=== PATIENT | female | born 1935 | race Caucasian/White ===

== ENCOUNTER 2017-09-01 16:34 | Inpatient (IN) | payer OTHER ==
[~2017-09-01] VITALS: Ht 157.5 cm; Wt 83.9 kg
[~2017-09-01 16:34] MED LIST: ATOR-26 PO; CETI10TA10 PO; DILT-213 PO; FURO40TA3 PO; GABA100C13 PO; GLIM4TAB2 PO; ISOS-10 PO; KETO2CRE14 TOP; LISI20TA3 PO; MAGN400T24 PO; METF1000 PO; METO-596 PO; NITR0.4S UT; OMEGCAP2 PO; OMEP20CA9 PO; ONDA4TAB7 SL; PROBCAP PO; TYLOTC500 PO
--- NOTE | 2017-09-01 17:03 | DIAGNOSTIC IMAGING REPORT ---
SINGLE VIEW CHEST CLINICAL HISTORY: Generalized weakness. FINDINGS: An AP, portable, upright chest radiograph is obtained. No prior studies are available for comparison at the time of dictation. The examination is degraded by portable technique and patient rotation. The patient is status post midline sternotomy. The heart is enlarged and there is atherosclerotic calcification of the thoracic aorta. The pulmonary vasculature is noncongested. Nonspecific interstitial thickening is likely chronic. No airspace consolidation or large pleural effusion is identified. No pneumothorax is seen. The skeletal structures are osteopenic. The bony thorax is grossly intact. IMPRESSION: Mild cardiac enlargement with no acute cardiopulmonary abnormality. Electronically signed by: Serge Adair M.D. 09/01/2017 5:02 PM Dictated Date/Time: 09/01/2017 5:01 PM
[2017-09-01] MEDS ORDERED: KETO2SHA5 TOP (18:04)
[2017-09-01] MEDS ORDERED: MAGN400T5 PO (18:06)
[2017-09-01] MEDS ORDERED: CAMPLOT10 TOP (18:06)
[2017-09-01] MEDS ORDERED: HYDR-3124 PO (18:06)
[2017-09-01 18:23] LABS: BASO % 0.2 %; BASO ABS # 0.01 K/uL (0-0.2); EOS % 1.4 %; EOS ABS # 0.07 K/uL (0-0.5); HEMATOCRIT 36.4 % (37-47); HEMOGLOBIN 12.1 g/dL (12.0-16.0); IG# 0.01 K/uL (0.00-0.02); LYMPH % 10.2 %; MEAN CORPUSCULAR HEMOGLOBIN 29.6 pg (25-34); MEAN CORPUSCULAR HGB CONC 33.2 g/dl (32-36); MEAN PLATELET VOLUME 10.7 fL (7.4-10.4); MONO % 13.3 %; MONO ABS # 0.65 K/uL (0.11-0.59); NEUT % 74.7 %; NEUT ABS # 3.64 K/uL (1.4-6.5); PLATELET COUNT 202 K/uL (130-400); RED CELL DISTRIBUTION WIDTH CV 14.3 % (11.5-14.5); RED CELL DISTRIBUTION WIDTH SD 46.7 fL (36.4-46.3); WHITE BLOOD COUNT 4.88 K/uL (4.8-10.8)
[2017-09-01 18:30] LABS: PTT PATIENT 26.6 SECONDS (21.0-31.0)
[2017-09-01 18:43] LABS: CREATININE 1.45 mg/dl (0.60-1.20); POTASSIUM 4.1 mmol/L (3.5-5.1)
[2017-09-01 18:54] LABS: TOTAL PROTEIN 6.9 gm/dl (6.4-8.2)
[2017-09-01] MEDS: HEPARIN SOD 5000 UNIT/0.5 ML CARP SQ SCH (21:00)
[2017-09-01 21:18] LABS: INFLUENZA B ANTIGEN Neg for Influ B (NEG)
[2017-09-01 21:22] VITALS: O2SAT 95; Ht 157.5 cm; Wt 83.9 kg
[2017-09-01] MEDS ORDERED: ACETAMINOPHEN 500 MG TAB PO PRN (21:30)
[2017-09-01] MEDS ORDERED: ONDANSETRON INJ 2 MG/ML 2 ML VIAL IV PRN (21:30)
[2017-09-01] MEDS ORDERED: NITROGLYCERIN 0.4 MG SL PER TAB CHARGE UT SCH (21:30)
[2017-09-01] MEDS ORDERED: hydrOXYzine HCL 25 MG TAB PO PRN (21:30)
[2017-09-01] MEDS ORDERED: IV FLUIDS COMPLETED PRN (21:45)
--- NOTE | 2017-09-01 21:58 | History and Physical ---
History & Physical Date & Time of Service: Sep 01, 2017 at 21:35 Chief Complaint: Weakness Past 3 Days,Sled out of bed this morning. Primary Care Physician: Moise Rashid M.D. History of Present Illness Source: patient, family (Son and [id number]) She is an 82-year-old female with significant past medical history of CAD type 2 diabetes chronic kidney disease adjustment disorder with depressed mood hypertension and hyperlipidemia and apparently has been complaining of weakness and tiredness since Tuesday last. She lives with her and her is having flu symptoms she does have cough and occasional sneezing but no other symptoms. For the last 2 days she has been complaining of more weakness. She usually walks around with the use of walker or a cane at times recently she can hardly do that due to weakness in the legs. This morning she tried to come out of bed and she is slated on the floor and from that point she was advised to come to the emergency room. She denies to have any flu symptoms and a cough any phlegm any chest pain shortness of breath palpitation. Does not have any abdominal pain nausea and/ or vomiting. Denies to any fever chills or riders. Does not have any problem with urine or bowel habit. In the ER she was very weak to move around and from this point she was advised for admission her labs and imaging studies were unremarkable. Past Medical/Surgical History Medical Problems: #1 CAD specified vessel #2 type 2 diabetes #3 chronic kidney disease stage III # 4 adjustment disorder with depressed mood #5 hyperlipidemia #6 hypertension #7 osteoarthritis (1) Ambulatory dysfunction (2) Knee pain (3) Knee pain (4) Sinusitis Past surgical history 1. Benign restless simulation excision #2 delivery #3 CABG 3 #4 appendectomy as a child Family History Social history she is and she lives with her She is a former smoker, smoked 1 pack per day for 20 years. No use of alcohol and no drugs She is ambivalent at home with the use of walker and a cane at times. Social History Smoking Status: Former Smoker Smokeless Tobacco Use: No Alcohol Use: none Drug Use: none Marital Status: Housing status: lives with family Occupational Status: unemployed Immunizations History of Influenza Vaccine: Yes History of Tetanus Vaccine?: Yes (2003) History of Pneumococcal: Yes (1997) History of Hepatitis B Vaccine: Unknown Other Immunizations: Varicella Zoster-05/17/2014 Allergies Coded Allergies: Aspirin (Verified Allergy, Severe, PEPTIC ULCER DISEASE WITH HEMMORAGE, 09/01/17) Codeine (Verified Allergy, Unknown, UNKNOWN, 09/01/17) Oxytetracycline (Unverified Allergy, Unknown, SEVERE SWELLING, 03/04/14) Polymyxin B (Unverified Allergy, Unknown, SEVERE SWELLING, 03/04/14) Home Medications Scheduled Atorvastatin (Lipitor), 80 MG PO DAILY Cetirizine Hcl (Zyrtec), 10 MG PO DAILY Diltiazem Hcl Coated Beads (Diltiazem Hcl Er), 120 MG PO DAILY Furosemide (Lasix), 40 MG PO DAILY Gabapentin (Neurontin), 200 MG PO BID Gabapentin (Neurontin), 400 MG PO HS Glimepiride (Glimepiride), 8 MG PO DAILY Isosorbide Mononitrate (Isosorbide Mononitrate ER), 60 MG PO DAILY Lisinopril (Prinivil), 20 MG PO DAILY Magnesium Oxide (Mag-Ox), 400 MG PO BID Metformin Hcl (Glucophage), 1,000 MG PO BID Metoprolol Tartrate (Lopressor), 100 MG PO BID Nitroglycerin (Nitrostat), 0.4 MG UT PRN [place]-3 Fatty Acids (Fish Oil), 1,000 MG PO TID Omeprazole (Prilosec), 20 MG PO BID Scheduled PRN Acetaminophen (Tylenol), 1,000 MG PO Q6 PRN for Pain or Fever Camphor & Menthol (Sarna), 1 APPLN TOP DAILY PRN for DRY SKIN Hydroxyzine Hcl (Atarax), 25 MG PO HS PRN for Itching Ketoconazole (Topical) (Nizoral), 1 APPLN TOP 2XWK PRN for UNDER BREAST Review of Systems Constitutional: + fatigue Respiratory: + cough Musculoskeletal: + muscle pain Neurologic: + weakness (Bilateral Legs) Endocrine: + fatigue Physical Exam Vital Signs Date Time Temp Pulse Resp B/P (MAP) Pulse Ox O2 Delivery O2 Flow Rate FiO2 09/01/17 20:54 74 24 139/72 95 Room Air 09/01/17 18:36 73 16 110/53 93 Room Air 09/01/17 17:59 72 09/01/17 17:46 74 24 121/58 95 Room Air 09/01/17 17:34 74 121/58 124/84 92/56 09/01/17 17:14 37.0 75 18 95/45 95 Room Air 09/01/17 17:14 96 Room Air General Appearance: no apparent distress Head: normocephalic Eyes: normal inspection ENT: normal ENT inspection Neck: supple Respiratory/Chest: chest non-tender, lungs clear Cardiovascular: regular rate, rhythm, no edema, no gallop Abdomen/GI: normal bowel sounds, non tender, soft, no organomegaly Genitourinary - Female: external genitalia normal Back: normal inspection Extremities/Musculoskelatal: normal inspection, no calf tenderness Neurologic/Psych: no motor/sensory deficits, alert, normal mood/affect Skin: normal color Lymphatic: no adenopathy Diagnostics Laboratory Results Results Past 24 Hours Test 09/01/17 17:24 09/01/17 17:28 09/01/17 18:08 09/01/17 20:15 Range/Units Bedside Glucose 151 70-90 mg/dl White Blood Count 4.88 4.8-10.8 K/uL Red Blood Count 4.09 4.2-5.4 M/uL Hemoglobin 12.1 12.0-16.0 g/dL Hematocrit 36.4 37-47 % Mean Corpuscular Volume 89.0 80-100 fL Mean Corpuscular Hemoglobin 29.6 25-34 pg Mean Corpuscular Hemoglobin Concent 33.2 32-36 g/dl Platelet Count 202 130-400 K/uL Mean Platelet Volume 10.7 7.4-10.4 fL Neutrophils (%) (Auto) 74.7 % Lymphocytes (%) (Auto) 10.2 % Monocytes (%) (Auto) 13.3 % Eosinophils (%) (Auto) 1.4 % Basophils (%) (Auto) 0.2 % Neutrophils # (Auto) 3.64 1.4-6.5 K/uL Lymphocytes # (Auto) 0.50 1.2-3.4 K/uL Monocytes # (Auto) 0.65 0.11-0.59 K/uL Eosinophils # (Auto) 0.07 0-0.5 K/uL Basophils # (Auto) 0.01 0-0.2 K/uL RDW Standard Deviation 46.7 36.4-46.3 fL RDW Coefficient of Variation 14.3 11.5-14.5 % Immature Granulocyte % (Auto) 0.2 % Immature Granulocyte # (Auto) 0.01 0.00-0.02 K/uL Prothrombin Time 10.2 9.0-12.0 SECONDS Prothromb Time International Ratio 1.0 0.9-1.1 Activated Partial Thromboplast Time 26.6 21.0-31.0 SECONDS Partial Thromboplastin Ratio 1.0 Sodium Level 139 136-145 mmol/L Potassium Level 4.1 3.5-5.1 mmol/L Chloride Level 107 98-107 mmol/L Carbon Dioxide Level 24 21-32 mmol/L Anion Gap 8.0 3-11 mmol/L Blood Urea Nitrogen 21 7-18 mg/dl Creatinine 1.45 0.60-1.20 mg/dl Est Creatinine Clear Calc Drug Dose 30.0 ml/min Estimated GFR () 38.8 Estimated GFR (Non- 33.5 BUN/Creatinine Ratio 14.6 10-20 Random Glucose 160 70-99 mg/dl Calcium Level 9.0 8.5-10.1 mg/dl Magnesium Level 1.8 1.8-2.4 mg/dl Total Bilirubin 0.6 0.2-1 mg/dl Direct Bilirubin 0.1 0-0.2 mg/dl Aspartate Amino Transf (AST/SGOT) 14 15-37 U/L Alanine Aminotransferase (ALT/SGPT) 15 12-78 U/L Alkaline Phosphatase 79 45-117 U/L Troponin I 0.019 0-0.045 ng/ml Pro-B-Type Natriuretic Peptide 2564 0-1800 pg/ml Total Protein 6.9 6.4-8.2 gm/dl Albumin 3.0 3.4-5.0 gm/dl Lipase 372 73-393 U/L Thyroid Stimulating Hormone (TSH) 1.510 0.300-4.500 uIu/ml Urine Color YELLOW Urine Appearance CLEAR CLEAR Urine pH 7.0 4.5-7.5 Urine Specific [place] 1.010 1.000-1.030 Urine Protein NEG NEG Urine Glucose (UA) NEG NEG Urine Ketones NEG NEG Urine Occult Blood NEG NEG Urine Nitrite NEG NEG Urine Bilirubin NEG NEG Urine Urobilinogen NEG NEG Urine Leukocyte Esterase NEG NEG Influenza Type A Antigen Neg for Influ A NEG Influenza Type B Antigen Neg for Influ B NEG CXR normal (Mild Cardiomegaly) EKG Abnormal-RBBB without any change compared with prior Impression Assessment and Plan AMBULATORY DYSFUNCTION Due to weakness in both legs without any other neurological symptoms Bryant out of bed this morning Has been complaining of weak legs for the last 2 days We will observation MedSurg with PT and OT evaluation and possible placement for rehab Her labs and imaging studies and EKG were unremarkable. CAD with history of CABG 3. No acute issue. We will continue current medications. CHRONIC KIDNEY DISEASE STAGE III BUN and creatinine is normal We will not make any change in her medications and/or fluid level. Type 2 diabetes We will hold metformin and check hemoglobin A1c in the morning. Put her on sliding scale insulin coverage with before meals at bedtime blood sugar checkup. Hypertension Remains stable and continue current medication. Hyperlipidemia Continue statin. GI prophylaxis With omeprazole DVT prophylaxis With heparin subcu CODE STATUS-level 3 that is resuscitation without mechanical ventilation. The beneficiary meets criteria for 2 midnight admission in the hospital. Resuscitation Status VTE Prophylaxis Will order VTE Prophylaxis: Yes
[2017-09-01] MEDS ORDERED: DEXTROSE 50% 50 ML SYR IV PRN (22:15)
[2017-09-01] MEDS ORDERED: GLUCAGON FOR INJ 1 MG VIAL SQ PRN (22:15)
[2017-09-01] MEDS ORDERED: GLUCOSE 40% GEL 15 GM TUBE PO PRN (22:15)
[2017-09-01] MEDS ORDERED: GLUCOSE 10 TABS/TUBE PO PRN (22:15)
[2017-09-01 22:26] VITALS: BP 117/69; PULSE 78; TEMP 37; O2SAT 98
--- NOTE | 2017-09-01 22:29 | EMERGENCY ROOM VISIT NOTE ---
History Report prepared by Feliz: Xavier Gonzalez Under the Supervision of: Dr. Johnathan Ruiz D.O. First contact with patient: 16:36 Chief Complaint: WEAKNESS Stated Complaint: WEAKNESS PAST 3 DAYS History of Present Illness The patient is an 82 year old female who presents to the Emergency Room via EMS with complaints of worsening generalized weakness that started 3 days ago. Per the nursing staff, the patient became nonambulatory today. She is coming from home. The patient states that he extremities "kept jumping" last night, and when she tried to get out of bed this morning, she was unable to walk because her legs were too weak. She has no pain at this point. Twitching has resolved. The patient states that she has a chronic cough and runny nose, but her cough has became productive recently. She has no noted history of COPD. The patient says that she chronically has diarrhea, and her last bowel movement was a few days ago, which is not unusual for her. She denies any chest pain, shortness of breath, abdominal pain, nausea, vomiting, pain or burning with urination, or unilateral weakness. She adds that she did fall today trying to get out of bed. Source of History: patient, nursing staff Onset: 3 days ago Position: other (global) Symptom Intensity: unable to walk Quality: other (weakness) Timing: worsening Associated Symptoms: + cough (has become productive), No chest pain, No SOB , No nausea, No vomiting, No abdominal pain, No urinary symptoms Note: Denies unilateral weakness. Review of Systems See HPI for pertinent positives & negatives. A total of 10 systems reviewed and were otherwise negative. Past Medical & Surgical Medical Problems: (1) Ambulatory dysfunction (2) Sinusitis Family History Family history omitted secondary to patient's advanced age. Social History Smoking Status: Unknown if Ever Smoked Drug Use: none Marital Status: Housing Status: lives with family Occupation Status: retired Current/Historical Medications Scheduled Atorvastatin (Lipitor), 80 MG PO DAILY Cetirizine Hcl (Zyrtec), 10 MG PO DAILY Diltiazem Hcl Coated Beads (Diltiazem Hcl Er), 120 MG PO DAILY Furosemide (Lasix), 40 MG PO DAILY Gabapentin (Neurontin), 200 MG PO BID Gabapentin (Neurontin), 400 MG PO HS Glimepiride (Glimepiride), 8 MG PO DAILY Isosorbide Mononitrate (Isosorbide Mononitrate ER), 60 MG PO DAILY Lisinopril (Prinivil), 20 MG PO DAILY Magnesium Oxide (Mag-Ox), 400 MG PO BID Metformin Hcl (Glucophage), 1,000 MG PO BID Metoprolol Tartrate (Lopressor), 100 MG PO BID Nitroglycerin (Nitrostat), 0.4 MG UT PRN [place]-3 Fatty Acids (Fish Oil), 1,000 MG PO TID Omeprazole (Prilosec), 20 MG PO BID Scheduled PRN Acetaminophen (Tylenol), 1,000 MG PO Q6 PRN for Pain or Fever Camphor & Menthol (Sarna), 1 APPLN TOP DAILY PRN for DRY SKIN Hydroxyzine Hcl (Atarax), 25 MG PO HS PRN for Itching Ketoconazole (Topical) (Nizoral), 1 APPLN TOP 2XWK PRN for UNDER BREAST Allergies Coded Allergies: Aspirin (Verified Allergy, Severe, PEPTIC ULCER DISEASE WITH HEMMORAGE, 09/01/17) Codeine (Verified Allergy, Unknown, UNKNOWN, 09/01/17) Oxytetracycline (Unverified Allergy, Unknown, SEVERE SWELLING, 03/04/14) Polymyxin B (Unverified Allergy, Unknown, SEVERE SWELLING, 03/04/14) Physical Exam Vital Signs Date Time Temp Pulse Resp B/P (MAP) Pulse Ox O2 Delivery O2 Flow Rate FiO2 09/01/17 21:22 95 Room Air 09/01/17 20:54 74 24 139/72 95 Room Air 09/01/17 18:36 73 16 110/53 93 Room Air 09/01/17 17:59 72 09/01/17 17:46 74 24 121/58 95 Room Air 09/01/17 17:34 74 121/58 124/84 92/56 09/01/17 17:14 37.0 75 18 95/45 95 Room Air 09/01/17 17:14 96 Room Air Physical Exam GENERAL: Ill-appearing, no acute distress, nontoxic EYE EXAM: normal conjunctiva. PERRL and EOM's intact. OROPHARYNX: no exudate, no erythema, lips, buccal mucosa, and tongue normal and mucous membranes are moist NECK: supple, no nuchal rigidity, no adenopathy, non-tender LUNGS: Clear to auscultation. Normal chest wall mechanics HEART: no murmurs, S1 normal and S2 normal ABDOMEN: abdomen soft, non-tender, normo-active bowel sounds, no masses, no rebound or guarding. BACK: Back is symmetrical on inspection and there is no deformity, no midline tenderness, no CVA tenderness. SKIN: no rashes and no bruising UPPER EXTREMITIES: upper extremities are grossly normal. LOWER EXTREMITIES: No pitting edema. NEURO EXAM: Normal sensorium, cranial nerves II-XII intact, normal speech, no weakness of arms, no weakness of legs. No drift. Finger to nose intact. Gross sensation intact. Medical Decision & Procedures ER Provider Diagnostic Interpretation: X-ray results as stated below per my review and the radiologist's interpretation : SINGLE VIEW CHEST CLINICAL HISTORY: Generalized weakness. FINDINGS: An AP, portable, upright chest radiograph is obtained. No prior studies are available for comparison at the time of dictation. The examination is degraded by portable technique and patient rotation. The patient is status post midline sternotomy. The heart is enlarged and there is atherosclerotic calcification of the thoracic aorta. The pulmonary vasculature is noncongested. Nonspecific interstitial thickening is likely chronic. No airspace consolidation or large pleural effusion is identified. No pneumothorax is seen. The skeletal structures are osteopenic. The bony thorax is grossly intact. IMPRESSION: Mild cardiac enlargement with no acute cardiopulmonary abnormality. Electronically signed by: Serge Adair M.D. 09/01/2017 5:02 PM Dictated Date/Time: 09/01/2017 5:01 PM Laboratory Results 09/01/17 17:28 Red Blood Count 4.09, Mean Corpuscular Volume 89.0, Mean Corpuscular Hemoglobin 29.6, Mean Corpuscular Hemoglobin Concent 33.2, Mean Platelet Volume 10.7, Neutrophils (%) (Auto) 74.7, Lymphocytes (%) (Auto) 10.2, Monocytes (%) (Auto) 13.3, Eosinophils (%) (Auto) 1.4, Basophils (%) (Auto) 0.2, Neutrophils # (Auto ) 3.64, Lymphocytes # (Auto) 0.50, Monocytes # (Auto) 0.65, Eosinophils # (Auto ) 0.07, Basophils # (Auto) 0.01 09/01/17 17:28 Test 09/01/17 17:24 09/01/17 17:28 4/5/18 18:08 09/01/17 20:15 Bedside Glucose 151 mg/dl (70-90) White Blood Count 4.88 K/uL (4.8-10.8) Red Blood Count 4.09 M/uL (4.2-5.4) Hemoglobin 12.1 g/dL (12.0-16.0) Hematocrit 36.4 % (37-47) Mean Corpuscular Volume 89.0 fL (80-100) Mean Corpuscular Hemoglobin 29.6 pg (25-34) Mean Corpuscular Hemoglobin Concent 33.2 g/dl (32-36) Platelet Count 202 K/uL (130-400) Mean Platelet Volume 10.7 fL (7.4-10.4) Neutrophils (%) (Auto) 74.7 % Lymphocytes (%) (Auto) 10.2 % Monocytes (%) (Auto) 13.3 % Eosinophils (%) (Auto) 1.4 % Basophils (%) (Auto) 0.2 % Neutrophils # (Auto) 3.64 K/uL (1.4-6.5) Lymphocytes # (Auto) 0.50 K/uL (1.2-3.4) Monocytes # (Auto) 0.65 K/uL (0.11-0.59) Eosinophils # (Auto) 0.07 K/uL (0-0.5) Basophils # (Auto) 0.01 K/uL (0-0.2) RDW Standard Deviation 46.7 fL (36.4-46.3) RDW Coefficient of Variation 14.3 % (11.5-14.5) Immature Granulocyte % (Auto) 0.2 % Immature Granulocyte # (Auto) 0.01 K/uL (0.00-0.02) Prothrombin Time 10.2 SECONDS (9.0-12.0) Prothromb Time International Ratio 1.0 (0.9-1.1) Activated Partial Thromboplast Time 26.6 SECONDS (21.0-31.0) Partial Thromboplastin Ratio 1.0 Anion Gap 8.0 mmol/L (3-11) Est Creatinine Clear Calc Drug Dose 30.0 ml/min Estimated GFR () 38.8 Estimated GFR (Non- 33.5 BUN/Creatinine Ratio 14.6 (10-20) Calcium Level 9.0 mg/dl (8.5-10.1) Magnesium Level 1.8 mg/dl (1.8-2.4) Total Bilirubin 0.6 mg/dl (0.2-1) Direct Bilirubin 0.1 mg/dl (0-0.2) Aspartate Amino Transf (AST/SGOT) 14 U/L (15-37) Alanine Aminotransferase (ALT/SGPT) 15 U/L (12-78) Alkaline Phosphatase 79 U/L (45-117) Troponin I 0.019 ng/ml (0-0.045) Pro-B-Type Natriuretic Peptide 2564 pg/ml (0-1800) Total Protein 6.9 gm/dl (6.4-8.2) Albumin 3.0 gm/dl (3.4-5.0) Lipase 372 U/L (73-393) Thyroid Stimulating Hormone (TSH) 1.510 uIu/ml (0.300-4.500) Urine Color YELLOW Urine Appearance CLEAR (CLEAR) Urine pH 7.0 (4.5-7.5) Urine Specific [place] 1.010 (1.000-1.030) Urine Protein NEG (NEG) Urine Glucose (UA) NEG (NEG) Urine Ketones NEG (NEG) Urine Occult Blood NEG (NEG) Urine Nitrite NEG (NEG) Urine Bilirubin NEG (NEG) Urine Urobilinogen NEG (NEG) Urine Leukocyte Esterase NEG (NEG) Influenza Type A Antigen Neg for Influ A (NEG) Influenza Type B Antigen Neg for Influ B (NEG) Laboratory results per my review. ECG Per My Interpretation Indication: weakness Rate (beats per minute): 73 Rhythm: sinus rhythm Findings: Q waves (Inferior), ST depression (Septal), T-wave inversion (Septal) , other (normal axis, poor baseline in lateral) Comparison ECG Date: no prior available ED Course ED COURSE: Vital signs were reviewed and showed normal vitals. The patients medical record was reviewed The above diagnostic studies were performed and reviewed. ED treatments and interventions as stated above. 1636: The patient was evaluated in room B12B. A complete history and physical examination was performed. 1922: I reevaluated and updated the patient. 2054: Upon reevaluation, the patient is resting comfortably.I discussed my findings with the patient and she understands and agrees with the treatment plan. Based on the patients age, coexisting illnesses, exam and lab findings the decision to treat as an inpatient was made. The patient remained stable while under my care. The patient will be evaluated for further management. 2057: I reviewed the patient's case with Dr. Delia Tony hides inspector. He will evaluate the patient for further management. Medical Decision Differential Diagnosis includes but is not limited to dehydration, stroke, anemia, hypoglycemia, hyponatremia, hypernatremia, urinary tract infection, pneumonia, bronchitis, sepsis, gastroenteritis, additional abdominal pathology, metabolic abnormalities and infections. Patient is an 82-year-old female that presents the ER as she is feeling weak. She was unable to get up and she fell to her knees. She did not hit her head. No loss consciousness. She has no other complaints with the exception that she has twitching in her extremities intermittently and is unable to ambulate as she is too weak. She also admits to cough. CBC along with BMP, LFTs, TSH, lipase, troponin were all negative. UA was negative. Influenza was negative. Chest x-ray was unremarkable. Attempted to have patient ambulate in the room twice with a walker but was unsuccessful. Patient lives at home with in a trailer and family does not believe that she can go home. She would need PT and OT placement. Discussed with internal medicine for observation. Medication Reconcilliation Current Medication List: was personally reviewed by me Blood Pressure Screening Patient's blood pressure: Normal blood pressure Consults Time Called: 2054 Consulting Physician: Dr. Delia Tony hides inspector Returned Call: [phone] I reviewed the patient's case with Dr. Delia Tony hides inspector. He will evaluate the patient for further management. Impression Primary Impression: Ambulatory dysfunction Scribe Attestation The scribe's documentation has been prepared under my direction and personally reviewed by me in its entirety. I confirm that the note above accurately reflects all work, treatment, procedures, and medical decision making performed by me. Departure Information Dispostion Being Evaluated By Hospitalist Moise Latham M.D. (PCP) Patient Instructions My [facility]
[2017-09-02] VITALS (8 sets, daily range): BP systolic 100–124; BP diastolic 63–74; PULSE 71–89; TEMP 36.8–36.9; O2SAT 89–98
[2017-09-02 06:47] LABS: HEMATOCRIT 36.7 % (37-47); HEMOGLOBIN 12.4 g/dL (12.0-16.0); MEAN CELL VOLUME 88.2 fL (80-100); MEAN CORPUSCULAR HEMOGLOBIN 29.8 pg (25-34); MEAN CORPUSCULAR HGB CONC 33.8 g/dl (32-36); MEAN PLATELET VOLUME 10.4 fL (7.4-10.4); PLATELET COUNT 189 K/uL (130-400); RED CELL DISTRIBUTION WIDTH CV 14.7 % (11.5-14.5); RED CELL DISTRIBUTION WIDTH SD 47.5 fL (36.4-46.3); WHITE BLOOD COUNT 4.99 K/uL (4.8-10.8)
[2017-09-02 07:21] LABS: CALCIUM 8.7 mg/dl (8.5-10.1); CREATININE 1.42 mg/dl (0.60-1.20); POTASSIUM 3.9 mmol/L (3.5-5.1)
[2017-09-02] MEDS ORDERED: ISOSORBIDE MONONITRATE 60 MG TABCR PO SCH (08:00)
[2017-09-02] MEDS ORDERED: GLIMEPIRIDE 2 MG TAB PO SCH (08:00)
[2017-09-02] MEDS ORDERED: ATORVASTATIN 40 MG TAB PO SCH (08:00)
[2017-09-02] MEDS ORDERED: FUROSEMIDE 40 MG TAB PO SCH (08:00)
[2017-09-02] MEDS ORDERED: LISINOPRIL 20 MG TAB PO SCH (08:00)
[2017-09-02] MEDS: MAGNESIUM OXIDE 400 MG TAB PO SCH ×2 (08:51→19:52)
[2017-09-02] MEDS: PANTOprazole SOD 40 MG TAB PO SCH ×2 (08:51→19:53)
[2017-09-02] MEDS: DILTIAZEM HCL 120 MG CAPCR PO SCH (08:52)
[2017-09-02] MEDS: GABAPENTIN 100 MG CAP PO SCH ×2 (08:52→14:29)
[2017-09-02] MEDS: CETIRIZINE HCL 10 MG TAB PO SCH (08:53)
[2017-09-02] MEDS: METOPROLOL TARTRATE 100 MG TAB PO SCH ×2 (08:54→19:53)
[2017-09-02] MEDS: HEPARIN SOD 5000 UNIT/0.5 ML CARP SQ SCH ×2 (09:00→20:17)
[2017-09-02] MEDS: INSULIN ASPART 100 UNITS/ML 3 ML PEN SC SCH ×4 (09:02→21:00)
[2017-09-02 09:09] LABS: HEMOGLOBIN A1C 7.4 % (4.5-5.6)
--- NOTE | 2017-09-02 09:17 | Progress Note ---
Medicine Progress Note Date & Time of Visit: Sep 02, 2017 at 09:09. Subjective seen resting in bed alert, oriented x 3 in good spirits reports progressive leg weakness x 2 weeks also has uncontrolled shaking of the lower>upper extremities denies muscle cramping no numbness, paresthesias no dizziness, dyspnea, chest pain, abdominal pain, back pain Objective Last 8 Hrs Date Time Temp Pulse Resp B/P (MAP) Pulse Ox O2 Delivery O2 Flow Rate FiO2 09/02/17 09:08 98 Nasal Cannula 2.0 09/02/17 07:41 36.8 83 18 110/72 (85) 98 Nasal Cannula 2.0 09/02/17 06:01 95 Nasal Cannula 2.0 09/02/17 06:00 89 Room Air 09/02/17 01:11 Room Air Physical Exam: General- oriented x 3, not in distress, speaks in sentences with no effort Head- atraumatic Eyes- PERRL, EOMI, anicteric ENT- oropharynx clear Neck- supple, no JVD, no adenopathy, no thyromegaly; carotids +2/2 Lungs- faint wheeze at the bases, good air entry bilaterally Heart- regular rhythm; no murmur, normal rate Abdomen- normal bowel sounds, soft, nontender, no masses or hepatosplenomegaly Extremities- no pretibial edema, no calf tenderness; peripheral pulses intact Neuro- alert, oriented x 3; PERRL, EOMI; no facial palsy; no dysarthria; motor 5 /5 bilaterally; sensation 100% no other gross focal deficits Skin- warm & dry Laboratory Results: Last 24 Hours Test 09/01/17 17:24 09/01/17 17:28 09/01/17 18:08 09/01/17 20:15 Bedside Glucose 151 mg/dl White Blood Count 4.88 K/uL Red Blood Count 4.09 M/uL Hemoglobin 12.1 g/dL Hematocrit 36.4 % Mean Corpuscular Volume 89.0 fL Mean Corpuscular Hemoglobin 29.6 pg Mean Corpuscular Hemoglobin Concent 33.2 g/dl Platelet Count 202 K/uL Mean Platelet Volume 10.7 fL Neutrophils (%) (Auto) 74.7 % Lymphocytes (%) (Auto) 10.2 % Monocytes (%) (Auto) 13.3 % Eosinophils (%) (Auto) 1.4 % Basophils (%) (Auto) 0.2 % Neutrophils # (Auto) 3.64 K/uL Lymphocytes # (Auto) 0.50 K/uL Monocytes # (Auto) 0.65 K/uL Eosinophils # (Auto) 0.07 K/uL Basophils # (Auto) 0.01 K/uL RDW Standard Deviation 46.7 fL RDW Coefficient of Variation 14.3 % Immature Granulocyte % (Auto) 0.2 % Immature Granulocyte # (Auto) 0.01 K/uL Prothrombin Time 10.2 SECONDS Prothromb Time International Ratio 1.0 Activated Partial Thromboplast Time 26.6 SECONDS Partial Thromboplastin Ratio 1.0 Sodium Level 139 mmol/L Potassium Level 4.1 mmol/L Chloride Level 107 mmol/L Carbon Dioxide Level 24 mmol/L Anion Gap 8.0 mmol/L Blood Urea Nitrogen 21 mg/dl Creatinine 1.45 mg/dl Est Creatinine Clear Calc Drug Dose 30.0 ml/min Estimated GFR () 38.8 Estimated GFR (Non- 33.5 BUN/Creatinine Ratio 14.6 Random Glucose 160 mg/dl Calcium Level 9.0 mg/dl Magnesium Level 1.8 mg/dl Total Bilirubin 0.6 mg/dl Direct Bilirubin 0.1 mg/dl Aspartate Amino Transf (AST/SGOT) 14 U/L Alanine Aminotransferase (ALT/SGPT) 15 U/L Alkaline Phosphatase 79 U/L Troponin I 0.019 ng/ml Pro-B-Type Natriuretic Peptide 2564 pg/ml Total Protein 6.9 gm/dl Albumin 3.0 gm/dl Lipase 372 U/L Thyroid Stimulating Hormone (TSH) 1.510 uIu/ml Urine Color YELLOW Urine Appearance CLEAR Urine pH 7.0 Urine Specific [place] 1.010 Urine Protein NEG Urine Glucose (UA) NEG Urine Ketones NEG Urine Occult Blood NEG Urine Nitrite NEG Urine Bilirubin NEG Urine Urobilinogen NEG Urine Leukocyte Esterase NEG Influenza Type A Antigen Neg for Influ A Influenza Type B Antigen Neg for Influ B Test 09/02/17 05:49 09/02/17 08:59 White Blood Count 4.99 K/uL Red Blood Count 4.16 M/uL Hemoglobin 12.4 g/dL Hematocrit 36.7 % Mean Corpuscular Volume 88.2 fL Mean Corpuscular Hemoglobin 29.8 pg Mean Corpuscular Hemoglobin Concent 33.8 g/dl RDW Standard Deviation 47.5 fL RDW Coefficient of Variation 14.7 % Platelet Count 189 K/uL Mean Platelet Volume 10.4 fL Sodium Level 139 mmol/L Potassium Level 3.9 mmol/L Chloride Level 107 mmol/L Carbon Dioxide Level 24 mmol/L Anion Gap 8.0 mmol/L Blood Urea Nitrogen 26 mg/dl Creatinine 1.42 mg/dl Est Creatinine Clear Calc Drug Dose 30.7 ml/min Estimated GFR () 39.8 Estimated GFR (Non- 34.3 BUN/Creatinine Ratio 18.1 Random Glucose 137 mg/dl Calcium Level 8.7 mg/dl Magnesium Level 1.8 mg/dl Total Creatine Kinase 150 U/L Bedside Glucose 186 mg/dl Assessment & Plan 82 year old female with history of CAD/CABG, DM 2, HTN, CKD 3, Depression presenting with bilateral leg weakness, shaking BILATERAL LEG WEAKNESS/SHAKING AMBULATORY DYSFUNCTION Her labs and imaging studies and EKG were unremarkable. -- from High Dose statin? CPK normal hold Atorvastatin for now -- from marginal BP? hold ISMN, Lisinopril, Lasix for today check Orthostatic Vital signs -- Restless Legs? Neuropathy? will consult Neurology -- PT/OT may need inpatient Rehab/SNF CAD with history of CABG 3. No acute issue. continue Metoprolol, Dilzem hold Lipitor, ISMN, LIsinopril ACUTE RENAL FAILURE on CHRONIC KIDNEY DISEASE STAGE III baseline crea 1.2 now 1.4 hold lasix and Lisinopril today monitor Type 2 diabetes A1c pending hold Metformin and Glimepiride with increased crea sliding scale insulin coverage with before meals at bedtime blood sugar checkup. Hypertension marginal BP hold ISMN, Lisinopril, Lasix for today check Orthostatic Vital signs Hyperlipidemia hold Statin in light of muscle weakness GI prophylaxis With omeprazole DVT prophylaxis With heparin subcu CODE STATUS-level 3 that is resuscitation without mechanical ventilation. Disposition PT/OT ordered may need rehab/SNF Current Inpatient Medications: Current Inpatient Medications Medications (Trade) Dose Ordered Sig/[place] Route Start Time Stop Time Status Last Admin Dose Admin Acetaminophen (Tylenol Tab) 650 mg Q4H PRN PO 09/01/17 21:30 10/01/17 21:29 Ondansetron HCl (Zofran Inj) 4 mg Q6H PRN IV 09/01/17 21:30 10/01/17 21:29 Heparin Sodium (Porcine) (Heparin Sq 5000 Unit/0.5ml) 5,000 unit Q12H SQ 09/01/17 21:00 10/01/17 20:59 Atorvastatin Calcium (Lipitor Tab) 80 mg DAILY PO 09/02/17 08:00 10/02/17 08:59 Cetirizine HCl (zyrTEC TAB) 10 mg DAILY PO 09/02/17 08:00 10/02/17 08:59 09/02/17 08:53 10 MG Diltiazem HCl (Cardizem Cd Cap) 120 mg DAILY PO 09/02/17 08:00 10/02/17 08:59 09/02/17 08:52 120 MG Gabapentin (Neurontin Cap) 200 mg BID@0800,1400 PO 09/02/17 08:00 10/02/17 07:59 09/02/17 08:52 200 MG Gabapentin (Neurontin Cap) 400 mg HS PO 09/02/17 21:00 10/02/17 20:59 Hydroxyzine HCl (Vistaril Tab) 25 mg HS PRN PO 09/01/17 21:30 10/01/17 21:29 Magnesium Oxide (Mag-Ox Tab) 400 mg BID PO 09/02/17 08:00 10/02/17 08:59 09/02/17 08:51 400 MG Metoprolol Tartrate (Lopressor Tab) 100 mg BID PO 09/02/17 08:00 10/02/17 08:59 09/02/17 08:54 100 MG Nitroglycerin (Nitrostat Tab) 0.4 mg PRN UT 09/01/17 21:30 10/01/17 21:29 Pantoprazole Sodium (Protonix Tab) 40 mg BID PO 09/02/17 08:00 10/02/17 08:59 09/02/17 08:51 40 MG Insulin Aspart (novoLOG ASPART) SLIDING SCALE G... ACHS SC 09/02/17 06:30 10/02/17 06:59 09/02/17 09:02 2 UNITS Miscellaneous (Iv Fluids Completed) 1 ea PRN PRN N/A 09/01/17 21:45 09/01/18 21:44 Glucose (Glucose 40% Gel) 15-30 GRAMS 15 GRAMS... UD PRN PO 09/01/17 22:15 10/01/17 22:14 Glucose (Glucose Chew Tab) 4-8 Tablets 4 Tabl... UD PRN PO 09/01/17 22:15 10/01/17 22:14 Dextrose (Dextrose 50% 50ML Syringe) 25-50ML OF 50% DW IV FOR... UD PRN IV 09/01/17 22:15 10/01/17 22:14 Glucagon (Glucagon Inj) 1 mg UD PRN SQ 09/01/17 22:15 10/01/17 22:14
[2017-09-02] MEDS ORDERED: NURSING VERBAL MED ORDER ONE (09:30)
--- NOTE | 2017-09-02 12:04 | Neurology Consultation ---
Neurology Consultation Date of Consultation: Sep 02, 2017. Attending Physician: Zachariah Montana MD Primary Care Physician: Moise Rashid M.D. Reason for Consultation: bilateral leg weakness and shaking History of Present Illness Source: patient Carolyne is an 82-year-old female PMH of CAD, DM2, CKD, adjustment disorder with depressed mood, HTN, DL. She presented with LE weakness she states started 3 days ago. Her had the flu but she was not effected. 2 days ago she had increased weakness and she had some shaking in her arms and legs. She usually walks around with the use of walker or a cane at times recently she can hardly do that due to weakness in the legs. She tried to get out of bed and she ended up on the floor after knock over her night stand. EMS was called. She states she has not been eating much but states she has been drinking green tea. She is always weak but the weakness she has had is more than what she usually deals with. She has been falling alot lately once at her granddaughters and someone was called to help her up and then again at home prior to the fall that brought her into the ED. she states she is feeling better now and was able to walk to the bathroom on her own with minimal assistance. denies CP, SOB, abdominal pain , bowel or bladder issues, N,V,D, +lower back pain. Social History Smokeless Tobacco Use: No Alcohol Use: none Drug Use: none Marital Status: Housing Status: lives with family Occupation Status: retired Allergies Coded Allergies: Aspirin (Verified Allergy, Severe, PEPTIC ULCER DISEASE WITH HEMMORAGE, 09/01/17) Codeine (Verified Allergy, Unknown, UNKNOWN, 09/01/17) Oxytetracycline (Unverified Allergy, Unknown, SEVERE SWELLING, 03/04/14) Polymyxin B (Unverified Allergy, Unknown, SEVERE SWELLING, 03/04/14) Current Inpatient Medications Current Inpatient Medications Medications (Trade) Dose Ordered Sig/[place] Route Start Time Stop Time Status Last Admin Dose Admin Acetaminophen (Tylenol Tab) 650 mg Q4H PRN PO 09/01/17 21:30 10/01/17 21:29 Ondansetron HCl (Zofran Inj) 4 mg Q6H PRN IV 09/01/17 21:30 10/01/17 21:29 Heparin Sodium (Porcine) (Heparin Sq 5000 Unit/0.5ml) 5,000 unit Q12H SQ 09/01/17 21:00 10/01/17 20:59 Atorvastatin Calcium (Lipitor Tab) 80 mg DAILY PO 09/02/17 08:00 10/02/17 08:59 Future Hold Cetirizine HCl (zyrTEC TAB) 10 mg DAILY PO 09/02/17 08:00 10/02/17 08:59 09/02/17 08:53 10 MG Diltiazem HCl (Cardizem Cd Cap) 120 mg DAILY PO 09/02/17 08:00 10/02/17 08:59 09/02/17 08:52 120 MG Gabapentin (Neurontin Cap) 200 mg BID@0800,1400 PO 09/02/17 08:00 10/02/17 07:59 09/02/17 08:52 200 MG Gabapentin (Neurontin Cap) 400 mg HS PO 09/02/17 21:00 10/02/17 20:59 Hydroxyzine HCl (Vistaril Tab) 25 mg HS PRN PO 09/01/17 21:30 10/01/17 21:29 Magnesium Oxide (Mag-Ox Tab) 400 mg BID PO 09/02/17 08:00 10/02/17 08:59 09/02/17 08:51 400 MG Metoprolol Tartrate (Lopressor Tab) 100 mg BID PO 09/02/17 08:00 10/02/17 08:59 09/02/17 08:54 100 MG Nitroglycerin (Nitrostat Tab) 0.4 mg PRN UT 09/01/17 21:30 10/01/17 21:29 Pantoprazole Sodium (Protonix Tab) 40 mg BID PO 09/02/17 08:00 10/02/17 08:59 09/02/17 08:51 40 MG Insulin Aspart (novoLOG ASPART) SLIDING SCALE G... ACHS SC 09/02/17 06:30 10/02/17 06:59 09/02/17 09:02 2 UNITS Miscellaneous (Iv Fluids Completed) 1 ea PRN PRN N/A 09/01/17 21:45 09/01/18 21:44 Glucose (Glucose 40% Gel) 15-30 GRAMS 15 GRAMS... UD PRN PO 09/01/17 22:15 10/01/17 22:14 Glucose (Glucose Chew Tab) 4-8 Tablets 4 Tabl... UD PRN PO 09/01/17 22:15 10/01/17 22:14 Dextrose (Dextrose 50% 50ML Syringe) 25-50ML OF 50% DW IV FOR... UD PRN IV 09/01/17 22:15 10/01/17 22:14 Glucagon (Glucagon Inj) 1 mg UD PRN SQ 09/01/17 22:15 10/01/17 22:14 Physical Exam Vital Signs (Past 24 Hrs): Date Time Temp Pulse Resp B/P (MAP) Pulse Ox O2 Delivery O2 Flow Rate FiO2 09/02/17 11:04 96 Room Air 09/02/17 09:30 81 111/71 (84) 85 111/66 (81) 89 100/63 (75) 09/02/17 09:08 98 Nasal Cannula 2.0 09/02/17 09:00 Room Air 09/02/17 07:41 36.8 83 18 110/72 (85) 98 Nasal Cannula 2.0 09/02/17 06:01 95 Nasal Cannula 2.0 09/02/17 06:00 89 Room Air 09/02/17 01:11 Room Air 09/01/17 22:26 37.0 78 12 117/69 (85) 98 Room Air 09/01/17 21:58 65 20 118/57 98 Room Air 09/01/17 21:22 95 Room Air 09/01/17 20:54 74 24 139/72 95 Room Air 09/01/17 18:36 73 16 110/53 93 Room Air 09/01/17 17:59 72 09/01/17 17:46 74 24 121/58 95 Room Air 09/01/17 17:34 74 121/58 124/84 92/56 09/01/17 17:14 37.0 75 18 95/45 95 Room Air 09/01/17 17:14 96 Room Air Physical Exam: Constitutional: appearance nourished, healthy and normal Ears, Nose, Mouth and Throat: mucous membranes moist, no injection and skin normal, eyes normal Cardiovascular: normal S-1 and S-2 and regular rate and rhythm Respiratory: clear to auscultation (CTA) and no rales, rhonchi or wheeze Musculoskeletal: no peripheral edema and good distal pulses Skin: no stigmata of neurocutaneous disease noted and normal and intact Eyes: extraocular muscles intact (EOMI) and pupils equal, round and reactive to light (PERRL) NEUROLOGIC EXAMINATION: Mental status: Alert and interactive Oriented to full date and location Oriented to person Speech fluent with no evidence of aphasia Cranial Nerves Normal findings for Cranial Nerves II - XII Reflexes: Deep tendon reflexes were symmetrical and graded 2/5 UE, decreased LE Plantar neutral. no clonus Sensory: vibration decreased from mid camara to toes bilaterally, GT proprioception intact bilaterally, cool touch intact Coordination: finger to nose with no bipass, minimal reaching tremor bilaterally, slight tremor with outstretched legs bilaterally Gait/Stance: Posture sitting bedside chair Motor: Negative for pronator drift of out stretched arms with eyes closed. Strength: biceps triceps hand herb grower 5/5 bilaterally, hip flex patellar flex ext plantar flex ext 5/5 bilaterally Laboratory Results Past 24 Hours: 09/02/17 05:49 09/02/17 05:49 Test 09/01/17 17:28 09/01/17 18:08 09/01/17 20:15 09/02/17 05:49 Immature Granulocyte % (Auto) 0.2 % White Blood Count 4.88 K/uL (4.8-10.8) Red Blood Count 4.09 M/uL (4.2-5.4) 4.16 M/uL (4.2-5.4) Hemoglobin 12.1 g/dL (12.0-16.0) Hematocrit 36.4 % (37-47) Mean Corpuscular Volume 89.0 fL (80-100) 88.2 fL (80-100) Mean Corpuscular Hemoglobin 29.6 pg (25-34) 29.8 pg (25-34) Mean Corpuscular Hemoglobin Concent 33.2 g/dl (32-36) 33.8 g/dl (32-36) Platelet Count 202 K/uL (130-400) Mean Platelet Volume 10.7 fL (7.4-10.4) 10.4 fL (7.4-10.4) Neutrophils (%) (Auto) 74.7 % Lymphocytes (%) (Auto) 10.2 % Monocytes (%) (Auto) 13.3 % Eosinophils (%) (Auto) 1.4 % Basophils (%) (Auto) 0.2 % Neutrophils # (Auto) 3.64 K/uL (1.4-6.5) Lymphocytes # (Auto) 0.50 K/uL (1.2-3.4) Monocytes # (Auto) 0.65 K/uL (0.11-0.59) Eosinophils # (Auto) 0.07 K/uL (0-0.5) Basophils # (Auto) 0.01 K/uL (0-0.2) Immature Granulocyte # (Auto) 0.01 K/uL (0.00-0.02) Prothrombin Time 10.2 SECONDS (9.0-12.0) Prothromb Time International Ratio 1.0 (0.9-1.1) Activated Partial Thromboplast Time 26.6 SECONDS (21.0-31.0) Partial Thromboplastin Ratio 1.0 Total Bilirubin 0.6 mg/dl (0.2-1) Direct Bilirubin 0.1 mg/dl (0-0.2) Aspartate Amino Transf (AST/SGOT) 14 U/L (15-37) Alanine Aminotransferase (ALT/SGPT) 15 U/L (12-78) Alkaline Phosphatase 79 U/L (45-117) Troponin I 0.019 ng/ml (0-0.045) Pro-B-Type Natriuretic Peptide 2564 pg/ml (0-1800) Total Protein 6.9 gm/dl (6.4-8.2) Albumin 3.0 gm/dl (3.4-5.0) Lipase 372 U/L (73-393) Thyroid Stimulating Hormone (TSH) 1.510 uIu/ml (0.300-4.500) Urine Color YELLOW Urine Appearance CLEAR (CLEAR) Urine pH 7.0 (4.5-7.5) Urine Specific [place] 1.010 (1.000-1.030) Urine Protein NEG (NEG) Urine Glucose (UA) NEG (NEG) Urine Ketones NEG (NEG) Urine Occult Blood NEG (NEG) Urine Nitrite NEG (NEG) Urine Bilirubin NEG (NEG) Urine Urobilinogen NEG (NEG) Urine Leukocyte Esterase NEG (NEG) Influenza Type A Antigen Neg for Influ A (NEG) Influenza Type B Antigen Neg for Influ B (NEG) RDW Standard Deviation 47.5 fL (36.4-46.3) RDW Coefficient of Variation 14.7 % (11.5-14.5) Anion Gap 8.0 mmol/L (3-11) Est Creatinine Clear Calc Drug Dose 30.7 ml/min Estimated GFR () 39.8 Estimated GFR (Non- 34.3 BUN/Creatinine Ratio 18.1 (10-20) Estimated Average Glucose 166 mg/dl Hemoglobin A1c 7.4 % (4.5-5.6) Calcium Level 8.7 mg/dl (8.5-10.1) Magnesium Level 1.8 mg/dl (1.8-2.4) Total Creatine Kinase 150 U/L (26-192) Test 09/02/17 08:59 Bedside Glucose 186 mg/dl (70-90) Imaging CXR- : Mild cardiac enlargement with no acute cardiopulmonary abnormality. Impression 82 year old female s/p fall and LE weakness Plan 1. it is unclear if patient started any new medications 2. poor oral intake 3. multiple falls - will need PT/OT for discharge needs 4. CT spine - or MRI spine for any structural issues- back pain 5. medication reviewed- Lipitor held but CK 150 6. fall risk 7. gabepentin dosing should be at renal dosing 200-700 every 12 hours 8. MRI c spine due to arm and leg weakness 9. x ray lumbar spine 10. CT head for any injury with multiple falls 11. will follow along I have seen and discussed above patient with Dr Daylin Butts, neurology Pt seen and examined. Pt ambulates with walker at baseline. No cranial neuropathies, or bulbar weakness noted.Some myoclonic jerks noted, mild diffuse weakness, absent LE reflexes,no pathologic weakness. distal sensory loss cw hx of diabetes and presumed neuropathy. Suspect myoclonic jerks are med related, gabapentin dose has been reduced to a lower dose more appropriate with renal function. Given arms weak as well rec mri c spine r/o compressive myelopathy,. CT head, plain films of lumbar spine. I doubt an acute peripheral process such as GBS. more likely a subacute decline related to meds, etc. Will follow with you. RENETTA Butts MD
--- NOTE | 2017-09-02 17:30 | DIAGNOSTIC IMAGING REPORT ---
CT HEAD WITHOUT CONTRAST (CT) CLINICAL HISTORY: Head pain status post trauma COMPARISON STUDY: No previous studies for comparison. TECHNIQUE: Axial CT of the brain is performed from the vertex to the skull base. IV contrast was not administered for this examination. A dose lowering technique was utilized adhering to the principles of ALARA. CT DOSE: 537.48 mGy.cm FINDINGS: No intra or extra-axial mass lesions are visualized. There is no CT evidence of acute cortical infarction. There is no evidence of midline shift. There is no acute hemorrhage. No calvarial fractures are visualized. There are patchy minimal matter hypodensities likely on a small vessel basis. There is no evidence of pathologic ventricular dilatation. There is a 3 cm hyperdense mass within the left maxillary sinus. This protrudes into the nasal cavity. There appear to be postsurgical changes involving the left ethmoid complex and nasal cavity. The medial wall the left maxillary sinus has either been surgically removed or eroded from the left maxillary sinus mass. Please correlate with history of prior surgery. IMPRESSION: 1. No evidence of acute intracranial injury 2. 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 Electronically signed by: Lam Garza M.D. 09/02/2017 5:29 PM Dictated Date/Time: 09/02/2017 5:26 PM
[2017-09-02] MEDS: GABAPENTIN 400 MG CAP PO SCH (19:52)
--- NOTE | 2017-09-02 21:31 | DIAGNOSTIC IMAGING REPORT ---
MRI CERVICAL WITHOUT CONTRAST CLINICAL HISTORY: Sudden onset of upper lower extremity weakness status post trauma. TECHNIQUE: Sagittal and axial T1, T2 and STIR images were obtained. COMPARISON STUDY: No previous studies for comparison. There are no suspicious areas of marrow replacement. No intrinsic cervical cord lesions are visualized. C2-3: There is calcification of posterior longitudinal ligament. No focal herniations are visualized. There is no spinal or foraminal stenosis. C3-4: There is no evidence of disc bulge or focal herniation. There is no spinal or foraminal stenosis. C4-5: There are no disc bulges or focal herniations. There is no spinal or foraminal stenosis. C5-6 :There is disc degeneration. There is a circumferential disc bulge. There is minimal spinal canal narrowing. There is bilateral foraminal stenosis], right greater than left. C6-7: There is a minor circumferential disc bulge. There is no significant spinal stenosis. There is mild bilateral foraminal narrowing C7-T1: There is no evidence of disc bulge or focal herniation. There is no evidence of spinal or foraminal stenosis. IMPRESSION: 1. No cord lesions identified 2. No evidence of epidural hematoma 3. Multilevel spondylitic changes. 4. Foraminal narrowing at the C5-6 and C6-7 levels. Electronically signed by: Lam Garza M.D. 09/02/2017 9:30 PM Dictated Date/Time: 09/02/2017 9:25 PM
--- NOTE | 2017-09-02 22:17 | DIAGNOSTIC IMAGING REPORT ---
LUMBAR SPINE WITH FLEXION AND EXTENSION VIEWS CLINICAL HISTORY: Lumbar spine pain COMPARISON STUDY: No previous studies for comparison. FINDINGS: The bones are osteopenic. There is a 7 mm of anterolisthesis of L4 on L5 in extension. This remains unchanged in flexion. There are no acute fractures. There is a mild thoracolumbar levoscoliosis. Advanced arthritic changes are present within the right hip. IMPRESSION: 1. No acute fractures 2. Grade 1 spondylolisthesis of L4 on L5. 2. No evidence of instability on flexion or extension Electronically signed by: Lam Garza M.D. 09/02/2017 10:15 PM Dictated Date/Time: 09/02/2017 10:14 PM
[2017-09-03 07:25] VITALS: BP 108/57; PULSE 68; TEMP 36.9; O2SAT 93
[2017-09-03] MEDS: CETIRIZINE HCL 10 MG TAB PO SCH (08:20)
[2017-09-03] MEDS: GABAPENTIN 100 MG CAP PO SCH ×2 (08:20→13:21)
[2017-09-03] MEDS: MAGNESIUM OXIDE 400 MG TAB PO SCH ×2 (08:20→20:13)
[2017-09-03] MEDS: METOPROLOL TARTRATE 100 MG TAB PO SCH ×2 (08:20→20:13)
[2017-09-03] MEDS: PANTOprazole SOD 40 MG TAB PO SCH ×2 (08:21→20:11)
[2017-09-03] MEDS: DILTIAZEM HCL 120 MG CAPCR PO SCH (08:21)
[2017-09-03] MEDS: HEPARIN SOD 5000 UNIT/0.5 ML CARP SQ SCH ×2 (08:21→20:17)
[2017-09-03] MEDS: INSULIN ASPART 100 UNITS/ML 3 ML PEN SC SCH ×4 (08:27→20:16)
--- NOTE | 2017-09-03 10:35 | PROGRESS NOTE ---
DATE: 09/03/2017 SUBJECTIVE: I am seeing Mrs. Helms in followup of what is said to be acute weakness. She is a known diabetic and presumably has diabetic neuropathy and she has walked with a walker for at least a year. She feels clinically about the same today. Some pain in her upper arms. No Lhermitte's phenomenon. No sensory symptoms. Her CT of the head is noncontributory other than showing a 3-cm hyperdense polypoid mass in the left maxillary sinus. The patient indicates to me that she is aware of that it was recommended that it be removed, but she has elected not to do so. Her plain films of the lumbar spine done because of her ongoing back pain show no acute fracture, grade 1 spondylolisthesis of L4 on L5 and no evidence of instability on flexion or extension. Her cervical MRI showed no cord lesions, no evidence of epidural hematoma, multiple spondylitic changes, and foraminal narrowing at C5-C6. Her CK, thyroid function and sed rate are normal. She has not had any dysarthria, dysphagia, or shortness of breath. PHYSICAL EXAMINATION: There is mild diffuse weakness. Some of her upper extremity weakness may be on the basis of effort. There is normal bulk and tone. Lower extremity strength seems symmetric as well. Knee and ankle jerks are absent. There is no clonus. Toes are downgoing. Vibration is present at the ankles, slightly above the ankle level to temperature. Her gait yesterday was fairly unremarkable for age. IMPRESSION: I see no significant etiology of the patient's difficulty with ambulation. I had been concerned about a cervical myelopathy while there is cervical stenosis. I do not see overt cord compression. There is no evidence clinically of a myopathic process, although the hospitalist may want to transiently hold her statin. She does not have typical symptoms of a statin myopathy and does not have any pain. CK is normal, but that may be contributing. I would also recommend, but did not order an MRI of the L-spine. Again, this would not explain all of her symptoms, but it may be good to obtain a baseline determine if there is anything significant such as a large disk or significant spinal stenosis. In that clinical setting, I would expect more back pain than we are seeing. Then finally as an outpatient, the patient may need a nerve conduction. I do not see anything suggestive of a process such as a Guillain-[place] or an acute inflammatory demyelinating polyneuropathy. I do not think the patient probably needs some inpatient rehabilitation. We spoke briefly about that. She prefers to have that close to home, which in her case is [place]. She may need then therefore to have some rehabilitation at [facility]. She should see us in followup post discharge. ANA
[2017-09-03 11:23] LABS: CALCIUM 8.2 mg/dl (8.5-10.1); CREATININE 1.5 mg/dl (0.60-1.20); POTASSIUM 3.9 mmol/L (3.5-5.1)
--- NOTE | 2017-09-03 12:53 | DIAGNOSTIC IMAGING REPORT ---
LUMBAR SPINE W/O CONTRAST CLINICAL HISTORY: 82 years-old Female presenting with back pain, leg weakness, decreased LE reflexes. TECHNIQUE: Multisequence, multiplanar MR imaging of the lumbar spine was performed without the use of intravenous contrast. IV contrast: None. COMPARISON: Plain radiographs of the lumbar spine from 09/02/2017. FINDINGS: Localizer images: Unremarkable. Normal lumbar lordosis. 3 mm of grade 1 anterolisthesis of L4 on L5. Vertebral bodies maintain otherwise normal height, alignment, and bone marrow signal intensity. Mild diffuse intervertebral disc desiccation. Additional multilevel degenerative changes further detailed below: L1-2: No significant neural foraminal or spinal canal narrowing. L2-3: Eccentric disc bulge with annular fissure effaces the right neural foramen and far lateral right neural foramen resulting in mass effect on the exiting right L2 nerve root. Disc bulge in combination with ligamentum flavum hypertrophy moderately effaces the thecal sac circumferentially and exerts mass effect on the transiting L3 nerve roots. Minimal CSF signal intensity is maintained. Mild bilateral neural foraminal narrowing. L3-4: Disc bulge with annular fissure results in abutment of the bilateral exiting L3 nerve roots. Additionally, disc bulge abuts the transiting L4 nerve roots greater on the right. Disc bulge in combination with facet arthropathy and ligamentum flavum hypertrophy results in cervical vertebral effacement of the thecal sac and near complete effacement of CSF signal intensity. This exerts mass effect on the transiting L4 nerve roots. Moderate bilateral neural foraminal narrowing. L4-5: Disc bulge, facet arthropathy, and ligamentum flavum hypertrophy result in circumferential effacement of the thecal sac that is not quite as severe as the more superior levels. The disc bulge abuts the exiting left L4 nerve root. Mild right and moderate left neural foraminal narrowing. L5-S1: Minimal disc bulge and facet arthropathy noted. No significant spinal canal narrowing. Mild bilateral neural foraminal narrowing. Spinal cord ends in good position at L1. Cauda equina crowding as mentioned above though otherwise the cauda equina is normal morphology. Paraspinal musculature within normal limits. No paraspinal muscular edema. Minimal nonspecific edema in the lumbar region. IMPRESSION: 1. Significant multilevel degenerative changes with spinal canal stenosis most severe at L2-3 and L3-4. No convincing evidence of cauda equina impingement. 2. Degenerative changes result in multifocal neural foraminal narrowing as well as mass effect on the exiting transiting nerve roots as detailed above. This is most significant at L2-3, L3-4, and L4-5. Electronically signed by: Negro Garcia M.D. 09/03/2017 12:52 PM Dictated Date/Time: 09/03/2017 12:43 PM
[2017-09-03 15:19] VITALS: BP 116/72; PULSE 77; TEMP 37; O2SAT 95
--- NOTE | 2017-09-03 17:16 | Progress Note ---
Medicine Progress Note Date & Time of Visit: Sep 03, 2017 at 17:10. Subjective Seen resting in bed side chair comfortable Family visiting In good spirits States she feels improved overall Less lower extremity weakness Ambulates to the bathroom with no dizziness, weakness Denies leg numbness or paresthesias No other symptoms Objective Last 8 Hrs Date Time Temp Pulse Resp B/P (MAP) Pulse Ox O2 Delivery O2 Flow Rate FiO2 09/03/17 15:30 Room Air 09/03/17 15:19 37.0 77 20 116/72 (87) 95 Room Air Physical Exam: General- oriented x 3, not in distress, speaks in sentences with no effort Eyes-anicteric Neck- supple, no JVD Lungs-clear breath sounds bilaterally no rales wheezes Heart- regular rhythm; no murmur, normal rate Abdomen- normal bowel sounds, soft, nontender, no other symptoms Extremities- no pretibial edema, no calf tenderness; peripheral pulses intact Neuro-no gross focal motor or sensory deficits Skin- warm & dry Laboratory Results: Last 24 Hours Test 09/02/17 22:23 09/03/17 07:12 09/03/17 07:17 09/03/17 07:33 Bedside Glucose 85 mg/dl 161 mg/dl Erythrocyte Sedimentation Rate 18 mm/hr Sodium Level 139 mmol/L Potassium Level 3.9 mmol/L Chloride Level 108 mmol/L Carbon Dioxide Level 23 mmol/L Anion Gap 8.0 mmol/L Blood Urea Nitrogen 23 mg/dl Creatinine 1.50 mg/dl Est Creatinine Clear Calc Drug Dose 29.0 ml/min Estimated GFR () 37.2 Estimated GFR (Non- 32.1 BUN/Creatinine Ratio 15.5 Random Glucose 152 mg/dl Calcium Level 8.2 mg/dl Test 09/03/17 13:01 09/03/17 16:32 Bedside Glucose 157 mg/dl 202 mg/dl Assessment & Plan 82 year old female with history of CAD/CABG, DM 2, HTN, CKD 3, Depression presenting with bilateral leg weakness, shaking BILATERAL LEG WEAKNESS/SHAKING AMBULATORY DYSFUNCTION Her labs and imaging studies and EKG were unremarkable. -- from High Dose statin? Presenting with muscle pain or cramping CPK normal hold Atorvastatin for now May need to reduce dose Muscle weakness returns, may need to change to pravastatin -- from marginal BP? Blood pressure still on the lower side hold ISMN, Lisinopril, Lasix Monitor blood pressure closely --Neuropathy? CT head unremarkable CT cervical spine no significant stenosis Lumbar spine MRI ordered pending Appreciate neurology service recommendations -- PT/OT may need inpatient Rehab/SNF CAD with history of CABG 3. No acute issue. continue Metoprolol, Dilzem hold Lipitor, ISMN, LIsinopril ACUTE RENAL FAILURE on CHRONIC KIDNEY DISEASE STAGE III baseline crea 1.2 now 1.5 hold lasix and Lisinopril today Start gentle hydration monitor Type 2 diabetes A1c pending hold Metformin and Glimepiride with increased crea sliding scale insulin coverage with before meals at bedtime blood sugar checkup. Monitor Hypertension marginal BP. hold ISMN, Lisinopril, Lasix Hyperlipidemia hold Statin in light of muscle weakness GI prophylaxis With omeprazole DVT prophylaxis With heparin subcu CODE STATUS-level 3 that is resuscitation without mechanical ventilation. Disposition PT/OT ordered may need rehab/SNF Current Inpatient Medications: Current Inpatient Medications Medications (Trade) Dose Ordered Sig/Severino Route Start Time Stop Time Status Last Admin Dose Admin Acetaminophen (Tylenol Tab) 650 mg Q4H PRN PO 09/01/17 21:30 10/01/17 21:29 Ondansetron HCl (Zofran Inj) 4 mg Q6H PRN IV 09/01/17 21:30 10/01/17 21:29 Heparin Sodium (Porcine) (Heparin Sq 5000 Unit/0.5ml) 5,000 unit Q12H SQ 09/01/17 21:00 10/01/17 20:59 Atorvastatin Calcium (Lipitor Tab) 80 mg DAILY PO 09/02/17 08:00 10/02/17 08:59 Future Hold Cetirizine HCl (zyrTEC TAB) 10 mg DAILY PO 09/02/17 08:00 10/02/17 08:59 09/03/17 08:20 10 MG Diltiazem HCl (Cardizem Cd Cap) 120 mg DAILY PO 09/02/17 08:00 10/02/17 08:59 09/03/17 08:21 120 MG Gabapentin (Neurontin Cap) 200 mg BID@0800,1400 PO 09/02/17 08:00 10/02/17 07:59 09/03/17 13:21 200 MG Gabapentin (Neurontin Cap) 400 mg HS PO 09/02/17 21:00 10/02/17 20:59 09/02/17 19:52 400 MG Hydroxyzine HCl (Vistaril Tab) 25 mg HS PRN PO 09/01/17 21:30 10/01/17 21:29 Magnesium Oxide (Mag-Ox Tab) 400 mg BID PO 09/02/17 08:00 10/02/17 08:59 09/03/17 08:20 400 MG Metoprolol Tartrate (Lopressor Tab) 100 mg BID PO 09/02/17 08:00 10/02/17 08:59 09/03/17 08:20 100 MG Nitroglycerin (Nitrostat Tab) 0.4 mg PRN UT 09/01/17 21:30 10/01/17 21:29 Pantoprazole Sodium (Protonix Tab) 40 mg BID PO 09/02/17 08:00 10/02/17 08:59 09/03/17 08:21 40 MG Insulin Aspart (novoLOG ASPART) SLIDING SCALE G... ACHS SC 09/02/17 06:30 10/02/17 06:59 09/03/17 13:22 2 UNITS Miscellaneous (Iv Fluids Completed) 1 ea PRN PRN N/A 09/01/17 21:45 09/01/18 21:44 Glucose (Glucose 40% Gel) 15-30 GRAMS 15 GRAMS... UD PRN PO 09/01/17 22:15 10/01/17 22:14 Glucose (Glucose Chew Tab) 4-8 Tablets 4 Tabl... UD PRN PO 09/01/17 22:15 10/01/17 22:14 Dextrose (Dextrose 50% 50ML Syringe) 25-50ML OF 50% DW IV FOR... UD PRN IV 09/01/17 22:15 10/01/17 22:14 Glucagon (Glucagon Inj) 1 mg UD PRN SQ 09/01/17 22:15 10/01/17 22:14
[2017-09-03] MEDS: ACETAMINOPHEN 325 MG TAB PO PRN (17:26)
[2017-09-03 17:30] VITALS: BP 149/65; PULSE 80; O2SAT 94
[2017-09-03] MEDS ORDERED: SODIUM CHLORIDE 0.9% 1000ML 1,000 ML IV SCH (17:30)
[2017-09-03] MEDS ORDERED: LEVALBUTEROL 0.63MG/3 ML NEB INH STA (17:37)
[2017-09-03] MEDS ORDERED: LEVALBUTEROL 0.63MG/3 ML NEB INH PRN (17:45)
[2017-09-03 17:53] VITALS: PULSE 73; O2SAT 97
[2017-09-03] MEDS ORDERED: FUROSEMIDE INJ 20 MG in SYRINGE 0 ML IV ONE (18:00)
--- NOTE | 2017-09-03 18:11 | DIAGNOSTIC IMAGING REPORT ---
CHEST ONE VIEW PORTABLE CLINICAL HISTORY: 82 years-old Female presenting with r/o chf exacerbation. TECHNIQUE: Portable upright AP view of the chest was obtained. COMPARISON: 09/01/2017. FINDINGS: Mediastinal surgical clips and median sternotomy wires noted. Atherosclerosis of the aortic arch. Cardiac silhouette mildly enlarged, unchanged. Bandlike opacity at the left lung base. No other focal infiltrate. No large effusion or pneumothorax. Osseous structures normal. Upper abdomen normal. IMPRESSION: 1. Mild cardiomegaly. 2. Minimal left basilar atelectasis or scarring. No convincing evidence of acute cardiopulmonary disease. Electronically signed by: Negro Garcia M.D. 09/03/2017 6:10 PM Dictated Date/Time: 09/03/2017 6:08 PM
[2017-09-03 19:44] VITALS: BP 112/71; PULSE 75; TEMP 36.9; O2SAT 91
[2017-09-03] MEDS: GABAPENTIN 400 MG CAP PO SCH (20:11)
[2017-09-03 22:47] VITALS: BP 154/65; PULSE 84; TEMP 36.5; O2SAT 91
[2017-09-04 06:13] LABS: CALCIUM 8.3 mg/dl (8.5-10.1); CREATININE 1.54 mg/dl (0.60-1.20)
[2017-09-04 07:02] VITALS: BP 154/74; PULSE 72; TEMP 37.2; O2SAT 94
[2017-09-04] MEDS: GABAPENTIN 100 MG CAP PO SCH ×2 (08:28→12:29)
[2017-09-04] MEDS: ACETAMINOPHEN 325 MG TAB PO PRN (08:28)
[2017-09-04] MEDS: CETIRIZINE HCL 10 MG TAB PO SCH (08:28)
[2017-09-04] MEDS: METOPROLOL TARTRATE 100 MG TAB PO SCH ×2 (08:29→20:35)
[2017-09-04] MEDS: HEPARIN SOD 5000 UNIT/0.5 ML CARP SQ SCH ×2 (08:29→20:39)
[2017-09-04] MEDS: MAGNESIUM OXIDE 400 MG TAB PO SCH ×2 (08:29→20:33)
[2017-09-04] MEDS: DILTIAZEM HCL 120 MG CAPCR PO SCH (08:29)
[2017-09-04] MEDS: PANTOprazole SOD 40 MG TAB PO SCH ×2 (08:29→20:34)
[2017-09-04] MEDS: INSULIN ASPART 100 UNITS/ML 3 ML PEN SC SCH ×4 (08:36→20:39)
[2017-09-04] MEDS ORDERED: FUROSEMIDE 40 MG TAB PO ONE (10:30)
--- NOTE | 2017-09-04 13:30 | PROGRESS NOTE ---
DATE: 09/04/2017 I am seeing Mrs. Helms in followup of ambulatory dysfunction. An MRI of the lumbar spine shows fairly significant spinal stenosis. No evidence of cauda conus medullaris compression. CK, sed rate, TSH were normal. Cervical spine MRI did not show any evidence of cord compression. CT of the head shows a polypoid lesion in the left maxillary sinus, which the patient indicates that she has been aware of. She has continued to improve. Myoclonic jerks are less on lower dose of gabapentin. PHYSICAL EXAMINATION: She is awake and alert. There is normal speech and language. Affect is appropriate. There is an occasional myoclonic jerk in the hands with outstretched hands. There is fairly full strength in the upper and lower. She is mildly limited proximally at the shoulder, likely related to shoulder pathology. IMPRESSION: Poly-factorial gait dysfunction. The patient likely has diabetic neuropathy. I am not suspicious of an acute inflammatory demyelinating neuropathy or an acute neuropathy. She may have been metabolically worse related to somewhat high dose of gabapentin which appeared to have been causing myoclonic jerks. She seems better in that regard. I would recommend that she see me in followup 2-3 weeks post-discharge. We will determine whether or not she needs any additional test and/or nerve conduction EMG. ANA
[2017-09-04 14:50] VITALS: BP 109/66; PULSE 65; TEMP 36.5; O2SAT 95
--- NOTE | 2017-09-04 19:01 | Progress Note ---
Medicine Progress Note Date & Time of Visit: Sep 04, 2017 at 18:58. Subjective Seen resting in bed, comfortable States she feels better today Was having bilateral forearm pain relieved by Tylenol resolved No shortness of breath chest pain Lower leg extremity weakness much improved Ambulating much better No other symptoms Objective Last 8 Hrs Date Time Temp Pulse Resp B/P (MAP) Pulse Ox O2 Delivery O2 Flow Rate FiO2 09/04/17 16:00 Room Air 09/04/17 14:50 36.5 65 20 109/66 (80) 95 Room Air Physical Exam: General- oriented x 3, not in distress, speaks in sentences with no effort Eyes-anicteric Neck-no JVD Lungs-mild rales at the bases, no wheezing, good bilateral air entry Heart- regular rhythm; no murmur, normal rate Abdomen- normal bowel sounds, soft, nontender, nondistended Extremities- no pretibial edema, no calf tenderness; peripheral pulses intact Neuro-no gross focal motor or sensory deficits Skin- warm & dry Laboratory Results: Last 24 Hours Test 09/03/17 20:15 09/04/17 05:19 09/04/17 07:56 09/04/17 11:52 Bedside Glucose 128 mg/dl 128 mg/dl 244 mg/dl Sodium Level 140 mmol/L Potassium Level 4.0 mmol/L Chloride Level 107 mmol/L Carbon Dioxide Level 26 mmol/L Anion Gap 7.0 mmol/L Blood Urea Nitrogen 28 mg/dl Creatinine 1.54 mg/dl Est Creatinine Clear Calc Drug Dose 28.3 ml/min Estimated GFR () 36.0 Estimated GFR (Non- 31.1 BUN/Creatinine Ratio 18.4 Random Glucose 149 mg/dl Calcium Level 8.3 mg/dl Test 09/04/17 16:47 Bedside Glucose 98 mg/dl Assessment & Plan 82 year old female with history of CAD/CABG, DM 2, HTN, CKD 3, Depression presenting with bilateral leg weakness, shaking BILATERAL LEG WEAKNESS/SHAKING AMBULATORY DYSFUNCTION Her labs and imaging studies and EKG were unremarkable. -- from High Dose statin? Presenting with muscle pain or cramping CPK normal hold Atorvastatin for now May need to reduce dose Muscle weakness returns, may need to change to pravastatin -- from marginal BP? Blood pressure still on the lower side hold ISMN, Lisinopril Monitor blood pressure closely --Neuropathy? CT head unremarkable CT cervical spine no significant stenosis Lumbar spine MRI moderate spinal stenosis No further neurologic intervention at this time Outpatient follow-up with neurology, possible nerve conduction testing Appreciate neurology service recommendations -- PT/OT may need inpatient Rehab/SNF Bilateral wheezing, likely fluid overload Lasix resumed, improved Monitor closely CAD with history of CABG 3. No acute issue. continue Metoprolol, Dilzem hold Lipitor, ISMN, LIsinopril ACUTE RENAL FAILURE on CHRONIC KIDNEY DISEASE STAGE III baseline crea 1.2 now 1.5 Hold lisinopril Lasix resumed due to positive congestion, monitor creatinine closely Type 2 diabetes A1c pending hold Metformin and Glimepiride with increased crea sliding scale insulin coverage with before meals at bedtime blood sugar checkup. Monitor Hypertension marginal BP. hold ISMN, Lisinopril Hyperlipidemia hold Statin in light of muscle weakness GI prophylaxis With omeprazole DVT prophylaxis With heparin subcu CODE STATUS-level 3 that is resuscitation without mechanical ventilation. Disposition PT/OT ordered may need rehab/SNF Current Inpatient Medications: Current Inpatient Medications Medications (Trade) Dose Ordered Sig/Severino Route Start Time Stop Time Status Last Admin Dose Admin Acetaminophen (Tylenol Tab) 650 mg Q4H PRN PO 09/01/17 21:30 10/01/17 21:29 09/04/17 08:28 650 MG Ondansetron HCl (Zofran Inj) 4 mg Q6H PRN IV 09/01/17 21:30 10/01/17 21:29 Heparin Sodium (Porcine) (Heparin Sq 5000 Unit/0.5ml) 5,000 unit Q12H SQ 09/01/17 21:00 10/01/17 20:59 Atorvastatin Calcium (Lipitor Tab) 80 mg DAILY PO 09/02/17 08:00 10/02/17 08:59 Future Hold Cetirizine HCl (zyrTEC TAB) 10 mg DAILY PO 09/02/17 08:00 10/02/17 08:59 09/04/17 08:28 10 MG Diltiazem HCl (Cardizem Cd Cap) 120 mg DAILY PO 09/02/17 08:00 10/02/17 08:59 09/04/17 08:29 120 MG Gabapentin (Neurontin Cap) 200 mg BID@0800,1400 PO 09/02/17 08:00 5/6/18 07:59 09/04/17 12:29 200 MG Gabapentin (Neurontin Cap) 400 mg HS PO 09/02/17 21:00 10/02/17 20:59 09/03/17 20:11 400 MG Hydroxyzine HCl (Vistaril Tab) 25 mg HS PRN PO 09/01/17 21:30 10/01/17 21:29 Magnesium Oxide (Mag-Ox Tab) 400 mg BID PO 09/02/17 08:00 10/02/17 08:59 09/04/17 08:29 400 MG Metoprolol Tartrate (Lopressor Tab) 100 mg BID PO 09/02/17 08:00 10/02/17 08:59 09/04/17 08:29 100 MG Nitroglycerin (Nitrostat Tab) 0.4 mg PRN UT 09/01/17 21:30 10/01/17 21:29 Pantoprazole Sodium (Protonix Tab) 40 mg BID PO 09/02/17 08:00 10/02/17 08:59 09/04/17 08:29 40 MG Insulin Aspart (novoLOG ASPART) SLIDING SCALE G... ACHS SC 09/02/17 06:30 10/02/17 06:59 09/04/17 17:50 2 UNITS Miscellaneous (Iv Fluids Completed) 1 ea PRN PRN N/A 09/01/17 21:45 09/01/18 21:44 Glucose (Glucose 40% Gel) 15-30 GRAMS 15 GRAMS... UD PRN PO 09/01/17 22:15 10/01/17 22:14 Glucose (Glucose Chew Tab) 4-8 Tablets 4 Tabl... UD PRN PO 09/01/17 22:15 10/01/17 22:14 Dextrose (Dextrose 50% 50ML Syringe) 25-50ML OF 50% DW IV FOR... UD PRN IV 09/01/17 22:15 10/01/17 22:14 Glucagon (Glucagon Inj) 1 mg UD PRN SQ 09/01/17 22:15 10/01/17 22:14 Levalbuterol (Xopenex 0.63 Mg/ 3 Ml Neb) 0.63 mg Q4H PRN INH 09/03/17 17:45 10/03/17 17:44 Furosemide (Lasix Tab) 40 mg QAM PO 09/05/17 08:00 10/05/17 07:59
[2017-09-04] MEDS: GABAPENTIN 400 MG CAP PO SCH (20:34)
[2017-09-04 20:44] VITALS: BP 122/80; PULSE 75
[2017-09-04 23:50] VITALS: BP 107/69; PULSE 61; TEMP 36.3; O2SAT 93
[2017-09-05] VITALS (9 sets, daily range): BP systolic 107–115; BP diastolic 69–78; PULSE 64–82; TEMP 36.7–36.9; O2SAT 92–97
[2017-09-05 06:36] LABS: CREATININE 1.44 mg/dl (0.60-1.20); POTASSIUM 4.2 mmol/L (3.5-5.1)
[2017-09-05] MEDS: CETIRIZINE HCL 10 MG TAB PO SCH (07:53)
[2017-09-05] MEDS: GABAPENTIN 100 MG CAP PO SCH ×2 (07:54→12:51)
[2017-09-05] MEDS: PANTOprazole SOD 40 MG TAB PO SCH ×2 (07:54→21:05)
[2017-09-05] MEDS: MAGNESIUM OXIDE 400 MG TAB PO SCH ×2 (07:54→21:05)
[2017-09-05] MEDS: DILTIAZEM HCL 120 MG CAPCR PO SCH (07:54)
[2017-09-05] MEDS: METOPROLOL TARTRATE 100 MG TAB PO SCH ×2 (07:54→21:05)
[2017-09-05] MEDS: HEPARIN SOD 5000 UNIT/0.5 ML CARP SQ SCH ×2 (07:54→21:16)
[2017-09-05] MEDS: FUROSEMIDE 40 MG TAB PO SCH (07:54)
[2017-09-05] MEDS: INSULIN ASPART 100 UNITS/ML 3 ML PEN SC SCH ×4 (08:42→21:16)
[2017-09-05] MEDS ORDERED: DOCUSATE SODIUM/SENNA 50/8.6MG TAB PO PRN (09:15)
--- NOTE | 2017-09-05 20:34 | Progress Note ---
Medicine Progress Note Date & Time of Visit: Sep 05, 2017 at 20:31. Subjective Seen resting in bed, comfortable, speaking on the phone family States she feels better today Ambulating with no leg weakness, dizziness Denies shortness of breath, has occasional cough with clear sputum No chest pain Denies other symptoms Hoping to go home instead of rehab Objective Last 8 Hrs Date Time Temp Pulse Resp B/P (MAP) Pulse Ox O2 Delivery O2 Flow Rate FiO2 09/05/17 16:03 97 Room Air 09/05/17 14:46 36.8 75 18 111/70 (84) 97 Room Air Physical Exam: General- oriented x 3, not in distress, speaks in sentences with no effort Eyes-anicteric Neck-no JVD Lungs-mild wheeze bilateral bases, good air entry bilaterally Heart- regular rhythm; no murmur, normal rate Abdomen- normal bowel sounds, soft, nontender, nondistended Extremities- no pretibial edema, no calf tenderness; peripheral pulses intact Neuro-no gross focal motor or sensory deficits Skin- warm & dry Laboratory Results: Last 24 Hours Test 09/05/17 05:20 09/05/17 07:48 09/05/17 11:47 09/05/17 16:58 Sodium Level 138 mmol/L Potassium Level 4.2 mmol/L Chloride Level 107 mmol/L Carbon Dioxide Level 25 mmol/L Anion Gap 6.0 mmol/L Blood Urea Nitrogen 26 mg/dl Creatinine 1.44 mg/dl Est Creatinine Clear Calc Drug Dose 30.3 ml/min Estimated GFR () 39.1 Estimated GFR (Non- 33.7 BUN/Creatinine Ratio 18.4 Random Glucose 131 mg/dl Calcium Level 8.0 mg/dl Bedside Glucose 174 mg/dl 192 mg/dl 140 mg/dl Assessment & Plan 82 year old female with history of CAD/CABG, DM 2, HTN, CKD 3, Depression presenting with bilateral leg weakness, shaking BILATERAL LEG WEAKNESS/SHAKING AMBULATORY DYSFUNCTION Her labs and imaging studies and EKG were unremarkable. -- from High Dose statin? Presenting with muscle pain or cramping CPK normal hold Atorvastatin for now May need to reduce dose If muscle weakness returns, may need to change to pravastatin -- from marginal BP? Blood pressure still on the lower side but stable hold ISMN, Lisinopril Monitor blood pressure closely --Neuropathy? CT head unremarkable CT cervical spine no significant stenosis Lumbar spine MRI moderate spinal stenosis No further neurologic intervention at this time Outpatient follow-up with neurology, possible nerve conduction testing Appreciate neurology service recommendations -- PT/OT in progress may need inpatient Rehab/SNF Bilateral wheezing, likely fluid overload Lasix resumed, improving Albuterol every 6 hours Monitor closely CAD with history of CABG 3. No acute issue. continue Metoprolol, Dilzem hold Lipitor, ISMN, LIsinopril ACUTE RENAL FAILURE on CHRONIC KIDNEY DISEASE STAGE III baseline crea 1.2 now 1.4 Hold lisinopril Lasix resumed due to pulmonary congestion, monitor creatinine closely Type 2 diabetes A1c 7.4 hold Metformin and Glimepiride with increased crea sliding scale insulin coverage with before meals at bedtime blood sugar checkup. Monitor Hypertension Blood pressure on the lower side with stable hold ISMN, Lisinopril Hyperlipidemia hold Statin in light of muscle weakness GI prophylaxis With omeprazole DVT prophylaxis With heparin subcu CODE STATUS-level 3 that is resuscitation without mechanical ventilation. Disposition PT/OT ordered may need rehab/SNF but patient prefers to return home Current Inpatient Medications: Current Inpatient Medications Medications (Trade) Dose Ordered Sig/Severino Route Start Time Stop Time Status Last Admin Dose Admin Acetaminophen (Tylenol Tab) 650 mg Q4H PRN PO 09/01/17 21:30 10/01/17 21:29 09/04/17 08:28 650 MG Ondansetron HCl (Zofran Inj) 4 mg Q6H PRN IV 09/01/17 21:30 10/01/17 21:29 Heparin Sodium (Porcine) (Heparin Sq 5000 Unit/0.5ml) 5,000 unit Q12H SQ 09/01/17 21:00 10/01/17 20:59 Atorvastatin Calcium (Lipitor Tab) 80 mg DAILY PO 09/02/17 08:00 10/02/17 08:59 Future Hold Cetirizine HCl (zyrTEC TAB) 10 mg DAILY PO 09/02/17 08:00 10/02/17 08:59 09/05/17 07:53 10 MG Diltiazem HCl (Cardizem Cd Cap) 120 mg DAILY PO 09/02/17 08:00 10/02/17 08:59 09/05/17 07:54 120 MG Gabapentin (Neurontin Cap) 200 mg BID@0800,1400 PO 09/02/17 08:00 10/02/17 07:59 09/05/17 12:51 200 MG Gabapentin (Neurontin Cap) 400 mg HS PO 09/02/17 21:00 10/02/17 20:59 09/04/17 20:34 400 MG Hydroxyzine HCl (Vistaril Tab) 25 mg HS PRN PO 09/01/17 21:30 10/01/17 21:29 Magnesium Oxide (Mag-Ox Tab) 400 mg BID PO 09/02/17 08:00 10/02/17 08:59 09/05/17 07:54 400 MG Metoprolol Tartrate (Lopressor Tab) 100 mg BID PO 09/02/17 08:00 10/02/17 08:59 09/05/17 07:54 100 MG Nitroglycerin (Nitrostat Tab) 0.4 mg PRN UT 09/01/17 21:30 10/01/17 21:29 Pantoprazole Sodium (Protonix Tab) 40 mg BID PO 09/02/17 08:00 10/02/17 08:59 09/05/17 07:54 40 MG Insulin Aspart (novoLOG ASPART) SLIDING SCALE G... ACHS SC 09/02/17 06:30 10/02/17 06:59 09/05/17 18:55 4 UNITS Miscellaneous (Iv Fluids Completed) 1 ea PRN PRN N/A 09/01/17 21:45 09/01/18 21:44 Glucose (Glucose 40% Gel) 15-30 GRAMS 15 GRAMS... UD PRN PO 09/01/17 22:15 10/01/17 22:14 Glucose (Glucose Chew Tab) 4-8 Tablets 4 Tabl... UD PRN PO 09/01/17 22:15 10/01/17 22:14 Dextrose (Dextrose 50% 50ML Syringe) 25-50ML OF 50% DW IV FOR... UD PRN IV 09/01/17 22:15 10/01/17 22:14 Glucagon (Glucagon Inj) 1 mg UD PRN SQ 09/01/17 22:15 10/01/17 22:14 Furosemide (Lasix Tab) 40 mg QAM PO 09/05/17 08:00 10/05/17 07:59 09/05/17 07:54 40 MG Senna/Docusate Sodium (Senokot S Tab) 1 tab DAILY PRN PO 09/05/17 09:15 10/05/17 09:14 Levalbuterol (Xopenex 1.25MG/ 3ML Neb) 1.25 mg Q6R INH 09/05/17 21:00 10/05/17 20:59
[2017-09-05] MEDS: LEVALBUTEROL 1.25MG/3ML NEB INH SCH (20:42)
[2017-09-05] MEDS ORDERED: LEVALBUTEROL 1.25MG/0.5ML NEB INH SCH (21:00)
[2017-09-05] MEDS: GABAPENTIN 400 MG CAP PO SCH (21:05)
[2017-09-06] MEDS: LEVALBUTEROL 1.25MG/3ML NEB INH SCH ×2 (02:05→08:22)
[2017-09-06 02:06] VITALS: PULSE 69; O2SAT 96
[2017-09-06 07:36] VITALS: BP 115/69; PULSE 78; TEMP 36.5; O2SAT 98
[2017-09-06 07:40] LABS: CALCIUM 8.3 mg/dl (8.5-10.1); CREATININE 1.64 mg/dl (0.60-1.20); POTASSIUM 4.1 mmol/L (3.5-5.1)
[2017-09-06] MEDS: PANTOprazole SOD 40 MG TAB PO SCH (07:48)
[2017-09-06] MEDS: MAGNESIUM OXIDE 400 MG TAB PO SCH (07:48)
[2017-09-06] MEDS: CETIRIZINE HCL 10 MG TAB PO SCH (07:49)
[2017-09-06] MEDS: DILTIAZEM HCL 120 MG CAPCR PO SCH (07:49)
[2017-09-06] MEDS: GABAPENTIN 100 MG CAP PO SCH ×2 (07:49→12:37)
[2017-09-06] MEDS: FUROSEMIDE 40 MG TAB PO SCH (07:49)
[2017-09-06] MEDS: HEPARIN SOD 5000 UNIT/0.5 ML CARP SQ SCH (07:50)
[2017-09-06] MEDS: METOPROLOL TARTRATE 100 MG TAB PO SCH (07:50)
[2017-09-06] MEDS: INSULIN ASPART 100 UNITS/ML 3 ML PEN SC SCH ×2 (07:54→12:39)
[2017-09-06 08:25] VITALS: PULSE 64; O2SAT 97
--- NOTE | 2017-09-06 12:19 | Progress Note ---
Medicine Progress Note Date & Time of Visit: Sep 06, 2017 at 12:12. Subjective Seen sitting up in bedside chair comfortable Did well with physical therapy ambulating the halls Denies any leg weakness or extremity weakness No dizziness, chest pain, shortness of breath Has occasional yellow sputum, no fever chills Denies other symptoms States she is ready and would like to go home today Family at the bedside, agreeable Objective Last 8 Hrs Date Time Temp Pulse Resp B/P (MAP) Pulse Ox O2 Delivery O2 Flow Rate FiO2 09/06/17 08:25 64 16 97 Room Air 09/06/17 08:00 Room Air 09/06/17 07:36 36.5 78 20 115/69 (84) 98 Room Air Physical Exam: General- oriented x 3, not in distress, speaks in sentences with no effort Eyes-anicteric Neck-no JVD Lungs-clear breath sounds bilaterally no rales or wheezes Heart- regular rhythm; no murmur, normal rate Abdomen- normal bowel sounds, soft, nontender, nondistended Extremities- no pretibial edema, no calf tenderness; peripheral pulses intact Neuro-no gross focal motor or sensory deficits Skin- warm & dry Laboratory Results: Last 24 Hours Test 09/05/17 16:58 09/05/17 20:29 09/06/17 06:14 09/06/17 07:43 Bedside Glucose 140 mg/dl 199 mg/dl 198 mg/dl Sodium Level 138 mmol/L Potassium Level 4.1 mmol/L Chloride Level 106 mmol/L Carbon Dioxide Level 25 mmol/L Anion Gap 7.0 mmol/L Blood Urea Nitrogen 27 mg/dl Creatinine 1.64 mg/dl Est Creatinine Clear Calc Drug Dose 26.6 ml/min Estimated GFR () 33.4 Estimated GFR (Non- 28.8 BUN/Creatinine Ratio 16.5 Random Glucose 177 mg/dl Calcium Level 8.3 mg/dl Test 09/06/17 11:28 Bedside Glucose 231 mg/dl Assessment & Plan 82 year old female with history of CAD/CABG, DM 2, HTN, CKD 3, Depression presenting with bilateral leg weakness, shaking BILATERAL LEG WEAKNESS/SHAKING AMBULATORY DYSFUNCTION Her labs and imaging studies and EKG were unremarkable. No focus of infection -- from marginal BP? Blood pressure still on the lower side but stable hold ISMN, Lisinopril Monitor and titrate BP meds -- from High Dose statin? Also presented with mild muscle pain/cramping CPK normal Atorvastatin held Reduce dose from 80 down to 40 mg daily Monitor If muscle weakness returns, may need to change to pravastatin --Neuropathy? CT head unremarkable CT cervical spine no significant stenosis Lumbar spine MRI moderate spinal stenosis Neurologist Dr. Raymundo has evaluated the patient No further neurologic intervention at this time Outpatient follow-up with neurology, possible nerve conduction testing if with persistence of symptoms -- PT/OT recommends home with home health services Bilateral wheezing, likely fluid overload Observed on hospital day #3 Lasix resumed and given bronchodilators Resolved Creatinine on discharge day increased to 1.6 Reduce lisinopril to 20 mg every other day Monitor CAD with history of CABG 3. No cardiac symptoms continue Metoprolol, Dilzem hold Lipitor, ISMN, LIsinopril ACUTE RENAL FAILURE on CHRONIC KIDNEY DISEASE STAGE III baseline crea 1.2 now 1.4 to 1.6 Hold lisinopril Reduce Lasix to 20 mg every other day Monitor creatinine and volume status Type 2 diabetes A1c 7.4 hold Metformin for now in light of creatinine 1.6 Continue glimepiride Monitor renal function Hypertension Blood pressure on the lower side but remains stable hold ISMN, Lisinopril Hyperlipidemia Reduce Lipitor to 40 mg p.o. daily Monitor Disposition Discharge to home with home health services Follow-up with Dr. Rashid this week No available appointment with Dr. Rashid but she will call the patient this week to work her into her schedule Current Inpatient Medications: Current Inpatient Medications Medications (Trade) Dose Ordered Sig/Severino Route Start Time Stop Time Status Last Admin Dose Admin Acetaminophen (Tylenol Tab) 650 mg Q4H PRN PO 09/01/17 21:30 10/01/17 21:29 09/04/17 08:28 650 MG Ondansetron HCl (Zofran Inj) 4 mg Q6H PRN IV 09/01/17 21:30 10/01/17 21:29 Heparin Sodium (Porcine) (Heparin Sq 5000 Unit/0.5ml) 5,000 unit Q12H SQ 09/01/17 21:00 10/01/17 20:59 09/05/17 21:16 5,000 UNIT Atorvastatin Calcium (Lipitor Tab) 80 mg DAILY PO 09/02/17 08:00 10/02/17 08:59 Future Hold Cetirizine HCl (zyrTEC TAB) 10 mg DAILY PO 09/02/17 08:00 10/02/17 08:59 09/06/17 07:49 10 MG Diltiazem HCl (Cardizem Cd Cap) 120 mg DAILY PO 09/02/17 08:00 10/02/17 08:59 09/06/17 07:49 120 MG Gabapentin (Neurontin Cap) 200 mg BID@0800,1400 PO 09/02/17 08:00 10/02/17 07:59 09/06/17 07:49 200 MG Gabapentin (Neurontin Cap) 400 mg HS PO 09/02/17 21:00 10/02/17 20:59 09/05/17 21:05 400 MG Hydroxyzine HCl (Vistaril Tab) 25 mg HS PRN PO 09/01/17 21:30 10/01/17 21:29 Magnesium Oxide (Mag-Ox Tab) 400 mg BID PO 09/02/17 08:00 10/02/17 08:59 09/06/17 07:48 400 MG Metoprolol Tartrate (Lopressor Tab) 100 mg BID PO 09/02/17 08:00 10/02/17 08:59 09/06/17 07:50 100 MG Nitroglycerin (Nitrostat Tab) 0.4 mg PRN UT 09/01/17 21:30 10/01/17 21:29 Pantoprazole Sodium (Protonix Tab) 40 mg BID PO 09/02/17 08:00 10/02/17 08:59 09/06/17 07:48 40 MG Insulin Aspart (novoLOG ASPART) SLIDING SCALE G... ACHS SC 09/02/17 06:30 10/02/17 06:59 09/06/17 07:54 7 UNITS Miscellaneous (Iv Fluids Completed) 1 ea PRN PRN N/A 09/01/17 21:45 09/01/18 21:44 Glucose (Glucose 40% Gel) 15-30 GRAMS 15 GRAMS... UD PRN PO 09/01/17 22:15 10/01/17 22:14 Glucose (Glucose Chew Tab) 4-8 Tablets 4 Tabl... UD PRN PO 09/01/17 22:15 10/01/17 22:14 Dextrose (Dextrose 50% 50ML Syringe) 25-50ML OF 50% DW IV FOR... UD PRN IV 09/01/17 22:15 10/01/17 22:14 Glucagon (Glucagon Inj) 1 mg UD PRN SQ 09/01/17 22:15 10/01/17 22:14 Furosemide (Lasix Tab) 40 mg QAM PO 09/05/17 08:00 10/05/17 07:59 09/06/17 07:49 40 MG Senna/Docusate Sodium (Senokot S Tab) 1 tab DAILY PRN PO 09/05/17 09:15 10/05/17 09:14 Levalbuterol (Xopenex 1.25MG/ 3ML Neb) 1.25 mg Q6R INH 09/05/17 21:00 10/05/17 20:59 09/06/17 08:22 1.25 MG
[2017-09-06] MEDS ORDERED: FURO-85 PO (12:24)
[2017-09-06] MEDS ORDERED: GABA100C13 PO (12:24)
[2017-09-06] MEDS ORDERED: LPT40 PO (12:24)
--- NOTE | 2017-09-06 12:29 | Discharge Instructions ---
Discharge Instructions Date of Service Sep 06, 2017. Admission Reason for Admission: Ambulatory Dysfunction Discharge Discharge Diagnosis / Problem: LEG WEAKNESS, FALL Discharge Goals Goal(s): Diagnostic testing, Therapeutic intervention Activity Recommendations Activity Limitations: as noted below (NO HEAVY EXERTION UNTIL RE-EVALUATED BY PRIMARY CARE PHYSICIAN) Lifting Limitations: until after follow-up appointment Exercise/Sports Limitations: until after follow-up appointment . Instructions / Follow-Up Instructions / Follow-Up PLEASE REVIEW YOUR NEW MEDICATION LIST AND FOLLOW INSTRUCTIONS CAREFULLY. CALL YOUR PRIMARY CARE PHYSICIAN OR RETURN TO ER IMMEDIATELY IF WITH RECURRENCE OF SYMPTOMS, INCREASING COUGH, SHORTNESS OF BREATH. ALWAYS AMBULATE CAREFULLY AND ALWAYS USE THE WALKER. ENSURE ADEQUATE DAILY FLUID INTAKE- AT LEAST 6 GLASSES OF FLUIDS/DAY. FOLLOW UP WITH DR. SHEN THIS WEEK. THE CLINIC WILL BE CALLING YOU SOON FOR THE APPOINTMENT SCHEDULE. Current Hospital Diet Patient's current hospital diet: AHA Diet (Heart Healthy), Diabetes Type 2 Diet Discharge Diet Recommended Diet: AHA Diet (Heart Healthy), Diabetes Type 2 Diet Procedures Procedures Performed: CT SCAN OF THE HEAD, MRI OF THE SPINE Pending Studies Studies pending at discharge: yes List of pending studies: REPEAT BLOOD WORK C/O DR. SHEN THIS WEEK Laboratory Results Hemoglobin A1c Test 09/02/17 05:49 Range/Units Estimated Average Glucose 166 mg/dl Hemoglobin A1c 7.4 H 4.5-5.6 % Medical Emergencies . Who to Call and When: Medical Emergencies: If at any time you feel your situation is an emergency, please call 911 immediately. . Non-Emergent Contact Non-Emergency issues call your: Primary Care Provider Call Non-Emergent contact if: you have a fever, you have any medication questions . . "Provider Documentation" section prepared by Zachariah Montana. .
[2017-09-06] MEDS ORDERED: WALKER (12:33)
--- NOTE | 2017-09-06 12:38 | Discharge Summary ---
Discharge Summary Date of Service Sep 06, 2017. Discharge Summary Admission Date: Sep 01, 2017 Discharge Date: Sep 06, 2017 Discharge Disposition: Home with services Principal Diagnosis: BILATERAL LEG WEAKNESS/SHAKING; AMBULATORY DYSFUNCTION Secondary Diagnoses/Problems: PLEASE REFER TO HOSPITAL COURSE BELOW. Procedures: CT HEAD WITHOUT CONTRAST (CT) CLINICAL HISTORY: Head pain status post trauma COMPARISON STUDY: No previous studies for comparison. TECHNIQUE: Axial CT of the brain is performed from the vertex to the skull base. IV contrast was not administered for this examination. A dose lowering technique was utilized adhering to the principles of ALARA. CT DOSE: 537.48 mGy.cm FINDINGS: No intra or extra-axial mass lesions are visualized. There is no CT evidence of acute cortical infarction. There is no evidence of midline shift. There is no acute hemorrhage. No calvarial fractures are visualized. There are patchy minimal matter hypodensities likely on a small vessel basis. There is no evidence of pathologic ventricular dilatation. There is a 3 cm hyperdense mass within the left maxillary sinus. This protrudes into the nasal cavity. There appear to be postsurgical changes involving the left ethmoid complex and nasal cavity. The medial wall the left maxillary sinus has either been surgically removed or eroded from the left maxillary sinus mass. Please correlate with history of prior surgery. IMPRESSION: 1. No evidence of acute intracranial injury 2. 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 MRI CERVICAL WITHOUT CONTRAST CLINICAL HISTORY: Sudden onset of upper lower extremity weakness status post trauma. TECHNIQUE: Sagittal and axial T1, T2 and STIR images were obtained. COMPARISON STUDY: No previous studies for comparison. There are no suspicious areas of marrow replacement. No intrinsic cervical cord lesions are visualized. C2-3: There is calcification of posterior longitudinal ligament. No focal herniations are visualized. There is no spinal or foraminal stenosis. C3-4: There is no evidence of disc bulge or focal herniation. There is no spinal or foraminal stenosis. C4-5: There are no disc bulges or focal herniations. There is no spinal or foraminal stenosis. C5-6 :There is disc degeneration. There is a circumferential disc bulge. There is minimal spinal canal narrowing. There is bilateral foraminal stenosis], right greater than left. C6-7: There is a minor circumferential disc bulge. There is no significant spinal stenosis. There is mild bilateral foraminal narrowing C7-T1: There is no evidence of disc bulge or focal herniation. There is no evidence of spinal or foraminal stenosis. IMPRESSION: 1. No cord lesions identified 2. No evidence of epidural hematoma 3. Multilevel spondylitic changes. 4. Foraminal narrowing at the C5-6 and C6-7 levels. LUMBAR SPINE W/O CONTRAST CLINICAL HISTORY: 82 years-old Female presenting with back pain, leg weakness, decreased LE reflexes. TECHNIQUE: Multisequence, multiplanar MR imaging of the lumbar spine was performed without the use of intravenous contrast. IV contrast: None. COMPARISON: Plain radiographs of the lumbar spine from 09/02/2017. FINDINGS: Localizer images: Unremarkable. Normal lumbar lordosis. 3 mm of grade 1 anterolisthesis of L4 on L5. Vertebral bodies maintain otherwise normal height, alignment, and bone marrow signal intensity. Mild diffuse intervertebral disc desiccation. Additional multilevel degenerative changes further detailed below: L1-2: No significant neural foraminal or spinal canal narrowing. L2-3: Eccentric disc bulge with annular fissure effaces the right neural foramen and far lateral right neural foramen resulting in mass effect on the exiting right L2 nerve root. Disc bulge in combination with ligamentum flavum hypertrophy moderately effaces the thecal sac circumferentially and exerts mass effect on the transiting L3 nerve roots. Minimal CSF signal intensity is maintained. Mild bilateral neural foraminal narrowing. L3-4: Disc bulge with annular fissure results in abutment of the bilateral exiting L3 nerve roots. Additionally, disc bulge abuts the transiting L4 nerve roots greater on the right. Disc bulge in combination with facet arthropathy and ligamentum flavum hypertrophy results in cervical vertebral effacement of the thecal sac and near complete effacement of CSF signal intensity. This exerts mass effect on the transiting L4 nerve roots. Moderate bilateral neural foraminal narrowing. L4-5: Disc bulge, facet arthropathy, and ligamentum flavum hypertrophy result in circumferential effacement of the thecal sac that is not quite as severe as the more superior levels. The disc bulge abuts the exiting left L4 nerve root. Mild right and moderate left neural foraminal narrowing. L5-S1: Minimal disc bulge and facet arthropathy noted. No significant spinal canal narrowing. Mild bilateral neural foraminal narrowing. Spinal cord ends in good position at L1. Cauda equina crowding as mentioned above though otherwise the cauda equina is normal morphology. Paraspinal musculature within normal limits. No paraspinal muscular edema. Minimal nonspecific edema in the lumbar region. IMPRESSION: 1. Significant multilevel degenerative changes with spinal canal stenosis most severe at L2-3 and L3-4. No convincing evidence of cauda equina impingement. 2. Degenerative changes result in multifocal neural foraminal narrowing as well as mass effect on the exiting transiting nerve roots as detailed above. This is most significant at L2-3, L3-4, and L4-5. SINGLE VIEW CHEST CLINICAL HISTORY: Generalized weakness. FINDINGS: An AP, portable, upright chest radiograph is obtained. No prior studies are available for comparison at the time of dictation. The examination is degraded by portable technique and patient rotation. The patient is status post midline sternotomy. The heart is enlarged and there is atherosclerotic calcification of the thoracic aorta. The pulmonary vasculature is noncongested. Nonspecific interstitial thickening is likely chronic. No airspace consolidation or large pleural effusion is identified. No pneumothorax is seen. The skeletal structures are osteopenic. The bony thorax is grossly intact. IMPRESSION: Mild cardiac enlargement with no acute cardiopulmonary abnormality. Consultations: NEUROLOGY DR. STEINBERG Pending Studies/Follow-Up: PLEASE REFER TO HOSPITAL COURSE BELOW. Medication Reconciliation New Medications: Furosemide (Lasix) 20 Mg Tab 20 MG PO UD for 30 Days, #30 TAB take every other day, starting on September 08, 2017 [Walker] () UD, #1 ALWAYS USE WITH AMBULATION Atorvastatin (Lipitor) 40 Mg Tab 40 MG PO DAILY for 30 Days, #30 TAB 1 Refill Changed Medications: Gabapentin (Neurontin) 100 Mg Cap 200 MG PO HS for 30 Days (Changed from: 400 MG) Continued Medications: Acetaminophen (Tylenol) 500 Mg Tab 1000 MG PO Q6 PRN for Pain or Fever, TAB Camphor & Menthol (Sarna) 1 Lot Lot 1 APPLN TOP DAILY PRN for DRY SKIN Cetirizine Hcl (Zyrtec) 10 Mg Tab 10 MG PO DAILY, TAB Diltiazem Hcl Coated Beads (Diltiazem Hcl Er) 120 Mg Cap 120 MG PO DAILY Gabapentin (Neurontin) 100 Mg Cap 200 MG PO BID, CAP Glimepiride (Glimepiride) 4 Mg Tab 8 MG PO DAILY Hydroxyzine Hcl (Atarax) 25 Mg Tab 25 MG PO HS PRN for Itching, TAB Ketoconazole (Topical) (Nizoral) 2 % Sha 1 APPLN TOP 2XWK PRN for UNDER BREAST for 30 Days, #120 ML 1 Refill Magnesium Oxide (Mag-Ox) 400 Mg Tab 400 MG PO BID, TAB Metoprolol Tartrate (Lopressor) 100 Mg Tab 100 MG PO BID, TAB Nitroglycerin (Nitrostat) 0.4 Mg Sub 0.4 MG UT PRN, BTL Maud-3 Fatty Acids (Fish Oil) 1 Cap Cap 1000 MG PO TID Omeprazole (Prilosec) 20 Mg Cap 20 MG PO BID, CAP Discontinued Medications: Atorvastatin (Lipitor) 80 Mg Tab 80 MG PO DAILY, TAB Furosemide (Lasix) 40 Mg Tab 40 MG PO DAILY, TAB Isosorbide Mononitrate (Isosorbide Mononitrate ER) 60 Mg Tabcr 60 MG PO DAILY Lisinopril (Prinivil) 20 Mg Tab 20 MG PO DAILY, TAB Metformin Hcl (Glucophage) 1,000 Mg Tab 1000 MG PO BID, TAB Admission Information HPI (per Admitting provider): She is an 82-year-old female with significant past medical history of CAD type 2 diabetes chronic kidney disease adjustment disorder with depressed mood hypertension and hyperlipidemia and apparently has been complaining of weakness and tiredness since Tuesday last. She lives with her and her is having flu symptoms she does have cough and occasional sneezing but no other symptoms. For the last 2 days she has been complaining of more weakness. She usually walks around with the use of walker or a cane at times recently she can hardly do that due to weakness in the legs. This morning she tried to come out of bed and she is slated on the floor and from that point she was advised to come to the emergency room. She denies to have any flu symptoms and a cough any phlegm any chest pain shortness of breath palpitation. Does not have any abdominal pain nausea and/ or vomiting. Denies to any fever chills or riders. Does not have any problem with urine or bowel habit. In the ER she was very weak to move around and from this point she was advised for admission her labs and imaging studies were unremarkable. Physical Exam (per Admitting): General Appearance: no apparent distress Head: normocephalic Eyes: normal inspection ENT: normal ENT inspection Neck: supple Respiratory/Chest: chest non-tender, lungs clear Cardiovascular: regular rate, rhythm, no edema, no gallop Abdomen/GI: normal bowel sounds, non tender, soft, no organomegaly Genitourinary - Female: external genitalia normal Back: normal inspection Extremities/Musculoskelatal: normal inspection, no calf tenderness Neurologic/Psych: no motor/sensory deficits, alert, normal mood/affect Skin: normal color Lymphatic: no adenopathy Hospital Course 82 year old female with history of CAD/CABG, DM 2, HTN, CKD 3, Depression presenting with bilateral leg weakness, shaking BILATERAL LEG WEAKNESS/SHAKING AMBULATORY DYSFUNCTION Her labs, imaging studies and EKG were unremarkable. -- from marginal BP? Blood pressure still on the lower side but stable hold ISMN, Lisinopril Monitor and titrate BP meds -- from High Dose statin? Also presented with mild muscle pain/cramping CPK normal Atorvastatin held Reduce dose from 80 down to 40 mg daily Monitor If muscle weakness returns, may need to change to pravastatin --Neuropathy? CT head unremarkable CT cervical spine no significant stenosis Lumbar spine MRI moderate spinal stenosis Neurologist Dr. Raymundo has evaluated the patient No further neurologic intervention at this time Outpatient follow-up with neurology, possible nerve conduction testing if with persistence of symptoms -- leg weakness resolved during hospitalization patient was ambulating again with no problems, using a walker -- PT/OT recommends home with home health services Bilateral wheezing, likely fluid overload Observed on hospital day #3 after holding lasix for 2 days Lasix resumed and given bronchodilators Resolved Creatinine on discharge day increased to 1.6 Reduce lasix for now to 20 mg every other day Monitor CAD with history of CABG 3. No cardiac symptoms continue Metoprolol, Dilzem hold Lipitor, ISMN, LIsinopril ACUTE RENAL FAILURE on CHRONIC KIDNEY DISEASE STAGE III baseline crea 1.2 noted to be 1.4 to 1.6 Hold lisinopril Reduce Lasix to 20 mg every other day Monitor creatinine and titrate lasix Type 2 diabetes A1c 7.4 hold Metformin for now in light of creatinine 1.6 Continue glimepiride repeat crea on ff up this week Hypertension Blood pressure on the lower side but remains stable hold ISMN, Lisinopril Hyperlipidemia Reduce Lipitor to 40 mg p.o. daily Monitor Disposition Discharge to home with home health services Follow-up with Dr. Rashid this week, she will kindly accommodate the patient this week Total time spent on discharge = 45 minutes This includes examination of the patient, discharge planning, medication reconciliation, and communication with other providers. Discharge Instructions Discharge Instructions Date of Service Sep 06, 2017. Admission Reason for Admission: Ambulatory Dysfunction Discharge Discharge Diagnosis / Problem: LEG WEAKNESS, FALL Discharge Goals Goal(s): Diagnostic testing, Therapeutic intervention Activity Recommendations Activity Limitations: as noted below (NO HEAVY EXERTION UNTIL RE-EVALUATED BY PRIMARY CARE PHYSICIAN) Lifting Limitations: until after follow-up appointment Exercise/Sports Limitations: until after follow-up appointment . Instructions / Follow-Up Instructions / Follow-Up PLEASE REVIEW YOUR NEW MEDICATION LIST AND FOLLOW INSTRUCTIONS CAREFULLY. CALL YOUR PRIMARY CARE PHYSICIAN OR RETURN TO ER IMMEDIATELY IF WITH RECURRENCE OF SYMPTOMS, INCREASING COUGH, SHORTNESS OF BREATH. ALWAYS AMBULATE CAREFULLY AND ALWAYS USE THE WALKER. ENSURE ADEQUATE DAILY FLUID INTAKE- AT LEAST 6 GLASSES OF FLUIDS/DAY. FOLLOW UP WITH DR. RASHID THIS WEEK. THE CLINIC WILL BE CALLING YOU SOON FOR THE APPOINTMENT SCHEDULE. Current Hospital Diet Patient's current hospital diet: AHA Diet (Heart Healthy), Diabetes Type 2 Diet Discharge Diet Recommended Diet: AHA Diet (Heart Healthy), Diabetes Type 2 Diet Procedures Procedures Performed: CT SCAN OF THE HEAD, MRI OF THE SPINE Pending Studies Studies pending at discharge: yes List of pending studies: REPEAT BLOOD WORK C/O DR. RASHID THIS WEEK Laboratory Results Hemoglobin A1c Test 09/02/17 05:49 Range/Units Estimated Average Glucose 166 mg/dl Hemoglobin A1c 7.4 H 4.5-5.6 % Medical Emergencies . Who to Call and When: Medical Emergencies: If at any time you feel your situation is an emergency, please call 911 immediately. . Non-Emergent Contact Non-Emergency issues call your: Primary Care Provider Call Non-Emergent contact if: you have a fever, you have any medication questions . . "Provider Documentation" section prepared by Zachariah Montana. .
[2017-09-06 13:05] VITALS: BP 115/69; PULSE 64; TEMP 36.5; O2SAT 97
== END 2017-09-06 13:42 | disposition home health service (06) | DRG 556 ==
LOC: EDSEX 16:34 → EDBD 16:34 → C.EDB 16:35 → C.4E 21:22 → ENRESERV 21:38 → OBSVTOIN 09-04 18:56
PROVIDERS: ADMIT Internal Medicine; ATTEND Internal Medicine
DX: R26.2 Difficulty in walking, not elsewhere classified (principal); N17.9 Acute kidney failure, unspecified; I25.10 Atherosclerotic heart disease of native coronary artery without angina pectoris; E11.22 Type 2 diabetes mellitus with diabetic chronic kidney disease; F43.20 Adjustment disorder, unspecified; N18.3 Chronic kidney disease, stage 3 (moderate); F32.9 Major depressive disorder, single episode, unspecified; F39 Unspecified mood [affective] disorder; I12.9 Hypertensive chronic kidney disease with stage 1 through stage 4 chronic kidney disease, or unspecified chronic kidney disease; E78.5 Hyperlipidemia, unspecified; Z87.891 Personal history of nicotine dependence; Z88.6 Allergy status to analgesic agent; Z88.5 Allergy status to narcotic agent; Z88.1 Allergy status to other antibiotic agents; Z95.1 Presence of aortocoronary bypass graft

== ENCOUNTER 2019-03-27 10:09 | Inpatient (IN) ==
[2019-03-27 11:58] LABS: Basophils # (auto) 0.02 K/uL (0-0.2); Basophils % (auto) 0.2 %; Eosinophils # (auto) 0.02 K/uL (0-0.5); Eosinophils % (auto) 0.2 %; Hemoglobin 12.4 g/dL (12.0-16.0); Immature Granulocytes # (auto) 0.01 K/uL (0.00-0.02); Immature Granulocytes % (auto) 0.1 %; Lymphocytes # (auto) 1.59 K/uL (1.2-3.4); Lymphocytes % (auto) 18.5 %; Mean Corpuscular Hemoglobin 30.1 pg (25-34); Mean Corpuscular Hgb Conc 33.5 g/dL (32-36); Mean Corpuscular Volume 89.8 fL (80-100); Mean Platelet Volume 10.2 fL (7.4-10.4); Monocytes # (auto) 0.94 K/uL (0.11-0.59); Monocytes % (auto) 10.9 %; Neutrophils # (auto) 6.02 K/uL (1.4-6.5); Neutrophils % (auto) 70.1 %; Platelet Count 212 K/uL (130-400); RDW Coefficient of Variation 14.7 % (11.5-14.5); RDW Standard Deviation 48.1 fL (36.4-46.3); Red Blood Count 4.12 M/uL (4.2-5.4)
[2019-03-27 12:11] LABS: INR 1.1 (0.9-1.1); Partial Thromboplastin Ratio 1.1; Partial Thromboplastin Time 28.5 Seconds (21.0-31.0); Prothrombin Time 10.9 Seconds (9.0-12.0)
[2019-03-27 12:19] LABS: Albumin Level 3.1 gm/dl (3.4-5.0); Calcium 8.8 mg/dl (8.5-10.1); Creatinine Clr Calc Pharmacy 38.7 ml/min; Est GFR (African American) 61.4; Potassium 3.5 mmol/L (3.5-5.1)
[2019-03-27 12:23] LABS: Albumin Globulin Ratio 0.8 (0.9-2); Bilirubin,Total 1.2 mg/dl (0.2-1); Globulin 3.7 gm/dl (2.5-4.0); Total Protein 6.8 gm/dl (6.4-8.2); Troponin I 0.035 ng/ml (0-0.045)
--- NOTE | 2019-03-27 13:05 | XRay Report ---
XR chest 1V portable CLINICAL HISTORY: Dyspnea COMPARISON STUDY: 09/03/2017 FINDINGS: The cardiac and mediastinal contours remain stable. There are postsurgical changes of midli ne sternotomy. There is a retrocardiac opacity consistent with a hiatal hernia. There is mild chronic interstitial thickening. There is no acute parenchymal consolidation. There are no pleural effusions .[ IMPRESSION: Stable findings. No active disease in the chest. Electronically signed by: Lam Garza M.D. 03/27/2019 1:04 PM
--- NOTE | 2019-03-27 13:06 | XRay Report ---
XR shoulder RT min 2V routine HISTORY: 84 years-old Female shoulder pain acute right-sided shoulder pain without reported trauma COMPARISON: Chest radiograph of same day and also 09/03/2017 TECHNIQUE: 3 views of the right shoulder FINDINGS: Mild glenohumeral and AC joint osteoarthritis. There is no acute fracture or dislocation or opaque fo reign body. Mild soft tissue prominence adjacent to the right shoulder. Mildly demineralized appearan ce of the bones. Prior median sternotomy. Calcified plaque of the thoracic aortic arch. IMPRESSION: No acute fracture or dislocation. The above report was generated using voice recognition software. It may contain grammatical, syntax o r spelling errors. Electronically signed by: Ricki Palacio M.D. 03/27/2019 1:05 PM
[2019-03-27] MEDS ORDERED: METOPROLOL TARTRATE 1 MG/ML VIAL IV STA (13:35)
[2019-03-27] MEDS ORDERED: ACETAMINOPHEN 500 MG TAB PO STA (14:37)
[2019-03-27 14:43] LABS: Magnesium 2.5 mg/dl (1.8-2.4); Thyroid Stimulating Hormone 2.17 uIu/ml (0.300-4.500)
[2019-03-27] MEDS ORDERED: Heparin IV Low Dose *NO* Bolus IV ONE (14:48)
[2019-03-27] MEDS ORDERED: dilTIAZem HCL 30 MG TAB PO STA (14:49)
[2019-03-27] MEDS ORDERED: ACETAMINOPHEN 500 MG TAB ONE (15:00)
[2019-03-27] MEDS ORDERED: dilTIAZem HCL 30 MG TAB PO ONE (15:00)
[2019-03-27] MEDS ORDERED: DEXTROSE 50% 50 ML SYRINGE IV PRN (15:25)
[2019-03-27] MEDS ORDERED: GLUCOSE 40% GEL 15 GM TUBE PO PRN (15:25)
[2019-03-27] MEDS ORDERED: GLUCAGON FOR INJ 1 MG VIAL SQ PRN (15:25)
[2019-03-27] MEDS ORDERED: TRAMADOL HCL 50 MG TABLET PO PRN (15:25)
[2019-03-27] MEDS ORDERED: MAGNESIUM HYDROXIDE SUSP 30 ML UDC PO PRN (15:25)
[2019-03-27] MEDS ORDERED: ACETAMINOPHEN 325 MG TAB PO PRN (15:25)
[2019-03-27] MEDS ORDERED: GLUCOSE 10 TABS/TUBE PO PRN (15:25)
[2019-03-27] MEDS ORDERED: POLYETHYLENE (MIRALAX) 17 GM PACK PO PRN (15:25)
[2019-03-27] MEDS ORDERED: ALUMINUM/MAGNESIUM SUSP 30 ML UDC PO PRN (15:25)
[2019-03-27] MEDS ORDERED: CARBOHYDRATES FOR HYPOGLYCEMIA PO PRN (15:25)
--- NOTE | 2019-03-27 15:40 | History & Physical Report ---
Date of Service March 27, 2019 Assessment & Plan (1) Atrial fibrillation with RVR: This is an 84-year-old female who has significant past medical history of CAD with history of CABG x3 in 1996, HTN, HLD, T2DM, CKD stage III, history of PUD requiring 3 unit PRBC 10 years ago who presents to [facility] ED secondary to significant right shoulder pain for 3 to 4 days along with shortness of breath x2 weeks. In ED during initial work-up she was found to be in new onset atrial fibrillation with heart rates low 100-120 H&H stable at 12.4 and 37.0, W BC 8.6, platelet 212 BUN/creatinine stable at 15 and 0.98, potassium 3.5, mag 2.5, glucose 177, TSH 2.17 admit to PCU consult Cardiology Dr. Morgan - discussed case with him continue metoprolol tartrate 100mg bid hold home diltiazem and start Dilt 30mg QID for rate control Low dose no bolus IV heparin started Chadsvasc 6/ Hasbled 2 (2) Acute pain of right shoulder: shoulder xray: IMPRESSION: No acute fracture or dislocation. consult orthopedic surgery APAP 1g x 1 now tramadol 50mg q4h prn pain ? if adhesive capsulitis ICE tid consult PT/OT (3) CAD (coronary artery disease): No current chest pain or shortness of breath Continue statin, metoprolol Not on ASA due to history of PUD (4) T2DM (type 2 diabetes mellitus): Last A1c 7.3 Lantus/NovoLog per protocol Hold metformin, glimepiride (5) HTN (hypertension): Blood pressure elevated in ED, likely pain component Treat pain She also missed her a.m. dose of metoprolol and diltiazem Continue metoprolol, change diltiazem to 30 mg every 6 hours (6) Hyperlipidemia: Continue statin (7) CKD (chronic kidney disease), stage III: Creatinine stable at 0.98 Monitor BMP (8) DVT prophylaxis: Low-dose IV heparin SCD/teds Disposition: Admit to PCU, case management consulted, PT OT consulted Follow-up: PCP Dr. Rashid upon discharge Patient was seen and examined in collaboration with Dr. Asif, please see addendum History of Present Illness Chief Complaint: Right shoulder pain x4 days; shortness of breath x2 weeks. Primary Care Provider: Moise Rashid MD This is an 84-year-old female who has significant past medical history of CAD with history of CABG x3 in 1996, HTN, HLD, T2DM, CKD stage III, history of PUD requiring 3 unit PRBC 10 years ago who presents to [facility] ED secondary to significant right shoulder pain for 3 to 4 days along with shortness of breath x2 weeks. Patient states she was lying on her right side this morning whenever she rolled over and had significant right shoulder pain. She was unable to move her right arm at all. She called her son secondary to pain and also elicited that she had been short of breath for a few days. Due to symptoms patient was brought immediately to ED by son. She complains of off-and-on shortness of breath for the past 2 weeks. Can occur at rest or with exertion, "but I do not exert myself that much." Shortness of breath can last for minutes to hours. She denies any rajiv chest pain, palpitations, hemoptysis, orthopnea, PND. She denies a prior history of A. fib or arrhythmia. She denies any recent illness, fever, chills, sweats, lightheadedness, dizziness, syncope, nausea, vomiting, abdominal pain, dysuria, increased urgency or frequency with urination, hematuria, melena, hematochezia. Son does elicit that she has had 3 or 4 falls over the past 1 to 2 months. Her last fall was approximately 1 month ago. All of them have been nontraumatic. She denies prior history of brain bleed, but does have a history of PUD 10 years ago requiring 3 units of PRBC. Denies prior history of being on oral anticoagulation. Her appetite is otherwise been stable. She denies any significant weight gain or loss or edema. Not take any of her medications this morning including her metoprolol or diltiazem. She does still live alone at home. Allergies Allergy/AdvReac Type Severity Reaction Status Date / Time aspirin Allergy Severe PEPTIC Verified 03/27/19 12:39 ULCER DISEASE WITH HEMMORAGE codeine Allergy Unknown UNKNOWN Verified 03/27/19 12:39 oxytetracycline Allergy Unknown SEVERE Unverified 03/27/19 12:39 SWELLING polymyxin B Allergy Unknown SEVERE Unverified 03/27/19 12:39 SWELLING Home Medications Home Medications Medication Instructions Recorded Confirmed Type atorvastatin 80 mg PO QAM 03/27/19 03/27/19 History cetirizine 5 mg PO QPM 03/27/19 03/27/19 History diltiazem HCl 120 mg PO QAM 03/27/19 03/27/19 History furosemide 20 mg PO QAM 03/27/19 03/27/19 History gabapentin 200 mg PO BID 03/27/19 03/27/19 History glimepiride 8 mg PO QAM 03/27/19 03/27/19 History hydroxyzine HCl 25 mg PO HS PRN 03/27/19 03/27/19 History ibuprofen 200 mg PO Q6H PRN 03/27/19 03/27/19 History magnesium oxide 400 mg PO BID 03/27/19 03/27/19 History metformin 1,000 mg PO QAM 03/27/19 03/27/19 History metoprolol tartrate 100 mg PO BID 03/27/19 03/27/19 History Past Med/Surg History Medical History CKD (chronic kidney disease), stage III History of peptic ulcer disease T2DM (type 2 diabetes mellitus) HTN (hypertension) Hyperlipidemia CKD (chronic kidney disease) CAD (coronary artery disease) History of CABG x 3 1996 Surgical History History of coronary artery bypass graft x 3 History of appendectomy History of breast biopsy History of tonsillectomy and adenoidectomy History of nasal polypectomy Family History Son Atrial fibrillation Mother Hypertension Social History Preferred Language: Maltese Communication Ability: Effective Molder Punch Required: No Beliefs That Will Affect Care: None marital status: / Current Living Situation: Alone Other Information That Helps Us Care for You: No Feels Safe at Home: Yes Safety Concerns: Feels Safe At This Time Smoking Status: Former smoker packs per day: 1 ; Years Smoked: 20 ; Do You Dip or Chew Tobacco: No ; Smoking End Date: 1995 ; Second Hand Exposure: No ; Tobacco Cessation Education Requested by Patient: No Hx Alcohol Use: No Hx Substance Use: No Review of Systems Review of Systems: All systems reviewed & are unremarkable except as noted in HPI & below Physical Exam Physical Exam: Constitutional: WD/WN, elderly, female, vitals as above, and pain secondary to right shoulder, sitting up in bed, pleasant, conversing easily Head: Normocephalic, Atraumatic Eyes: PERRL, conjunctivae normal, anicteric sclerae ENMT: external ear and nose normal, oropharynx normal Neck: trachea midline, no thyromegaly normal visual inspection Respiratory: normal respiratory effort, lungs clear to auscultation, no wheeze, rales, rhonchi. Normal insp/exp effort, no accessory muscle use Cardiovascular: Irregular rate, irregular rhythm, no murmur, trace left lower extremity edema with medial tibial scar noted from previous vein harvesting, vessels: no JVD or carotid bruit Chest: Sternal scar noted, normal inspection of chest Abdomen: normal bowel sounds, soft, nontender, no hepatosplenomegaly Musculoskeletal: no cyanosis or clubbing -unable to actively move right upper extremity secondary to severe pain. Pain to palpation along the right AC joint and shoulder. Limited passive range of motion secondary to pain with flexion and extension and abduction/abduction, no erythema or warmth, pain to palpation supra spinatus region Skin: no rashes, warm and dry normal turgor Neurologic: PERRL, EOMI, accommodation nl, no face palsy, no dysarthria CN's II-XI intact bilaterally and moves all extremities Psychiatric: A+Ox3, euthymic affect Lymphatic: no cervical or axillary lymphadenopathy : deferred Results & Data Vital Signs (Past 12 Hours) Vital Signs Temp Pulse Resp BP Pulse Ox 03/27/19 14:30 109 H 12 03/27/19 14:01 114 H 32 H 158/103 H 03/27/19 14:00 114 H 21 03/27/19 13:49 105 H 25 H 168/95 H 03/27/19 13:30 97 H 20 138/93 03/27/19 13:00 116 H 29 H 153/88 H 03/27/19 12:30 104 H 29 H 154/112 H 03/27/19 12:00 101 H 22 173/101 H 03/27/19 11:47 106 H 30 H 163/92 H 03/27/19 11:30 106 H 18 164/118 H 98 03/27/19 11:00 102 H 20 148/98 H 96 03/27/19 10:58 99 H 23 151/108 H 96 03/27/19 10:31 36.9 C 118 H 20 140/81 96 03/27/19 10:30 107 H 38 H 95 03/27/19 10:18 104 H 25 H 95 03/27/19 10:14 101 H 28 H 140/81 94 Laboratory Results Short CBC 03/27/19 03/27/19 Range/Units 11:46 11:46 WBC 8.60 (4.8-10.8) K/uL Hgb 12.4 (12.0-16.0) g/dL Hct 37.0 (37-47) % Plt Count 212 (130-400) K/uL Creatinine 0.98 (0.6-1.2) mg/dl Troponin I 0.035 (0-0.045) ng/ml BMP 03/27/19 11:46 Sodium 138 Potassium 3.5 Chloride 106 Carbon Dioxide 23 BUN 15 Creatinine 0.98 Glucose 177 H Calcium 8.8 Cardiac Enzymes 03/27/19 Range/Units 11:46 Troponin I 0.035 (0-0.045) ng/ml Liver Function 03/27/19 Range/Units 11:46 Total Bilirubin 1.2 H (0.2-1) mg/dl AST 7 L (15-37) U/L ALT 12 (12-78) U/L Alkaline Phosphatase 82 (45-117) U/L Albumin 3.1 L (3.4-5.0) gm/dl Diagnostic Findings Shoulder Xray: FINDINGS: Mild glenohumeral and AC joint osteoarthritis. There is no acute fracture or dislocation or opaque foreign body. Mild soft tissue prominence adjacent to the right shoulder. Mildly demineralized appearance of the bones. Prior median sternotomy. Calcified plaque of the thoracic aortic arch. IMPRESSION: No acute fracture or dislocation. CXR: FINDINGS: The cardiac and mediastinal contours remain stable. There are postsurgical changes of midline sternotomy. There is a retrocardiac opacity consistent with a hiatal hernia. There is mild chronic interstitial thickening. There is no acute parenchymal consolidation. There are no pleural effusions.[ IMPRESSION: Stable findings. No active disease in the chest. Medications Administered Discontinued Medications Acetaminophen (Tylenol) 1,000 mg PO NOW STA Stop: 03/27/19 14:38 Last Admin: 03/27/19 15:05 Dose: Not Given Documented by: [id number] Acetaminophen (Tylenol) Confirm Administered Dose 1,000 mg .ROUTE .STK-MED ONE Stop: 03/27/19 15:01 Last Admin: 03/27/19 15:05 Dose: 1,000 mg Documented by: [id number] Diltiazem HCl (Cardizem) 30 mg PO NOW STA Stop: 03/27/19 14:50 Last Admin: 03/27/19 15:05 Dose: Not Given Documented by: [id number] Diltiazem HCl (Cardizem) Confirm Administered Dose 30 mg PO .STK-MED ONE Stop: 03/27/19 15:01 Last Admin: 03/27/19 15:05 Dose: 30 mg Documented by: [id number] Metoprolol Tartrate (Lopressor) 2.5 mg IV NOW STA Stop: 03/27/19 13:36 Last Admin: 03/27/19 13:54 Dose: 2.5 mg Documented by: [id number] ECG Rate (beats per minute): 103 Rhythm: atrial fibrillation Findings: + RBBB, + T-wave inversion and + prolonged QT (526ms) Code Status & VTE Plan Code Status Full Code VTE Prophylaxis Plan VTE Prophylaxis will be ordered: Yes Supervising Physician Co-Signing Physician Notes I have seen and examined the patient and have discussed the case with the provider above. I agree with the assessment and plan as stated with the following exceptions. The patient is an 84 yo F with severe nontraumatic right shoulder pain found to be in new onset atrial fibrillation. She did report some increased SOB and fatigue in recent weeks. She reports sleeping on her shoulder wrong a couple of nights ago, with an increase in intensity of pain in her shoulder despite time from pain onset. She has very limited ROM and is very guarded to examine. She denies chest pain. Physical exam revealed an obese female who was mentating normally with clear lungs to auscultation. Heart exam revealed an irregular tachycardic rhythm and no evidence of murmur. No peripheral edema was seen. Skin was warm and dry and there were no focal neurologic deficits. Workup was negative for a clear cause of afib such as ETOH use, no evidence of ACS, a normal TSH and no other concerning features for heart failure or PE. Cardiology consulted and agree with heparin drip and continuing diltiazem and metoprolol. Family was at bedside and plan was discussed with them. DO Yefri
[2019-03-27] MEDS: HEPARIN SODIUM/DEXTROSE 25,000 UNITS/500 ML BAG IV SCH (16:18)
--- NOTE | 2019-03-27 16:26 | Cardiology Consultation ---
Date of Consultation March 27, 2019 Assessment & Plan (1) Atrial fibrillation with RVR: Continue prior to hospital dose of metoprolol tartrate 100 mg twice daily, first dose to be administered as soon as possible. In order to get her back on track, will start short acting diltiazem 30 mg 4 times daily, and will transition her back to her 120 mg of long-acting diltiazem as tolerated over the next 24 to 48 hours. Her [id number] score is 6 for age (2points), female, HTN, DM2, and CAD p redicting high risk of cardioembolic stroke. She does have prior history of gastrointestinal bleeding due to ulcer, but her hemoglobin is stable. We will proceed with low-dose heparin without bolus. (2) Acute pain of right shoulder: Orthopedic consultation additional imaging may be necessary, will defer to primary team. (3) CAD (coronary artery disease): She is apparently not on aspirin due to past history of GI bleeding. Continue metoprolol. Continue atorvastatin. History of Present Illness Attending Physician: Elaine Asif, History of Present Illness Carolyne Helms is an 84 year old female seen in cardiology consultation per the request of Blaine Rodriguez PA-C and Dr Asif of the [facility] for the evaluation of atrial fibrillation. The patient's most recent outpatient cardiology visit had been with Seth Jarvis PA-C on 08/22/2018. She presented to the emergency department today with 1 week of right shoulder discomfort. She is also noticed exertional shortness of breath. On presentation, she was found to be in atrial fibrillation with mildly elevated ventricular rate. EKG performed on 03/27/2019 at 10:40 AM reveals atrial fibrillation 103 bpm with right bundle branch block pattern. Inferolateral repolarization changes noted consistent with possible ischemia. Compared to the most recent prior EKG file, sinus rhythm has been replaced by atrial fibrillation. The right bundle branch block finding is chronic. During my assessment of the patient, she is feeling comfortable and she was resting. She had not received her morning doses of metoprolol tartrate 100 mg or diltiazem CD 120 mg yet today, and her home medications are in the process of being administered. Cardiology Outpatient Problem List: 1. Chronic coronary heart disease status post CABG x3 in 1996 2. 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 Hypertension 5. Hyperlipidemia 6. Type 2 diabetes mellitus 3. Allergies Allergy/AdvReac Type Severity Reaction Status Date / Time aspirin Allergy Severe PEPTIC Verified 03/27/19 12:39 ULCER DISEASE WITH HEMMORAGE codeine Allergy Unknown UNKNOWN Verified 03/27/19 12:39 oxytetracycline Allergy Unknown SEVERE Unverified 03/27/19 12:39 SWELLING polymyxin B Allergy Unknown SEVERE Unverified 03/27/19 12:39 SWELLING Home Medications Home Medications Medication Instructions Recorded Confirmed Type atorvastatin 80 mg PO QAM 03/27/19 03/27/19 History cetirizine 5 mg PO QPM 03/27/19 03/27/19 History diltiazem HCl 120 mg PO QAM 03/27/19 03/27/19 History furosemide 20 mg PO QAM 03/27/19 03/27/19 History gabapentin 200 mg PO BID 03/27/19 03/27/19 History glimepiride 8 mg PO QAM 03/27/19 03/27/19 History hydroxyzine HCl 25 mg PO HS PRN 03/27/19 03/27/19 History ibuprofen 200 mg PO Q6H PRN 03/27/19 03/27/19 History magnesium oxide 400 mg PO BID 03/27/19 03/27/19 History metformin 1,000 mg PO QAM 03/27/19 03/27/19 History metoprolol tartrate 100 mg PO BID 03/27/19 03/27/19 History Patient History Medical History CKD (chronic kidney disease), stage III History of peptic ulcer disease T2DM (type 2 diabetes mellitus) HTN (hypertension) Hyperlipidemia CKD (chronic kidney disease) CAD (coronary artery disease) History of CABG x 3 1996 Surgical History History of coronary artery bypass graft x 3 History of appendectomy History of breast biopsy History of tonsillectomy and adenoidectomy History of nasal polypectomy Family History Son Atrial fibrillation Mother Hypertension Social History Preferred Language: Korean Communication Ability: Effective Mass Spectrometry Specialist Required: No Beliefs That Will Affect Care: None marital status: / Current Living Situation: Alone Other Information That Helps Us Care for You: No Feels Safe at Home: Yes Safety Concerns: Feels Safe At This Time Smoking Status: Former smoker packs per day: 1 ; Years Smoked: 20 ; Do You Dip or Chew Tobacco: No ; Smoking End Date: 1995 ; Second Hand Exposure: No ; Tobacco Cessation Education Requested by Patient: No Hx Alcohol Use: No Hx Substance Use: No Review of Systems Review of Systems: All systems reviewed & are unremarkable except as noted in HPI & below Physical Exam Physical Exam: Temp Pulse Resp BP Pulse Ox 37 C 114 H 23 163/66 H 97 03/27/19 15:25 03/27/19 15:25 03/27/19 15:25 03/27/19 15:25 03/27/19 15:25 Constitutional: Ill in appearance, without acute distress Respiratory: normal respiratory effort, lungs clear to auscultation Cardiovascular: Rate/Rhythm: + tachycardic and + irregularly irregular Heart Sounds: no murmur and no cardiac rub Vessels: no JVD Extremities: no edema Gastrointestinal (Abdomen): normal bowel sounds, soft, nontender, no hepatosplenomegaly Neurologic: PERRL, EOMI, accommodation nl, no face palsy, no dysarthria Results & Data Vital Signs (Past 12 Hours) Vital Signs Temp Pulse Pulse Resp BP BP Pulse Ox 03/27/19 15:25 37 C 114 H 23 163/66 H 97 03/27/19 14:30 109 H 12 03/27/19 14:01 114 H 32 H 158/103 H 03/27/19 14:00 114 H 21 03/27/19 13:49 105 H 25 H 168/95 H 03/27/19 13:30 97 H 20 138/93 03/27/19 13:00 116 H 29 H 153/88 H 03/27/19 12:30 104 H 29 H 154/112 H 03/27/19 12:00 101 H 22 173/101 H 03/27/19 11:47 106 H 30 H 163/92 H 03/27/19 11:30 106 H 18 164/118 H 98 03/27/19 11:00 102 H 20 148/98 H 96 03/27/19 10:58 99 H 23 151/108 H 96 03/27/19 10:31 36.9 C 118 H 20 140/81 96 03/27/19 10:30 107 H 38 H 95 03/27/19 10:18 104 H 25 H 95 03/27/19 10:14 101 H 28 H 140/81 94 Laboratory Results Cardiac Enzymes 03/27/19 Range/Units 11:46 AST 7 L (15-37) U/L Troponin I 0.035 (0-0.045) ng/ml Coagulation 03/27/19 Range/Units 11:46 PT 10.9 (9.0-12.0) Seconds APTT 28.5 (21.0-31.0) Seconds CBC 03/27/19 Range/Units 11:46 WBC 8.60 (4.8-10.8) K/uL RBC 4.12 L (4.2-5.4) M/uL Hgb 12.4 (12.0-16.0) g/dL Hct 37.0 (37-47) % Plt Count 212 (130-400) K/uL Neut # (Auto) 6.02 (1.4-6.5) K/uL Lymph # (Auto) 1.59 (1.2-3.4) K/uL [place] # (Auto) 0.94 H (0.11-0.59) K/uL Eos # (Auto) 0.02 (0-0.5) K/uL Baso # (Auto) 0.02 (0-0.2) K/uL Comprehensive Metabolic Panel 03/27/19 Range/Units 11:46 Sodium 138 (136-145) mmol/L Potassium 3.5 (3.5-5.1) mmol/L Chloride 106 (98-107) mmol/L Carbon Dioxide 23 (21-32) mmol/L BUN 15 (7-18) mg/dl Creatinine 0.98 (0.6-1.2) mg/dl Glucose 177 H (70-99) mg/dl Calcium 8.8 (8.5-10.1) mg/dl AST 7 L (15-37) U/L ALT 12 (12-78) U/L Alkaline Phosphatase 82 (45-117) U/L Total Protein 6.8 (6.4-8.2) gm/dl Albumin 3.1 L (3.4-5.0) gm/dl Intake and Output 03/27/19 03/27/19 03/27/19 06:59 14:59 22:59 Other: Weight 68.3 kg 71.2 kg Patient Weight 03/28/19 06:59 Weight 71.2 kg
--- NOTE | 2019-03-27 17:01 | Emergency Department Note ---
Entered by Em Laguerre acting as a scribe for Johnathan Ruiz DO History of Present Illness General Chief complaint: Shortness of Breath/Dyspnea Source: patient History of Present Illness Provider complaint: right shoulder pain Onset (ago): day(s) 4 Location: upper extremity and right Radiation: non-radiation Pain Consistency: + constant Quality: + other (can not move) Associated symptoms: + denies other symptoms and + shortness of breath The patient is an 84 y/o female with a past medical history of CAD, CKD, bypass, diabetes, hypertension, and hyperlipidemia, who presents to the emergency depart ment for evaluation of shortness of breath and constant right shoulder pain that began 4 days ago. The patients family states that this morning she called them stating she could not get a full deep breath as well. The patient states that moving the right shoulder hurts and the worst pain being in the upper shoulder. She denies any other symptoms. She notes that she has had this shortness of breath intermittently before in the past. She denies any irregular heartbeat but does admit to a history of bypass. Home Medications Home Medications Medication Instructions Recorded Confirmed Type atorvastatin 80 mg PO QAM 03/27/19 03/27/19 History cetirizine 5 mg PO QPM 03/27/19 03/27/19 History diltiazem HCl 120 mg PO QAM 03/27/19 03/27/19 History furosemide 20 mg PO QAM 03/27/19 03/27/19 History gabapentin 200 mg PO BID 03/27/19 03/27/19 History glimepiride 8 mg PO QAM 03/27/19 03/27/19 History hydroxyzine HCl 25 mg PO HS PRN 03/27/19 03/27/19 History ibuprofen 200 mg PO Q6H PRN 03/27/19 03/27/19 History magnesium oxide 400 mg PO BID 03/27/19 03/27/19 History metformin 1,000 mg PO QAM 03/27/19 03/27/19 History metoprolol tartrate 100 mg PO BID 03/27/19 03/27/19 History Allergies Allergy/AdvReac Type Severity Reaction Status Date / Time aspirin Allergy Severe PEPTIC Verified 03/27/19 12:39 ULCER DISEASE WITH HEMMORAGE codeine Allergy Unknown UNKNOWN Verified 03/27/19 12:39 oxytetracycline Allergy Unknown SEVERE Unverified 03/27/19 12:39 SWELLING polymyxin B Allergy Unknown SEVERE Unverified 03/27/19 12:39 SWELLING Past Med/Surg History Medical History CKD (chronic kidney disease), stage III History of peptic ulcer disease T2DM (type 2 diabetes mellitus) HTN (hypertension) Hyperlipidemia CKD (chronic kidney disease) CAD (coronary artery disease) History of CABG x 3 1997 Surgical History History of coronary artery bypass graft x 3 History of appendectomy History of breast biopsy History of tonsillectomy and adenoidectomy History of nasal polypectomy Family History Son Atrial fibrillation Mother Hypertension Social History Preferred Language: Belarusian Communication Ability: Effective 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 and A total of 10 systems reviewed and were otherwise negative Physical Exam Vital Signs Vital Signs - 24 hr 03/27/19 10:14 03/27/19 10:18 03/27/19 10:30 Temperature Temperature Source Sepsis Recent Fever Within 48 Hours Sepsis Action Taken by Nursing Pulse Rate 101 H 104 H 107 H Pulse Rate from SpO2 Sensor 99 H 105 H 104 H Pulse Rhythm Pulse Strength Respiratory Rate 28 H 25 H 38 H Respiratory Effort / Characteristics Respiratory Depth Respiratory Pattern Blood Pressure 140/81 Blood Pressure Mean 100 Pulse Oximetry 94 95 95 Oxygen Delivery Method 03/27/19 10:31 03/27/19 10:58 03/27/19 11:00 Temperature 36.9 C Temperature Source Oral Sepsis Recent Fever Within 48 Hours No Sepsis Action Taken by Nursing No Action Required Pulse Rate 118 H 99 H 102 H Pulse Rate from SpO2 Sensor 104 H 109 H Pulse Rhythm Regular Pulse Strength Normal Respiratory Rate 20 23 20 Respiratory Effort / Characteristics Non-Labored Spontaneous Respiratory Depth Normal Respiratory Pattern Regular Blood Pressure 140/81 151/108 H 148/98 H Blood Pressure Mean 100 122 114 Pulse Oximetry 96 96 96 Oxygen Delivery Method Room Air 03/27/19 11:30 03/27/19 11:42 03/27/19 11:47 Temperature Temperature Source Sepsis Recent Fever Within 48 Hours Sepsis Action Taken by Nursing Pulse Rate 106 H 106 H Pulse Rate from SpO2 Sensor 106 H Pulse Rhythm Pulse Strength Respiratory Rate 18 30 H Respiratory Effort / Characteristics Respiratory Depth Respiratory Pattern Blood Pressure 164/118 H 163/92 H Blood Pressure Mean 133 115 Pulse Oximetry 98 Oxygen Delivery Method Room Air 03/27/19 12:00 03/27/19 12:30 03/27/19 13:00 Temperature Temperature Source Sepsis Recent Fever Within 48 Hours Sepsis Action Taken by Nursing Pulse Rate 101 H 104 H 116 H Pulse Rate from SpO2 Sensor Pulse Rhythm Pulse Strength Respiratory Rate 22 29 H 29 H Respiratory Effort / Characteristics Respiratory Depth Respiratory Pattern Blood Pressure 173/101 H 154/112 H 153/88 H Blood Pressure Mean 125 126 109 Pulse Oximetry Oxygen Delivery Method 03/27/19 13:30 03/27/19 13:49 03/27/19 14:00 Temperature Temperature Source Sepsis Recent Fever Within 48 Hours Sepsis Action Taken by Nursing Pulse Rate 97 H 105 H 114 H Pulse Rate from SpO2 Sensor Pulse Rhythm Pulse Strength Respiratory Rate 20 25 H 21 Respiratory Effort / Characteristics Respiratory Depth Respiratory Pattern Blood Pressure 138/93 168/95 H Blood Pressure Mean 108 119 Pulse Oximetry Oxygen Delivery Method 03/27/19 14:01 Temperature Temperature Source Sepsis Recent Fever Within 48 Hours Sepsis Action Taken by Nursing Pulse Rate 114 H Pulse Rate from SpO2 Sensor Pulse Rhythm Pulse Strength Respiratory Rate 32 H Respiratory Effort / Characteristics Respiratory Depth Respiratory Pattern Blood Pressure 158/103 H Blood Pressure Mean 121 Pulse Oximetry Oxygen Delivery Method GENERAL: Sitting up in bed, obese, disheveled, hard of hearing EYE EXAM: normal conjunctiva. PERRL and EOM's grossly intact. OROPHARYNX: no exudate, no erythema, lips, buccal mucosa, and tongue normal and mucous membranes are moist NECK: supple, no nuchal rigidity, no adenopathy, non-tender LUNGS: Clear to auscultation. Normal chest wall mechanics HEART: no murmurs, S1 normal and S2 normal. Irregularly regular. ABDOMEN: abdomen soft, non-tender, normo-active bowel sounds, no masses, no rebound or guarding. BACK: Back is symmetrical on inspection and there is no deformity, no midline tenderness, no CVA tenderness. SKIN: no rashes and no bruising UPPER EXTREMITIES: significant pain with ROM of right shoulder. Flexion/extension of wrist, elbow intact. Pulse 2/4 LOWER EXTREMITIES: No pitting edema. Calves re equal bilaterally NEURO EXAM: Normal sensorium, cranial nerves II-XII grossly intact, normal speech, no gross weakness of arms, no gross weakness of legs. Course ED COURSE: Vital signs were reviewed and showed hypertensive The patients medical record was reviewed The above diagnostic studies were performed and reviewed. ED treatments and interventions as stated above. 1130: The patient was evaluated in room C07. A complete history and physical examination was performed. 1320: Upon reevaluation, the patient is feeling a bit better. 1348: I spoke with Karen Tony. She will evaluate for further management. 1350: I discussed my findings with the patient and she understands and agrees with the treatment plan. Based on the patients age, coexisting illnesses, exam and lab findings the decision to treat as an inpatient was made. The patient remained stable while under my care. The patient will be evaluated for further management. Administered Medications Heparin Sodium/Dextrose (Heparin Sodium/Dextrose) 25,000 units in 500 mls @ 14 mls/hr IV .Q24H [facility]; Protocol Stop: 04/26/19 14:59 Last Admin: 03/27/19 16:18 Dose: 700 units/hr, 14 mls/hr Documented by: [id number] Cosigned by: [id number] Discontinued Medications Acetaminophen (Tylenol) 1,000 mg PO NOW STA Stop: 03/27/19 14:38 Last Admin: 03/27/19 15:05 Dose: Not Given Documented by: [id number] Acetaminophen (Tylenol) Confirm Administered Dose 1,000 mg .ROUTE .STK-MED ONE Stop: 03/27/19 15:01 Last Admin: 03/27/19 15:05 Dose: 1,000 mg Documented by: [id number] Diltiazem HCl (Cardizem) 30 mg PO NOW STA Stop: 03/27/19 14:50 Last Admin: 03/27/19 15:05 Dose: Not Given Documented by: [id number] Diltiazem HCl (Cardizem) Confirm Administered Dose 30 mg PO .STK-MED ONE Stop: 03/27/19 15:01 Last Admin: 03/27/19 15:05 Dose: 30 mg Documented by: [id number] Heparin Sodium/Dextrose () 1 ea IV ONE ONE; Protocol Stop: 03/27/19 14:49 Last Admin: 03/27/19 16:20 Dose: 1 ea Documented by: [id number] Metoprolol Tartrate (Lopressor) 2.5 mg IV NOW STA Stop: 03/27/19 13:36 Last Admin: 03/27/19 13:54 Dose: 2.5 mg Documented by: [id number] Medical Decision Making Differential Diagnosis Differential diagnosis: Etiologies such as infections, reactive airway disease, COPD, pneumonia, pleural effusion, pulmonary edema, ARDS, pneumothorax, CHF, cardiac ischemia, cardiac tamponade, dysrhythmia, anemia, pulmonary embolism, musculoskeletal, gastrointestinal process, as well as others were entertained. Medical Records Attestation: I reviewed the patient's medical records. Home Medications Current Medication List: was personally reviewed by me Laboratory Data Attestation: I reviewed the patient's lab results. Result diagrams: 03/27/19 11:46 03/27/19 11:46 Lab Results 03/27/19 03/27/19 03/27/19 Range/Units 11:46 11:46 11:46 WBC 8.60 (4.8-10.8) K/uL RBC 4.12 L (4.2-5.4) M/uL Hgb 12.4 (12.0-16.0) g/dL Hct 37.0 (37-47) % MCV 89.8 (80-100) fL MCH 30.1 (25-34) pg MCHC 33.5 (32-36) g/dL RDW Std Deviation 48.1 H (36.4-46.3) fL RDW Coeff of Fred 14.7 H (11.5-14.5) % Plt Count 212 (130-400) K/uL MPV 10.2 (7.4-10.4) fL Immature Gran % (Auto) 0.1 % Neut % (Auto) 70.1 % Lymph % (Auto) 18.5 % [place] % (Auto) 10.9 % Eos % (Auto) 0.2 % Baso % (Auto) 0.2 % Immature Gran # (Auto) 0.01 (0.00-0.02) K/uL Neut # (Auto) 6.02 (1.4-6.5) K/uL Lymph # (Auto) 1.59 (1.2-3.4) K/uL [place] # (Auto) 0.94 H (0.11-0.59) K/uL Eos # (Auto) 0.02 (0-0.5) K/uL Baso # (Auto) 0.02 (0-0.2) K/uL PT 10.9 (9.0-12.0) Seconds INR 1.1 (0.9-1.1) APTT 28.5 (21.0-31.0) Seconds PTT Ratio 1.1 Sodium 138 (136-145) mmol/L Potassium 3.5 (3.5-5.1) mmol/L Chloride 106 (98-107) mmol/L Carbon Dioxide 23 (21-32) mmol/L Anion Gap 9.0 (3-11) BUN 15 (7-18) mg/dl Creatinine 0.98 (0.6-1.2) mg/dl Est Cr Clr Drug Dosing 38.7 ml/min Est GFR ( Amer) 61.4 Est GFR (Non-Af Amer) 53.0 BUN/Creatinine Ratio 15.0 (10-20) Glucose 177 H (70-99) mg/dl Calcium 8.8 (8.5-10.1) mg/dl Magnesium (1.8-2.4) mg/dl Total Bilirubin 1.2 H (0.2-1) mg/dl AST 7 L (15-37) U/L ALT 12 (12-78) U/L Alkaline Phosphatase 82 (45-117) U/L Troponin I 0.035 (0-0.045) ng/ml Total Protein 6.8 (6.4-8.2) gm/dl Albumin 3.1 L (3.4-5.0) gm/dl Globulin 3.7 (2.5-4.0) gm/dl Albumin/Globulin Ratio 0.8 L (0.9-2) TSH (0.300-4.500) uIu/ml 03/27/19 Range/Units 11:46 WBC (4.8-10.8) K/uL RBC (4.2-5.4) M/uL Hgb (12.0-16.0) g/dL Hct (37-47) % MCV (80-100) fL MCH (25-34) pg MCHC (32-36) g/dL RDW Std Deviation (36.4-46.3) fL RDW Coeff of Fred (11.5-14.5) % Plt Count (130-400) K/uL MPV (7.4-10.4) fL Immature Gran % (Auto) % Neut % (Auto) % Lymph % (Auto) % [place] % (Auto) % Eos % (Auto) % Baso % (Auto) % Immature Gran # (Auto) (0.00-0.02) K/uL Neut # (Auto) (1.4-6.5) K/uL Lymph # (Auto) (1.2-3.4) K/uL [place] # (Auto) (0.11-0.59) K/uL Eos # (Auto) (0-0.5) K/uL Baso # (Auto) (0-0.2) K/uL PT (9.0-12.0) Seconds INR (0.9-1.1) APTT (21.0-31.0) Seconds PTT Ratio Sodium (136-145) mmol/L Potassium (3.5-5.1) mmol/L Chloride (98-107) mmol/L Carbon Dioxide (21-32) mmol/L Anion Gap (3-11) BUN (7-18) mg/dl Creatinine (0.6-1.2) mg/dl Est Cr Clr Drug Dosing ml/min Est GFR ( Amer) Est GFR (Non-Af Amer) BUN/Creatinine Ratio (10-20) Glucose (70-99) mg/dl Calcium (8.5-10.1) mg/dl Magnesium 2.5 H (1.8-2.4) mg/dl Total Bilirubin (0.2-1) mg/dl AST (15-37) U/L ALT (12-78) U/L Alkaline Phosphatase (45-117) U/L Troponin I (0-0.045) ng/ml Total Protein (6.4-8.2) gm/dl Albumin (3.4-5.0) gm/dl Globulin (2.5-4.0) gm/dl Albumin/Globulin Ratio (0.9-2) TSH 2.170 (0.300-4.500) uIu/ml Imaging Data Radiologist's Impression: Radiology results as stated below per my review and the radiologist's interpretation: XR shoulder RT min 2V routine HISTORY: 84 years-old Female shoulder pain acute right-sided shoulder pain without reported trauma COMPARISON: Chest radiograph of same day and also 09/03/2017 TECHNIQUE: 3 views of the right shoulder FINDINGS: Mild glenohumeral and AC joint osteoarthritis. There is no acute fracture or dislocation or opaque foreign body. Mild soft tissue prominence adjacent to the right shoulder. Mildly demineralized appearance of the bones. Prior median sternotomy. Calcified plaque of the thoracic aortic arch. IMPRESSION: No acute fracture or dislocation. The above report was generated using voice recognition software. It may contain grammatical, syntax or spelling errors. Electronically signed by: Ricki Palacio M.D. 03/27/2019 1:05 PM XR chest 1V portable CLINICAL HISTORY: Dyspnea COMPARISON STUDY: 09/03/2017 FINDINGS: The cardiac and mediastinal contours remain stable. There are postsurgical changes of midline sternotomy. There is a retrocardiac opacity consistent with a hiatal hernia. There is mild chronic interstitial thickening. There is no acute parenchymal consolidation. There are no pleural effusions.[ IMPRESSION: Stable findings. No active disease in the chest. Electronically signed by: Lam Garza M.D. 03/27/2019 1:04 PM Dictated: 03/27/19 1303 Transcribed: 03/27/19 1303 ECG Data Attestation: I personally reviewed and interpreted this ECG as follows: Indication: SOB/dyspnea Rate (beats per minute): 103 Rhythm: atrial fibrillation (RVR) ECG Intervals/blocks: Right Bundle branch block ECG ST segments: ST depression (Septal, anterior, lateral, high lateral) ECG Findings: Other (TWI in septal, anterior) Comparison ECG Date: from (09/01/17) Change: the following changes noted (St depression in lateral and high lateral) Blood Pressure Blood Pressure Findings: Elevated blood pressure Blood Pressure Disposition: further management by hospitalist NICO Narrative Patient is an 84-year-old female who presents the ER for shortness of breath as well as right shoulder pain. She called her family foot the nail earlier today that she was having shortness of breath and consequently called the ambulance. Right shoulder pain has been present for 3 days. Patient has a history of diabetes, hypertension, CKD, hyperlipidemia and bypass. Upon presentation she is found to be in A. fib with RVR. Heart rates in the low 120s to high teens. Labs show no significant leukocytosis or anemia. INR was unremarkable. BMP with a glucose of 140. Bilirubin normal with LFTs was negative. Troponin was detectable but not positive. TSH was unremarkable. Patient was given IV Lopressor for heart rate in the low 120s which came down. EKG did have new ST wave changes and question if this is rate related. She has no chest pain but does admit to shortness of breath. Shoulder does appear to be consistent with arthritis and possibly an early adhesive capsulitis. X-rays were unremarkable of the right shoulder. Chest x-ray shows no focal infiltrate. Patient was updated bedside. Discussed with hospitalist family was updated at bedside and admitted for further work-up. Impression & Plan Breath shortness, Atrial fibrillation with RVR, Acute pain of right shoulder Discharge Plan Visit Data *Final* Discharge Date/Time: 03/27/19 14:48 Chief Complaint: Shortness of Breath/Dyspnea ED Provider: Johnathan Ruiz Discharge Problem: Breath shortness, Atrial fibrillation with RVR, Acute pain of right shoulder Patient Disposition: Admitted As Inpatient Discharge Instructions Interventions: ED Discharge Assessment Last Done: 03/27/19 14:48 The scribe's documentation has been prepared under my direction and personally reviewed by me in its entirety. I confirm that the note above accurately reflects all work, treatment, procedures, and medical decision making performed by me.
[2019-03-27] MEDS: INSULIN ASPART 100 UNITS/ML 3 ML PEN SC SCH ×2 (17:47→20:26)
--- NOTE | 2019-03-27 18:13 | Orthopedic Consultation ---
Date of Consultation March 27, 2019 Assessment & Plan (1) Shoulder pain, acute: 84-year-old female with acute onset of atraumatic right shoulder pain, unclear etiology. Will obtain MRI at this time to evaluate for injury to the rotator cuff, infectious process. Recommend Lidoderm patch and pain control. Pending MRI results will address weightbearing status and therapy restrictions. Thank you for the consultation. History of Present Illness Reason for Consultation: Right shoulder pain Attending Physician: Elaine Asif DO History of Present Illness The patient is an 84-year-old female with complaints of 2-day history of atraumatic right shoulder pain. She reports the symptoms began suddenly in the morning of 03/25/2019. Admits to pain with activity and range of motion. Denies any fevers, chills, prior infections, history of gout. Denies trauma, denies numbness and tingling of her right lower extremity. She is right hand dominant. Allergies Allergy/AdvReac Type Severity Reaction Status Date / Time aspirin Allergy Severe PEPTIC Verified 03/27/19 12:39 ULCER DISEASE WITH HEMMORAGE codeine Allergy Unknown UNKNOWN Verified 03/27/19 12:39 oxytetracycline Allergy Unknown SEVERE Unverified 03/27/19 12:39 SWELLING polymyxin B Allergy Unknown SEVERE Unverified 03/27/19 12:39 SWELLING Home Medications Home Medications Medication Instructions Recorded Confirmed Type atorvastatin 80 mg PO QAM 03/27/19 03/27/19 History cetirizine 5 mg PO QPM 03/27/19 03/27/19 History diltiazem HCl 120 mg PO QAM 03/27/19 03/27/19 History furosemide 20 mg PO QAM 03/27/19 03/27/19 History gabapentin 200 mg PO BID 03/27/19 03/27/19 History glimepiride 8 mg PO QAM 03/27/19 03/27/19 History hydroxyzine HCl 25 mg PO HS PRN 03/27/19 03/27/19 History ibuprofen 200 mg PO Q6H PRN 03/27/19 03/27/19 History magnesium oxide 400 mg PO BID 03/27/19 03/27/19 History metformin 1,000 mg PO BID 03/27/19 03/28/19 History metoprolol tartrate 100 mg PO BID 03/27/19 03/27/19 History Patient History Medical History CKD (chronic kidney disease), stage III History of peptic ulcer disease T2DM (type 2 diabetes mellitus) HTN (hypertension) Hyperlipidemia CKD (chronic kidney disease) CAD (coronary artery disease) History of CABG x 3 1996 Surgical History History of coronary artery bypass graft x 3 History of appendectomy History of breast biopsy History of tonsillectomy and adenoidectomy History of nasal polypectomy Family History Son Atrial fibrillation Mother Hypertension Social History Preferred Language: Argentine Communication Ability: Effective 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 Beliefs That Will Affect Care: None marital status: / Current Living Situation: Alone Other Information That Helps Us Care for You: No Feels Safe at Home: Yes Safety Concerns: Feels Safe At This Time Smoking Status: Former smoker packs per day: 1 ; Years Smoked: 20 ; Do You Dip or Chew Tobacco: No ; Smoking End Date: 1995 ; Second Hand Exposure: No ; Tobacco Cessation Education Requested by Patient: No Hx Alcohol Use: No Hx Substance Use: No Review of Systems Review of Systems: All systems reviewed & are unremarkable except as noted in HPI & below Constitutional: as per Subjective / HPI Physical Exam Physical Exam: Right upper extremity is neurovascularly sensory intact, + median/ulnar/radial/AIN/PIN, limited painful range of motion secondary to pain, forward flexion 120 degrees, abduction 150 degrees, external rotation 45 degrees. No appreciable erythema or signs of infection. Moderate edema. Constitutional: WD/WN, vitals as above Results & Data Vital Signs (Past 12 Hours) Vital Signs Temp Pulse Pulse Resp BP BP Pulse Ox 03/27/19 15:25 37 C 114 H 23 163/66 H 97 03/27/19 14:30 109 H 12 03/27/19 14:01 114 H 32 H 158/103 H 03/27/19 14:00 114 H 21 03/27/19 13:49 105 H 25 H 168/95 H 03/27/19 13:30 97 H 20 138/93 03/27/19 13:00 116 H 29 H 153/88 H 03/27/19 12:30 104 H 29 H 154/112 H 03/27/19 12:00 101 H 22 173/101 H 03/27/19 11:47 106 H 30 H 163/92 H 03/27/19 11:30 106 H 18 164/118 H 98 03/27/19 11:00 102 H 20 148/98 H 96 03/27/19 10:58 99 H 23 151/108 H 96 03/27/19 10:31 36.9 C 118 H 20 140/81 96 03/27/19 10:30 107 H 38 H 95 03/27/19 10:18 104 H 25 H 95 03/27/19 10:14 101 H 28 H 140/81 94 Diagnostic Findings XR shoulder RT min 2V routine HISTORY: 84 years-old Female shoulder pain acute right-sided shoulder pain without reported trauma COMPARISON: Chest radiograph of same day and also 09/03/2017 TECHNIQUE: 3 views of the right shoulder FINDINGS: Mild glenohumeral and AC joint osteoarthritis. There is no acute fracture or dislocation or opaque foreign body. Mild soft tissue prominence adjacent to the right shoulder. Mildly demineralized appearance of the bones. Prior median sternotomy. Calcified plaque of the thoracic aortic arch. IMPRESSION: No acute fracture or dislocation.
[2019-03-27] MEDS: dilTIAZem HCL 30 MG TAB PO SCH ×2 (20:23→23:18)
[2019-03-27] MEDS: LIDOCAINE 5% 1 PATCH TD SCH (20:23)
[2019-03-27] MEDS: GABAPENTIN 100 MG CAP PO SCH (20:24)
[2019-03-27] MEDS: METOPROLOL TARTRATE 100 MG TAB PO SCH (20:24)
[2019-03-27] MEDS: CETIRIZINE HCL 10 MG TABLET PO SCH (20:25)
[2019-03-27] MEDS: INSULIN GLARGINE SOLOSTAR 100 UNITS/ML 3 ML PEN SC SCH (20:25)
[2019-03-27 22:55] LABS: Partial Thromboplastin Ratio 1.2; Partial Thromboplastin Time 32.2 Seconds (21.0-31.0)
[2019-03-27] MEDS ORDERED: HEPARIN IV BOLUS 4,000 UNITS in SYRINGE 0 ML IV ONE (23:20)
[2019-03-28 06:19] LABS: Estimated Average Glucose 192 mg/dl; Hemoglobin A1C 8.3 % (4.5-5.6)
[2019-03-28 06:58] LABS: Partial Thromboplastin Ratio 2.2
[2019-03-28 07:01] LABS: Partial Thromboplastin Time 60.3 Seconds (21.0-31.0)
[2019-03-28] MEDS: INSULIN ASPART 100 UNITS/ML 3 ML PEN SC SCH ×4 (09:39→20:30)
[2019-03-28] MEDS: INSULIN GLARGINE SOLOSTAR 100 UNITS/ML 3 ML PEN SC SCH ×2 (09:39→20:29)
[2019-03-28] MEDS: ATORVASTATIN 40 MG TAB PO SCH (09:40)
[2019-03-28] MEDS: METOPROLOL TARTRATE 100 MG TAB PO SCH ×2 (09:40→20:29)
[2019-03-28] MEDS: GABAPENTIN 100 MG CAP PO SCH ×2 (09:40→20:29)
[2019-03-28] MEDS: dilTIAZem HCL 30 MG TAB PO SCH (09:40)
--- NOTE | 2019-03-28 09:48 | Orthopedic Progress Note ---
Date of Service March 28, 2019 Assessment & Plan (1) Shoulder pain, acute: 84-year-old female with acute onset of atraumatic right shoulder pain, unclear etiology. She is scheduled for MRI later today, cont with limited bedside exercises as tolerated, ice prn, she is currently having no pain at rest. Continue lidoderm patch and pain control. Pending MRI results will address weightbearing status and therapy restrictions. Subjective right shoulder pain follow up Physical Exam Physical Exam: Vital Signs Temp Pulse Pulse Pulse Resp BP BP 03/28/19 09:02 36.5 C 82 20 138/73 03/28/19 03:30 36.4 C L 79 16 126/71 03/28/19 00:38 169/91 H 03/27/19 23:10 36.4 C L 78 16 184/97 H 03/27/19 19:31 36.8 C 77 18 153/82 H 03/27/19 15:25 37 C 114 H 23 163/66 H 03/27/19 14:30 109 H 12 03/27/19 14:01 114 H 32 H 158/103 H 03/27/19 14:00 114 H 21 03/27/19 13:49 105 H 25 H 168/95 H 03/27/19 13:30 97 H 20 138/93 03/27/19 13:00 116 H 29 H 153/88 H 03/27/19 12:30 104 H 29 H 154/112 H 03/27/19 12:00 101 H 22 173/101 H 03/27/19 11:47 106 H 30 H 163/92 H 03/27/19 11:30 106 H 18 164/118 H 03/27/19 11:00 102 H 20 148/98 H 03/27/19 10:58 99 H 23 151/108 H 03/27/19 10:31 36.9 C 118 H 20 140/81 03/27/19 10:30 107 H 38 H 03/27/19 10:18 104 H 25 H 03/27/19 10:14 101 H 28 H 140/81 Pulse Ox 03/28/19 09:02 97 03/28/19 03:30 92 03/28/19 00:38 03/27/19 23:10 97 03/27/19 19:31 96 03/27/19 15:25 97 03/27/19 14:30 03/27/19 14:01 03/27/19 14:00 03/27/19 13:49 03/27/19 13:30 03/27/19 13:00 03/27/19 12:30 03/27/19 12:00 03/27/19 11:47 03/27/19 11:30 98 03/27/19 11:00 96 03/27/19 10:58 96 03/27/19 10:31 96 03/27/19 10:30 95 03/27/19 10:18 95 03/27/19 10:14 94 Intake and Output 03/27/19 03/28/19 03/28/19 22:59 06:59 14:59 Intake Total 250 / 348 98 / 348 131.467 / 131.467 Output Total 600 / 1000 400 / 1000 Balance -350 / -652 -302 / -652 131.467 / 131.467 Intake: IV 98 / 98 131.467 / 131.467 HEPARIN SODIUM /DEXTROSE 25,000 98 / 98 131.467 / 131.467 units In 500 m l @ 800 UNITS/HR 16 mls/hr IV . Q24H [facility] Rx#: [id number] Oral 250 / 250 Output: Urine 600 / 1000 400 / 1000 Other: Weight 71.2 kg 71.2 kg Constitutional: WD/WN, vitals as above no acute distress Musculoskeletal: Shoulder: + limited ROM, + ROM with crepitation, + AC joint abnormality (tenderness), + Too's test positive, + Neer's test positive, + Hawkin's test positive and + [place]'s test positive; no deformity, no effusion, no skin erythema, no ecchymosis, no scapular winging and drop arm test negative Right upper extremity is neurovascularly sensory intact, limited painful range of motion secondary to pain, forward flexion 120 degrees, abduction 150 degrees, external rotation 45 degrees. Results & Data Vital Signs (Past 12 Hours) Vital Signs Temp Pulse Pulse Resp BP Pulse Ox 03/28/19 09:02 36.5 C 82 20 138/73 97 03/28/19 03:30 36.4 C L 79 16 126/71 92 03/28/19 00:38 169/91 H 03/27/19 23:10 36.4 C L 78 16 184/97 H 97
--- NOTE | 2019-03-28 11:34 | Hospitalist Progress Note ---
Date of Service March 28, 2019 Assessment & Plan (1) Atrial fibrillation with RVR: Presented with atrial fibrillation with rapid ventricular response. Had been experiencing dyspnea on exertion for the past 1 to 2 weeks. Atrial fibrillation apparently new onset. Cardiology consulted. Receiving metoprolol and diltiazem for rate control. REGLA(2)DS(2)-VASc score = 6 indicating high risk for cardioembolic event. Has not been anticoagulated because of history of bleeding peptic ulcer several years ago. Currently receiving IV heparin. Long-term anticoagulation per Cardiology. (2) Acute pain of right shoulder: Orthopedics consulted. 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 MRI ordered. (3) CAD (coronary artery disease): No anginal symptoms. Not receiving antiplatelet therapy because history of peptic ulcer disease. Continue metoprolol, diltiazem, statin. (4) HTN (hypertension): Continue metoprolol and diltiazem. (5) CKD (chronic kidney disease), stage III: Serum creatinine 0.98 at time of admission. Follow. (6) T2DM (type 2 diabetes mellitus): Diabetes mellitus type 2 usually controlled with metformin and glimepiride. Random blood sugar at time of admission was 177. Hemoglobin A1c 8.3. Hold oral agents during hospital stay. Insulin therapy per protocol. Fasting blood sugar today = 156. (7) History of peptic ulcer disease: History of transfusion requiring upper GI bleed several years ago secondary to peptic ulcer. Takes ibuprofen as needed, but best to avoid nonsteroidal anti-inflammatory meds. Long-term anticoagulation under consideration. Consider long-term prophylaxis with H2 samuel or PPI. (8) DVT prophylaxis: Currently receiving IV heparin. Ambulate. (9) Discharge planning issues: Anticipated discharge to home. Family Medicine follow-up with Dr. Rashid. Cardiology follow-up with Seth Jarvis PA-C. Subjective Recheck for atrial fibrillation and other problems. Patient seen in their room around 1120. Persistent right shoulder pain. MRI just completed-results pending. Remains in atrial fibrillation with improved ventricular rate. No chest pain or shortness of breath. Review of Systems: Constitutional- no fever. Cardiac- as noted above. Pulmonary- no cough or SOB. GI- no nausea, vomiting, diarrhea, melena, hematochezia. - no urinary symptoms. Otherwise, as noted above. Physical Exam Constitutional: no acute distress Respiratory: no respiratory distress Auscultation: lungs clear to auscultation bilaterally Cardiovascular: Rate/Rhythm: + irregularly irregular Heart Sounds: no gallop, no murmur and no cardiac rub Vessels: no JVD Extremities: no calf tenderness and no edema Gastrointestinal (Abdomen): normal bowel sounds, soft, nontender, no hepatosplenomegaly Skin: no rashes, warm and dry Psychiatric: Orientation: alert and oriented x 3 Results & Data Vital Signs (Past 12 Hours) Vital Signs Temp Pulse Pulse Resp BP Pulse Ox 03/28/19 09:02 36.5 C 82 20 138/73 97 03/28/19 03:30 36.4 C L 79 16 126/71 92 03/28/19 00:38 169/91 H Laboratory Results 03/27/19 11:46 03/27/19 11:46
--- NOTE | 2019-03-28 12:56 | Magnetic Resonance Report ---
MR shoulder RT wo con CLINICAL HISTORY: 84 years-old Female with Acute atraumatic pain, evaluate rotator cuff versus infect ious process. Acute right shoulder pain without reported trauma. Limited range of motion. COMPARISON: Right shoulder radiograph 03/27/2019. TECHNIQUE: Multiplanar, multi sequence MRI of the right shoulder was performed without intravenous co ntrast. FINDINGS: ROTATOR CUFF: Moderate to severe supraspinatus tendinosis. Moderate edema tracks along the myotendin ous junction and supraspinatus muscle. There is minimal low-grade partial-thickness articular-sided a nd interstitial tearing of the anterior insertional supraspinatus without high-grade partial or full- thickness tear. Low-grade partial-thickness tearing involves the posterior insertional fibers of the infraspinatus measuring up to 6 mm in AP dimension, image 7 of series 9. Moderate to severe infraspin atus tendinosis without high-grade partial or full-thickness tear. Intact teres minor. Moderate tendinosis of the subscapularis tendon with irregular high-grade partial versus full-thickne ss tearing of the mid to superior fibers. This appears acute and is difficult to quantify/measure sec ondary to moderate amount of surrounding edema. BICEPS TENDON: Long head biceps tendon is partially subluxed into the aforementioned subscapularis t ear. Severe long head biceps tendinosis with suspected intrasubstance tearing extending from the inte rtubercular portion distally. LABRUM: Multifocal labral fraying/degeneration. No acute labral tear identified. GLENOHUMERAL JOINT: There is mild to moderate glenohumeral osteoarthritis with low to intermediate g rade chondromalacia and marginal osteophytic spurring. Small glenohumeral joint effusion. No intra-ar ticular loose body. ACROMIOCLAVICULAR JOINT: Moderate AC joint osteoarthritis with capsular hypertrophy, marginal osteop hytic spurring and small joint effusion. No evidence of os acromiale. Mild to moderate subacromial/jorgensen bdeltoid bursitis. OUTLET SPACES: The suprascapular notch and quadrilateral space are without obstructing or space occu pying lesions. BONE MARROW: No focal abnormality, fracture or marrow occupying lesion. SOFT TISSUES: Mild thickening of the inferior glenohumeral ligament. There is a large amount of part ially imaged soft tissue edema which surrounds the trapezius musculature and extends along the muscul ature of the superolateral right chest wall. IMPRESSION: 1. Mild to moderate glenohumeral with moderate AC joint osteoarthritis as above. 2. Small glenohumeral joint effusion with mild to moderate subacromial/subdeltoid bursitis. 3. Acute-appearing high-grade partial versus full-thickness tearing of the mid and superior insertion al fibers of the subscapularis tendon. 4. The long head biceps tendon is partially subluxed into the subscapularis tear and demonstrates sev ere tendinosis with intrasubstance/incomplete split tear. 5. Indeterminate partially imaged considerable amount of soft tissue and intramuscular edema involves the trapezius muscle extending along the anterolateral rib cage. Correlate clinically to exclude mus cular contusion versus myositis or denervation injury. The above report was generated using voice recognition software. It may contain grammatical, syntax o r spelling errors. Dictated: 03/28/2019 11:02 AM Transcribed: 03/28/2019 11:37 AM Christina [id number] [facility]_By Electronically signed by: Ricki Palacio M.D. 03/28/2019 12:55 PM
[2019-03-28] MEDS: dilTIAZem HCL 120 MG CAPCR PO SCH (13:51)
--- NOTE | 2019-03-28 14:51 | Cardiology Progress Note ---
Date of Service March 28, 2019 Assessment & Plan (1) Atrial fibrillation with RVR: New atrial fibrillation. Continue prior to hospital dose of metoprolol tartrate 100 mg 2 times per day. Transition back to home prior to hospital dose of diltiazem 120 mg daily. Regarding stroke prophylaxis, although she does have a history of remote gastrointestinal bleeding, she has a very high risk of stroke, will therefore continue heparin. Recommend Coumadin for stroke prophylaxis. I am holding off however on starting it pending additional input from orthopedics regarding whether or not any intervention would be recommended. She is somewhat of a poor operative candidate, but perhaps there is nonoperative intervention that could be offered. (2) Acute pain of right shoulder: Significant pathology noted as outlined in MRI. (3) CAD (coronary artery disease): EKG performed this morning revealed atrial fibrillation at 93 bpm with right bundle branch block, and lateral repolarization changes consistent with ischemia. 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 Continue rate control. An echocardiogram has been completed and will be reviewed. She is not on aspirin on a chronic basis due to her past peptic ulcer with GI hemorrhage. Subjective Chief complaint: Follow-up atrial fibrillation, coronary heart disease Subjective: Patient sitting comfortably in the bedside chair. Her and daughter are accompanying her. She feels much improved compared to yesterday stating that her shoulder pain has improved significantly. Telemetry reveals ongoing atrial fibrillation, at rest, the rates are in the 80 bpm range, but with activity, she does go up to the 130 bpm range . Review of Systems Review of Systems: All systems reviewed & are unremarkable except as noted in HPI & below Physical Exam Physical Exam: Temp Pulse Resp BP Pulse Ox 36.7 C 76 20 110/44 L 93 03/28/19 11:48 03/28/19 11:48 03/28/19 11:48 03/28/19 11:48 03/28/19 11:48 Respiratory: normal respiratory effort, lungs clear to auscultation Cardiovascular: Rate/Rhythm: + irregularly irregular Heart Sounds: + murmur (1/6 systolic murmur) Vessels: no JVD Gastrointestinal (Abdomen): normal bowel sounds, soft, nontender, no hepatosplenomegaly Neurologic: PERRL, EOMI, accommodation nl, no face palsy, no dysarthria Results & Data Vital Signs (Past 12 Hours) Vital Signs Temp Pulse Pulse Pulse Resp BP Pulse Ox 03/28/19 11:48 36.7 C 76 20 110/44 L 93 03/28/19 11:40 82 03/28/19 09:02 36.5 C 82 20 138/73 97 03/28/19 03:30 36.4 C L 79 16 126/71 92 Diagnostic Findings Summary of radiology report, of MRI of right shoulder 03/28/2019: IMPRESSION: 1. Mild to moderate glenohumeral with moderate AC joint osteoarthritis as above. 2. Small glenohumeral joint effusion with mild to moderate subacromial/subdeltoid bursitis. 3. Acute-appearing high-grade partial versus full-thickness tearing of the mid and superior insertional fibers of the subscapularis tendon. 4. The long head biceps tendon is partially subluxed into the subscapularis tear and demonstrates severe tendinosis with intrasubstance/incomplete split tear. 5. Indeterminate partially imaged considerable amount of soft tissue and intramuscular edema involves the trapezius muscle extending along the anterolateral rib cage. Correlate clinically to exclude muscular contusion versus myositis or denervation injury.
[2019-03-28] MEDS: LIDOCAINE 5% 1 PATCH TD SCH (17:34)
[2019-03-28] MEDS: CETIRIZINE HCL 10 MG TABLET PO SCH (20:30)
[2019-03-28] MEDS: HEPARIN SODIUM/DEXTROSE 25,000 UNITS/500 ML BAG IV SCH (23:39)
[2019-03-28 23:54] LABS: Appearance Urine Clear (Clear); Bacteria Urine Automated Negative (Negative); Bilirubin Urine Negative (Negative); Blood Urine Negative (Negative); Cast Urine Automated 0 /lpf (0-5); Color Urine Yellow; Epithelial Cell Urine Auto 20-30 /lpf (0-5); Glucose Urine UA Negative (Negative); Ketones Urine Negative (Negative); Leukocyte Esterase Urine Trace (Negative); Nitrite Urine Negative (Negative); Protein Urine Negative (Negative); RBC Urine Automated 0-4 /hpf (0-4); Specific Gravity Urine 1.012 (1.000-1.030); Urobilinogen Urine Negative (Negative)
[2019-03-29 07:14] LABS: Partial Thromboplastin Ratio 1.6; Partial Thromboplastin Time 42.8 Seconds (21.0-31.0)
[2019-03-29] MEDS ORDERED: HEPARIN IV BOLUS 2,000 UNITS in SYRINGE 0 ML IV ONE (07:17)
[2019-03-29] MEDS: INSULIN ASPART 100 UNITS/ML 3 ML PEN SC SCH ×4 (07:45→21:28)
[2019-03-29] MEDS: INSULIN GLARGINE SOLOSTAR 100 UNITS/ML 3 ML PEN SC SCH ×2 (07:46→21:28)
[2019-03-29] MEDS: dilTIAZem HCL 120 MG CAPCR PO SCH (07:47)
[2019-03-29] MEDS: ATORVASTATIN 40 MG TAB PO SCH (07:48)
[2019-03-29] MEDS: GABAPENTIN 100 MG CAP PO SCH ×2 (07:48→21:37)
[2019-03-29] MEDS: METOPROLOL TARTRATE 100 MG TAB PO SCH ×2 (07:49→21:31)
[2019-03-29] MEDS ORDERED: methylPREDNISolone acetate 80 MG/ML VIAL IA ONE (08:14)
[2019-03-29] MEDS ORDERED: BUPIVACAINE 0.5 % 5 MG/1 ML MPF 30ML VIAL INFIL ONE (08:14)
[2019-03-29] MEDS ORDERED: ETHYL CHLORIDE AER SPR 100 ML CAN EXT ONE (08:14)
[2019-03-29] MEDS ORDERED: METOPROLOL TARTRATE 50 MG TAB PO STA (09:06)
--- NOTE | 2019-03-29 09:12 | Cardiology Progress Note ---
Date of Service March 29, 2019 Assessment & Plan (1) Atrial fibrillation with RVR: New atrial fibrillation, asymptomatic , but has not been exerting herself. V rates in the range of 80-90 bpm at rest. Increase metoprolol tartrate from 100 mg BID to 150 mg in am, 100 mg in pm. Continue [employer] diltiazem CD dose of 120 mg daily. Continue heparin for stroke prophylaxis. Her [id number] score is 6 for age (2points), female, HTN, DM2, and CAD predicting high risk of cardioembolic stroke. She does have prior history of gastrointestinal bleeding due to ulcer, but her hemoglobin is stable. Continue heparin, once determination is made regarding any invasive procedure start coumadin. (2) Acute pain of right shoulder: Significant pathology noted as outlined in MRI. Given age h/o CAD, and remote CABG would be considered high risk from cardiac st andpoint for any operative intervention. (3) CAD (coronary artery disease): EKG performed this morning revealed atrial fibrillation at 93 bpm with right bundle branch block, and lateral repolarization changes consistent with ischemia. 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 Continue rate control. An echocardiogram has been completed and will be reviewed. She is not on aspirin on a chronic basis due to her past peptic ulcer with GI hemorrhage. Subjective CC: follow up right shoulder pain, new onset atrial fibrillation Subjective: Pt feeling well. Denies SOB, palpitations, or angina. Shoulder pain improved. Review of Systems Review of Systems: All systems reviewed & are unremarkable except as noted in HPI & below Physical Exam Physical Exam: Temp Pulse Resp BP Pulse Ox 36.4 C L 82 18 151/98 H 96 03/29/19 07:10 03/29/19 07:10 03/29/19 07:10 03/29/19 07:10 03/29/19 07:10 Constitutional: WD/WN, vitals as above Respiratory: normal respiratory effort, lungs clear to auscultation Cardiovascular: Rate/Rhythm: + irregularly irregular Heart Sounds: + murmur (1/6 Sm) Vessels: no JVD Extremities: no edema Gastrointestinal (Abdomen): normal bowel sounds, soft, nontender, no hepatosplenomegaly Neurologic: PERRL, EOMI, accommodation nl, no face palsy, no dysarthria Results & Data Vital Signs (Past 12 Hours) Vital Signs Temp Pulse Resp BP Pulse Ox 03/29/19 07:10 36.4 C L 82 18 151/98 H 96 03/29/19 03:11 36.4 C L 90 18 137/71 95 03/28/19 23:37 36.4 C L 90 18 157/79 H 93 Laboratory Results Coagulation 03/29/19 Range/Units 06:43 APTT 42.8 H (21.0-31.0) Seconds Intake and Output 03/28/19 03/29/19 03/29/19 22:59 06:59 14:59 Intake Total 350 / 1314.600 239.733 / 1314.600 122.133 / 122.133 Output Total 200 / 1100 500 / 1100 Balance 150 / 214.600 -260.267 / 214.600 122.133 / 122.133 Intake: IV 139.733 / 389.600 122.133 / 122.133 HEPARIN SODIUM/DEXTROSE 25,000 139.733 / 389.600 122.133 / 122.133 units In 500 ml @ 800 UNITS/HR 16 mls/hr IV .Q24H [facility] Rx#: [id number] Oral 350 / 925 100 / 925 Output: Urine 200 / 1100 500 / 1100 Other: Weight 73.1 kg Diagnostic Findings EKG this am reveals rate controlled AF, RBBB, inferolateral repolarization changes.
[2019-03-29] MEDS ORDERED: WARFARIN SOD 5 MG TAB PO ONE (16:41)
--- NOTE | 2019-03-29 17:06 | Orthopedic Progress Note ---
Date of Service March 29, 2019 Assessment & Plan (1) Shoulder pain, acute: MRI demonstrates a small partial-thickness rotator cuff tear. This can be treated nonoperatively. I gave her a cortisone injection to the shoulder. She may use the arm as tolerated. No restrictions to the right shoulder. May resume anticoagulation at any time. Results & Data Vital Signs (Past 12 Hours) Vital Signs Temp Pulse Pulse Resp BP Pulse Ox 03/29/19 15:52 88 03/29/19 15:21 36.3 C L 102 H 20 126/80 95 03/29/19 11:14 36.4 C L 79 17 111/67 96 03/29/19 07:10 36.4 C L 82 18 151/98 H 96
--- NOTE | 2019-03-29 17:07 | Procedure Note ---
Procedure Note Date of Service March 29, 2019 Preprocedure diagnosis: Small partial-thickness rotator cuff tear Postprocedure diagnosis: Same Procedure: Subacromial cortisone injection right shoulder Indications the patient is a 84-year-old female developed atraumatic right shoulder pain. MRI is obtained. Demonstrates some mild signal change in the upper border the subscapularis as well as some minor change in to the supraspinatus consistent with tendinosis and a small partial-thickness tear. We discussed first treatment measures and she wishes to proceed with an injection. Procedure: Risks, benefits, alternatives to procedure were discussed that she was to proceed. Under sterile conditions I injected the subacromial space with 80 cc of Kenalog. She tolerated the procedure well. She may use the arm as tolerated. Coding
[2019-03-29] MEDS: LIDOCAINE 5% 1 PATCH TD SCH (17:21)
[2019-03-29 18:15] LABS: Partial Thromboplastin Time 27.4 Seconds (21.0-31.0)
--- NOTE | 2019-03-29 19:14 | Hospitalist Progress Note ---
Date of Service March 29, 2019 Assessment & Plan (1) Atrial fibrillation with RVR: Presented with atrial fibrillation with rapid ventricular response. Had been experiencing dyspnea on exertion for the past 1 to 2 weeks. Atrial fibrillation apparently new onset. Cardiology consulted. Receiving metoprolol and diltiazem for rate control. REGLA(2)DS(2)-VASc score = 6 indicating high risk for cardioembolic event. Has not been anticoagulated because of history of bleeding peptic ulcer several years ago. Currently receiving IV heparin (held this morning for possible shoulder injection by Ortho). Long-term anticoagulation per Cardiology- warfarin felt to be best option. Will start PPI for PUD prophylaxis. (2) CAD (coronary artery disease): No anginal symptoms. Not receiving antiplatelet therapy because history of peptic ulcer disease. Continue metoprolol, diltiazem, statin. (3) HTN (hypertension): Continue metoprolol and diltiazem. (4) CKD (chronic kidney disease), stage III: Serum creatinine 0.98 at time of admission. Follow. (5) T2DM (type 2 diabetes mellitus): Diabetes mellitus type 2 usually controlled with metformin and glimepiride. Random blood sugar at time of admission was 177. Hemoglobin A1c 8.3. Hold oral agents during hospital stay. Insulin therapy per protocol. Fasting blood sugar today = 148. (6) History of peptic ulcer disease: History of transfusion requiring upper GI bleed several years ago secondary to peptic ulcer. Takes ibuprofen as needed, but best to avoid nonsteroidal anti-inflammatory meds. Long-term anticoagulation under consideration. Start long-term prophylaxis with PPI. (7) Acute pain of right shoulder: Orthopedics consulted. 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 MRI demonstrated: 1. Mild to moderate glenohumeral with moderate AC joint osteoarthritis as above. 2. Small glenohumeral joint effusion with mild to moderate subacromial/subdeltoid bursitis. 3. Acute-appearing high-grade partial versus full-thickness tearing of the mid and superior insertional fibers of the subscapularis tendon. 4. The long head biceps tendon is partially subluxed into the subscapularis tear and demonstrates severe tendinosis with intrasubstance/incomplete split tear. 5. Indeterminate partially imaged considerable amount of soft tissue and intramuscular edema involves the trapezius muscle extending along the an terolateral rib cage. Correlate clinically to exclude muscular contusion versus myositis or denervation injury. Electronically signed by: Ricki Palacio M.D. Further management per Ortho. (8) DVT prophylaxis: Currently receiving IV heparin. Ambulate. (9) Discharge planning issues: Anticipated discharge to home. Family Medicine follow-up with Dr. Rashid. Cardiology follow-up with Seth Jarvis PA-C. Subjective Recheck for atrial fibrillation and other problems. Patient seen in their room around 1630. Right shoulder pain improved. Remains in atrial fibrillation with improved ventricular rate, now generally in the 80's. No chest pain or shortness of breath. Review of Systems: Constitutional- no fever. Cardiac- as noted above. Pulmonary- no cough or SOB. GI- no nausea, vomiting, diarrhea, melena, hematochezia. - no urinary symptoms. Otherwise, as noted above. Physical Exam Constitutional: no acute distress Respiratory: no respiratory distress Auscultation: lungs clear to auscultation bilaterally Cardiovascular: Rate/Rhythm: + irregularly irregular Heart Sounds: no gallop, no murmur and no cardiac rub Vessels: no JVD Extremities: no calf tenderness and no edema Gastrointestinal (Abdomen): normal bowel sounds, soft, nontender, no hepatosplenomegaly Skin: no rashes, warm and dry Psychiatric: Orientation: alert and oriented x 3 Results & Data Vital Signs (Past 12 Hours) Vital Signs Temp Pulse Pulse Resp BP Pulse Ox 03/29/19 15:52 88 03/29/19 15:21 36.3 C L 102 H 20 126/80 95 03/29/19 11:14 36.4 C L 79 17 111/67 96 03/29/19 07:10 36.4 C L 82 18 151/98 H 96 Laboratory Results 03/27/19 11:46 03/27/19 11:46
[2019-03-29] MEDS ORDERED: HEPARIN IV BOLUS 4,000 UNITS in SYRINGE 0 ML IV ONE (19:30)
[2019-03-29] MEDS ORDERED: Nursing to Pharmacy Communication ONE (19:31)
[2019-03-29] MEDS: CETIRIZINE HCL 10 MG TABLET PO SCH (21:31)
[2019-03-30 02:02] LABS: Hematocrit (blood only) 34.6 % (37-47); Hemoglobin 11.7 g/dL (12.0-16.0); Mean Corpuscular Hemoglobin 30.2 pg (25-34); Mean Corpuscular Hgb Conc 33.8 g/dL (32-36); Mean Corpuscular Volume 89.2 fL (80-100); Mean Platelet Volume 9.9 fL (7.4-10.4); Platelet Count 253 K/uL (130-400); RDW Coefficient of Variation 14.6 % (11.5-14.5); Red Blood Count 3.88 M/uL (4.2-5.4); White Blood Count 7.35 K/uL (4.8-10.8)
[2019-03-30 02:16] LABS: Prothrombin Time 10.2 Seconds (9.0-12.0)
[2019-03-30 02:27] LABS: Partial Thromboplastin Ratio 2.6
[2019-03-30 02:32] LABS: Partial Thromboplastin Time 71.3 Seconds (21.0-31.0)
[2019-03-30] MEDS: INSULIN GLARGINE SOLOSTAR 100 UNITS/ML 3 ML PEN SC SCH ×2 (07:36→20:32)
[2019-03-30] MEDS: INSULIN ASPART 100 UNITS/ML 3 ML PEN SC SCH ×4 (07:36→20:33)
[2019-03-30] MEDS: METOPROLOL TARTRATE 50 MG TAB PO SCH (07:46)
[2019-03-30] MEDS: dilTIAZem HCL 120 MG CAPCR PO SCH (07:46)
[2019-03-30] MEDS: GABAPENTIN 100 MG CAP PO SCH ×2 (07:46→20:34)
[2019-03-30] MEDS: PANTOprazole 40 MG TAB PO SCH (07:46)
[2019-03-30] MEDS: ATORVASTATIN 40 MG TAB PO SCH (07:46)
[2019-03-30 09:30] LABS: Partial Thromboplastin Ratio 2.9
[2019-03-30 09:32] LABS: Partial Thromboplastin Time 78.2 Seconds (21.0-31.0)
--- NOTE | 2019-03-30 12:37 | Cardiology Progress Note ---
Date of Service March 30, 2019 Assessment & Plan (1) Atrial fibrillation with RVR: (2) Right bundle branch block: Atrial fibrillation, newly diagnosed this admission. Proceed with rate control: Prior to hospital dose of metoprolol tartrate 100 mg twice daily has been increased to 150 mg every morning, 100 mg every afternoon. Stroke prophylaxis: I called her outpatient pharmacy, [facility], in [place], her [id number] cost for a 30-day supply of Eliquis would be $47. I therefore believe that Coumadin would be a better long-term medication for her given her age, frailty, bleeding risk, and cost. Continue heparin infusion while hospitalized, but since she presented to the [facility] in atrial fibrillation, I think she can be discharged with Coumadin initiation to be completed as an outpatient with anticoagulation clinic follow- up in [place] without bridge therapy. The right bundle branch block is a chronic finding. No significant bradycardia noted on serial telemetry monitoring this hospital stay. 5 mg of Coumadin ordered for today, check INR tomorrow if still hospitalized. (3) CAD (coronary artery disease): Chronic coronary disease, remote CABG, greater than 20 years ago. She does have a history of chronic stable exertional angina, no angina noted this hospital stay. Not on aspirin on a chronic basis due to past significant duodenal ulcer related GI bleeding. Continue Coumadin initiation without aspirin. Avoid nonsteroidal anti-inflammatory use. (4) T2DM (type 2 diabetes mellitus): Significant hyperglycemia noted post intra-articular Kenalog injection 03/29/[address] Loera plans to readdress glucose treatment. This may require for her to stay in the hospital again tonight. Disposition: Patient typically follows with Mr Jarvis of our practice, recommend outpt cardio follow up in 2-4 weeks. Subjective Chief complaint: Follow-up right shoulder pain, atrial fibrillation Subjective: Patient feels very well today. She denies subjective chest pain or palpitations. She notes significant improvement in her right shoulder discomfort status post intra-articular injection therapy performed yesterday. Telemetry reveals ongoing atrial fibrillation, at rest after her morning medications, the ventricular rate is in the range of 70 to 80 bpm, ventricular rate up to 100 bpm noted when she was washing up this morning. Review of Systems Review of Systems: All systems reviewed & are unremarkable except as noted in HPI & below Physical Exam Physical Exam: Temp Pulse Resp BP Pulse Ox 36.5 C 86 20 131/35 L 95 03/30/19 12:02 03/30/19 12:02 03/30/19 12:02 03/30/19 12:02 03/30/19 12:02 Constitutional: WD/WN, vitals as above Respiratory: normal respiratory effort, lungs clear to auscultation Cardiovascular: Rate/Rhythm: + irregularly irregular Heart Sounds: + murmur (1/6 systolic murmur.) Vessels: no JVD Extremities: no edema Gastrointestinal (Abdomen): normal bowel sounds, soft, nontender, no hepatosplenomegaly Neurologic: PERRL, EOMI, accommodation nl, no face palsy, no dysarthria Results & Data Vital Signs (Past 12 Hours) Vital Signs Temp Pulse Resp BP Pulse Ox 03/30/19 12:02 36.5 C 86 20 131/35 L 95 03/30/19 07:43 36.5 C 106 H 18 100/65 94 03/30/19 03:11 36.7 C 96 H 18 117/73 92 Laboratory Results INR today 03/30/2019 was 1.0, most recent PTT 78 seconds, 8:51 AM
[2019-03-30] MEDS: HEPARIN SODIUM/DEXTROSE 25,000 UNITS/500 ML BAG IV SCH ×2 (13:35→13:41)
[2019-03-30 16:08] LABS: Partial Thromboplastin Time 53.8 Seconds (21.0-31.0)
[2019-03-30] MEDS: WARFARIN SOD 5 MG TAB PO SCH (16:13)
[2019-03-30] MEDS: METFORMIN HCL 500 MG TAB PO SCH (16:13)
[2019-03-30] MEDS: LIDOCAINE 5% 1 PATCH TD SCH (17:20)
[2019-03-30] MEDS: CETIRIZINE HCL 10 MG TABLET PO SCH (20:35)
[2019-03-30] MEDS: METOPROLOL TARTRATE 100 MG TAB PO SCH (20:35)
--- NOTE | 2019-03-30 21:44 | Hospitalist Progress Note ---
Date of Service March 30, 2019 Assessment & Plan (1) Atrial fibrillation with RVR: Presented with atrial fibrillation with rapid ventricular response. Had been experiencing dyspnea on exertion for the past 1 to 2 weeks. Atrial fibrillation apparently new onset. Cardiology consulted. Receiving metoprolol and diltiazem for rate control. REGLA(2)DS(2)-VASc score = 6 indicating high risk for cardioembolic event. Has not been anticoagulated because of history of bleeding peptic ulcer several years ago. Currently receiving IV heparin (held this morning for possible shoulder injection by Ortho). Long-term anticoagulation per Cardiology- warfarin felt to be best option. Will start PPI for PUD prophylaxis. (2) CAD (coronary artery disease): No anginal symptoms. Not receiving antiplatelet therapy because history of peptic ulcer disease. Continue metoprolol, diltiazem, statin. (3) HTN (hypertension): Continue metoprolol and diltiazem. (4) CKD (chronic kidney disease), stage III: Serum creatinine 0.98 at time of admission. Follow. (5) T2DM (type 2 diabetes mellitus): Diabetes mellitus type 2 usually controlled with metformin and glimepiride. Random blood sugar at time of admission was 177. Hemoglobin A1c 8.3. Hold oral agents during hospital stay. Insulin therapy per protocol. Fasting blood sugar today = 230; blood sugar at 1110 was 309. Elevated blood sugar probably secondary to steroid injection. Adjust insulin coverage. Resume metformin at reduced dose of 500 twice daily. (6) History of peptic ulcer disease: History of transfusion requiring upper GI bleed several years ago secondary to peptic ulcer. Takes ibuprofen as needed, but best to avoid nonsteroidal anti-inflammatory meds. Long-term anticoagulation under consideration. Start long-term prophylaxis with PPI. (7) Acute pain of right shoulder: Orthopedics consulted. 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 MRI demonstrated: 1. Mild to moderate glenohumeral with moderate AC joint osteoarthritis as above. 2. Small glenohumeral joint effusion with mild to moderate subacromial/subdeltoid bursitis. 3. Acute-appearing high-grade partial versus full-thickness tearing of the mid and superior insertional fibers of the subscapularis tendon. 4. The long head biceps tendon is partially subluxed into the subscapularis tear and demonstrates severe tendinosis with intrasubstance/incomplete split tear. 5. Indeterminate partially imaged considerable amount of soft tissue and intramuscular edema involves the trapezius muscle extending along the anterolateral rib cage. Correlate clinically to exclude muscular contusion versus myositis or denervation injury. Electronically signed by: Ricki Palacio M.D. Steroid injection right shoulder performed by Orthopedics on 03/29 with good results. Further management per Ortho. (8) DVT prophylaxis: Currently receiving IV heparin. Ambulate. (9) Discharge planning issues: Anticipated discharge to home. Family Medicine follow-up with Dr. Rashid. Cardiology follow-up with Seth Jarvis PA-C. Subjective Recheck for atrial fibrillation and other problems. Patient seen in their room around 1300. Remains in atrial fibrillation with controlled rate. No chest pain or shortness of breath. Right shoulder pain improved after steroid injection yesterday by Orthopedics. Review of Systems: Constitutional- no fever. Cardiac- as noted above. Pulmonary- no cough or SOB. GI- no nausea, vomiting, diarrhea, melena, hematochezia. - no urinary symptoms. Otherwise, as noted above. Physical Exam Constitutional: no acute distress Respiratory: no respiratory distress Auscultation: lungs clear to auscultation bilaterally Cardiovascular: Rate/Rhythm: + irregularly irregular Heart Sounds: no gallop, no murmur and no cardiac rub Vessels: no JVD Extremities: no calf tenderness and no edema Gastrointestinal (Abdomen): normal bowel sounds, soft, nontender, no hepatosplenomegaly Skin: no rashes, warm and dry Psychiatric: Orientation: alert and oriented x 3 Results & Data Vital Signs (Past 12 Hours) Vital Signs Temp Pulse Pulse Resp BP Pulse Ox 03/30/19 20:00 37.4 C 95 H 19 176/84 H 97 03/30/19 18:00 104 H 03/30/19 15:55 36.6 C 93 H 18 141/93 H 96 03/30/19 12:02 36.5 C 86 20 131/35 L 95 Laboratory Results Hemoglobin 11.7, white count 7350, platelet count 253,000. INR 1.0. PTT 78.2. Fasting blood sugar 230.
[2019-03-31 07:44] LABS: BUN Creatinine Ratio 18.9 (10-20); Calcium 9.1 mg/dl (8.5-10.1); Creatinine Clr Calc Pharmacy 32.4 ml/min; Est GFR (African American) 47.6; Est GFR (Non-African American) 41.1
[2019-03-31 08:03] LABS: INR 1.2 (0.9-1.1); Partial Thromboplastin Ratio 2.3; Prothrombin Time 11.9 Seconds (9.0-12.0)
[2019-03-31 08:05] LABS: Partial Thromboplastin Time 63.4 Seconds (21.0-31.0)
[2019-03-31] MEDS: GABAPENTIN 100 MG CAP PO SCH (08:19)
[2019-03-31] MEDS: METOPROLOL TARTRATE 50 MG TAB PO SCH (08:20)
[2019-03-31] MEDS: dilTIAZem HCL 120 MG CAPCR PO SCH (08:20)
[2019-03-31] MEDS: METFORMIN HCL 500 MG TAB PO SCH (08:21)
[2019-03-31] MEDS: PANTOprazole 40 MG TAB PO SCH (08:21)
[2019-03-31] MEDS: ATORVASTATIN 40 MG TAB PO SCH (08:21)
[2019-03-31] MEDS: INSULIN ASPART 100 UNITS/ML 3 ML PEN SC SCH ×2 (08:24→12:51)
[2019-03-31] MEDS: INSULIN GLARGINE SOLOSTAR 100 UNITS/ML 3 ML PEN SC SCH (08:25)
[2019-03-31] MEDS ORDERED: GLIMEPIRIDE 2 MG TAB PO SCH (09:00)
--- NOTE | 2019-03-31 14:35 | Hospitalist Progress Note ---
Date of Service March 31, 2019 Assessment & Plan (1) Atrial fibrillation with RVR: Presented with atrial fibrillation with rapid ventricular response. Had been experiencing dyspnea on exertion for the past 1 to 2 weeks. Atrial fibrillation apparently new onset. Cardiology consulted. Receiving metoprolol and diltiazem for rate control. REGLA(2)DS(2)-VASc score = 6 indicating high risk for cardioembolic event. Has not been anticoagulated because of history of bleeding peptic ulcer several years ago. Currently receiving IV heparin (held this morning for possible shoulder injection by Ortho). Long-term anticoagulation per Cardiology- warfarin felt to be best option. INR 1.2 day of discharge. Discharge on warfarin 4 mg daily. Further management per [facility]. Will start PPI for PUD prophylaxis. (2) CAD (coronary artery disease): No anginal symptoms. Not receiving antiplatelet therapy because history of peptic ulcer disease. Continue metoprolol, diltiazem, statin. (3) HTN (hypertension): Continue metoprolol and diltiazem. (4) CKD (chronic kidney disease), stage III: Serum creatinine 0.98 at time of admission. Creatinine day of discharge was 1.21. Follow. (5) T2DM (type 2 diabetes mellitus): Diabetes mellitus type 2 usually controlled with metformin and glimepiride. Random blood sugar at time of admission was 177. Hemoglobin A1c 8.3. Hold oral agents during hospital stay. Received insulin therapy per protocol. Blood sugars elevated after steroid injection right shoulder. Oral agents were resumed at reduced dose. Fasting blood sugar day of discharge still elevated to 74, but patient very insistent on going home today. Blood sugars should improve as steroid injection wears off. Discharge on usual dosing of metformin and glimepiride. (6) History of peptic ulcer disease: History of transfusion requiring upper GI bleed several years ago secondary to peptic ulcer. Takes ibuprofen as needed, but best to avoid nonsteroidal anti-inflammatory meds. Long-term anticoagulation recommended because of high risk for cardioembolism. Start long-term prophylaxis with PPI. (7) Acute pain of right shoulder: Orthopedics consulted. 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 MRI demonstrated: 1. Mild to moderate glenohumeral with moderate AC joint osteoarthritis as above. 2. Small glenohumeral joint effusion with mild to moderate subacromial/subdeltoid bursitis. 3. Acute-appearing high-grade partial versus full-thickness tearing of the mid and superior insertional fibers of the subscapularis tendon. 4. The long head biceps tendon is partially subluxed into the subscapularis tear and demonstrates severe tendinosis with intrasubstance/incomplete split tear. 5. Indeterminate partially imaged considerable amount of soft tissue and intramuscular edema involves the trapezius muscle extending along the anterolateral rib cage. Correlate clinically to exclude muscular contusion versus myositis or denervation injury. Electronically signed by: Ricki Palacio M.D. Steroid injection right shoulder performed by Orthopedics on 03/29 with good results. Further management per Ortho. Patient seems to be doing well, but consider outpatient physical therapy to maintain range of motion. (8) DVT prophylaxis: Received IV heparin. Ambulating. (9) Discharge planning issues: Discharge to home. Family Medicine follow-up with Dr. Rashid. Cardiology follow-up with Seth Jarvis PA-C. Subjective Doing well. Anxious to go home. No chest pain or SOB. Right shoulder pain much better. Physical Exam Constitutional: no acute distress Respiratory: no respiratory distress Auscultation: lungs clear to auscultation bilaterally Cardiovascular: Rate/Rhythm: + irregularly irregular Heart Sounds: no gallop, no murmur and no cardiac rub Vessels: no JVD Extremities: no calf tenderness and no edema Gastrointestinal (Abdomen): normal bowel sounds, soft, nontender, no hepatosplenomegaly Skin: no rashes, warm and dry Psychiatric: Orientation: alert and oriented x 3 Results & Data Vital Signs (Past 12 Hours) Vital Signs Temp Pulse Resp BP Pulse Ox 03/31/19 07:36 36.7 C 87 16 104/68 94 03/31/19 03:00 36.4 C L 92 H 20 136/82 96 Laboratory Results Fasting blood sugar 274. Potassium 3.9. Creatinine 1.21. INR 1.2.
[2019-03-31] MEDS: HEPARIN SODIUM/DEXTROSE 25,000 UNITS/500 ML BAG IV SCH (14:57)
[2019-03-31] MEDS: WARFARIN SOD 5 MG TAB PO SCH (15:48)
--- NOTE | 2019-04-01 20:09 | Discharge Summary ---
Date of Service Date of Admission: 03/27/19 Date of Discharge: 03/31/19 Admission HPI Per Admitting Provider This is an 84-year-old female who has significant past medical history of CAD with history of CABG x3 in 1996, HTN, HLD, T2DM, CKD stage III, history of PUD requiring 3 unit PRBC 10 years ago who presents to [facility] ED secondary to significant right shoulder pain for 3 to 4 days along with shortness of breath x2 weeks. Patient states she was lying on her right side this morning whenever she rolled over and had significant right shoulder pain. She was unable to move her right arm at all. She called her son secondary to pain and also elicited that she had been short of breath for a few days. Due to symptoms patient was brought immediately to ED by son. She complains of off-and-on shortness of breath for the past 2 weeks. Can occur at rest or with exertion, "but I do not exert myself that much." Shortness of breath can last for minutes to hours. She denies any rajiv chest pain, palpitations, hemoptysis, orthopnea, PND. She denies a prior history of A. fib or arrhythmia. She denies any recent illness, fever, chills, sweats, lightheadedness, dizziness, syncope, nausea, vomiting, abdominal pain, dysuria, increased urgency or frequency with urination, hematuria, melena, hematochezia. Son does elicit that she has had 3 or 4 falls over the past 1 to 2 months. Her last fall was approximately 1 month ago. All of them have been nontraumatic. She denies prior history of brain bleed, but does have a history of PUD 10 years ago requiring 3 units of PRBC. Denies prior history of being on oral anticoagulation. Her appetite is otherwise been stable. She denies any significant weight gain or loss or edema. Not take any of her medications this morning including her metoprolol or diltiazem. She does still live alone at home. Principal Diagnosis atrial fibrillation with rapid ventricular response OTHER ACUTE / NEW DIAGNOSES: right shoulder pain due to partial thickness rotator cuff tear Discharge Data Allergies Allergy/AdvReac Type Severity Reaction Status Date / Time aspirin Allergy Severe PEPTIC Verified 03/27/19 12:39 ULCER DISEASE WITH HEMMORAGE codeine Allergy Unknown UNKNOWN Verified 03/27/19 12:39 oxytetracycline Allergy Unknown SEVERE Unverified 03/27/19 12:39 SWELLING polymyxin B Allergy Unknown SEVERE Unverified 03/27/19 12:39 SWELLING Consultations 03/27/19 13:37 ED Decision to Admit Stat 03/27/19 14:48 Consult Cardiology Routine Consult Orthopedic Surgery Routine 03/27/19 15:25 Consult Case Management - Discharge Planning Routine Ordered Studies 03/28/19 06:15 MR shoulder RT wo con Routine Hospital Course (1) Atrial fibrillation with RVR: Presented with atrial fibrillation with rapid ventricular response. Had been experiencing dyspnea on exertion for the past 1 to 2 weeks. Atrial fibrillation apparently new onset. Cardiology consulted. Receiving metoprolol and diltiazem for rate control. REGLA(2)DS(2)-VASc score = 6 indicating high risk for cardioembolic event. Has not been anticoagulated because of history of bleeding peptic ulcer several years ago. Currently receiving IV heparin (held this morning for possible shoulder injection by Ortho). Long-term anticoagulation per Cardiology- warfarin felt to be best option. INR 1.2 day of discharge. Discharge on warfarin 4 mg daily. Further management per [facility]. Will start PPI for PUD prophylaxis. (2) CAD (coronary artery disease): No anginal symptoms. Not receiving antiplatelet therapy because history of peptic ulcer disease. Continue metoprolol, diltiazem, statin. (3) HTN (hypertension): Continue metoprolol and diltiazem. (4) CKD (chronic kidney disease), stage III: Serum creatinine 0.98 at time of admission. Creatinine day of discharge was 1.21. Follow. (5) T2DM (type 2 diabetes mellitus): Diabetes mellitus type 2 usually controlled with metformin and glimepiride. Random blood sugar at time of admission was 177. Hemoglobin A1c 8.3. Hold oral agents during hospital stay. Received insulin therapy per protocol. Blood sugars elevated after steroid injection right shoulder. Oral agents were resumed at reduced dose. Fasting blood sugar day of discharge still elevated to 74, but patient very insistent on going home today. Blood sugars should improve as steroid injection wears off. Discharge on usual dosing of metformin and glimepiride. (6) History of peptic ulcer disease: History of transfusion requiring upper GI bleed several years ago secondary to peptic ulcer. Takes ibuprofen as needed, but best to avoid nonsteroidal anti-inflammatory meds. Long-term anticoagulation recommended because of high risk for cardioembolism. Start long-term prophylaxis with PPI. (7) Acute pain of right shoulder: Orthopedics consulted. 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 MRI demonstrated: 1. Mild to moderate glenohumeral with moderate AC joint osteoarthritis as above. 2. Small glenohumeral joint effusion with mild to moderate subacromial/subdeltoid bursitis. 3. Acute-appearing high-grade partial versus full-thickness tearing of the mid and superior insertional fibers of the subscapularis tendon. 4. The long head biceps tendon is partially subluxed into the subscapularis tear and demonstrates severe tendinosis with intrasubstance/incomplete split tear. 5. Indeterminate partially imaged considerable amount of soft tissue and intramuscular edema involves the trapezius muscle extending along the anterolateral rib cage. Correlate clinically to exclude muscular contusion v ersus myositis or denervation injury. Electronically signed by: Ricki Palacio M.D. Steroid injection right shoulder performed by Orthopedics on 03/29 with good results. Further management per Ortho. Patient seems to be doing well, but consider outpatient physical therapy to maintain range of motion. (8) DVT prophylaxis: Received IV heparin. Ambulating. (9) Discharge planning issues: Discharge to home. Family Medicine follow-up with Dr. Rashid. Cardiology follow-up with Seth Jarvis PA-C. Total Time Total Time Spent Total Time Spent (In Minutes): 45 Discharge Plan Discharge Items Patient Disposition: Home - Home Health Services Reason For Visit: atrial fibrillation Discharge Diagnosis: atrial fibrillation (irregular heart rhythm) right shoulder pain Condition on Discharge: Good Activity: Resume your previous activity Lifting: No more than 5 pounds Non-emergency contact: Primary Care Provider and Basketball Player Call non-emergency contact if: you have any medication questions, your symptoms worsen and your temperature is above 101 Follow-up/Referrals: Moise Rashid MD [Primary Care Provider] - (04/05/2019 1:00 PM Moise Rashid MD ) Seth Jarvis [Physician [employer]] - (Office will contact you with appointment.) Mj Esquivel DO [Physician] - (Please call office for appointment if you continue to have shoulder pain.) Diet: Carb Consistent or DM2 and Heart Healthy Addtl Attending Provider Instructions: MEDICATION CHANGES: New dose for metoprolol tartrate (Lopressor): 150 mg in the morning (take a 50 mg pill with a 100 mg pill) 100 mg at bedtime Blood thinner to help prevent strokes: warfarin (Coumadin) 2 mg pills initial dose 4 mg daily (2 pills) Blood test will be monitored by [facility]. They will contact you with further instructions. Extra Strength Tylenol 2 pills every 8 hours as needed for pain. Do not take pain / arthritis medicines like ibuprofen (Advil or Motrin), naproxen (Aleve) or other similar medications. Take omeprazole (Prilosec) 20 mg daily to help prevent ulcers. If shoulder pain gets worse, you can get lidocaine patches from your pharmacy without a prescription. Use as directed. SUMMARY OF TEST RESULTS: Electrocardiogram showed atrial fibrillation (irregular heart rhythm). MRI of should showed arthritis and tendon tear. PENDING TEST RESULTS: none OTHER INSTRUCTIONS: You want to avoid stiffness of your right shoulder. Do gentle stretching exercises by moving it in different directions. Do the exercises twice a day. Seek medical attention if you have: * temperature above 101 * chest pain or trouble breathing * abdominal pain, nausea, vomiting * diarrhea, dark stools or bloody stools * any unanswered questions or concerns Call 911 if symptoms are severe. Please take good care of yourself. Call if you have any questions or problems. You can reach a [facility] hospitalist on duty at [facility] 24 hours a day by calling [phone]. My cell # is [phone]. Pending Studies at Discharge: No Stand-Alone Forms: My [facility], Smoking Cessation Medications and DC Order Prescriptions: New metoprolol tartrate 50 mg tablet 50 mg PO DAILY Qty: 30 RF: 5 omeprazole 20 mg capsule,delayed release(DR/EC) 20 mg PO DAILY Qty: 30 RF: 5 warfarin 2 mg tablet 4 mg PO DAILY Qty: 60 RF: 0 acetaminophen 500 mg tablet 1,000 mg PO Q8H PRN (Reason: fever or pain) Qty: 60 RF: 0 Continued atorvastatin 80 mg Tablet 80 mg PO QAM RF: 0 cetirizine 10 mg Tablet 5 mg PO QPM RF: 0 metoprolol tartrate 100 mg Tablet 100 mg PO BID RF: 0 metformin 1,000 mg Tablet 1,000 mg PO BID RF: 0 glimepiride 4 mg Tablet 8 mg PO QAM RF: 0 furosemide 20 mg Tablet 20 mg PO QAM RF: 0 gabapentin 100 mg Capsule 200 mg PO BID RF: 0 magnesium oxide 400 mg magnesium Tablet 400 mg PO BID RF: 0 diltiazem HCl 120 mg Tablet Extended Release 24 Hr 120 mg PO QAM RF: 0 hydroxyzine HCl 25 mg Tablet 25 mg PO HS PRN (Reason: Itching) RF: 0 Discharge Orders: Discharge Order (Routine); Ordered 03/31/19 Ordered By: Ming Eaton/Other Patient Handouts: Coumadin, AFL/Afib, Hyperglycemia, Hypoglycemia, Diabetes Type 2 Coping Admission Data Admit Date/Time: 03/27/19 14:27 Attending Provider: Ming Loera Admit Provider: Elaine Asif Primary Care Provider: Moise Rashid Other Providers: Elaine Asif ; Victor M Morgan ; Mj Esquivel Other Interventions: Discharge Summary Assessment (RN) Last Done: 03/31/19 15:29 DC Date/Time DO NOT enter until pt leaves facility: 03/31/19 16:06
== END 2019-03-31 16:06 | disposition home health service (06) | DRG 310 ==
LOC: ED 10:09 → 2E 14:27 → SUATTDRO 14:27 → 2E 14:48 → 2N 03-30 13:10

== ENCOUNTER 2019-08-11 09:54 | Inpatient (IN) ==
[2019-08-11] MEDS ORDERED: SODIUM CHLORIDE 0.9% 500 ML IV SCH (10:45)
--- NOTE | 2019-08-11 10:45 | Emergency Department Note ---
History of Present Illness General Chief Complaint: Confusion Stated Complaint: ams Time Seen by Provider: 08/11/19 10:17 Source: patient, RN notes reviewed and old records reviewed Mode of arrival: EMS Limitations: altered mental status History of Present Illness Provider complaint: altered mental status The patient presents via EMS. No family present with the patient. The patient was found to be altered mental status this morning by family and brought in here for further evaluation. She lives with her . The patient opens her eyes to stimulus and answers minimal questions with yes or no but otherwise does not answer questions or carry on conversation. She is a difficult historian because of this. She does not always answer questions at all. She does grimace to pain. She localizes pain. The patient otherwise has a limited HPI based on her alteration of mental status. Home Medications Home Medications Medication Instructions Recorded Confirmed Type atorvastatin 80 mg PO QAM 03/27/19 08/11/19 History cetirizine 10 mg PO QPM 03/27/19 08/11/19 History diltiazem HCl 120 mg PO QAM 03/27/19 08/11/19 History furosemide 20 mg PO BID 03/27/19 08/11/19 History gabapentin 200 mg PO BID 03/27/19 08/11/19 History glimepiride 8 mg PO QAM 03/27/19 08/11/19 History hydroxyzine HCl 25 mg PO HS PRN 03/27/19 08/11/19 History magnesium oxide 400 mg PO BID 03/27/19 08/11/19 History metformin 1,000 mg PO DAILY 03/27/19 08/11/19 History metoprolol tartrate 100 mg PO BID 03/27/19 08/11/19 History acetaminophen 1,000 mg PO Q8H PRN #60 tab 03/31/19 08/11/19 Rx baclofen 10 mg PO BID 08/11/19 08/11/19 History metoprolol tartrate 50 mg PO QPM 08/11/19 08/11/19 History prednisone 20 mg PO BID 08/11/19 08/11/19 History warfarin [Jantoven] 2 mg PO UD 08/11/19 08/11/19 History Allergies Allergy/AdvReac Type Severity Reaction Status Date / Time aspirin Allergy Severe PEPTIC Verified 03/27/19 12:39 ULCER DISEASE WITH HEMMORAGE codeine Allergy Unknown UNKNOWN Verified 03/27/19 12:39 oxytetracycline Allergy Unknown SEVERE Unverified 03/27/19 12:39 SWELLING polymyxin B Allergy Unknown SEVERE Unverified 03/27/19 12:39 SWELLING Past Med/Surg History Medical History CAD (coronary artery disease) (Chronic) History of CABG x 3 1996 CKD (chronic kidney disease) (Chronic) CKD (chronic kidney disease), stage III (Chronic) History of peptic ulcer disease (Chronic) HTN (hypertension) (Chronic) Hyperlipidemia (Chronic) T2DM (type 2 diabetes mellitus) (Chronic) Surgical History History of appendectomy (Chronic) History of breast biopsy (Chronic) History of coronary artery bypass graft x 3 (Chronic) History of nasal polypectomy (Chronic) History of tonsillectomy and adenoidectomy (Chronic) Family History Son Atrial fibrillation Mother Hypertension Social History Preferred Language: Portuguese Communication Ability: Effective Latin Professor Required: No Beliefs That Will Affect Care: None marital status: / Current Living Situation: Alone Feels Safe at Home: Yes Smoking Status: Unknown if ever smoked Hx Alcohol Use: No Hx Substance Use: No Review of Systems Unobtainable due to reduced consciousness Physical Exam Vital Signs Vital Signs - 24 hr 08/11/19 09:58 08/11/19 10:06 08/11/19 10:40 Temperature 36.8 C Temperature Source Oral Pulse Rate 88 95 H Pulse Rate from SpO2 Sensor 95 H Pulse Rhythm Regular Pulse Strength Normal Respiratory Rate 16 Respiratory Effort / Characteristics Non-Labored Spontaneous Respiratory Depth Normal Blood Pressure 183/126 H 183/126 H Blood Pressure Mean 149 145 Blood Pressure Position Lying Pulse Oximetry 93 97 Oxygen Delivery Method Room Air Room Air Oxygen Flow Rate 97 Sepsis Recent Fever Within 48 Hours No Sepsis Action Taken by Nursing No Action Required 08/11/19 11:08 Temperature Temperature Source Pulse Rate 98 H Pulse Rate from SpO2 Sensor 88 Pulse Rhythm Pulse Strength Respiratory Rate 36 H Respiratory Effort / Characteristics Respiratory Depth Blood Pressure 185/112 H Blood Pressure Mean 136 Blood Pressure Position Pulse Oximetry 97 Oxygen Delivery Method Oxygen Flow Rate Sepsis Recent Fever Within 48 Hours Sepsis Action Taken by Nursing CONSTITUTIONAL/VITAL SIGNS: Reviewed / noted above. GENERAL: Non-toxic in appearance. INTEGUMENTARY: Warm, dry, and [place]. HEAD: Normocephalic. EYES: without scleral icterus or trauma. ENT/OROPHARYNX: clear and moist. LYMPHADENOPATHY/NECK: Is supple without lymphadenopathy or meningismus. RESPIRATORY: Lungs clear and equal. CARDIOVASCULAR: Regular rate and rhythm. GI/ABDOMEN: Soft and nontender. No organomegaly or pulsatile mass. No rebound or guarding. Normal bowel sounds. EXTREMITIES: Warm and well perfused. BACK: No CVA tenderness. NEUROLOGICAL: The patient does respond to painful stimulus. She responds slightly to verbal stimulus with a yes and no occasionally but is unable to provide much information. She does move all 4 extremities. Negative Babinski. PSYCHIATRIC: Unable to test. MUSCULOSKELETAL: Normally developed with average to poor muscle tone. TRIAGE NURSING DOCUMENTATION REVIEWED. Course Administered Medications Discontinued Medications Sodium Chloride (Nss) 500 mls @ 999 mls/hr IV .Q31M LORRAINE Stop: 08/11/19 11:15 Last Admin: 08/11/19 11:29 Dose: 999 mls/hr Documented by: [id number] Medical Decision Making Differential Diagnosis Differential includes acute coronary syndrome, myocardial infarction, CVA, TIA, anemia, infection, pneumonia, UTI, pyelonephritis, poor nutrition, dehydration, electrolyte disturbance,hypoglycemia. Medical Records Attestation: I reviewed the patient's medical records. Home Medications Current Medication List: was personally reviewed by me Laboratory Data Attestation: I reviewed the patient's lab results. : 08/11/19 10:05 08/11/19 10:05 Lab Results 08/11/19 08/11/19 08/11/19 Range/Units 10:05 10:05 10:15 WBC 8.75 (4.8-10.8) K/uL RBC 4.87 (4.2-5.4) M/uL Hgb 14.1 (12.0-16.0) g/dL Hct 42.1 (37-47) % MCV 86.4 (80-100) fL MCH 29.0 (25-34) pg MCHC 33.5 (32-36) g/dL RDW Std Deviation 47.1 H (36.4-46.3) fL RDW Coeff of Fred 14.8 H (11.5-14.5) % Plt Count 241 (130-400) K/uL MPV 10.4 (7.4-10.4) fL Immature Gran % (Auto) 0.2 % Neut % (Auto) 69.8 % Lymph % (Auto) 19.1 % [place] % (Auto) 9.8 % Eos % (Auto) 1.1 % Baso % (Auto) 0.0 % Immature Gran # (Auto) 0.02 (0.00-0.02) K/uL Neut # (Auto) 6.10 (1.4-6.5) K/uL Lymph # (Auto) 1.67 (1.2-3.4) K/uL [place] # (Auto) 0.86 H (0.11-0.59) K/uL Eos # (Auto) 0.10 (0-0.5) K/uL Baso # (Auto) 0.00 (0-0.2) K/uL Sodium 141 (136-145) mmol/L Potassium 3.6 (3.5-5.1) mmol/L Chloride 108 H (98-107) mmol/L Carbon Dioxide 28 (21-32) mmol/L Anion Gap 5.0 (3-11) BUN 21 H (7-18) mg/dl Creatinine 1.19 (0.6-1.2) mg/dl Est Cr Clr Drug Dosing 34.2 ml/min Est GFR ( Amer) 48.5 Est GFR (Non-Af Amer) 41.9 BUN/Creatinine Ratio 17.6 (10-20) Glucose 249 H (70-99) mg/dl Calcium 9.0 (8.5-10.1) mg/dl Magnesium 1.8 (1.8-2.4) mg/dl Total Bilirubin 1.0 (0.2-1) mg/dl AST 11 L (15-37) U/L ALT 28 (12-78) U/L Alkaline Phosphatase 98 (45-117) U/L Total Creatine Kinase 42 (26-192) U/L Troponin I < 0.015 (0-0.045) ng/ml Total Protein 7.1 (6.4-8.2) gm/dl Albumin 3.3 L (3.4-5.0) gm/dl Globulin 3.8 (2.5-4.0) gm/dl Albumin/Globulin Ratio 0.9 (0.9-2) TSH 3.000 (0.300-4.500) uIu/ml Urine Color Yellow Urine Appearance Clear (Clear) Urine pH 8.0 H (4.5-7.5) Ur Specific [place] 1.018 (1.000-1.030) Urine Protein Negative (Negative) Urine Glucose (UA) 3+ H (Negative) Urine Ketones Negative (Negative) Urine Blood Negative (Negative) Urine Nitrite Negative (Negative) Urine Bilirubin Negative (Negative) Urine Urobilinogen Negative (Negative) Ur Leukocyte Esterase Negative (Negative) Urine WBC (Auto) 1-5 (0-5) /hpf Urine RBC (Auto) 0-4 (0-4) /hpf U Hyaline Cast (Auto) 0 (0-5) /lpf U Epithel Cells (Auto) 5-10 H (0-5) /lpf Urine Bacteria (Auto) Negative (Negative) Imaging Data Radiologist's Impression: XR chest 1V portable CLINICAL HISTORY: weakness dyspnea COMPARISON STUDY: 03/27/2019 FINDINGS: Mild cardiomegaly. Prior median sternotomy. Lungs are clear. IMPRESSION: Mild cardiomegaly. Otherwise negative study. CT head/brain wo con CT DOSE: 537.48 mGy.cm HISTORY: Mental status change ams TECHNIQUE: Multiaxial CT images of the head were performed without the use of intravenous contrast. A dose lowering technique was utilized adhering to the principles of ALARA. Comparison: 09/02/2017 Findings: Moderate increase in size of a left maxillary polypoid nodule. This has been previously described. Mid is increased from 3 to 4 cm maximum dimension. Findings of age-related chronic small vessel change and atrophy. This is unaltered from the prior exam. The calvarium and skull base are intact. The ventricles and sulci are within normal limits. There is no mass, hematoma, midline shift, or acute infarct. Impression: 1. No acute intracranial abnormality. 2. Chronic and age-related change. 3. Mild increase in size of a polypoid nodule left maxillary sinus. ENT e valuation is suggested if this has not already been performed. ECG Data Attestation: I personally reviewed and interpreted this ECG as follows: Indication: altered mental status Rate (beats per minute): 103 Rhythm: atrial fibrillation Findings: + RBBB; no ST elevation and no prolonged QT Change: no significant change (March 29, 2019) Blood Pressure Blood Pressure Findings: Elevated blood pressure MDM Narrative The patient is 84 years old and presents with an alteration of mental status. She lives with her . She does not answer questions for the most part. She answered a couple of questions with yes or no but otherwise did not hold a conversation and did not answer most of my questions. She appears to be neurologically intact with regards to her extremities. She has some generalized weakness but no focal deficits. Her blood pressure is elevated. It is unclear if she took her medication this morning. She does take blood pressure me dication and also takes warfarin. The patient exam was relatively unremarkable with exception of the alteration in mental status. She does follow some basic commands. She was able to stick out her tongue for me. Twelve-lead EKG, per my interpretation reveals A. fib with a rate of 101. No similar change from previous. Chest x-ray was negative for acute disease. CT scan of the brain reveals no acute process. There was noted to be a left maxillary polypoid nodule. CBC and complete metabolic panel were unremarkable. Glucose is 249. TSH was normal and a troponin was negative. The patient and family were told the results of the test. The patient's family states that the patient has some chronic back pain and has some leg pain issues as well. She was recently prescribed prednisone and baclofen. The family is concerned that the medication might be causing her stuporous and drowsy state. The patient's family is also concerned that the patient is becoming too much for her to handle at home and feel that long-term placement might be beneficial specifically at [facility]. I spoke with Dr. Loera about the patient. He will see the patient for further inpatient evaluation and care. Impression & Plan AMS (altered mental status) Discharge Plan Visit Data Chief Complaint: Confusion Stated Complaint: ams ED Provider: Ernie Short Discharge Problem: AMS (altered mental status) Patient Disposition: Being Evaluated by Hospitalist Condition: Fair Forms Stand Alone Forms: My [facility], Important Visit Information Prescriptions Prescriptions: No Action atorvastatin 80 mg Tablet 80 mg PO QAM RF: 0 cetirizine 10 mg Tablet 10 mg PO QPM RF: 0 metoprolol tartrate 100 mg Tablet 100 mg PO BID RF: 0 metformin 1,000 mg Tablet 1,000 mg PO DAILY RF: 0 glimepiride 4 mg Tablet 8 mg PO QAM RF: 0 furosemide 20 mg Tablet 20 mg PO BID RF: 0 gabapentin 100 mg Capsule 200 mg PO BID RF: 0 magnesium oxide 400 mg magnesium Tablet 400 mg PO BID RF: 0 diltiazem HCl 120 mg Tablet Extended Release 24 Hr 120 mg PO QAM RF: 0 hydroxyzine HCl 25 mg Tablet 25 mg PO HS PRN (Reason: Unknown) RF: 0 acetaminophen 500 mg tablet 1,000 mg PO Q8H PRN (Reason: fever or pain) Qty: 60 RF: 0 prednisone 20 mg tablet 20 mg PO BID RF: 0 baclofen 10 mg tablet 10 mg PO BID RF: 0 warfarin [Jantoven] 2 mg tablet 2 mg PO UD RF: 0 metoprolol tartrate 50 mg tablet 50 mg PO QPM RF: 0 Referrals Referrals: Moise Rashid MD [Primary Care Provider] -
[2019-08-11 10:49] LABS: Eosinophils % (auto) 1.1 %; Hematocrit (blood only) 42.1 % (37-47); Hemoglobin 14.1 g/dL (12.0-16.0); Immature Granulocytes # (auto) 0.02 K/uL (0.00-0.02); Immature Granulocytes % (auto) 0.2 %; Lymphocytes # (auto) 1.67 K/uL (1.2-3.4); Lymphocytes % (auto) 19.1 %; Mean Corpuscular Hgb Conc 33.5 g/dL (32-36); Mean Corpuscular Volume 86.4 fL (80-100); Mean Platelet Volume 10.4 fL (7.4-10.4); Monocytes # (auto) 0.86 K/uL (0.11-0.59); Monocytes % (auto) 9.8 %; Neutrophils % (auto) 69.8 %; Platelet Count 241 K/uL (130-400); RDW Coefficient of Variation 14.8 % (11.5-14.5); RDW Standard Deviation 47.1 fL (36.4-46.3); Red Blood Count 4.87 M/uL (4.2-5.4); White Blood Count 8.75 K/uL (4.8-10.8)
[2019-08-11 10:56] LABS: Alanine Aminotransferase 28 U/L (12-78); Albumin Level 3.3 gm/dl (3.4-5.0); Aspartate Aminotransferase 11 U/L (15-37); BUN Creatinine Ratio 17.6 (10-20); Blood Urea Nitrogen 21 mg/dl (7-18); Carbon Dioxide 28 mmol/L (21-32); Chloride 108 mmol/L (98-107); Creatinine Clr Calc Pharmacy 34.2 ml/min; Est GFR (African American) 48.5; Est GFR (Non-African American) 41.9; Glucose 249 mg/dl (70-99); Magnesium 1.8 mg/dl (1.8-2.4); Potassium 3.6 mmol/L (3.5-5.1); Sodium 141 mmol/L (136-145)
--- NOTE | 2019-08-11 10:58 | CT Scan Report ---
CT head/brain wo con CT DOSE: 537.48 mGy.cm HISTORY: Mental status change ams TECHNIQUE: Multiaxial CT images of the head were performed without the use of intravenous contrast. A dose lowering technique was utilized adhering to the principles of ALARA. Comparison: 09/02/2017 Findings: Moderate increase in size of a left maxillary polypoid nodule. This has been previously whitney cribed. Mid is increased from 3 to 4 cm maximum dimension. Findings of age-related chronic small vess el change and atrophy. This is unaltered from the prior exam. The calvarium and skull base are intact . The ventricles and sulci are within normal limits. There is no mass, hematoma, midline shift, or ac lisette infarct. Impression: 1. No acute intracranial abnormality. 2. Chronic and age-related change. 3. Mild increase in size of a polypoid nodule left maxillary sinus. ENT evaluation is suggested if th is has not already been performed. ACT 112: Negative or not required by law. The above report was generated using voice recognition software. It may contain grammatical, syntax or spelling errors. Electronically signed by: Seth Esqueda M.D. 08/11/2019 10:57 AM
[2019-08-11 11:00] LABS: Appearance Urine Clear (Clear); Bacteria Urine Automated Negative (Negative); Bilirubin Urine Negative (Negative); Blood Urine Negative (Negative); Cast Urine Automated 0 /lpf (0-5); Color Urine Yellow; Glucose Urine UA 3+ (Negative); Ketones Urine Negative (Negative); Leukocyte Esterase Urine Negative (Negative); Nitrite Urine Negative (Negative); RBC Urine Automated 0-4 /hpf (0-4); Specific Gravity Urine 1.018 (1.000-1.030); Urobilinogen Urine Negative (Negative)
--- NOTE | 2019-08-11 11:06 | XRay Report ---
XR chest 1V portable CLINICAL HISTORY: weakness dyspnea COMPARISON STUDY: 03/27/2019 FINDINGS: Mild cardiomegaly. Prior median sternotomy. Lungs are clear. IMPRESSION: Mild cardiomegaly. Otherwise negative study. ACT 112: Negative or not required by law. The above report was generated using voice recognition software. It may contain grammatical, syntax or spelling errors. Electronically signed by: Seth Esqueda M.D. 08/11/2019 11:04 AM
[2019-08-11 11:07] LABS: Albumin Globulin Ratio 0.9 (0.9-2); Alkaline Phosphatase 98 U/L (45-117); Creatine Kinase 42 U/L (26-192); Globulin 3.8 gm/dl (2.5-4.0); Total Protein 7.1 gm/dl (6.4-8.2); Troponin I < 0.015 ng/ml (0-0.045)
[2019-08-11 11:14] LABS: Protein Urine Negative (Negative); Sulfosalicylic Acid Urine Negative (Negative)
--- NOTE | 2019-08-11 13:10 | History & Physical Report ---
Date of Service August 11, 2019 Assessment & Plan (1) AMS (altered mental status): Brought to ED because of confusion. Head CT negative. No apparent infection (no fever, no leukocytosis, chest x-ray did not show any infiltrates, and UA appears benign). Probable metabolic encephalopathy / delirium secondary to medications. Recently started on baclofen which will be discontinued. Takes hydroxyzine which will be held. Prescribed gabapentin for neuropathy; it is not a new medication and dosage has not recently been changed, so it will be continued with caution. Monitor cognitive status with CAM q shift. (2) CAD (coronary artery disease): History of coronary artery disease, status post CABG. Denies chest pain. No acute EKG changes. Troponin normal. Not on antiplatelet medications because of history of peptic ulcer disease. Continue metoprolol, diltiazem, statin. (3) Atrial fibrillation: History of chronic atrial fibrillation, rate controlled. Continue metoprolol, diltiazem, and warfarin. (4) HTN (hypertension): BPs elevated in ED. Uncertain whether or not patient took morning medications. Continue metoprolol and diltiazem. Follow and titrate therapy. (5) CKD (chronic kidney disease), stage III: CKD III with a baseline creatinine of 1.1 in April 2019. Creatinine today = 1.19. Avoid nonsteroidal anti-inflammatory drugs. Follow. (6) Diabetes mellitus type 2 with complications: Diabetes mellitus type 2, fairly well-controlled, managed with metformin and glimepiride, complicated by coronary artery disease, CKD, and neuropathy. Hemoglobin A1c in clinic on 05/21/2019 was 7.7. Random blood sugar today 249. Hold oral agents during hospital stay. Monitor blood sugars before meals and at bedtime. Basal/bolus insulin therapy per protocol with insulin glargine and insulin aspartate. Recheck hemoglobin A1c. (7) Hyperlipidemia: Takes atorvastatin 80 mg daily. Atorvastatin could possibly be contributing to ambulatory dysfunction. Check lipid profile and reduce dose if possible. (8) Back pain: Recently experiencing low back pain. Prescribed baclofen and prednisone a few days prior to admission, but now with confusion and elevated blood sugars. Plain films of LS spine were performed in clinic on 01/10/2019 and revealed osteophyte formation at multiple levels with preserved disc spaces as well as facet arthropathy in the lower lumbar spine. Stop baclofen because of confusion. Stop prednisone because of hyperglycemia. Continue acetaminophen as needed. Continue gabapentin with caution. Consider further imaging if ongoing concerns. (9) Ambulatory dysfunction: Difficulty ambulating due to back pain and perhaps other contributing factors. PT/OT evaluations. Fall precautions. (10) Nasal polyp: Left maxillary polypoid nodule incidentally noted on CT of head, measuring 4 cm in greatest diameter, size increased compared to 2018. ENT evaluation recommended if not previously done. (11) DVT prophylaxis: Continue warfarin. Add subcutaneous heparin if INR subtherapeutic. Ambulate as able. (12) Discharge planning issues: Discharge disposition to be determined. Anticipated need for skilled care or inpatient rehab. Consult Case Management. Family Medicine follow-up with Dr. Rashid. History of Present Illness Chief Complaint: confusion Primary Care Provider: Moise Rashid MD 84-year-old female followed by Dr. Rashid. History of chronic atrial fibrillation, hypertension, diabetes mellitus type 2, and other problems noted below. Seen in clinic on August 05 with severe back pain. She was prescribed baclofen and prednisone. Brought to ED today because family concerned about increasing confusion. Upon arrival, patient was barely responsive. By the time of my assessment around 1220 she was more awake, but still quite confused and unable to provider any history. Family members not available in ED at time of my assessment to provide any additional information. They had expressed to the ED provider that family was having trouble caring for her at home and they feel that she may need skilled care or rehab services. Tried to call son by phone using the available phone numbers for additional history and discussion-no response. Allergies Allergy/AdvReac Type Severity Reaction Status Date / Time aspirin Allergy Severe PEPTIC Verified 03/27/19 12:39 ULCER DISEASE WITH HEMMORAGE codeine Allergy Unknown UNKNOWN Verified 03/27/19 12:39 oxytetracycline Allergy Unknown SEVERE Unverified 03/27/19 12:39 SWELLING polymyxin B Allergy Unknown SEVERE Unverified 03/27/19 12:39 SWELLING Home Medications Home Medications Medication Instructions Recorded Confirmed Type atorvastatin 80 mg PO QAM 03/27/19 08/11/19 History cetirizine 10 mg PO QPM 03/27/19 08/11/19 History diltiazem HCl 120 mg PO QAM 03/27/19 08/11/19 History furosemide 20 mg PO BID 03/27/19 08/11/19 History gabapentin 200 mg PO BID 03/27/19 08/11/19 History glimepiride 8 mg PO QAM 03/27/19 08/11/19 History hydroxyzine HCl 25 mg PO HS PRN 03/27/19 08/11/19 History magnesium oxide 400 mg PO BID 03/27/19 08/11/19 History metformin 1,000 mg PO DAILY 03/27/19 08/11/19 History metoprolol tartrate 100 mg PO BID 03/27/19 08/11/19 History acetaminophen 1,000 mg PO Q8H PRN #60 tab 03/31/19 08/11/19 Rx baclofen 10 mg PO BID 08/11/19 08/11/19 History prednisone 20 mg PO BID 08/11/19 08/11/19 History warfarin [Jantoven] 2 mg PO UD 08/11/19 08/11/19 History Past Med/Surg History Medical History (Updated 08/11/19 @ 13:38 by Ming Loera MD) Atrial fibrillation CAD (coronary artery disease) (Chronic) History of CABG x 3 1996 CKD (chronic kidney disease) (Chronic) CKD (chronic kidney disease), stage III (Chronic) Diabetes mellitus type 2 with complications History of peptic ulcer disease (Chronic) HTN (hypertension) (Chronic) Hyperlipidemia (Chronic) Nasal polyp Left maxillary polyp noted on CT's 09/02/17 and 08/10/19. ENT eval recommended. 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 Beliefs That Will Affect Care: None marital status: / Current Living Situation: Alone Other Information That Helps Us Care for You: No Feels Safe at Home: Yes Smoking Status: Unknown if ever smoked Hx Alcohol Use: No Hx Substance Use: No Review of Systems Review of Systems: limited / unreliable due to confusion Constitutional: no fever and no weight loss Eyes: no diplopia and no worsening vision Ear, Nose, Mouth, Throat: no nasal congestion, no sinus pain/pressure and no sore throat Respiratory: no cough and no dyspnea Cardiovascular: no chest pain, no palpitations and no edema Gastrointestinal: no nausea, no vomiting, no constipation, no diarrhea/loose stools, no blood in stools and no melena Genitourinary: no dysuria and no hematuria Musculoskeletal: + joint pain (back pain) Neurologic: no headache(s) Endocrine: blood sugars running high Hematologic / Lymphatic: + easy bruising Physical Exam Constitutional: WD/WN, vitals as above no acute distress Eyes: PERRL, conjunctivae normal, anicteric sclerae ENMT: Ears: no external ear abnormality Nose: no external nose abnormality Mouth: + oropharynx abnormality (dry oral mucosa) Neck: trachea midline, no thyromegaly Respiratory: normal respiratory effort, lungs clear to auscultation Cardiovascular: Rate/Rhythm: + irregularly irregular Heart Sounds: no gallop, no murmur and no cardiac rub Vessels: no JVD Extremities: normal capillary refill; no calf tenderness and no edema Gastrointestinal (Abdomen): normal bowel sounds, soft, nontender, no hepatosplenomegaly Musculoskeletal: Head/Neck/Chest: neck supple Extremities: no cyanosis and no clubbing Skin: no rashes, warm and dry Neurologic: awake, confused PERRL, EOMI no facial palsy no dysarthria or aphasia patellar DTR's 1/2 bilat motor strength extremities 4/5 bilat plantar reflexes downgoing bilat Psychiatric: Orientation: alert; + not oriented x 3 (oriented only to person) Affect: euthymic affect Lymphatic: no cervical lymphadenopathy Results & Data Vital Signs (Past 12 Hours) Vital Signs Temp Pulse Resp BP Pulse Ox 08/11/19 12:31 102 H 35 H 158/114 H 98 08/11/19 12:00 104 H 24 177/109 H 08/11/19 11:30 86 30 H 197/102 H 97 08/11/19 11:08 98 H 36 H 185/112 H 97 08/11/19 10:06 36.8 C 95 H 16 183/126 H 97 08/11/19 09:58 88 183/126 H 93 Laboratory Results Laboratory Results - last 24 hr 08/11/19 08/11/19 08/11/19 10:05 10:05 10:15 WBC 8.75 RBC 4.87 Hgb 14.1 Hct 42.1 MCV 86.4 MCH 29.0 MCHC 33.5 RDW Std Deviation 47.1 H RDW Coeff of Fred 14.8 H Plt Count 241 MPV 10.4 Immature Gran % (Auto) 0.2 Neut % (Auto) 69.8 Lymph % (Auto) 19.1 [place] % (Auto) 9.8 Eos % (Auto) 1.1 Baso % (Auto) 0.0 Immature Gran # (Auto) 0.02 Neut # (Auto) 6.10 Lymph # (Auto) 1.67 [place] # (Auto) 0.86 H Eos # (Auto) 0.10 Baso # (Auto) 0.00 Sodium 141 Potassium 3.6 Chloride 108 H Carbon Dioxide 28 Anion Gap 5.0 BUN 21 H Creatinine 1.19 Est Cr Clr Drug Dosing 34.2 Est GFR ( Amer) 48.5 Est GFR (Non-Af Amer) 41.9 BUN/Creatinine Ratio 17.6 Glucose 249 H Calcium 9.0 Magnesium 1.8 Total Bilirubin 1.0 AST 11 L ALT 28 Alkaline Phosphatase 98 Total Creatine Kinase 42 Troponin I < 0.015 Total Protein 7.1 Albumin 3.3 L Globulin 3.8 Albumin/Globulin Ratio 0.9 TSH 3.000 Urine Color Yellow Urine Appearance Clear Urine pH 8.0 H Ur Specific Orr 1.018 Urine Protein Negative Urine Glucose (UA) 3+ H Urine Ketones Negative Urine Blood Negative Urine Nitrite Negative Urine Bilirubin Negative Urine Urobilinogen Negative Ur Leukocyte Esterase Negative Urine WBC (Auto) 1-5 Urine RBC (Auto) 0-4 U Hyaline Cast (Auto) 0 U Epithel Cells (Auto) 5-10 H Urine Bacteria (Auto) Negative Diagnostic Findings PORTABLE CHEST X-RAY FINDINGS: Mild cardiomegaly. Prior median sternotomy. Lungs are clear. IMPRESSION: Mild cardiomegaly. Otherwise negative study. ACT 112: Negative or not required by law. The above report was generated using voice recognition software. It may contain grammatical, syntax or spelling errors. Electronically signed by: Seth Esqueda M.D. 08/11/2019 11:[address] HEAD Findings: Moderate increase in size of a left maxillary polypoid nodule. This has been previously described. Mid is increased from 3 to 4 cm maximum dimension. Findings of age-related chronic small vessel change and atrophy. This is unaltered from the prior exam. The calvarium and skull base are intact. The ventricles and sulci are within normal limits. There is no mass, hematoma, midline shift, or acute infarct. Impression: 1. No acute intracranial abnormality. 2. Chronic and age-related change. 3. Mild increase in size of a polypoid nodule left maxillary sinus. ENT evaluation is suggested if this has not already been performed. ACT 112: Negative or not required by law. The above report was generated using voice recognition software. It may contain grammatical, syntax or spelling errors. Electronically signed by: Seth Esqueda M.D. 08/11/2019 10:57 AM ECG Additional Comments: EKG performed at 1004 reviewed and demonstrated baseline artifact, probable atrial fibrillation, right bundle branch block with associated repolarization abnormalities. Code Status & VTE Plan Code Status Patient is confused and unable to discuss advanced directives. No family members available in ED to discuss. Tried to call primary contact without success. Clinic records reviewed. No advanced directives on file. Last admission reviewed. Resuscitation status was full code at that time. Therefore, resuscitation will remain full code unless otherwise directed. VTE Prophylaxis Plan VTE Prophylaxis will be ordered: Yes (1) AMS (altered mental status) Altered mental status type: somnolence Qualified Code(s): R40.0 - Somnolence
[2019-08-11] MEDS ORDERED: GLUCAGON FOR INJ 1 MG VIAL IM PRN (13:30)
[2019-08-11] MEDS ORDERED: GLUCOSE 10 TABS/TUBE PO PRN (13:30)
[2019-08-11] MEDS ORDERED: DEXTROSE 50% 50 ML SYRINGE IV PRN (13:30)
[2019-08-11] MEDS ORDERED: CARBOHYDRATES FOR HYPOGLYCEMIA PO PRN (13:30)
[2019-08-11] MEDS ORDERED: GLUCOSE 40% GEL 15 GM TUBE PO PRN (13:30)
[2019-08-11 13:35] LABS: INR 3.4 (0.9-1.1)
[2019-08-11] MEDS ORDERED: cloNIDine HCL 0.1 MG TAB PO PRN (13:53)
[2019-08-11] MEDS ORDERED: LACTATED RINGER'S 1,000 ML IV SCH (14:00)
[2019-08-11] MEDS ORDERED: METOPROLOL TARTRATE 50 MG TAB PO ONE (14:00)
[2019-08-11] MEDS: INSULIN ASPART 100 UNITS/ML 3 ML PEN SC SCH ×2 (16:12→21:13)
[2019-08-11] MEDS ORDERED: dilTIAZem HCl 60 MG TAB PO ONE (16:26)
[2019-08-11] MEDS: WARFARIN SOD 2 MG TAB PO SCH (16:56)
--- NOTE | 2019-08-11 17:52 | Electrocardiogram Report ---
Test Reason : Blood Pressure : / mmHG Vent. Rate : 103 BPM Atrial Rate : 108 BPM P-R Int : 000 ms QRS Dur : 142 ms QT Int : 406 ms P-R-T Axes : 000 111 -21 degrees QTc Int : 531 ms Poor data quality, interpretation may be adversely affected Atrial fibrillation Right bundle branch block Left posterior fascicular block T wave abnormality, consider inferior ischemia Abnormal ECG When compared with ECG of 29-MAR-2019 06:28, Probably No significant change Confirmed by Marty Figueroa ([id number]) on 08/11/2019 5:52:15 PM Referred By: REFERRED SELF Confirmed By:Marty Figueroa
[2019-08-11] MEDS: MAGNESIUM OXIDE 400 MG TAB PO SCH (21:11)
[2019-08-11] MEDS: METOPROLOL TARTRATE 100 MG TAB PO SCH (21:11)
[2019-08-11] MEDS: GABAPENTIN 100 MG CAP PO SCH (21:11)
[2019-08-11] MEDS: INSULIN GLARGINE SOLOSTAR 100 UNITS/ML 3 ML PEN SC SCH (21:12)
[2019-08-12 07:02] LABS: Hematocrit (blood only) 39.8 % (37-47); Hemoglobin 13.3 g/dL (12.0-16.0); Mean Corpuscular Hemoglobin 29.3 pg (25-34); Mean Corpuscular Hgb Conc 33.4 g/dL (32-36); Mean Corpuscular Volume 87.7 fL (80-100); Platelet Count 214 K/uL (130-400); RDW Coefficient of Variation 15.1 % (11.5-14.5); RDW Standard Deviation 48.5 fL (36.4-46.3); Red Blood Count 4.54 M/uL (4.2-5.4); White Blood Count 6.82 K/uL (4.8-10.8)
[2019-08-12 07:39] LABS: BUN Creatinine Ratio 16.6 (10-20); Calcium 8.5 mg/dl (8.5-10.1); Creatinine Clr Calc Pharmacy 40.2 ml/min; Est GFR (African American) 64.6; Est GFR (Non-African American) 55.7; Potassium 3.8 mmol/L (3.5-5.1)
[2019-08-12] MEDS: ACETAMINOPHEN 500 MG TAB PO PRN (07:57)
[2019-08-12] MEDS: INSULIN ASPART 100 UNITS/ML 3 ML PEN SC SCH ×4 (08:19→20:44)
[2019-08-12] MEDS: INSULIN GLARGINE SOLOSTAR 100 UNITS/ML 3 ML PEN SC SCH ×2 (08:21→20:42)
[2019-08-12] MEDS: METOPROLOL TARTRATE 100 MG TAB PO SCH ×2 (08:22→20:45)
[2019-08-12] MEDS: MAGNESIUM OXIDE 400 MG TAB PO SCH ×2 (08:22→20:45)
[2019-08-12] MEDS: GABAPENTIN 100 MG CAP PO SCH ×2 (08:22→20:46)
[2019-08-12] MEDS ORDERED: TRAMADOL HCL 50 MG TABLET PO PRN (09:08)
--- NOTE | 2019-08-12 09:25 | Hospitalist Progress Note ---
Date of Service August 12, 2019 Assessment & Plan (1) AMS (altered mental status): Brought to ED because of confusion. Head CT negative. No apparent infection (no fever, no leukocytosis, chest x-ray did not show any infiltrates, and UA appears benign). Probable metabolic encephalopathy / delirium secondary to medications. Recently started on baclofen- discontinued. Takes hydroxyzine- discontinued. Prescribed gabapentin for neuropathy; it is not a new medication and dosage has not recently been changed- continue with caution. Cognitive status improved. Continue to monitor cognitive status with CAM q shift. (2) Back pain: Recently experiencing low back pain. Prescribed baclofen and prednisone a few days prior to admission, but now with confusion and elevated blood sugars. Plain films of LS spine were performed in clinic on 01/10/2019 and revealed osteophyte formation at multiple levels with preserved disc spaces as well as facet arthropathy in the lower lumbar spine. Stopped baclofen because of confusion. Stopped prednisone because of hyperglycemia. Titrate analgesics. No NSAID's because (1) history of PUD and (2) warfarin therapy. Continue gabapentin with caution. Check CT LS spine. (3) Ambulatory dysfunction: Difficulty ambulating due to back pain and perhaps other contributing factors. PT/OT evaluations. Fall precautions. (4) CAD (coronary artery disease): History of coronary artery disease, status post CABG. Denies chest pain. No acute EKG changes. Troponin normal. Not on antiplatelet medications because of history of peptic ulcer disease. Continue metoprolol, diltiazem, statin. (5) Atrial fibrillation: History of chronic atrial fibrillation, rate controlled. Continue metoprolol, diltiazem, and warfarin. (6) HTN (hypertension): BPs elevated in ED. Blood pressures improved. Continue metoprolol and diltiazem. Follow and titrate therapy. (7) CKD (chronic kidney disease), stage III: CKD III with a baseline creatinine of 1.1 in April 2019. Creatinine 1.19 at time of admission. Creatinine today = 0.94. Avoid nonsteroidal anti-inflammatory drugs. Follow. (8) Diabetes mellitus type 2 with complications: Diabetes mellitus type 2, fairly well-controlled, managed with metformin and glimepiride, complicated by coronary artery disease, CKD, and neuropathy. Hemoglobin A1c in clinic on 05/21/2019 was 7.7. Random blood sugar in ED 249. Hold oral agents during hospital stay. Monitor blood sugars AC & HS. FBS today = 158. Continue basal/bolus insulin therapy per protocol with insulin glargine and insulin aspartate. Rechecking hemoglobin A1c- pending. (9) Hyperlipidemia: Takes atorvastatin 80 mg daily. Atorvastatin could possibly be contributing to ambulatory dysfunction. LDL-c = 68. Reduce atorvastatin dose to 40 mg daily. (10) Nasal polyp: Left maxillary polypoid nodule incidentally noted on CT of head, measuring 4 cm in greatest diameter, size increased compared to 2018. ENT evaluation recommended if not previously done. (11) Urinary catheter in place: Campos cath placed in ED. No indication for urinary cath at this time. Remove. (12) DVT prophylaxis: Continue warfarin. Ambulate as able. (13) Discharge planning issues: Discharge disposition to be determined. Anticipated need for skilled care or inpatient rehab. Consult Case Management. Family Medicine follow-up with Dr. Rashid. Admission and Anticipated Discharge Date Admission Date: August 11, 2019 Subjective Recheck for confusion, back pain, and other problems. Patient seen in their room around 0900. Confusion improved. Still having severe low back pain radiating to LLE. Difficulty ambulating due to back pain. Review of Systems: Constitutional- no fever. Cardiac- no chest pain. Pulmonary- no cough or SOB. GI- no nausea, vomiting, diarrhea, melena, hematochezia. - Campos cath Otherwise, as noted above. Physical Exam Constitutional: no acute distress Respiratory: no respiratory distress Auscultation: lungs clear to auscultation bilaterally Cardiovascular: Rate/Rhythm: + irregularly irregular Heart Sounds: no gallop and no cardiac rub Vessels: no JVD Extremities: no calf tenderness and no edema Gastrointestinal (Abdomen): normal bowel sounds, soft, nontender, no hepatosplenomegaly Musculoskeletal: Spine: + lumbar spine abnormal to inspection (no spinal or paraspinal tenderness; low back pain with L SLR @ 45 degrees) Skin: no rashes, warm and dry Neurologic: patellar DTR's 1/2 bilat lower extremity strength 5/5 proximally & distally, bilat Psychiatric: Orientation: alert; + not oriented x 3 (oriented to person, place, year, president; missed day of week by 2 days) Results & Data ([facility]) Vital Signs (Past 12 Hours) Vital Signs Temp Pulse Pulse Resp BP BP Pulse Ox 08/12/19 07:48 67 08/12/19 07:16 36.8 C 66 18 144/71 H 91 08/12/19 04:13 36.6 C 78 19 121/77 95 08/12/19 02:00 70 08/11/19 23:31 36.8 C 61 20 113/51 L 97 Laboratory Results 08/12/19 06:52 08/12/19 06:52 (1) AMS (altered mental status) Altered mental status type: somnolence Qualified Code(s): R40.0 - Somnolence
[2019-08-12] MEDS: ATORVASTATIN 40 MG TAB PO SCH (09:40)
--- NOTE | 2019-08-12 10:03 | CT Scan Report ---
CT lumbar spine wo con CT DOSE: 642.01 mGy.cm CLINICAL HISTORY: low back pain with left sciatica TECHNIQUE: Helical images were acquired in transverse plane. Reformatted sagittal and coronal images were reviewed. A dose lowering technique was utilized adhering to the principles of ALARA. CONTRAST: No contrast was administered COMPARISON STUDY: MRI lumbar spine performed August 2017 FINDINGS: L1-2 level: There is no evidence of significant disc bulge or focal herniation. There is no evidence of spinal or foraminal stenosis. L2-3 level: There is a circumferential disc bulge with moderate spinal stenosis. There is mild forami nal narrowing. L3-4 level: There is a circumferential disc bulge with moderate spinal stenosis. There is mild forami nal narrowing L4-5 level: There is a grade 1 spondylolisthesis of L4 on L5. There is a circumferential disc bulge. There is facet joint arthropathy. There is mild to moderate spinal stenosis. There is no significant foraminal narrowing L5-S1 level: There is no evidence of significant disc bulge or focal herniation. There is no evidence of spinal or foraminal stenosis. No acute fractures are visualized. No destructive lesions are evident. Atheromatous changes are present within the abdominal aorta. There is mild aortic ectasia which measu res 23 mm in maximal diameter. IMPRESSION: 1. No acute fractures or traumatic subluxations 2. Persistent moderate multilevel spondylytic changes with multilevel spinal stenosis, most pronounce d the L2-3 and L3-4 levels. ACT 112: Negative or not required by law. Electronically signed by: Lam Garza M.D. 08/12/2019 10:02 AM
[2019-08-12] MEDS: OXYCODONE HCL IR 5 MG TAB (IMMEDIATE RELEASE) PO PRN (11:11)
[2019-08-12] MEDS: WARFARIN SOD 2 MG TAB PO SCH (16:50)
[2019-08-13] MEDS: OXYCODONE HCL IR 5 MG TAB (IMMEDIATE RELEASE) PO PRN (02:14)
[2019-08-13 06:17] LABS: Estimated Average Glucose 192 mg/dl; Hemoglobin A1C 8.3 % (4.5-5.6)
[2019-08-13 07:28] LABS: INR 3.4 (0.9-1.1); Prothrombin Time 33.6 Seconds (9.0-12.0)
[2019-08-13] MEDS: GABAPENTIN 100 MG CAP PO SCH ×2 (08:03→20:42)
[2019-08-13] MEDS: MAGNESIUM OXIDE 400 MG TAB PO SCH ×2 (08:03→20:42)
[2019-08-13] MEDS: ATORVASTATIN 40 MG TAB PO SCH (08:03)
[2019-08-13] MEDS: METOPROLOL TARTRATE 100 MG TAB PO SCH ×2 (08:03→20:41)
[2019-08-13] MEDS: INSULIN ASPART 100 UNITS/ML 3 ML PEN SC SCH ×4 (08:33→20:40)
[2019-08-13] MEDS: INSULIN GLARGINE SOLOSTAR 100 UNITS/ML 3 ML PEN SC SCH ×2 (08:33→20:41)
[2019-08-13] MEDS ORDERED: TRAMADOL HCL 50 MG TABLET PO PRN (11:09)
[2019-08-13] MEDS ORDERED: OXYCODONE HCL IR 5 MG TAB (IMMEDIATE RELEASE) PO PRN (11:09)
[2019-08-13] MEDS: LIDOCAINE 5% 1 PATCH TD SCH (12:08)
[2019-08-13] MEDS: WARFARIN SOD 2 MG TAB PO SCH (17:21)
--- NOTE | 2019-08-13 19:44 | Hospitalist Progress Note ---
Date of Service August 13, 2019 Assessment & Plan (1) AMS (altered mental status): Brought to ED because of confusion. Head CT negative. No apparent infection (no fever, no leukocytosis, chest x-ray did not show any infiltrates, and UA appears benign). Probable metabolic encephalopathy / delirium secondary to medications. Recently started on baclofen- discontinued. Takes hydroxyzine- discontinued. Prescribed gabapentin for neuropathy; it is not a new medication and dosage has not recently been changed- continue with caution. Cognitive status improved. Continue to monitor cognitive status with CAM q shift. (2) Back pain: Recently experiencing low back pain. Prescribed baclofen and prednisone a few days prior to admission, but now with confusion and elevated blood sugars. Plain films of LS spine were performed in clinic on 01/10/2019 and revealed osteophyte formation at multiple levels with preserved disc spaces as well as facet arthropathy in the lower lumbar spine. Stopped baclofen because of confusion. Stopped prednisone because of hyperglycemia. CT LS spine showed multilevel degenerative changes with mild-moderate spinal stenosis. Titrate analgesics- try lidocaine patch; increase tramadol to 50 mg PRN; increase oxycodone to 5 mg PRN. Continue gabapentin with caution. No NSAID's because (1) history of PUD and (2) warfarin therapy. Consider Pain Management consult if pain control inadequate (warfarin would have to be held for epidural). (3) Ambulatory dysfunction: Difficulty ambulating due to back pain and perhaps other contributing factors. PT/OT. Fall precautions. (4) CAD (coronary artery disease): History of coronary artery disease, status post CABG. Denies chest pain. No acute EKG changes. Troponin normal. Not on antiplatelet medications because of history of peptic ulcer disease. Continue metoprolol, diltiazem, statin. (5) Atrial fibrillation: History of chronic atrial fibrillation, rate controlled. Continue metoprolol, diltiazem, and warfarin. (6) HTN (hypertension): BPs elevated in ED. Blood pressures improved. Continue metoprolol and diltiazem. Follow and titrate therapy. (7) CKD (chronic kidney disease), stage III: CKD III with a baseline creatinine of 1.1 in April 2019. Creatinine 1.19 at time of admission. Creatinine yesterday = 0.94. Avoid nonsteroidal anti-inflammatory drugs. Follow. (8) Diabetes mellitus type 2 with complications: Diabetes mellitus type 2, fairly well-controlled, managed with metformin and glimepiride, complicated by coronary artery disease, CKD, and neuropathy. Hemoglobin A1c in clinic on 05/21/2019 was 7.7. Hgb A1c now 8.3. Random blood sugar in ED 249. Hold oral agents during hospital stay. Monitor blood sugars AC & HS. FBS today = 93. Continue basal/bolus insulin therapy per protocol with insulin glargine and insulin aspartate. (9) Hyperlipidemia: Takes atorvastatin 80 mg daily. Atorvastatin could possibly be contributing to ambulatory dysfunction. LDL-c = 68. Reduce atorvastatin dose to 40 mg daily. (10) Nasal polyp: Left maxillary polypoid nodule incidentally noted on CT of head, measuring 4 cm in greatest diameter, size increased compared to 2018. ENT evaluation recommended if not previously done. (11) DVT prophylaxis: Continue warfarin. Ambulate as able. (12) Discharge planning issues: Discharge disposition to be determined. Anticipated need for skilled care or inpatient rehab. Consult Case Management. Family Medicine follow-up with Dr. Rashid. Admission and Anticipated Discharge Date Admission Date: August 13, 2019 Subjective Recheck for confusion, back pain, and other problems. Patient seen in their room around 1450. Still having severe low back pain radiating to LLE. Difficulty ambulating due to back pain. Seen by PT. Confusion esolved. Review of Systems: Constitutional- no fever. Cardiac- no chest pain. Pulmonary- no cough or SOB. GI- no nausea, vomiting, diarrhea, melena, hematochezia. - Campos cath removed Otherwise, as noted above. Physical Exam Constitutional: WD/WN, vitals as above no acute distress Eyes: PERRL, conjunctivae normal, anicteric sclerae Respiratory: Auscultation: lungs clear to auscultation bilaterally Cardiovascular: Rate/Rhythm: + irregularly irregular Heart Sounds: no gallop and no cardiac rub Vessels: no JVD Extremities: no calf tenderness and no edema Gastrointestinal (Abdomen): normal bowel sounds, soft, nontender, no hepatosplenomegaly Musculoskeletal: Head/Neck/Chest: neck supple Extremities: no cyanosis and no clubbing Skin: no rashes, warm and dry Psychiatric: Orientation: alert and oriented x 3 (oriented to person, place, year, missed exact date by a few days) Affect: euthymic affect Results & Data ([facility]) Vital Signs (Past 12 Hours) Vital Signs Temp Pulse Pulse Resp BP Pulse Ox 08/13/19 16:00 62 08/13/19 15:59 36.9 C 72 18 124/69 93 08/13/19 11:20 36.6 C 73 16 99/65 L 95 (1) AMS (altered mental status) Altered mental status type: somnolence Qualified Code(s): R40.0 - Somnolence
[2019-08-14 08:04] LABS: INR 2.9 (0.9-1.1)
[2019-08-14] MEDS: MAGNESIUM OXIDE 400 MG TAB PO SCH ×2 (08:11→20:59)
[2019-08-14] MEDS: LIDOCAINE 5% 1 PATCH TD SCH (08:11)
[2019-08-14] MEDS: ATORVASTATIN 40 MG TAB PO SCH (08:11)
[2019-08-14] MEDS: GABAPENTIN 100 MG CAP PO SCH ×2 (08:11→20:59)
[2019-08-14] MEDS: INSULIN ASPART 100 UNITS/ML 3 ML PEN SC SCH ×4 (08:12→20:56)
[2019-08-14] MEDS: INSULIN GLARGINE SOLOSTAR 100 UNITS/ML 3 ML PEN SC SCH ×2 (08:12→20:57)
[2019-08-14] MEDS: METOPROLOL TARTRATE 100 MG TAB PO SCH ×2 (08:12→20:59)
[2019-08-14] MEDS: WARFARIN SOD 2 MG TAB PO SCH (15:29)
--- NOTE | 2019-08-14 16:47 | Hospitalist Progress Note ---
Date of Service August 14, 2019 Assessment & Plan (1) AMS (altered mental status): Possible metabolic encephalopathy-due to medications induced, hydroxyzine, baclofen discontinued Patient brought to ED because of confusion. Head CT negative. No apparent infection (no fever, no leukocytosis, chest x-ray did not show any infiltrates, and UA appears benign). This morning patient was alert awake oriented x3, normal coordination, able to discussed in depth regarding discharge planning, plan of care Evening, hospital-acquired delirium, sundowning noted, Indication list reviewed: Patient has not ordered any anxiolytics, baclofen/hydroxyzine: Home medication has been kept on hold since admission Patient was ordered pain medication, which she has not received any dose, narcotic pain meds discontinued Nursing to provide frequent reassurance, Fall precaution, ordered for low bed, bed alarm Family members updated over the phone (2) Back pain: Symptoms of back pain has improved, Patient noted to ambulate in hallway using walker independently CT LS spine showed multilevel degenerative changes with mild-moderate spinal stenosis. Continue lidocaine patch; Kerlix pain medication discontinued: Patient has not required any dose since admission Home medication gabapentin continued (3) Ambulatory dysfunction: Symptom has improved PT OT evaluation requested, appreciate input Patient lives in a mobile home, uses walker and cane to ambulate Wants to return back to mobile home with home health home PT (4) CAD (coronary artery disease): History of coronary artery disease, status post CABG. Denies chest pain. No acute EKG changes. Troponin normal. Not on antiplatelet medications because of history of peptic ulcer disease. Continue metoprolol, diltiazem, statin. (5) Atrial fibrillation: History of chronic atrial fibrillation, rate controlled. Continue metoprolol, diltiazem, and warfarin. (6) HTN (hypertension): Continue metoprolol and diltiazem. (7) CKD (chronic kidney disease), stage III: Acute on chronic kidney disease CKD III Creatinine was mildly elevated 1.19 at time of admission. Improved creatinine 0.94 (8) Diabetes mellitus type 2 with complications: Diabetes mellitus type 2, fairly well-controlled, managed with metformin and glimepiride, complicated by coronary artery disease, CKD, and neuropathy. Hemoglobin A1c in clinic on 05/21/2019 was 7.7. Hgb A1c now 8.3. . Hold oral agents during hospital stay. Monitor blood sugars AC & HS.3. Continue basal/bolus insulin therapy per protocol with insulin glargine and i nsulin aspartate. (9) Hyperlipidemia: Takes atorvastatin 80 mg daily. Atorvastatin could possibly be contributing to ambulatory dysfunction. LDL-c = 68. Reduced atorvastatin dose to 40 mg daily. (10) Nasal polyp: Left maxillary polypoid nodule incidentally noted on CT of head, measuring 4 cm in greatest diameter, size increased compared to 2018. Outpatient ENT evaluation (11) DVT prophylaxis: Continue warfarin. INR therapeutic (12) Discharge planning issues: Plan to discharge home with home health home PT tomorrow Consult Case Management. Family Medicine follow-up with Dr. Rashid. Admission and Anticipated Discharge Date Admission Date: August 13, 2019 Subjective Patient was seen at around 3 PM today Found to be awake and alert, oriented to time place and person States her back pain is getting better, cannot wait to return back to her own place and mobile at home, She usually spends her time sitting on the recliner, which helps significantly for her low back pain Not have any fever or chills, no confusion noted Willing for home health home PT Repeat visit in around 4:30 PM Nursing reports patient was getting confused, Thinking that she is at home Patient evaluated at bedside, awake and alert, Very upset, that her mobile home is changed to a hospital, there are computers in the office set up here with lots of ill people Patient will not pay any attention is myself and the nursing tried to convince her that this is actually a hospital , she should be able to return back to her home tomorrow Patient wanted to walk the hallway with rolling walker, No gait disturbance or loss of balance noted Complaint of low back pain Remains confused about being at home , but everything looks different Patient called multiple times family members complaining After some time, patient got tired, return back to her bed, Reassurance provided, her mobile home is remains exactly the same way given how well she is able to walk , she will be discharged home tomorrow pt calmed down family members updated regarding transient confusion /possible sun downing effect cont to observe fall precaution , bed alarm ordered , low boy bed Review of Systems Respiratory: no cough, no dyspnea on exertion and no wheezing Cardiovascular: no chest pain, no dyspnea, no orthopnea, no palpitations, no syncope and no edema Musculoskeletal: + back pain (Improved, able to walk independently with walker: Patient's baseline) Psychiatric: + anxiety and + confusion Physical Exam Constitutional: WD/WN, vitals as above Very anxious Eyes: PERRL, conjunctivae normal, anicteric sclerae ENMT: external ear and nose normal, oropharynx normal Neck: trachea midline, no thyromegaly Respiratory: normal respiratory effort, lungs clear to auscultation Cardiovascular: RRR, no murmur, no edema Gastrointestinal (Abdomen): normal bowel sounds, soft, nontender, no hepatosplenomegaly Musculoskeletal: no cyanosis or clubbing, extremities motor strength 5/5 Skin: no rashes, warm and dry Neurologic: PERRL, EOMI, accommodation nl, no face palsy, no dysarthria Psychiatric: Orientation: alert Affect: + anxious affect Insight: + limited insight (Confused regarding time place and person/possible secondary to sundowning effect) Results & Data ([facility]) Vital Signs (Past 12 Hours) Vital Signs Temp Pulse Pulse Resp BP Pulse Ox 08/14/19 16:09 36.8 C 92 H 18 145/77 H 92 08/14/19 16:04 70 08/14/19 11:24 36.9 C 64 16 109/70 93 08/14/19 07:13 75 08/14/19 07:04 36.9 C 84 20 130/76 95 (1) AMS (altered mental status) Altered mental status type: somnolence Qualified Code(s): R40.0 - Somnolence
[2019-08-14] MEDS ORDERED: FUROSEMIDE 20 MG TAB PO SCH (17:00)
[2019-08-14 20:53] LABS: Basophils # (auto) 0.01 K/uL (0-0.2); Basophils % (auto) 0.1 %; Eosinophils # (auto) 0.29 K/uL (0-0.5); Eosinophils % (auto) 3.3 %; Hematocrit (blood only) 38.6 % (37-47); Hemoglobin 12.8 g/dL (12.0-16.0); Immature Granulocytes # (auto) 0.03 K/uL (0.00-0.02); Immature Granulocytes % (auto) 0.3 %; Lymphocytes # (auto) 2.23 K/uL (1.2-3.4); Lymphocytes % (auto) 25.6 %; Mean Corpuscular Hemoglobin 29.4 pg (25-34); Mean Corpuscular Hgb Conc 33.2 g/dL (32-36); Mean Corpuscular Volume 88.7 fL (80-100); Mean Platelet Volume 10.1 fL (7.4-10.4); Monocytes # (auto) 1.01 K/uL (0.11-0.59); Monocytes % (auto) 11.6 %; Neutrophils # (auto) 5.14 K/uL (1.4-6.5); Neutrophils % (auto) 59.1 %; Platelet Count 221 K/uL (130-400); RDW Standard Deviation 48.8 fL (36.4-46.3); Red Blood Count 4.35 M/uL (4.2-5.4); White Blood Count 8.71 K/uL (4.8-10.8)
[2019-08-14 21:13] LABS: Albumin Level 2.9 gm/dl (3.4-5.0); BUN Creatinine Ratio 13.6 (10-20); Calcium 8.7 mg/dl (8.5-10.1); Creatinine Clr Calc Pharmacy 26.8 ml/min; Est GFR (African American) 39.5; Est GFR (Non-African American) 34.1
[2019-08-14 21:16] LABS: Albumin Globulin Ratio 0.8 (0.9-2); Bilirubin,Total 0.6 mg/dl (0.2-1); Globulin 3.8 gm/dl (2.5-4.0); Total Protein 6.7 gm/dl (6.4-8.2)
--- NOTE | 2019-08-14 22:59 | Communication Note ---
Date of Service: August 14, 2019 Patient noted to be more confused tonight as per RN. Patient family upset about plans for discharge in a.m. given patient mentation as per RN. Patient actually refusing SNF/rehab recommendations as per case management note from 08/12. serum crea 1.41 from 0.94 (08/11) AP Delirium ARF Home medications contributory Rule out UTI Baseline UA, monitor creatinine response to IVF Hold Lasix, gabapentin for now Will relay to AM provider.
[2019-08-14] MEDS ORDERED: SODIUM CHLORIDE 0.9% 1000ML 1,000 ML IV ONE (23:00)
[2019-08-14 23:13] LABS: Magnesium 2.1 mg/dl (1.8-2.4)
[2019-08-15 01:18] LABS: Appearance Urine Clear (Clear); Bacteria Urine Automated Negative (Negative); Bilirubin Urine Negative (Negative); Blood Urine Negative (Negative); Cast Urine Automated 0 /lpf (0-5); Color Urine Yellow; Glucose Urine UA Negative (Negative); Ketones Urine Negative (Negative); Leukocyte Esterase Urine Trace (Negative); Nitrite Urine Negative (Negative); Protein Urine Negative (Negative); RBC Urine Automated 0-4 /hpf (0-4); Specific Gravity Urine 1.008 (1.000-1.030); Urobilinogen Urine Negative (Negative)
[2019-08-15] MEDS: cefTRIAXone SODIUM 1,000 MG in DEXTROSE 5% 50 ML IV SCH (04:49)
[2019-08-15 05:48] LABS: Basophils # (auto) 0.01 K/uL (0-0.2); Basophils % (auto) 0.2 %; Eosinophils # (auto) 0.29 K/uL (0-0.5); Eosinophils % (auto) 4.4 %; Hemoglobin 12.2 g/dL (12.0-16.0); Immature Granulocytes # (auto) 0.02 K/uL (0.00-0.02); Immature Granulocytes % (auto) 0.3 %; Lymphocytes # (auto) 2.23 K/uL (1.2-3.4); Lymphocytes % (auto) 33.8 %; Mean Corpuscular Hemoglobin 28.7 pg (25-34); Mean Corpuscular Volume 87.1 fL (80-100); Mean Platelet Volume 10.6 fL (7.4-10.4); Monocytes % (auto) 13.7 %; Neutrophils # (auto) 3.14 K/uL (1.4-6.5); Neutrophils % (auto) 47.6 %; Platelet Count 199 K/uL (130-400); RDW Coefficient of Variation 15.2 % (11.5-14.5); RDW Standard Deviation 48.3 fL (36.4-46.3); Red Blood Count 4.25 M/uL (4.2-5.4); White Blood Count 6.59 K/uL (4.8-10.8)
[2019-08-15 06:08] LABS: INR 1.9 (0.9-1.1)
[2019-08-15 06:18] LABS: BUN Creatinine Ratio 13.3 (10-20); Calcium 8.4 mg/dl (8.5-10.1); Creatinine Clr Calc Pharmacy 33.8 ml/min; Est GFR (African American) 52.2; Est GFR (Non-African American) 45.1; Potassium 3.5 mmol/L (3.5-5.1)
[2019-08-15] MEDS: LIDOCAINE 5% 1 PATCH TD SCH (08:41)
[2019-08-15] MEDS: ATORVASTATIN 40 MG TAB PO SCH (08:41)
[2019-08-15] MEDS: METOPROLOL TARTRATE 100 MG TAB PO SCH ×2 (08:41→21:12)
[2019-08-15] MEDS: MAGNESIUM OXIDE 400 MG TAB PO SCH ×2 (08:42→21:12)
[2019-08-15] MEDS: GABAPENTIN 100 MG CAP PO SCH ×2 (08:42→21:12)
[2019-08-15] MEDS: INSULIN GLARGINE SOLOSTAR 100 UNITS/ML 3 ML PEN SC SCH ×2 (08:45→21:16)
[2019-08-15] MEDS: INSULIN ASPART 100 UNITS/ML 3 ML PEN SC SCH ×4 (08:45→21:17)
[2019-08-15] MEDS ORDERED: NO NARCOTICS OR SEDATIVES SCH (12:30)
--- NOTE | 2019-08-15 12:35 | Hospitalist Progress Note ---
Date of Service August 15, 2019 Assessment & Plan (1) AMS (altered mental status): Possible metabolic encephalopathy-due to medications induced, hydroxyzine, baclofen discontinued possible underlying dementia ? spoke with family members -son they noticed pt been increasing forgetful in last few months, would get very upset if corrected lives with her in a mobile home her children noticed evidence of self neglect and being withdrawn Patient was brought to ED because of confusion has chronic low back pain Head CT negative. No apparent infection (no fever, no leukocytosis, chest x-ray did not show any infiltrates, and UA appears benign). symptom improved on 2nd day of hospitalization was awake and alert , refused skilled rehab , wanted to return home with home health later in the Evening, pt became delirious , became combative , this morning , pt remains confused , upset that her family members will not take her home thinks the nursing and her family is working together to keep her here counselling provided , (2) Back pain: no complain of back pain noted to be able to walk with walker CT LS spine showed multilevel degenerative changes with mild-moderate spinal stenosis. Continue lidocaine patch; (3) Ambulatory dysfunction: Symptom has improved PT OT evaluation requested, appreciate input recommends skill rehab (4) CAD (coronary artery disease): History of coronary artery disease, status post CABG. Denies chest pain. No acute EKG changes. Troponin normal. Not on antiplatelet medications because of history of peptic ulcer disease. Continue metoprolol, diltiazem, statin. (5) Atrial fibrillation: History of chronic atrial fibrillation, rate controlled. Continue metoprolol, diltiazem, and warfarin. (6) HTN (hypertension): Continue metoprolol and diltiazem. (7) CKD (chronic kidney disease), stage III: Acute on chronic kidney disease CKD III Creatinine was mildly elevated 1.19 at time of admission. Improved creatinine 0.94 (8) Diabetes mellitus type 2 with complications: Diabetes mellitus type 2, fairly well-controlled, managed with metformin and glimepiride, complicated by coronary artery disease, CKD, and neuropathy. Hemoglobin A1c in clinic on 05/21/2019 was 7.7. Hgb A1c now 8.3. . Hold oral agents during hospital stay. Monitor blood sugars AC & HS.3. Continue basal/bolus insulin therapy per protocol with insulin glargine and insulin aspartate. (9) Hyperlipidemia: Takes atorvastatin 80 mg daily. Atorvastatin could possibly be contributing to ambulatory dysfunction. LDL-c = 68. Reduced atorvastatin dose to 40 mg daily. (10) Nasal polyp: Left maxillary polypoid nodule incidentally noted on CT of head, measuring 4 cm in greatest diameter, size increased compared to 2018. Outpatient ENT evaluation (11) DVT prophylaxis: Continue warfarin. INR therapeutic (12) Discharge planning issues: pt remains confused -possible underlying dementia with worsening of symptom due to hospital stay /delirium family voiced concern regarding return to home with home health wants pt to go to SNF /[facility]ers [facility] updated Admission and Anticipated Discharge Date Admission Date: August 13, 2019 Subjective Patient seen in room 302 Still very forgetful, confused, very tearful, complaining that she has been forced to stay in hospital, Her son came yesterday, refused to take her home-very upset thinks her family abandoned her She feels fine, cannot understand why she still needs to stay in the hospital States her back pain is completely gone, she can sit up and walk with a walker Vitals stable patient been afebrile, no cough no shortness of breath Counseling provided, she still needs to stay in hospital to correct her dehydration and treatment for possible urine tract infection Review of Systems Review of Systems: All systems reviewed & are unremarkable except as noted in HPI & below Psychiatric: + anxiety, + confusion and + problem reported delirium Physical Exam Constitutional: WD/WN, vitals as above no acute distress anxious , tearful Eyes: PERRL, conjunctivae normal, anicteric sclerae ENMT: external ear and nose normal, oropharynx normal Neck: trachea midline, no thyromegaly Respiratory: normal respiratory effort, lungs clear to auscultation Cardiovascular: RRR, no murmur, no edema Gastrointestinal (Abdomen): normal bowel sounds, soft, nontender, no hepatosplenomegaly Musculoskeletal: Gait: normal gait No complaint of back pain Skin: no rashes, warm and dry Neurologic: PERRL, EOMI, accommodation nl, no face palsy, no dysarthria Psychiatric: Orientation: alert Mood: + anxious mood Oriented to person only confused about place and time Results & Data ([facility]) Vital Signs (Past 12 Hours) Vital Signs Temp Pulse Resp BP BP Pulse Ox 08/15/19 08:00 36.6 C 73 16 138/85 96 08/15/19 00:52 36.4 C L 79 18 150/80 H 98 (1) AMS (altered mental status) Altered mental status type: somnolence Qualified Code(s): R40.0 - Somnolence
[2019-08-15] MEDS: WARFARIN SOD 2 MG TAB PO SCH (15:48)
[2019-08-16] MEDS: cefTRIAXone SODIUM 1,000 MG in DEXTROSE 5% 50 ML IV SCH (04:42)
[2019-08-16] MEDS: LIDOCAINE 5% 1 PATCH TD SCH (08:46)
[2019-08-16] MEDS: GABAPENTIN 100 MG CAP PO SCH ×2 (08:47→20:53)
[2019-08-16] MEDS: INSULIN ASPART 100 UNITS/ML 3 ML PEN SC SCH ×4 (08:47→21:02)
[2019-08-16] MEDS: ATORVASTATIN 40 MG TAB PO SCH (08:47)
[2019-08-16] MEDS: METOPROLOL TARTRATE 100 MG TAB PO SCH ×2 (08:47→20:53)
[2019-08-16] MEDS: MAGNESIUM OXIDE 400 MG TAB PO SCH ×2 (08:47→20:53)
[2019-08-16] MEDS: INSULIN GLARGINE SOLOSTAR 100 UNITS/ML 3 ML PEN SC SCH ×2 (08:49→21:02)
--- NOTE | 2019-08-16 15:10 | Hospitalist Progress Note ---
Date of Service August 16, 2019 Assessment & Plan (1) AMS (altered mental status): Patient improved markedly Awake and alert, oriented to time and place, No confusion or delirium noted Mental status appears to be approximate baseline After discussing regarding her need for physical therapy for ongoing left hip, back pain patient is interested to go to SNF at [facility], Presented with confusion lethargy possible metabolic encephalopathy-due to medications induced, hydroxyzine, baclofen discontinued Became delirious, was combative Family members did notice signs of of early dementia, patient's been very forgetful last few months/ would get very upset if corrected lives with her in a mobile home her children noticed evidence of self neglect and being withdrawn Status gradually improved, Normal thought process, no delusion or hallucination No apparent infection (no fever, no leukocytosis, chest x-ray did not show any infiltrates, and UA appears benign). Urine culture negative, IV Rocephin discontinued (2) Back pain: Chronic low back pain, worsening pain on this admission CT LS spine showed multilevel degenerative changes with mild-moderate spinal stenosis. Patient reports of her left hip pain is limiting her activity Physical therapy note today 08/16/2019: Patient ambulated 60 feet with rolling walker with supervision Slow, antalgic gait Patient leaning forward on forearms on walker, and reports being unable to stand erect due to left hip and left knee pain Patient will benefit with skilled rehab less than 3 hours a day physical therapy to improve gait and endurance Abnormal UA: UA showed trace leukocyte Estrace positive Started on IV Rocephin Urine culture no growth, patient does not show any evidence of infection normal white count no fever, delirium resolved Antibiotic discontinued (3) Ambulatory dysfunction: Symptom has improved PT OT evaluation requested, appreciate input recommends skill rehab (4) CAD (coronary artery disease): History of coronary artery disease, status post CABG. Denies chest pain. No acute EKG changes. Troponin normal. Not on antiplatelet medications because of history of peptic ulcer disease. Continue metoprolol, diltiazem, statin. (5) Atrial fibrillation: History of chronic atrial fibrillation, rate controlled. Continue metoprolol, diltiazem, and warfarin. Goal INR 23 (6) HTN (hypertension): Continue metoprolol and diltiazem. (7) CKD (chronic kidney disease), stage III: Acute on chronic kidney disease CKD III Creatinine was mildly elevated 1.19 at time of admission. Renal function improved to baseline creatinine 0.94 (8) Diabetes mellitus type 2 with complications: Diabetes mellitus type 2, fairly well-controlled, managed with metformin and glimepiride, complicated by coronary artery disease, CKD, and neuropathy. Hemoglobin A1c in clinic on 05/21/2019 was 7.7. Hgb A1c now 8.3. . Oral diabetic meds kept on hold during hospital stay Monitor blood sugars AC & HS. basal/bolus insulin therapy per protocol with insulin glargine and insulin aspartate. (9) Hyperlipidemia: Takes atorvastatin 80 mg daily. Atorvastatin could possibly be contributing to ambulatory dysfunction. LDL-c = 68. Reduced atorvastatin dose to 40 mg daily. (10) Nasal polyp: Left maxillary polypoid nodule incidentally noted on CT of head, measuring 4 cm in greatest diameter, size increased compared to 2018. Outpatient ENT evaluation (11) DVT prophylaxis: Continue warfarin. Dose adjusted due to subtherapeutic INR (12) Discharge planning issues: Patient will benefit with skilled rehab, referral made to [facility] Admission and Anticipated Discharge Date Admission Date: August 13, 2019 Subjective more awake and alert today, Very pleasant, conversing appropriately, knows that she is in the hospital, receiving treatment for her back pain Willing to go to skilled rehab if needed as she continued to experience back pain and left hip pain while trying to walk with her walker No fever or chills Cough Review of Systems Review of Systems: All systems reviewed & are unremarkable except as noted in HPI & below Constitutional: no fever Respiratory: no cough, no dyspnea and no wheezing Musculoskeletal: + back pain, + joint pain (Left hip pain) and + problem reported Generalized weakness Psychiatric: no behavioral changes and no confusion Physical Exam Constitutional: WD/WN, vitals as above no acute distress Eyes: PERRL, conjunctivae normal, anicteric sclerae ENMT: external ear and nose normal, oropharynx normal Neck: trachea midline, no thyromegaly Respiratory: normal respiratory effort, lungs clear to auscultation Cardiovascular: RRR, no murmur, no edema Gastrointestinal (Abdomen): normal bowel sounds, soft, nontender, no hepatosplenomegaly Musculoskeletal: Hip: + limited ROM of hip (Left hip pain, worse with movement change of position, improves with rest/lying flat) Skin: no rashes, warm and dry Neurologic: PERRL, EOMI, accommodation nl, no face palsy, no dysarthria Psychiatric: A+Ox3, euthymic affect Results & Data ([facility]) Vital Signs (Past 12 Hours) Vital Signs Temp Pulse Resp BP Pulse Ox 08/16/19 07:14 36.5 C 71 16 123/68 98 08/16/19 07:01 36.4 C L 80 18 126/81 96 (1) AMS (altered mental status) Altered mental status type: somnolence Qualified Code(s): R40.0 - Somnolence
[2019-08-16 15:51] LABS: INR 1.3 (0.9-1.1); Prothrombin Time 13.6 Seconds (9.0-12.0)
[2019-08-16] MEDS ORDERED: WARFARIN SOD 4 MG TAB PO SCH (16:15)
[2019-08-16] MEDS: WARFARIN SOD 2 MG TAB PO SCH (17:00)
[2019-08-17 05:21] LABS: INR 1.2 (0.9-1.1); Prothrombin Time 12.6 Seconds (9.0-12.0)
[2019-08-17] MEDS: LIDOCAINE 5% 1 PATCH TD SCH (08:12)
[2019-08-17] MEDS: ATORVASTATIN 40 MG TAB PO SCH (08:12)
[2019-08-17] MEDS: ACETAMINOPHEN 500 MG TAB PO PRN (08:13)
[2019-08-17] MEDS: METOPROLOL TARTRATE 100 MG TAB PO SCH (08:13)
[2019-08-17] MEDS: MAGNESIUM OXIDE 400 MG TAB PO SCH (08:13)
[2019-08-17] MEDS: GABAPENTIN 100 MG CAP PO SCH (08:13)
[2019-08-17] MEDS: INSULIN ASPART 100 UNITS/ML 3 ML PEN SC SCH ×2 (08:51→12:36)
[2019-08-17] MEDS: INSULIN GLARGINE SOLOSTAR 100 UNITS/ML 3 ML PEN SC SCH (08:51)
--- NOTE | 2019-08-17 10:49 | Hospitalist Progress Note ---
Date of Service August 17, 2019 Assessment & Plan Admission and Anticipated Discharge Date Admission Date: August 13, 2019 Subjective Attending note: [id number] Discussed with Dr. Delgado with patient's updated physical therapy note on 08/16/2019, Patient only managed to walk 60 feet with 1 person assist with walker, Significant gait disturbance noted-[facility] was not aware ofthe updated PT note, which will be faxed today Patient is approved for skilled rehab Can be discharged to skilled rehab at [facility] if bed is available Case management updated Roxie Mejias MD Results & Data ([facility]) Vital Signs (Past 12 Hours) Vital Signs Temp Pulse Pulse Resp BP Pulse Ox 08/17/19 08:42 36.3 C L 83 16 112/70 98 08/17/19 07:13 36.5 C 72 16 135/80 96 08/16/19 23:10 36.7 C 88 16 155/83 H 94
--- NOTE | 2019-08-17 14:24 | Discharge Summary ---
Date of Service August 17, 2019 Admission HPI Per Admitting Provider 84-year-old female followed by Dr. Rashid. History of chronic atrial fibrillation, hypertension, diabetes mellitus type 2, and other problems noted below. Seen in clinic on August 05 with severe back pain. She was prescribed baclofen and prednisone. Brought to ED today because family concerned about increasing confusion. Upon arrival, patient was barely responsive. By the time of my assessment around 1220 she was more awake, but still quite confused and unable to provider any history. Family members not available in ED at time of my assessment to provide any additional information. They had expressed to the ED provider that family was having trouble caring for her at home and they feel that she may need skilled care or rehab services. Tried to call son by phone using the available phone numbers for additional history and discussion-no response. Principal Diagnosis Confusion/encephalopathy possible secondary to medication induced-resolved Chronic low back pain Discharge Exam Constitutional WD/WN, vitals as above no acute distress Eyes PERRL, conjunctivae normal, anicteric sclerae ENMT external ear and nose normal, oropharynx normal Neck trachea midline, no thyromegaly Respiratory normal respiratory effort, lungs clear to auscultation Cardiovascular RRR, no murmur, no edema Gastrointestinal (Abdomen) normal bowel sounds, soft, nontender, no hepatosplenomegaly Musculoskeletal no cyanosis or clubbing, extremities motor strength 5/5 Gait: normal gait Hip: + limited ROM of hip (Left hip pain, worse with movement change of position, improves with rest/lying flat) Skin no rashes, warm and dry Neurologic PERRL, EOMI, accommodation nl, no face palsy, no dysarthria Psychiatric A+Ox3, euthymic affect Orientation: alert Affect: + anxious affect Mood: + anxious mood Insight: + limited insight (Confused regarding time place and person/possible secondary to sundowning effect) Discharge Data Allergies Allergy/AdvReac Type Severity Reaction Status Date / Time aspirin Allergy Severe PEPTIC Verified 03/27/19 12:39 ULCER DISEASE WITH HEMMORAGE codeine Allergy Unknown UNKNOWN Verified 03/27/19 12:39 oxytetracycline Allergy Unknown SEVERE Unverified 03/27/19 12:39 SWELLING polymyxin B Allergy Unknown SEVERE Unverified 03/27/19 12:39 SWELLING Ordered Studies 08/11/19 10:37 CT head/brain wo con Stat 08/12/19 09:08 CT lumbar spine wo con Routine Hospital Course (1) AMS (altered mental status): symptom has resolved Awake and alert, oriented to time and place, No confusion or delirium noted mental status improved to baseline stable to be transferred to [facility] for rehab todat Presented with confusion lethargy possible metabolic encephalopathy-due to medications induced, hydroxyzine, baclofen discontinued Became delirious, was combative Family members did notice signs of of early dementia, patient's been very forgetful last few months/ would get very upset if corrected lives with her in a mobile home her children noticed evidence of self neglect and being withdrawn Status gradually improved, Normal thought process, no delusion or hallucination No apparent infection (no fever, no leukocytosis, chest x-ray did not show any infiltrates, and UA appears benign). Urine culture negative, IV Rocephin discontinued (2) Back pain: Chronic low back pain, worsening pain on this admission CT LS spine showed multilevel degenerative changes with mild-moderate spinal stenosis. Patient reports of her left hip pain is limiting her activity Physical therapy note today 08/16/2019: Patient ambulated 60 feet with rolling walker with supervision Slow, antalgic gait Patient leaning forward on forearms on walker, and reports being unable to stand erect due to left hip and left knee pain Patient will benefit with skilled rehab less than 3 hours a day physical therapy to improve gait and endurance insurance Auth approved for SNF pt is discharged to [facility] today Abnormal UA: UA showed trace leukocyte Estrace positive Started on IV Rocephin Urine culture no growth, patient does not show any evidence of infection normal white count no fever, delirium resolved Antibiotic discontinued (3) Ambulatory dysfunction: Symptom has improved PT OT evaluation requested, appreciate input recommends skill rehab will be transferred to [facility] today (4) CAD (coronary artery disease): History of coronary artery disease, status post CABG. Denies chest pain. No acute EKG changes. Troponin normal. Not on antiplatelet medications because of history of peptic ulcer disease. Continue metoprolol, diltiazem, statin. (5) Atrial fibrillation: History of chronic atrial fibrillation, rate controlled. Continue metoprolol, diltiazem, and warfarin. INR subtheraputic 1.3 today increase dose of Coumadin 5 mg daily repeat INR on tuesday08/20/19 Goal INR 2-3 once INR theraputic Coumadin can be resumed with prior dose : 2 mg tab on Tuesday /4 mg tab on all other days of the week (6) HTN (hypertension): Continue metoprolol and diltiazem. (7) CKD (chronic kidney disease), stage III: Acute on chronic kidney disease CKD III Creatinine was mildly elevated 1.19 at time of admission. Renal function improved to baseline creatinine 0.94 (8) Diabetes mellitus type 2 with complications: Diabetes mellitus type 2, fairly well-controlled, managed with metformin and glimepiride, complicated by coronary artery disease, CKD, and neuropathy. Hemoglobin A1c in clinic on 05/21/2019 was 7.7. Hgb A1c 8.3. . pt antidiabetic meds resumed on discharge needs follow up with family physician for Diabetic management (9) Hyperlipidemia: Takes atorvastatin 80 mg daily. Atorvastatin could possibly be contributing to ambulatory dysfunction. LDL-c = 68. Reduced atorvastatin dose to 40 mg daily. (10) Nasal polyp: Left maxillary polypoid nodule incidentally noted on CT of head, measuring 4 cm in greatest diameter, size increased compared to 2018. Outpatient ENT evaluation (11) DVT prophylaxis: Continue warfarin. Dose adjusted due to subtherapeutic INR (12) Discharge planning issues: pt is discharged to [facility] for rehab today Total Time Total Time Spent Total Time Spent (In Minutes): 35 min Total Time Includes: Examination of the Patient, Discharge Planning and Medication Reconciliation Discharge Plan Discharge Items Patient Disposition: Home - Home Health Services Reason For Visit: ALTERED MENTAL STATUS Discharge Diagnosis: Confusion/encephalopathy possible secondary to medication induced-resolved Chronic low back pain Condition on Discharge: Fair Activity: As commented below Activity Comment: As tolerated/continue physical therapy /Occupational therapy at rehab Non-emergency contact: Primary Care Provider Call non-emergency contact if: you have any medication questions Follow-up/Referrals: Moise Rashid MD [Primary Care Provider] - Diet: Carb Consistent or DM2 and Heart Healthy Addtl Attending Provider Instructions: Follow-up with ENT/ear nose and throat doctor for nasal polyp noted on CT head CHANGE OF MEDICATIONS : Do not take baclofen, hydroxyzine, avoid Benadryl, narcotic pain medications, sedatives-increased chance of confusion, loss of balance and fall Do not take prednisone INR subtherapeutic 1.3 today Coumadin dose increased to 5 mg daily Repeat PT/INR on 08/20/2019 Dose of Coumadin can be resumed to prior 2 mg on Tuesdays/4 mg on all other days of the week once INR is therapeutic Pending Studies at Discharge: Yes Studies:: Lab work: PT/INR on 08/20/2019 Stand-Alone Forms: My [facility], Smoking Cessation Medications and DC Order Prescriptions: New warfarin [Coumadin] 5 mg tablet 5 mg PO DAILY Qty: 7 RF: 0 Continued cetirizine 10 mg Tablet 10 mg PO QPM RF: 0 metoprolol tartrate 100 mg Tablet 100 mg PO BID RF: 0 metformin 1,000 mg Tablet 1,000 mg PO DAILY RF: 0 glimepiride 4 mg Tablet 8 mg PO QAM RF: 0 furosemide 20 mg Tablet 20 mg PO BID RF: 0 gabapentin 100 mg Capsule 200 mg PO BID RF: 0 magnesium oxide 400 mg magnesium Tablet 400 mg PO BID RF: 0 diltiazem HCl 120 mg Tablet Extended Release 24 Hr 120 mg PO QAM RF: 0 acetaminophen 500 mg tablet 1,000 mg PO Q8H PRN (Reason: fever or pain) Qty: 60 RF: 0 warfarin [Jantoven] 2 mg tablet 2 mg PO UD RF: 0 Changed atorvastatin 80 mg Tablet 40 mg PO QAM Qty: 0 RF: 0 Discontinued hydroxyzine HCl 25 mg Tablet 25 mg PO HS PRN (Reason: Unknown) RF: 0 prednisone 20 mg tablet 20 mg PO BID RF: 0 baclofen 10 mg tablet 10 mg PO BID RF: 0 Discharge Orders: Discharge Order (Routine); Ordered 08/17/19 Ordered By: Roxie Eaton/Other Patient Handouts: Low Back Pain Self Care, Diabetes Manage A1C Test, Fitness Walking, Nasal Polyposis Admission Data Admit Date/Time: 08/13/19 11:10 Attending Provider: Roxie Mejias Admit Provider: Ming Loera Primary Care Provider: Moise Rashid Other Providers: Dinah Grant Other Interventions: Discharge Summary Assessment (RN) Last Done: 08/17/19 12:08 DC Date/Time DO NOT enter until pt leaves facility: 08/17/19 13:02
== END 2019-08-17 13:02 | disposition home health service (06) | DRG 92 ==
LOC: 1E 09:54 → ED 09:54 → 1E 12:54 → 2W 18:26 → SUATTDRO 08-13 11:10 → 3E 08-14 18:31

== ENCOUNTER 2021-07-13 11:43 | Inpatient (IN) ==
[2021-07-13 12:43] LABS: Basophils # (auto) 0.03 K/uL (0-0.2); Basophils % (auto) 0.4 %; Eosinophils # (auto) 0.01 K/uL (0-0.5); Eosinophils % (auto) 0.1 %; Hematocrit (blood only) 30.6 % (37-47); Hemoglobin 9.3 g/dL (12.0-16.0); Immature Granulocytes # (auto) 0.01 K/uL (0.00-0.02); Immature Granulocytes % (auto) 0.1 %; Lymphocytes # (auto) 1.42 K/uL (1.2-3.4); Lymphocytes % (auto) 19.7 %; Mean Corpuscular Hemoglobin 26.6 pg (25-34); Mean Corpuscular Hgb Conc 30.4 g/dL (32-36); Mean Corpuscular Volume 87.7 fL (80-100); Mean Platelet Volume 10.1 fL (7.4-10.4); Monocytes % (auto) 9.7 %; Neutrophils # (auto) 5.02 K/uL (1.4-6.5); Platelet Count 287 K/uL (130-400); RDW Coefficient of Variation 17.7 % (11.5-14.5); RDW Standard Deviation 57.1 fL (36.4-46.3); Red Blood Count 3.49 M/uL (4.2-5.4); White Blood Count 7.19 K/uL (4.8-10.8)
[2021-07-13 12:55] LABS: Alanine Aminotransferase 10 U/L (7-52); Albumin Globulin Ratio 1.1 (0.9-2); Albumin Level 3.5 gm/dl (3.4-5.0); Alkaline Phosphatase 82 U/L (34-104); Anion Gap 10 (3-11); Aspartate Aminotransferase 15 U/L (13-39); BUN Creatinine Ratio 14.6 (10-20); Bilirubin,Total 0.8 mg/dl (0.2-1.0); Blood Urea Nitrogen 31 mg/dl (6-23); Calcium 8.9 mg/dl (8.5-10.1); Carbon Dioxide 19 mmol/L (21-32); Chloride 109 mmol/L (98-107); Est GFR (African American) 23.7 ml/min; Est GFR (Non-African American) 20.4 ml/min; Globulin 3.3 gm/dl (2.5-4.0); Glucose 155 mg/dl (70-99(Fasting)); Potassium 4.7 mmol/L (3.5-5.1); Sodium 138 mmol/L (136-145); Total Protein 6.8 gm/dl (6.0-8.3)
[2021-07-13 13:28] LABS: INR 3.8 (0.9-1.1); Partial Thromboplastin Ratio 2.1; Prothrombin Time 34.5 Seconds (9.0-12.0)
[2021-07-13 13:33] LABS: Partial Thromboplastin Time 54.8 Seconds (21.0-31.0)
--- NOTE | 2021-07-13 14:08 | Emergency Department Note ---
Impression & Plan Fall, Altered mental status, Pneumonia, Traumatic cephalohematoma ED Provider Note CHIEF COMPLAINT: Fall HISTORY OF PRESENT ILLNESS: Carolyne Helms is an 86 year old female with history of A-fib and CAD s/p CABG x 3 on Warfarin and Plavix, HTN, DLD, CKDIII, DM2, Parkinson's among others listed below who presents to the Emergency Department for evaluation after suffering a fall just prior to arrival. Per nursing staff at [facility], the patient had been having increased altered mental status over the past few days as she was more confused and no longer oriented to place and time as she had previously been. Yesterday, she was then noted to have spiked a fever of 102.5F. She was tested for COVID-19 which was negative and also had a urinalysis that was not concerning for acute infection. She did also have a chest x-ray which was concerning for the start of pneumonia. Today, the patient suffered an unwitnessed fall - staff believes that she fell from a standing position and hit her head on the floor. They do not believe that she had lost consciousness and she was helped up afterward. The patient did develop a large bruise to her left forehead and was brought to the ED via EMS f or further evaluation. Currently, the patient is very sleepy - she does open eyes briefly and follows commands but otherwise is only able to tell me her name. She is not oriented to place or time and she does not voice any other complaints. She does not appear to have any other outward signs of trauma other than the bruising to her left forehead. Additional history limited secondary to altered mental status. REVIEW OF SYSTEMS: Unable to obtain full ROS secondary to the patient's altered mental status PHYSICAL EXAM: VITALS: Vitals are noted on the nurse's note and reviewed by myself. Hypert ensive, additional vital signs otherwise stable. General: Resting in bed, opens eyes to command but falls back asleep shortly after Head: Large hematoma to the left forehead with overlying superficial abrasion ENT: Pupils 2 mm and reactive to light with EOMI bilaterally, TMs clear without hemotympanum, mucous membranes dry, oropharynx clear Neck: Does not indicate tenderness to palpation of the midline c-spine, no obvious step-offs or deformities Resp: Audible inspiratory wheeze, rhonchi throughout all lung carvajal, R>L CV: Irregularly irregular rate and rhythm, peripheral pulses palpated Back/Integ: No indications of tenderness to palpation of the midline thoracic or lumbar spine, no obvious step-offs or deformities, sacral edema and erythema, no open sounds Abd: Soft, does not indicate tenderness to palpation Integumentary/MSK: Chronic wounds/necrotic appearing tissue to several toes on bilateral feet. No surrounding erythema or abnormal discharge. Does not indicate tenderness to palpation of the arms or legs, able to wiggle fingers and toes on command Neuro: Opens eyes to command, able to state name but otherwise not oriented to time or place, GCS 6/4/3 (13) Differential diagnosis includes Sepsis, UTI, pneumonia, metabolic, electrolyte abnormalities, cardiac sources, intracerebral event, toxicologic, neurologic, fracture, dislocation, contusion, intra-abdominal, pneumothorax, intrathoracic, intracranial, as well as other pathologies were considered EMERGENCY DEPARTMENT COURSE: Physical exam and history were performed. Nursing triage notes, EMR, and medication list were personally reviewed. Patient is an 86 year old female with history of A-fib and CAD s/p CABG x 3 on Warfarin and Plavix, HTN, DLD, CKDIII, DM2, Parkinson's among others listed below who presents to the Emergency Department for evaluation after suffering a fall just prior to arrival. Per nursing staff at [facility], she has been having increased altered mental status over the past few days as she was more confused and no longer oriented to place and time as she had previously been. Yesterday she was also noted to have spiked a fever of 102.5 F and was noted to be developing a pneumonia on a chest x-ray. Today, she sustained an unwitnessed fall from stand and struck her head. No reported loss of consciousness. Additional history as described above. On exam, the patient was resting in bed, she opened her eyes to command but fell back asleep shortly after. She was able to state her name but was otherwise not oriented to time or place, GCS 6/4/3 (13). She was noted to have a large hematoma to left forehead with overlying superficial abrasion. Her pupils were 2 mm and reactive to light with EOMI bilaterally. She did not indicate tenderness to palpation anywhere about her b jackeline and there are no other outward signs of trauma. She was noted to have chronic wound/necrotic appearing tissue to several toes on the bilateral feet without surrounding erythema or abnormal discharge. No other appreciable wounds. No other significant findings on exam as above. IV access was established and labs were obtained, reviewed by myself as below. Of note, no significant leukocytosis with a WBC of 7.19. Mild anemia with hemoglobin 9.3 but appears to be at baseline. Coagulation studies elevated consistent with use of warfarin and Plavix, INR 3.8. Electrolytes relatively WNL though chloride slightly elevated at 109. Carbon dioxide low at 19. Creatinine elevated at 2.13 and BUN at 31 which is elevated from previous of 1.78 and 22 respectively. Urinalysis was obtained and not concerning for acute infection. A bio fire panel was obtained and did detect Human Metapneumovir PCR. CT head, C-spine, chest, abdomen and pelvis without contrast (given CKD) were obtained and reviewed by radiologist and myself as below. CAT scans did show a large frontal scalp hematoma, however no calvarial fracture or acute intracranial hemorrhage, mass-effect or acute territorial ischemia identified. Cervical spine showed degenerative changes, no evidence for acute traumatic injuries. Imaging of the chest, abdomen and pelvis did show scattered multilobar bilateral tree-in-bud and nodular consolidative opacities suggestive of infectious or inflammatory bronchiolitis/pneumonitis, 2.2 cm left breast mass, cardiomegaly without pulmonary edema, moderate size hiatal hernia with mid to distal esophageal wall thickening, mild nonspecific presacral/perirectal edema, cholelithiasis. No acute posttraumatic intrathoracic, intra-abdominal or intrapelvic abnormality identified. I discussed the results of the above findings with my attending, Dr. Paredes, who was involved throughout the patient's course of care as well as the nursing staff from [facility]. Given the above findings, she will benefit from continued care in the hospital for IV antibiotics given the new finding of pneumonia and altered mental status. She was started on Zosyn. I did discuss the patient's case with Karen Capone PA-C of the [facility] hospitalist group. She agreed to evaluate the patient with her attending, Dr. Cortes for further management. Shortly after the patient was admitted to the hospital, while she was still in the emergency department, her oxygen saturations had decreased to the 50s on 2L oxygen via NC. She was quickly repositioned and suctioned which did help to increase her oxygen saturation levels. Her son, who was now at bedside, confirmed her to be a DNR/DNI but agreed to place her on BiPAP. [facility] CRITICAL CARE I have personally spent greater than 30 minutes of critical care time in the direct management of this patient. This includes bedside care, interpretation of diagnostic studies, and testing, discussion with consultants, patient, and family members, and other required patient management activities. This 30 minutes is in excess of all separately billable procedures. The chart was completed utilizing [employer] Speech Voice Recognition Software. Grammatical errors, random word insertions, pronoun errors, and incomplete sentences are an occasional consequence of this system due to software limitations, ambient noise, and hardware issues. Any formal questions or concerns about the content, text, or information contained within the body of this dictation should be directly addressed to the provider for clarification. Past Med/Surg History Medical History Ambulatory dysfunction cane prn AMS (altered mental status) gets confused per pt's son Atrial fibrillation dx over a year ago > follows with Dr. Jarvis > no pacer CAD (coronary artery disease) History of CABG x 3 > 1996 CKD (chronic kidney disease), stage III follows with [facility] Dr. Gordillo Diabetes mellitus type 2 with complications History of peptic ulcer disease HTN (hypertension) Hyperlipidemia Nasal polyp Left maxillary polyp noted on CT's 09/02/17 and 08/10/19. ENT eval recommended. 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 Jarvis T2DM (type 2 diabetes mellitus) Wound, open, toe Surgical History Amputation toe partial amp of L 03/02/21 History of appendectomy History of breast biopsy benign History of coronary artery bypass graft x 3 1996 History of nasal polypectomy History of tonsillectomy and adenoidectomy Family History Son Atrial fibrillation Mother Hypertension Social History Smoking Status: Never smoker packs per day: 1; Years Smoked: 20; Second Hand Exposure: No; Hx Alcohol Use: No Hx Substance Use: No Preferred Language: Syrian Communication Ability: Effective Visual Impairment: Limited Hearing Ability: Hard of Hearing Wire Stitcher Required: No Beliefs That Will Affect Care: None marital status: Current Living Situation: Spouse current occupational status: retired How many Children do You have: 2 Feels Safe at Home: Yes Assistive Devices: Denture - Upper, Denture - Lower and Wheelchair Allergies Allergies Allergy/AdvReac Type Severity Reaction Status Date / Time aspirin Allergy Severe PEPTIC Verified 07/13/21 15:16 ULCER DISEASE WITH HEMMORAGE codeine Allergy Unknown ON WINDY Verified 07/13/21 15:16 HILL MED LIST oxytetracycline Allergy Unknown SEVERE Verified 07/13/21 15:16 SWELLING polymyxin B Allergy Unknown SEVERE Verified 07/13/21 15:16 SWELLING Home Meds Home Medications Medication Instructions Recorded Confirmed cetirizine 10 mg tablet 10 mg PO QAM 03/27/19 07/13/21 furosemide 20 mg tablet 20 mg PO Q OTHER DAY 03/27/19 07/13/21 gabapentin 100 mg capsule 200 mg PO BID 03/27/19 07/13/21 magnesium oxide 400 mg PO BID 03/27/19 07/13/21 metoprolol tartrate 100 mg tablet 100 mg PO BID 03/27/19 07/13/21 warfarin 2 mg tablet (Jantoven) 6 mg PO MOFR 01/08/21 07/13/21 isosorbide dinitrate 30 mg tablet 30 mg PO QAM tab 01/27/21 07/13/21 acetaminophen 325 mg tablet 650 mg PO Q4H PRN MDD 3 GRAMS/07/13/21 07/13/21 (Tylenol) HOURS atorvastatin 80 mg tablet 40 mg PO HS 07/13/21 07/13/21 cephalexin 500 mg capsule 500 mg PO TID 07/13/21 07/13/21 cholecalciferol (vitamin D3) 50 50 mcg PO QAM 07/13/21 07/13/21 mcg (2,000 unit) capsule (Vitamin D3) glipizide 5 mg tablet, extended 5 mg PO QAM 07/13/21 07/13/21 release 24 hr nitroglycerin 0.4 mg sublingual 0.4 mg SUBLINGUAL DIRECTED PRN 07/13/21 07/13/21 tablet (Nitrostat) povidone-iodine 10 % topical swab 1 applic TOPICAL BID 07/13/21 07/13/21 (Betadine Swabsticks) warfarin 2 mg tablet 4 mg PO SUTUWETHSA 07/13/21 07/13/21 Results & Data (ED) Vital Signs Vital Signs - 24 hr 07/13/21 11:59 07/13/21 12:00 07/13/21 12:06 Temperature 36.8 C Temperature Source Oral Pulse Rate 90 79 84 Pulse Rate [Right Finger] Pulse Rate from SpO2 Sensor 89 84 Pulse Rhythm Regular Pulse Strength Normal Respiratory Rate 23 24 20 Respiratory Effort / Characteristics Non-Labored Spontaneous Respiratory Depth Normal Respiratory Pattern Regular Blood Pressure 165/85 H Blood Pressure [Left Arm] Blood Pressure Mean 111 Blood Pressure Mean [Left Arm] Blood Pressure Position Sitting Pulse Oximetry 100 100 90 Oxygen Delivery Method Room Air Oxygen Flow Rate Sepsis Recent Fever Within 48 Hours No Sepsis New/Unexplained Change in Mental Status N/A Sepsis Action Taken by Nursing No Action Required 07/13/21 12:30 07/13/21 13:00 07/13/21 13:30 Temperature Temperature Source Pulse Rate 85 73 84 Pulse Rate [Right Finger] Pulse Rate from SpO2 Sensor 83 76 82 Pulse Rhythm Pulse Strength Respiratory Rate 24 20 18 Respiratory Effort / Characteristics Respiratory Depth Respiratory Pattern Blood Pressure Blood Pressure [Left Arm] Blood Pressure Mean Blood Pressure Mean [Left Arm] Blood Pressure Position Pulse Oximetry 100 100 99 Oxygen Delivery Method Oxygen Flow Rate Sepsis Recent Fever Within 48 Hours Sepsis New/Unexplained Change in Mental Status Sepsis Action Taken by Nursing 07/13/21 14:20 07/13/21 14:30 07/13/21 15:00 Temperature Temperature Source Pulse Rate 79 Pulse Rate [Right Finger] Pulse Rate from SpO2 Sensor 88 79 80 Pulse Rhythm Pulse Strength Respiratory Rate 20 Respiratory Effort / Characteristics Respiratory Depth Respiratory Pattern Blood Pressure Blood Pressure [Left Arm] Blood Pressure Mean Blood Pressure Mean [Left Arm] Blood Pressure Position Pulse Oximetry 97 98 99 Oxygen Delivery Method Oxygen Flow Rate Sepsis Recent Fever Within 48 Hours Sepsis New/Unexplained Change in Mental Status Sepsis Action Taken by Nursing 07/13/21 15:30 07/13/21 15:32 Temperature Temperature Source Pulse Rate 82 Pulse Rate [Right Finger] 81 Pulse Rate from SpO2 Sensor 76 Pulse Rhythm Pulse Strength Respiratory Rate 19 22 Respiratory Effort / Characteristics Spontaneous Respiratory Depth Respiratory Pattern Blood Pressure Blood Pressure [Left Arm] 153/69 H Blood Pressure Mean Blood Pressure Mean [Left Arm] 97 Blood Pressure Position Pulse Oximetry 99 100 Oxygen Delivery Method Nasal Cannula Nasal Cannula Oxygen Flow Rate 2 2 Sepsis Recent Fever Within 48 Hours Sepsis New/Unexplained Change in Mental Status Sepsis Action Taken by Nursing Laboratory Data Result diagrams: 07/13/21 12:10 07/13/21 12:10 Lab Results 07/13/21 07/13/21 07/13/21 Range/Units 12:10 12:10 12:10 WBC 7.19 (4.8-10.8) K/uL RBC 3.49 L (4.2-5.4) M/uL Hgb 9.3 L (12.0-16.0) g/dL Hct 30.6 L (37-47) % MCV 87.7 (80-100) fL MCH 26.6 (25-34) pg MCHC 30.4 L (32-36) g/dL RDW Std Deviation 57.1 H (36.4-46.3) fL RDW Coeff of Fred 17.7 H (11.5-14.5) % Plt Count 287 (130-400) K/uL MPV 10.1 (7.4-10.4) fL Immature Gran % (Auto) 0.1 % Neut % (Auto) 70.0 % Lymph % (Auto) 19.7 % [place] % (Auto) 9.7 % Eos % (Auto) 0.1 % Baso % (Auto) 0.4 % Neut # (Auto) 5.02 (1.4-6.5) K/uL Lymph # (Auto) 1.42 (1.2-3.4) K/uL [place] # (Auto) 0.70 H (0.11-0.59) K/uL Eos # (Auto) 0.01 (0-0.5) K/uL Baso # (Auto) 0.03 (0-0.2) K/uL Immature Gran # (Auto) 0.01 (0.00-0.02) K/uL ESR 58 H (0-30) mm/hr PT (9.0-12.0) Seconds INR (0.9-1.1) APTT (21.0-31.0) Seconds PTT Ratio Sodium 138 (136-145) mmol/L Potassium 4.7 (3.5-5.1) mmol/L Chloride 109 H (98-107) mmol/L Carbon Dioxide 19 L (21-32) mmol/L Anion Gap 10 (3-11) BUN 31 H (6-23) mg/dl Creatinine 2.13 H (0.6-1.2) mg/dl Est Cr Clr Drug Dosing Not Reportable Est GFR ( Amer) 23.7 ml/min Est GFR (Non-Af Amer) 20.4 ml/min BUN/Creatinine Ratio 14.6 (10-20) Glucose 155 H (70-99(Fasting)) mg/dl Calcium 8.9 (8.5-10.1) mg/dl Total Bilirubin 0.8 (0.2-1.0) mg/dl AST 15 (13-39) U/L ALT 10 (7-52) U/L Alkaline Phosphatase 82 (34-104) U/L C-Reactive Protein (0-0.5) mg/dl Total Protein 6.8 (6.0-8.3) gm/dl Albumin 3.5 (3.4-5.0) gm/dl Globulin 3.3 (2.5-4.0) gm/dl Albumin/Globulin Ratio 1.1 (0.9-2) Procalcitonin (0-0.5) ng/ml Adenovirus (PCR) (NotDetected) B. pertussis DNA (PCR) (NotDetected) B.parapertussis DNA PCR (NotDetected) C. pneumoniae DNA (PCR) (NotDetected) Coronavirus OC43 (PCR) (NotDetected) Coronavirus HKU1 (PCR) (NotDetected) Coronavirus 229E (PCR) (NotDetected) SARS-CoV-2 (PCR) (NotDetected) Coronavirus NL63 (PCR) (NotDetected) Human Metapneumovir PCR (NotDetected) Influenza Type A (PCR) (NotDetected) Influenza Type B (PCR) (NotDetected) M. pneumoniae (PCR) (NotDetected) Parainfluenza 1 (PCR) (NotDetected) Parainfluenza 2 (PCR) (NotDetected) Parainfluenza 3 (PCR) (NotDetected) Parainfluenza 4 (PCR) (NotDetected) RSV (PCR) (NotDetected) Entero/Rhino (PCR) (NotDetected) 07/13/21 07/13/21 07/13/21 Range/Units 12:10 12:41 12:47 WBC (4.8-10.8) K/uL RBC (4.2-5.4) M/uL Hgb (12.0-16.0) g/dL Hct (37-47) % MCV (80-100) fL MCH (25-34) pg MCHC (32-36) g/dL RDW Std Deviation (36.4-46.3) fL RDW Coeff of Fred (11.5-14.5) % Plt Count (130-400) K/uL MPV (7.4-10.4) fL Immature Gran % (Auto) % Neut % (Auto) % Lymph % (Auto) % [place] % (Auto) % Eos % (Auto) % Baso % (Auto) % Neut # (Auto) (1.4-6.5) K/uL Lymph # (Auto) (1.2-3.4) K/uL [place] # (Auto) (0.11-0.59) K/uL Eos # (Auto) (0-0.5) K/uL Baso # (Auto) (0-0.2) K/uL Immature Gran # (Auto) (0.00-0.02) K/uL ESR (0-30) mm/hr PT 34.5 H (9.0-12.0) Seconds INR 3.8 H (0.9-1.1) APTT 54.8 H* (21.0-31.0) Seconds PTT Ratio 2.1 Sodium (136-145) mmol/L Potassium (3.5-5.1) mmol/L Chloride (98-107) mmol/L Carbon Dioxide (21-32) mmol/L Anion Gap (3-11) BUN (6-23) mg/dl Creatinine (0.6-1.2) mg/dl Est Cr Clr Drug Dosing Est GFR ( Amer) ml/min Est GFR (Non-Af Amer) ml/min BUN/Creatinine Ratio (10-20) Glucose (70-99(Fasting)) mg/dl Calcium (8.5-10.1) mg/dl Total Bilirubin (0.2-1.0) mg/dl AST (13-39) U/L ALT (7-52) U/L Alkaline Phosphatase (34-104) U/L C-Reactive Protein 7.00 H (0-0.5) mg/dl Total Protein (6.0-8.3) gm/dl Albumin (3.4-5.0) gm/dl Globulin (2.5-4.0) gm/dl Albumin/Globulin Ratio (0.9-2) Procalcitonin 0.33 (0-0.5) ng/ml Adenovirus (PCR) (NotDetected) B. pertussis DNA (PCR) (NotDetected) B.parapertussis DNA PCR (NotDetected) C. pneumoniae DNA (PCR) (NotDetected) Coronavirus OC43 (PCR) (NotDetected) Coronavirus HKU1 (PCR) (NotDetected) Coronavirus 229E (PCR) (NotDetected) SARS-CoV-2 (PCR) (NotDetected) Coronavirus NL63 (PCR) (NotDetected) Human Metapneumovir PCR (NotDetected) Influenza Type A (PCR) (NotDetected) Influenza Type B (PCR) (NotDetected) M. pneumoniae (PCR) (NotDetected) Parainfluenza 1 (PCR) (NotDetected) Parainfluenza 2 (PCR) (NotDetected) Parainfluenza 3 (PCR) (NotDetected) Parainfluenza 4 (PCR) (NotDetected) RSV (PCR) (NotDetected) Entero/Rhino (PCR) (NotDetected) 07/13/21 Range/Units 15:18 WBC (4.8-10.8) K/uL RBC (4.2-5.4) M/uL Hgb (12.0-16.0) g/dL Hct (37-47) % MCV (80-100) fL MCH (25-34) pg MCHC (32-36) g/dL RDW Std Deviation (36.4-46.3) fL RDW Coeff of Fred (11.5-14.5) % Plt Count (130-400) K/uL MPV (7.4-10.4) fL Immature Gran % (Auto) % Neut % (Auto) % Lymph % (Auto) % [place] % (Auto) % Eos % (Auto) % Baso % (Auto) % Neut # (Auto) (1.4-6.5) K/uL Lymph # (Auto) (1.2-3.4) K/uL [place] # (Auto) (0.11-0.59) K/uL Eos # (Auto) (0-0.5) K/uL Baso # (Auto) (0-0.2) K/uL Immature Gran # (Auto) (0.00-0.02) K/uL ESR (0-30) mm/hr PT (9.0-12.0) Seconds INR (0.9-1.1) APTT (21.0-31.0) Seconds PTT Ratio Sodium (136-145) mmol/L Potassium (3.5-5.1) mmol/L Chloride (98-107) mmol/L Carbon Dioxide (21-32) mmol/L Anion Gap (3-11) BUN (6-23) mg/dl Creatinine (0.6-1.2) mg/dl Est Cr Clr Drug Dosing Est GFR ( Amer) ml/min Est GFR (Non-Af Amer) ml/min BUN/Creatinine Ratio (10-20) Glucose (70-99(Fasting)) mg/dl Calcium (8.5-10.1) mg/dl Total Bilirubin (0.2-1.0) mg/dl AST (13-39) U/L ALT (7-52) U/L Alkaline Phosphatase (34-104) U/L C-Reactive Protein (0-0.5) mg/dl Total Protein (6.0-8.3) gm/dl Albumin (3.4-5.0) gm/dl Globulin (2.5-4.0) gm/dl Albumin/Globulin Ratio (0.9-2) Procalcitonin (0-0.5) ng/ml Adenovirus (PCR) Not Detected (NotDetected) B. pertussis DNA (PCR) Not Detected (NotDetected) B.parapertussis DNA PCR Not Detected (NotDetected) C. pneumoniae DNA (PCR) Not Detected (NotDetected) Coronavirus OC43 (PCR) Not Detected (NotDetected) Coronavirus HKU1 (PCR) Not Detected (NotDetected) Coronavirus 229E (PCR) Not Detected (NotDetected) SARS-CoV-2 (PCR) Not Detected (NotDetected) Coronavirus NL63 (PCR) Not Detected (NotDetected) Human Metapneumovir PCR DETECTED A* (NotDetected) Influenza Type A (PCR) Not Detected (NotDetected) Influenza Type B (PCR) Not Detected (NotDetected) M. pneumoniae (PCR) Not Detected (NotDetected) Parainfluenza 1 (PCR) Not Detected (NotDetected) Parainfluenza 2 (PCR) Not Detected (NotDetected) Parainfluenza 3 (PCR) Not Detected (NotDetected) Parainfluenza 4 (PCR) Not Detected (NotDetected) RSV (PCR) Not Detected (NotDetected) Entero/Rhino (PCR) Not Detected (NotDetected) Administered Medications Sodium Chloride (Nss 1000ml) 1,000 mls @ 75 mls/hr IV .[id number] LORRAINE Stop: 07/14/21 21:31 Last Admin: 07/13/21 19:00 Dose: 75 mls/hr Documented by: [id number] Discontinued Medications Piperacillin Sod/Tazobactam Sod (Zosyn) 4.5 gm in 120 mls @ 240 mls/hr IV NOW ONE Stop: 07/13/21 16:00 Last Infusion: 07/13/21 16:53 Dose: 0 mls/hr Documented by: [id number] Admin: 07/13/21 16:19 Dose: 240 mls/hr Documented by: [id number] Phytonadione 2.5 mg/ Dextrose 50.25 mls @ 100.5 mls/hr IV ONE ONE Stop: 07/13/21 17:19 Last Infusion: 07/13/21 18:06 Dose: 0 mls/hr Documented by: [id number] Admin: 07/13/21 17:32 Dose: 100.5 mls/hr Documented by: [id number] Imaging Data Radiologist's Impression: Cervical Spine CT 07/13/21 12:18 CT cervical spine wo con CLINICAL HISTORY: fall from bed, head injury TECHNIQUE: Multidetector row helical CT of the cervical spine was performed without administration of intravenous contrast. Coronal and sagittal reformat ions were obtained. Automated dose lowering techniques and/or adjustment according to patient size were utilized for this exam. Comparison: None available at the time of this dictation. FINDINGS: Exam is limited by patient motion. No acute fractures or subluxations are identified. Degenerative changes are seen in the visualized spine. The alignment is normal. Soft tissues are unremarkable. IMPRESSION: Degenerative changes without evidence of acute bony injury. ACT 112: Negative or not required by law. Electronically signed by: Rangel Ramirez M.D. 07/13/2021 2:[address] 07/13/21 12:18 CT SCAN OF THE BRAIN WITHOUT IV CONTRAST CLINICAL HISTORY: Fall. Head injury. COMPARISON STUDY: CT of the brain dated 08/11/2019 TECHNIQUE: Unenhanced axial CT scan of the brain is performed from the vertex to the skull base. A dose lowering technique was utilized adhering to the principles of ALARA. The Examination is degraded by motion artifact. The patient was scanned twice in an effort to improve image quality. CT DOSE: 1915.68 mGycm FINDINGS: Brain parenchyma: There are age-related involutional changes noting mild subcortical and periventricular microangiopathic change. There is no hemorrhage, mass effect, or evidence of acute territorial ischemia by CT criteria. Lu- white matter differentiation is preserved. No extra-axial fluid collection is seen. Ventricles, sulci, cisterns: Prominent secondary to involutional change. Intracranial vasculature: There is atherosclerotic calcification of the cavernous carotid and vertebral arteries. Calvarium: The skeletal structures are osteopenic. Soft tissues: There is a large frontal scalp hematoma. Sinuses and mastoids: There is evidence of previous paranasal sinus surgery. The proximal 3 cm focus of polypoid material is seen within the left maxillary antrum/nasopharynx. The remaining visualized paranasal sinuses are clear. The mastoid air cells are well pneumatized. Cerumen is noted in the right external auditory canal. Orbits: The bony orbits are grossly intact. There are bilateral ocular lens implants. IMPRESSION: 1. There is no hemorrhage, mass effect, or evidence of acute territorial ischemia by CT criteria noting a motion degraded examination. 2. Large frontal scalp hematoma. 3. No depressed calvarial fracture is identified. 4. Left maxillary sinus/nasopharyngeal disease as above. ACT 112: Negative or not required by law. Electronically signed by: Serge Adair M.D. 07/13/2021 2:31 PM Abdomen/Pelvis CT 07/13/21 13:44 CT chest diagnostic wo con, CT abd pelvis wo con CT DOSE: 1384.93 mGycm CLINICAL HISTORY: 86 years-old Female with fall out of bed, dementia. Acute ch est and abdominal trauma status post fall TECHNIQUE: Multiaxial CT images of the chest, abdomen and pelvis were performed without contrast. A dose lowering technique was utilized adhering to the principles of ALARA. COMPARISON: CT lumbar spine 08/12/2019 FINDINGS: CT CHEST: Moderate to marked cardiomegaly. Prior median sternotomy and CABG with extensive [place] coronary artery calcifications. No pericardial effusion. Calcifications of the thoracic aorta without aneurysm. Dilated main pulmonary artery suggestive of pulmonary artery hypertension. 1.1 cm right-sided thyroid nodule. There are no pathologically enlarged lymph nodes of the chest identified. There are a few scattered nonspecific prominently subcentimeter mediastinal lymph nodes measuring up to 8 mm. No pneumothorax, pleural effusion or overt pulmonary edema. There are patchy multilobar tree-in-bud and nodular consolidative opacities. The study is limited secondary to respiratory motion artifact. Bronchial wall thickening with bibasilar mucous plugging. Scattered bilateral breast calcifications. 2.2 x 1.5 x 1.7 cm mass is noted within the right paramedian chest wall on image 102 series 4, possibly a breast mass of the superior medial quadrant. No paravertebral edema. Degenerative changes of the spine and shoulders. No acute fracture identified. No suspicious bone lesions. CT ABDOMEN/PELVIS: Nonspecific wall thickening of the mid to distal esophagus with moderate sized hiatal hernia. Limited evaluation of the solid abdominal organs without the use of IV contrast. The study is also limited secondary to upper extremity positioning and respiratory motion artifact. The unenhanced spleen, pancreas and liver appear unremarkable. Gallstones are noted within the bladder neck. No CT evidence of acute cholecystitis. There is no biliary ductal dilation. Indeterminate 1.8 x 1.3 cm ovoid soft tissue nodule within the upper abdomen on image 65 series 7, possibly lymph node or splenule. Thickening of the adrenal glands suggestive of hyperplasia, left greater than right. There is mild cortical thinning of the kidneys. There is a cluster of punctate calcifications noted within the right kidney on image 120 series 7 which are i ndeterminate. Nonobstructing renal calculi or hydronephrosis. 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 Unremarkable urinary bladder. Atrophic uterus. No adnexal mass lesions. Atherosclerosis of the abdominal aorta with infrarenal ectasia measuring up to 2.5 x 2.4 cm. No adenopathy. Nonspecific soft tissue prominence is noted within the distribution of the right common femoral vein which may be postoperative with a 1.9 cm adjacent area suggestive of scarring versus seroma within the subcutaneous right inguinal distribution. No bowel obstruction or bowel wall thickening. Colonic diverticulosis. The appendix is not diagnostically visualized. There is minimal presacral/perirectal edema. Scattered small and large bowel air-fluid levels are likely physiologic. No retroperitoneal hematoma. Degenerative changes of the spine, pelvis and hips. Severe disc space narrowing at L2-L3. Severe osteoarthritis of the right hip. IMPRESSION: 1. No acute posttraumatic intrathoracic, intra-abdominal or intrapelvic abnormality identified. 2. No acute solid organ injury or acute fracture. 3. Scattered multilobar bilateral tree-in-bud and nodular consolidative opacities are suggestive of an infectious or inflammatory bronchiolitis/pneumonitis. 4. 2.2 cm left breast mass. Mammographic workup is needed. 5. Cardiomegaly without pulmonary edema. 6. Moderate sized hiatal hernia with mid to distal esophageal wall thickening. 7. Mild nonspecific presacral/perirectal edema of unknown etiology. 8. Cholelithiasis. 9. Additional findings as above. ACT 112: Positive. There are findings on this exam that require communication between the performing entity and the patient following Patient Test Result Information Act ([place] Act 112) guidelines. Electronically signed by: Alen Palacio M.D. 07/13/2021 2:[address] 07/13/21 13:44 CT chest diagnostic wo con, CT abd pelvis wo con CT DOSE: 1384.93 mGycm CLINICAL HISTORY: 86 years-old Female with fall out of bed, dementia. Acute chest and abdominal trauma status post fall TECHNIQUE: Multiaxial CT images of the chest, abdomen and pelvis were performed without contrast. A dose lowering technique was utilized adhering to the principles of ALARA. COMPARISON: CT lumbar spine 08/12/2019 FINDINGS: CT CHEST: Moderate to marked cardiomegaly. Prior median sternotomy and CABG with extensive [place] coronary artery calcifications. No pericardial effusion. Calcifications of the thoracic aorta without aneurysm. Dilated main pulmonary artery suggestive of pulmonary artery hypertension. 1.1 cm right-sided thyroid nodule. There are no pathologically enlarged lymph nodes of the chest identified. There are a few scattered nonspecific prominently subcentimeter mediastinal lymph nodes measuring up to 8 mm. No pneumothorax, pleural effusion or overt pulmonary edema. There are patchy multilobar tree-in-bud and nodular consolidative opacities. The study is limited secondary to respiratory motion artifact. Bronchial wall thickening with bibasilar mucous plugging. Scattered bilateral breast calcifications. 2.2 x 1.5 x 1.7 cm mass is noted within the right paramedian chest wall on image 102 series 4, possibly a breast mass of the superior medial quadrant. No paravertebral edema. Degenerative changes of the spine and shoulders. No acute fracture identified. No suspicious bone lesions. CT ABDOMEN/PELVIS: Nonspecific wall thickening of the mid to distal esophagus with moderate sized hiatal hernia. Limited evaluation of the solid abdominal organs without the use of IV contrast. The study is also limited secondary to upper extremity positioning and respiratory motion artifact. The unenhanced spleen, pancreas and liver appear unremarkable. Gallstones are noted within the bladder neck. No CT evidence of acute cholecystitis. There is no biliary ductal dilation. Indet erminate 1.8 x 1.3 cm ovoid soft tissue nodule within the upper abdomen on image 65 series 7, possibly lymph node or splenule. Thickening of the adrenal glands suggestive of hyperplasia, left greater than right. There is mild cortical thinning of the kidneys. There is a cluster of punctate calcifications noted within the right kidney on image 120 series 7 which are indeterminate. Nonobstructing renal calculi or hydronephrosis. 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 Unremarkable urinary bladder. Atrophic uterus. No adnexal mass lesions. Atherosclerosis of the abdominal aorta with infrarenal ectasia measuring up to 2.5 x 2.4 cm. No ad enopathy. Nonspecific soft tissue prominence is noted within the distribution of the right common femoral vein which may be postoperative with a 1.9 cm adjacent area suggestive of scarring versus seroma within the subcutaneous right inguinal distribution. No bowel obstruction or bowel wall thickening. Colonic diverticulosis. The appendix is not diagnostically visualized. There is minimal presacral/perirectal edema. Scattered small and large bowel air-fluid levels are likely physiologic. No retroperitoneal hematoma. Degenerative changes of the spine, pelvis and hips. Severe disc space narrowing at L2-L3. Severe osteoarthritis of the right hip. IMPRESSION: 1. No acute posttraumatic intrathoracic, intra-abdominal or intrapelvic abnormality identified. 2. No acute solid organ injury or acute fracture. 3. Scattered multilobar bilateral tree-in-bud and nodular consolidative op acities are suggestive of an infectious or inflammatory bronchiolitis/pneumonitis. 4. 2.2 cm left breast mass. Mammographic workup is needed. 5. Cardiomegaly without pulmonary edema. 6. Moderate sized hiatal hernia with mid to distal esophageal wall thickening. 7. Mild nonspecific presacral/perirectal edema of unknown etiology. 8. Cholelithiasis. 9. Additional findings as above. ACT 112: Positive. There are findings on this exam that require communication between the performing entity and the patient following Patient Test Result Information Act ([place] Act 112) guidelines. Electronically signed by: Alen Palacio M.D. 07/13/2021 2:52 PM Discharge Plan Visit Data Chief Complaint: Fall ED Provider: Tom Paredes ED Midlevel Provider: Geni Corbin Discharge Problem: Fall, Altered mental status, Pneumonia, Traumatic cephalohematoma Patient Disposition: Admitted As Inpatient Discharge Instructions Interventions: ED Discharge Assessment Last Done: 07/13/21 18:51
--- NOTE | 2021-07-13 14:32 | CT Scan Report ---
CT SCAN OF THE BRAIN WITHOUT IV CONTRAST CLINICAL HISTORY: Fall. Head injury. COMPARISON STUDY: CT of the brain dated 08/11/2019 TECHNIQUE: Unenhanced axial CT scan of the brain is performed from the vertex to the skull base. A do se lowering technique was utilized adhering to the principles of ALARA. The Examination is degraded b y motion artifact. The patient was scanned twice in an effort to improve image quality. CT DOSE: 1915.68 mGycm FINDINGS: Brain parenchyma: There are age-related involutional changes noting mild subcortical and periventric ular microangiopathic change. There is no hemorrhage, mass effect, or evidence of acute territorial i schemia by CT criteria. Lu-white matter differentiation is preserved. No extra-axial fluid collecti on is seen. Ventricles, sulci, cisterns: Prominent secondary to involutional change. Intracranial vasculature: There is atherosclerotic calcification of the cavernous carotid and vertebr al arteries. Calvarium: The skeletal structures are osteopenic. Soft tissues: There is a large frontal scalp hematoma. Sinuses and mastoids: There is evidence of previous paranasal sinus surgery. The proximal 3 cm focus of polypoid material is seen within the left maxillary antrum/nasopharynx. The remaining visualized p aranasal sinuses are clear. The mastoid air cells are well pneumatized. Cerumen is noted in the right external auditory canal. Orbits: The bony orbits are grossly intact. There are bilateral ocular lens implants. IMPRESSION: 1. There is no hemorrhage, mass effect, or evidence of acute territorial ischemia by CT criteria noti ng a motion degraded examination. 2. Large frontal scalp hematoma. 3. No depressed calvarial fracture is identified. 4. Left maxillary sinus/nasopharyngeal disease as above. ACT 112: Negative or not required by law. Electronically signed by: Serge Adair M.D. 07/13/2021 2:31 PM
--- NOTE | 2021-07-13 14:35 | CT Scan Report ---
CT cervical spine wo con CLINICAL HISTORY: fall from bed, head injury TECHNIQUE: Multidetector row helical CT of the cervical spine was performed without administration of intravenous contrast. Coronal and sagittal reformations were obtained. Automated dose lowering techn iques and/or adjustment according to patient size were utilized for this exam. Comparison: None available at the time of this dictation. FINDINGS: Exam is limited by patient motion. No acute fractures or subluxations are identified. Degenerative ch anges are seen in the visualized spine. The alignment is normal. Soft tissues are unremarkable. IMPRESSION: Degenerative changes without evidence of acute bony injury. ACT 112: Negative or not required by law. Electronically signed by: Rangel Ramirez M.D. 07/13/2021 2:34 PM
--- NOTE | 2021-07-13 14:53 | CT Scan Report ---
CT chest diagnostic wo con, CT abd pelvis wo con CT DOSE: 1384.93 mGycm CLINICAL HISTORY: 86 years-old Female with fall out of bed, dementia. Acute chest and abdominal trau ma status post fall TECHNIQUE: Multiaxial CT images of the chest, abdomen and pelvis were performed without contrast. A dose lowering technique was utilized adhering to the principles of ALARA. COMPARISON: CT lumbar spine 08/12/2019 FINDINGS: CT CHEST: Moderate to marked cardiomegaly. Prior median sternotomy and CABG with extensive [place] coronary mae ry calcifications. No pericardial effusion. Calcifications of the thoracic aorta without aneurysm. Di lated main pulmonary artery suggestive of pulmonary artery hypertension. 1.1 cm right-sided thyroid n odule. There are no pathologically enlarged lymph nodes of the chest identified. There are a few scat tered nonspecific prominently subcentimeter mediastinal lymph nodes measuring up to 8 mm. No pneumothorax, pleural effusion or overt pulmonary edema. There are patchy multilobar tree-in-bud a nd nodular consolidative opacities. The study is limited secondary to respiratory motion artifact. Br onchial wall thickening with bibasilar mucous plugging. Scattered bilateral breast calcifications. 2. 2 x 1.5 x 1.7 cm mass is noted within the right paramedian chest wall on image 102 series 4, possibly a breast mass of the superior medial quadrant. No paravertebral edema. Degenerative changes of the s [place] and shoulders. No acute fracture identified. No suspicious bone lesions. CT ABDOMEN/PELVIS: Nonspecific wall thickening of the mid to distal esophagus with moderate sized hiatal hernia. Limited evaluation of the solid abdominal organs without the use of IV contrast. The study is also limited s econdary to upper extremity positioning and respiratory motion artifact. The unenhanced spleen, pancr eas and liver appear unremarkable. Gallstones are noted within the bladder neck. No CT evidence of ac [place] cholecystitis. There is no biliary ductal dilation. Indeterminate 1.8 x 1.3 cm ovoid soft tissue nodule within the upper abdomen on image 65 series 7, possibly lymph node or splenule. Thickening of the adrenal glands suggestive of hyperplasia, left greater than right. There is mild cortical thinning of the kidneys. There is a cluster of punctate calcifications noted w ithin the right kidney on image 120 series 7 which are indeterminate. Nonobstructing renal calculi or hydronephrosis. 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 Unremarkabl e urinary bladder. Atrophic uterus. No adnexal mass lesions. Atherosclerosis of the abdominal aorta w ith infrarenal ectasia measuring up to 2.5 x 2.4 cm. No adenopathy. Nonspecific soft tissue prominenc e is noted within the distribution of the right common femoral vein which may be postoperative with a 1.9 cm adjacent area suggestive of scarring versus seroma within the subcutaneous right inguinal dis tribution. No bowel obstruction or bowel wall thickening. Colonic diverticulosis. The appendix is not diagnostic ally visualized. There is minimal presacral/perirectal edema. Scattered small and large bowel air-flu id levels are likely physiologic. No retroperitoneal hematoma. Degenerative changes of the spine, pel vis and hips. Severe disc space narrowing at L2-L3. Severe osteoarthritis of the right hip. IMPRESSION: 1. No acute posttraumatic intrathoracic, intra-abdominal or intrapelvic abnormality identified. 2. No acute solid organ injury or acute fracture. 3. Scattered multilobar bilateral tree-in-bud and nodular consolidative opacities are suggestive of a n infectious or inflammatory bronchiolitis/pneumonitis. 4. 2.2 cm left breast mass. Mammographic workup is needed. 5. Cardiomegaly without pulmonary edema. 6. Moderate sized hiatal hernia with mid to distal esophageal wall thickening. 7. Mild nonspecific presacral/perirectal edema of unknown etiology. 8. Cholelithiasis. 9. Additional findings as above. ACT 112: Positive. There are findings on this exam that require communication between the performing entity and the patient following Patient Test Result Information Act ([place] Act 112) guidelines. Electronically signed by: Alen Palacio M.D. 07/13/2021 2:52 PM
[2021-07-13] MEDS ORDERED: PIPERACILLIN/TAZOBACTAM 4.5 GM/120 ML BAG IV ONE (15:31)
[2021-07-13] MEDS ORDERED: PIPERACILL/TAZOBAC CONSULT ACTIVE PRN ×2 (15:31→18:52)
--- NOTE | 2021-07-13 16:06 | History & Physical Report ---
Date of Service July 13, 2021 Assessment & Plan (1) Acute metabolic encephalopathy: (2) Hypoxia: (3) Pneumonia: (4) Fall: (5) Supratherapeutic INR: (6) Diabetes mellitus type 2 with complications: (7) Atrial fibrillation: (8) CAD (coronary artery disease): (9) CKD (chronic kidney disease) stage 4, GFR 15-29 ml/min: Plan: This is an 86-year-old female who has significant past medical history of CAD status post CABG x3, chronic atrial fibrillation on warfarin, CKD stage IV, HTN, HLD, T2DM, PAD/PVD who resides at [facility] and presents to ED secondary to altered mental status x2 days and fall from standing position that was unwitnessed. Altered mental status -likely in setting of infectious state as well as mild TBI secondary to fall and hitting head Hypoxia Bilateral pneumonitis Admit to telemetry Neurochecks every 2 hours Continue O2 supplementation IV Zosyn, MRSA screen N.p.o. given mental status Gentle IV fluid Blood and urine cultures pending, procalcitonin pending, respiratory panel pending Pulmonary toilet with nebs, spirometry and flutter valve when able Fall Large left frontal scalp hematoma Likely mild TBI Repeat CT in a.m. in setting of supratherapeutic INR Supportive care Ice 3 times daily to hematoma Neurochecks every 2 SupraTherapeutic INR Give vitamin K 2.5 IV x1 now in setting of large scalp hematoma Hold warfarin INR in a.m. T2DM Last A1c 7.4 on 07/01/2021 Hold glipizide lantus/novolog per protocol Chronic Afib hold warfarin continue metoprolol RVR 2/2 to underlying infection CAD with history of CABG x3 On statin, Imdur, metoprolol as outpatient On hold in setting of n.p.o. status due to mental status CKD stage 4 baseline cr 1.8-2.0 bun/cr 31 and 2.13 PVD/PAD has ischemic ulcers to r toe 2/ consult wound care was on oral keflex as outpt to complete on 07/16, will in setting of IV Zosyn These are chronic, tx with betadine as outpt, consider further w/u if sx do not improve despite above tx esr/crp ordered Dvt ppx: none in setting of elevated INR, ischemic wounds to R toes Dispo: Tele, pt to be NPO for now until mental status improves, PT/OT consulted but likely unable to obtain formal consults until more back to baseline Conditional code: Spoke with son who is agreeable for CPR and initial measure, the patient has expressed wishes that she would not want to be on a ventilator, feeding tube. Antibiotics and current above treatment is okay. PCP: Gay Patient was seen and examined in collaboration with Dr. Cortes, please see addendum The chart was completed utilizing [employer] Speech voice recognition software. Grammatical errors, random word insertions, pronoun errors, and incomplete sentences are an occasional consequence of this system due to software limitations, ambient noise, and hardware issues. Any formal questions or concerns about the content, text, or information contained within the body of this dictation should be directly addressed to the provider for clarification. History of Present Illness Chief Complaint: Altered mental status x 2 days. Primary Care Provider: [facility] This is an 86-year-old female who has significant past medical history of CAD status post CABG x3, chronic afibrillation on warfarin, CKD stage IV, HTN, HLD, T2DM, PAD/PVD who resides at [facility] and presents to ED secondary to altered mental status x2 days and fall from standing position that was unwitnessed. Of significance patient does have ischemic ulcers of right second and third toe. She status post balloon angioplasty of right lower extremity for PVD. She has been receiving treatment with Keflex 500 mg 3 times daily for infected toes which per PCP report has been improving. Staff had noticed over the past 2 days patient become more altered and at baseline she is usually alert and oriented x3. Today she developed fever of 102.5 and tachycardia with heart rate in the 150s. She also had an unwitnessed fall and was found on floor by bed by staff. She was noted to have swelling and contusion to her left forehead. Given worsening status and altered mental status she was sent to ED for further evaluation. In ED patient was hypoxic requiring O2 via nasal cannula. She was alert and would arouse to name, but not oriented. She had significant left forehead contusion. Initial head CT was negative for hemorrhage but did reveal a large frontal scalp hematoma. CT chest also revealed scattered multilobular bilateral tree-in-bud and nodular consolidative opacities which was suggestive of infectious or inflammatory bronchiolitis or pneumonitis. She was started empirically on IV Zosyn. Blood culture obtained. ROS was unobtainable from patient secondary to cognitive status. Allergies Allergy/AdvReac Type Severity Reaction Status Date / Time aspirin Allergy Severe PEPTIC Verified 07/13/21 15:16 ULCER DISEASE WITH HEMMORAGE codeine Allergy Unknown ON WINDY Verified 07/13/21 15:16 HILL MED LIST oxytetracycline Allergy Unknown SEVERE Verified 07/13/21 15:16 SWELLING polymyxin B Allergy Unknown SEVERE Verified 07/13/21 15:16 SWELLING Home Medications Medication Instructions Recorded Confirmed Type cetirizine 10 mg tablet 10 mg PO QAM 03/27/19 07/13/21 History furosemide 20 mg tablet 20 mg PO Q OTHER DAY 03/27/19 07/13/21 History gabapentin 100 mg capsule 200 mg PO BID 03/27/19 07/13/21 History magnesium oxide 400 mg PO BID 03/27/19 07/13/21 History metoprolol tartrate 100 mg tablet 100 mg PO BID 03/27/19 07/13/21 History warfarin 2 mg tablet (Jantoven) 6 mg PO MOFR 01/08/21 07/13/21 History isosorbide dinitrate 30 mg tablet 30 mg PO QAM tab 01/27/21 07/13/21 History acetaminophen 325 mg tablet 650 mg PO Q4H PRN MDD 3 /07/13/21 07/13/21 History (Tylenol) HOURS atorvastatin 80 mg tablet 40 mg PO HS 07/13/21 07/13/21 History cephalexin 500 mg capsule 500 mg PO TID 07/13/21 07/13/21 History cholecalciferol (vitamin D3) 50 50 mcg PO QAM 07/13/21 07/13/21 History mcg (2,000 unit) capsule (Vitamin D3) glipizide 5 mg tablet, extended 5 mg PO QAM 07/13/21 07/13/21 History release 24 hr nitroglycerin 0.4 mg sublingual 0.4 mg SUBLINGUAL DIRECTED PRN 07/13/21 07/13/21 History tablet (Nitrostat) povidone-iodine 10 % topical swab 1 applic TOPICAL BID 07/13/21 07/13/21 History (Betadine Swabsticks) warfarin 2 mg tablet 4 mg PO SUTUWETHSA 07/13/21 07/13/21 History Past Med/Surg History Medical History Ambulatory dysfunction cane prn AMS (altered mental status) gets confused per pt's son Atrial fibrillation dx over a year ago > follows with Dr. Jarvis > no pacer CAD (coronary artery disease) History of CABG x 3 > 1996 CKD (chronic kidney disease), stage III follows with Cecily Gordillo Diabetes mellitus type 2 with complications History of peptic ulcer disease HTN (hypertension) Hyperlipidemia Nasal polyp Left maxillary polyp noted on CT's 09/02/17 and 08/10/19. ENT eval recommended. 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 Jarvis T2DM (type 2 diabetes mellitus) Wound, open, toe Surgical History Amputation toe partial amp of L 03/02/21 History of appendectomy History of breast biopsy benign History of coronary artery bypass graft x 3 1996 History of nasal polypectomy History of tonsillectomy and adenoidectomy Family History Son Atrial fibrillation Mother Hypertension Social History Smoking Status: Never smoker packs per day: 1; Years Smoked: 20; Second Hand Exposure: No; Hx Alcohol Use: No Hx Substance Use: No Preferred Language: Mohawk Communication Ability: Effective Visual Impairment: Limited Hearing Ability: Hard of Hearing Railroad Dispatcher Required: No Beliefs That Will Affect Care: None marital status: Current Living Situation: Spouse current occupational status: retired How many Children do You have: 2 Feels Safe at Home: Yes Assistive Devices: Denture - Upper, Denture - Lower and Wheelchair Review of Systems Review of Systems: Unobtainable due to cognitive status Physical Exam Physical Exam: Constitutional: Elderly, female, critically ill,WD/WN, vitals as above, NAD, sitting up in bed, pleasant, conversing easily Head: Normocephalic, large left frontal scalp hematoma noted, ecchymosis Eyes: PERRL, conjunctivae normal, anicteric sclerae ENMT: external ear and nose normal, oropharynx dry mucous membranes Neck: trachea midline, no thyromegaly normal visual inspection Respiratory: normal respiratory effort, on 2 L of O2 via NC lungs clear to auscultation, scattered bilateral crackles left greater than right. Normal insp/exp effort, no accessory muscle use Cardiovascular: Irregular rate, irregular rhythm, no murmur, right lower extremity edema, right lower extremity ischemic vascular ulcers noted on toes 2 and 3, vessels: no JVD or carotid bruit Chest: normal inspection of chest Abdomen: normal bowel sounds, soft, nontender, no hepatosplenomegaly Musculoskeletal: no cyanosis or clubbing, unable to assess musculoskeletal in setting of AMS Skin: no rashes, warm and dry normal turgor Neurologic: PERRL, EOMI, accommodation nl, no face palsy, no dysarthria CN's II-XI intact bilaterally and moves all extremities Psychiatric: Arousable to name, but does not answer questions, euthymic affect Lymphatic: no cervical or axillary lymphadenopathy : deferred Results & Data Results & Data ([facility]) Vital Signs (Past 12 Hours) Vital Signs Temp Pulse Pulse Resp BP BP Pulse Ox 07/13/21 15:32 81 22 153/69 H 100 07/13/21 15:00 79 20 99 07/13/21 14:30 98 07/13/21 14:20 97 07/13/21 13:30 84 18 99 07/13/21 13:00 73 20 100 07/13/21 12:30 85 24 100 07/13/21 12:06 36.8 C 84 20 165/85 H 90 07/13/21 12:00 79 24 100 07/13/21 11:59 90 23 100 Diagnostic Findings Cervical Spine CT 07/13/21 12:18 CT cervical spine wo con CLINICAL HISTORY: fall from bed, head injury TECHNIQUE: Multidetector row helical CT of the cervical spine was performed without administration of intravenous contrast. Coronal and sagittal reformations were obtained. Automated dose lowering techniques and/or adjustment according to patient size were utilized for this exam. Comparison: None available at the time of this dictation. FINDINGS: Exam is limited by patient motion. No acute fractures or subluxations are identified. Degenerative changes are seen in the visualized spine. The alignment is normal. Soft tissues are unremarkable. IMPRESSION: Degenerative changes without evidence of acute bony injury. ACT 112: Negative or not required by law. Electronically signed by: Rangel Ramirez M.D. 07/13/2021 2:[address] 07/13/21 12:18 CT SCAN OF THE BRAIN WITHOUT IV CONTRAST CLINICAL HISTORY: Fall. Head injury. COMPARISON STUDY: CT of the brain dated 08/11/2019 TECHNIQUE: Unenhanced axial CT scan of the brain is performed from the vertex to the skull base. A dose lowering technique was utilized adhering to the principles of ALARA. The Examination is degraded by motion artifact. The patient was scanned twice in an effort to improve image quality. CT DOSE: 1915.68 mGycm FINDINGS: Brain parenchyma: There are age-related involutional changes noting mild subcortical and periventricular microangiopathic change. There is no hemorrhage, mass effect, or evidence of acute territorial ischemia by CT criteria. Lu- white matter differentiation is preserved. No extra-axial fluid collection is seen. Ventricles, sulci, cisterns: Prominent secondary to involutional change. Intracranial vasculature: There is atherosclerotic calcification of the cavernous carotid and vertebral arteries. Calvarium: The skeletal structures are osteopenic. Soft tissues: There is a large frontal scalp hematoma. Sinuses and mastoids: There is evidence of previous paranasal sinus surgery. The proximal 3 cm focus of polypoid material is seen within the left maxillary antrum/nasopharynx. The remaining visualized paranasal sinuses are clear. The mastoid air cells are well pneumatized. Cerumen is noted in the right external auditory canal. Orbits: The bony orbits are grossly intact. There are bilateral ocular lens implants. IMPRESSION: 1. There is no hemorrhage, mass effect, or evidence of acute territorial ischemia by CT criteria noting a motion degraded examination. 2. Large frontal scalp hematoma. 3. No depressed calvarial fracture is identified. 4. Left maxillary sinus/nasopharyngeal disease as above. ACT 112: Negative or not required by law. Electronically signed by: Serge Adair M.D. 07/13/2021 2:31 PM Abdomen/Pelvis CT 07/13/21 13:44 CT chest diagnostic wo con, CT abd pelvis wo con CT DOSE: 1384.93 mGycm CLINICAL HISTORY: 86 years-old Female with fall out of bed, dementia. Acute chest and abdominal trauma status post fall TECHNIQUE: Multiaxial CT images of the chest, abdomen and pelvis were performed without contrast. A dose lowering technique was utilized adhering to the principles of ALARA. COMPARISON: CT lumbar spine 08/12/2019 FINDINGS: CT CHEST: Moderate to marked cardiomegaly. Prior median sternotomy and CABG with extensive [place] coronary artery calcifications. No pericardial effusion. Calcifications of the thoracic aorta without aneurysm. Dilated main pulmonary artery suggestive of pulmonary artery hypertension. 1.1 cm right-sided thyroid nodule. There are no pathologically enlarged lymph nodes of the chest identified. There are a few scattered nonspecific prominently subcentimeter mediastinal lymph nodes measuring up to 8 mm. No pneumothorax, pleural effusion or overt pulmonary edema. There are patchy multilobar tree-in-bud and nodular consolidative opacities. The study is limited secondary to respiratory motion artifact. Bronchial wall thickening with bibasilar mucous plugging. Scattered bilateral breast calcifications. 2.2 x 1.5 x 1.7 cm mass is noted within the right paramedian chest wall on image 102 series 4, possibly a breast mass of the superior medial quadrant. No paravertebral edema. Degenerative changes of the spine and shoulders. No acute fracture identified. No suspicious bone lesions. CT ABDOMEN/PELVIS: Nonspecific wall thickening of the mid to distal esophagus with moderate sized hiatal hernia. Limited evaluation of the solid abdominal organs without the use of IV contrast. The study is also limited secondary to upper extremity positioning and respiratory motion artifact. The unenhanced spleen, pancreas and liver appear unremarkable. Gallstones are noted within the bladder neck. No CT evidence of acute cholecystitis. There is no biliary ductal dilation. Indeterminate 1.8 x 1.3 cm ovoid soft tissue nodule within the upper abdomen on image 65 series 7, possibly lymph node or splenule. Thickening of the adrenal glands suggestive of hyperplasia, left greater than right. There is mild cortical thinning of the kidneys. There is a cluster of punctate calcifications noted within the right kidney on image 120 series 7 which are indeterminate. Nonobstructing renal calculi or hydronephrosis. 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 Unremarkable urinary bladder. Atrophic uterus. No adnexal mass lesions. Atherosclerosis of the abdominal aorta with infrarenal ectasia measuring up to 2.5 x 2.4 cm. No adenopathy. Nonspecific soft tissue prominence is noted within the distribution of the right common femoral vein which may be postoperative with a 1.9 cm adjacent area suggestive of scarring versus seroma within the subcutaneous right inguinal distribution. No bowel obstruction or bowel wall thickening. Colonic diverticulosis. The appendix is not diagnostically visualized. There is minimal presacral/perirectal edema. Scattered small and large bowel air-fluid levels are likely physiologic. No retroperitoneal hematoma. Degenerative changes of the spine, pelvis and hips. Severe disc space narrowing at L2-L3. Severe osteoarthritis of the right hip. IMPRESSION: 1. No acute posttraumatic intrathoracic, intra-abdominal or intrapelvic abnormality identified. 2. No acute solid organ injury or acute fracture. 3. Scattered multilobar bilateral tree-in-bud and nodular consolidative opacities are suggestive of an infectious or inflammatory bronchiolitis/pneumonitis. 4. 2.2 cm left breast mass. Mammographic workup is needed. 5. Cardiomegaly without pulmonary edema. 6. Moderate sized hiatal hernia with mid to distal esophageal wall thickening. 7. Mild nonspecific presacral/perirectal edema of unknown etiology. 8. Cholelithiasis. 9. Additional findings as above. ACT 112: Positive. There are findings on this exam that require communication between the performing entity and the patient following Patient Test Result Information Act ([place] Act 112) guidelines. Electronically signed by: Alen Palacio M.D. 07/13/2021 2:[address] 07/13/21 13:44 CT chest diagnostic wo con, CT abd pelvis wo con CT DOSE: 1384.93 mGycm CLINICAL HISTORY: 86 years-old Female with fall out of bed, dementia. Acute chest and abdominal trauma status post fall TECHNIQUE: Multiaxial CT images of the chest, abdomen and pelvis were performed without contrast. A dose lowering technique was utilized adhering to the principles of ALARA. COMPARISON: CT lumbar spine 08/12/2019 FINDINGS: CT CHEST: Moderate to marked cardiomegaly. Prior median sternotomy and CABG with extensive [place] coronary artery calcifications. No pericardial effusion. Calcifications of the thoracic aorta without aneurysm. Dilated main pulmonary artery suggestive of pulmonary artery hypertension. 1.1 cm right-sided thyroid nodule. There are no pathologically enlarged lymph nodes of the chest identified. There are a few scattered nonspecific prominently subcentimeter mediastinal lymph nodes measuring up to 8 mm. No pneumothorax, pleural effusion or overt pulmonary edema. There are patchy multilobar tree-in-bud and nodular consolidative opacities. The study is limited secondary to respiratory motion artifact. Bronchial wall thickening with bibasilar mucous plugging. Scattered bilateral breast calcifications. 2.2 x 1.5 x 1.7 cm mass is noted within the right paramedian chest wall on image 102 series 4, possibly a breast mass of the superior medial quadrant. No paravertebral edema. Degenerative changes of the spine and shoulders. No acute fracture identified. No suspicious bone lesions. CT ABDOMEN/PELVIS: Nonspecific wall thickening of the mid to distal esophagus with moderate sized hiatal hernia. Limited evaluation of the solid abdominal organs without the use of IV contrast. The study is also limited secondary to upper extremity positioning and respiratory motion artifact. The unenhanced spleen, pancreas and liver appear unremarkable. Gallstones are noted within the bladder neck. No CT evidence of acute cholecystitis. There is no biliary ductal dilation. Indet erminate 1.8 x 1.3 cm ovoid soft tissue nodule within the upper abdomen on image 65 series 7, possibly lymph node or splenule. Thickening of the adrenal glands suggestive of hyperplasia, left greater than right. There is mild cortical thinning of the kidneys. There is a cluster of punctate calcifications noted within the right kidney on image 120 series 7 which are indeterminate. Nonobstructing renal calculi or hydronephrosis. 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 Unremarkable urinary bladder. Atrophic uterus. No adnexal mass lesions. Atherosclerosis of the abdominal aorta with infrarenal ectasia measuring up to 2.5 x 2.4 cm. No adenopathy. Nonspecific soft tissue prominence is noted within the distribution of the right common femoral vein which may be postoperative with a 1.9 cm adjacent area suggestive of scarring versus seroma within the subcutaneous right inguinal distribution. No bowel obstruction or bowel wall thickening. Colonic diverticulosis. The appendix is not diagnostically visualized. There is minimal presacral/perirectal edema. Scattered small and large bowel air-fluid levels are likely physiologic. No retroperitoneal hematoma. Degenerative changes of the spine, pelvis and hips. Severe disc space narrowing at L2-L3. Severe osteoarthritis of the right hip. IMPRESSION: 1. No acute posttraumatic intrathoracic, intra-abdominal or intrapelvic abnormality identified. 2. No acute solid organ injury or acute fracture. 3. Scattered multilobar bilateral tree-in-bud and nodular consolidative opacities are suggestive of an infectious or inflammatory bronchiolitis/pneumonitis. 4. 2.2 cm left breast mass. Mammographic workup is needed. 5. Cardiomegaly without pulmonary edema. 6. Moderate sized hiatal hernia with mid to distal esophageal wall thickening. 7. Mild nonspecific presacral/perirectal edema of unknown etiology. 8. Cholelithiasis. 9. Additional findings as above. ACT 112: Positive. There are findings on this exam that require communication between the performing entity and the patient following Patient Test Result Information Act ([place] Act 112) guidelines. Electronically signed by: Alen Palacio M.D. 07/13/2021 2:52 PM COVID-19 Results Results COVID-19 Adm Lab Results: RBC 3.49 M/uL (4.2-5.4) L 07/13/21 WBC 7.19 K/uL (4.8-10.8) 07/13/21 Hgb 9.3 g/dL (12.0-16.0) L 07/13/21 Hct 30.6 % (37-47) L 07/13/21 Plt Count 287 K/uL (130-400) 07/13/21 Neutrophils (%) (Auto) 70.0 % 07/13/21 Lymphocytes (%) (Auto) 19.7 % 07/13/21 Monocytes # (Auto) 0.70 K/uL (0.11-0.59) H 07/13/21 Eosinophils # (Auto) 0.01 K/uL (0-0.5) 07/13/21 Immature Granulocyte % (Auto) 0.1 % 07/13/21 Neutrophils # (Auto) 5.02 K/uL (1.4-6.5) 07/13/21 Lymphocytes # (Auto) 1.42 K/uL (1.2-3.4) 07/13/21 Monocytes # (Auto) 0.70 K/uL (0.11-0.59) H 07/13/21 Eosinophils # (Auto) 0.01 K/uL (0-0.5) 07/13/21 Basophils # (Auto) 0.03 K/uL (0-0.2) 07/13/21 Immature Granulocyte # (Auto) 0.01 K/uL (0.00-0.02) 07/13/21 Na 138 mmol/L (136-145) 07/13/21 K 4.7 mmol/L (3.5-5.1) 07/13/21 Cl 109 mmol/L (98-107) H 07/13/21 CO2 19 mmol/L (21-32) L 07/13/21 Anion Gap 10 (3-11) 07/13/21 BUN 31 mg/dl (6-23) H 07/13/21 Creatinine 2.13 mg/dl (0.6-1.2) H 07/13/21 BUN/Creatinine Ratio 14.6 (10-20) 07/13/21 Glucose Level 155 mg/dl (70-99(Fasting)) H 07/13/21 Ca 8.9 mg/dl (8.5-10.1) 07/13/21 Total Bilirubin 0.8 mg/dl (0.2-1.0) 07/13/21 AST/SGOT 15 U/L (13-39) 07/13/21 ALT/SGPT 10 U/L (7-52) 07/13/21 Alkaline Phosphatase 82 U/L (34-104) 07/13/21 Total Protein 6.8 gm/dl (6.0-8.3) 07/13/21 Albumin 3.5 gm/dl (3.4-5.0) 07/13/21 Globulin 3.3 gm/dl (2.5-4.0) 07/13/21 Albumin/Globulin Ratio 1.1 (0.9-2) 07/13/21 CRP 7.00 mg/dl (0-0.5) H 07/13/21 Procalcitonin 0.33 ng/ml (0-0.5) 07/13/21 PTT 54.8 Seconds (21.0-31.0) H* 07/13/21 INR 3.8 (0.9-1.1) H 07/13/21 Adenovirus (PCR) Not Detected (NotDetected) 07/13/21 B. parapertussis DNA (PCR) Not Detected (NotDetected) 07/13/21 B. pertussis DNA (PCR) Not Detected (NotDetected) 07/13/21 C. pneumoniae DNA (PCR) Not Detected (NotDetected) 07/13/21 Coronavirus Type OC43 (PCR) Not Detected (NotDetected) 07/13/21 Coronavirus Type HKU1 (PCR) Not Detected (NotDetected) 07/13/21 Coronavirus Type 229E (PCR) Not Detected (NotDetected) 07/13/21 COVID-19 PCR Not Detected (NotDetected) 07/13/21 Coronavirus Type NL63 (PCR) Not Detected (NotDetected) 07/13/21 Human Metapneumovirus (PCR) DETECTED (NotDetected) A* 07/13/21 Influenza Virus Type A (PCR) Not Detected (NotDetected) 07/13/21 Influenza Virus Type B (PCR) Not Detected (NotDetected) 07/13/21 M. pneumoniae (PCR) Not Detected (NotDetected) 07/13/21 Parainfluenza Type 1 (PCR) Not Detected (NotDetected) 07/13/21 Parainfluenza Type 2 (PCR) Not Detected (NotDetected) 07/13/21 Parainfluenza Type 3 (PCR) Not Detected (NotDetected) 07/13/21 Parainfluenza Type 4 (PCR) Not Detected (NotDetected) 07/13/21 RSV (PCR) Not Detected (NotDetected) 07/13/21 Enterovirus/Rhinovirus (PCR) Not Detected (NotDetected) 07/13/[address] 07/13/21 Code Status & VTE Plan VTE Prophylaxis Plan VTE Prophylaxis will be ordered: No Supervising Physician Co-Signing Physician Notes Patient is an 86-year-old female with history of coronary artery disease, chronic atrial fibrillation with anticoagulation with Coumadin, CKD stage IV and other medical problems presents with history of altered mental status since 2 days duration. Patient sustained an unwitnessed fall resulting in head trauma today. Currently she has altered mental status and unable to provide any history. She awakes on calling her name but otherwise nonverbal. Most of the history is obtained from ER physician and staff. Patient developed fever, tachycardia at nursing facility and so was sent to ED for further evaluation. Please review HPI for complete details of presentation. Patient was noted to be hypoxic while in ED and was placed on 2 L supplemental oxygen. Blood work suggestive of supratherapeutic INR 3.8, creatinine 2.13, anemia 9.3, normal lactate, procalcitonin, ammonia levels. CRP elevated at 7.0. Covid screen is negative. Respiratory panel showed human [place] pneumo virus. CT chest suggestive of scattered multifocal bilateral tree-in-bud and nodular consolidative opacities suggestive of pneumonitis, bronchitis. Also incidentally noted 2.2 cm left breast mass. CT head showed no acute intracranial abnormality but suggestive of large frontal scalp hematoma. Exam patient is elderly, ill-appearing, no apparent distress, normocephalic,+ frontal hematoma, EOMI, normal breath sounds, scattered crackles predominantly at bases, no accessory muscle use, irregularly irregular rhythm, no murmur, right lower extremity edema present, multiple toes gangrenous-chronic as per records. Patient is admitted for management of acute metabolic encephalopathy, multifocal pneumonia, hypoxia, unwitnessed fall resulting in frontal scalp hematoma. Agree with starting on broad-spectrum antibiotics. Gentle IV fluids, blood cultures obtained. Fall precautions, PT OT requested. Consider pulmonary evaluation if respiratory failure occurs. Will give vitamin K given possibility of worsening scalp hematoma and change in mental status while on Coumadin, supratherapeutic INR. Will repeat CT head tomorrow and consider neurology evaluation if needed. I personally reviewed the record. Patient is interviewed and examined at bedside. Patient's care is coordinated with Karen Capone PA-C. Please refer to the documentation above for details of patient's presentation and for discussion of other issues.
[2021-07-13 16:27] LABS: Adenovirus PCR Not Detected (NotDetected); Bordetella parapertussis PCR Not Detected (NotDetected); Bordetella pertussis PCR Not Detected (NotDetected); Chlamydia pneumoniae PCR Not Detected (NotDetected); Coronavirus 229E PCR Not Detected (NotDetected); Coronavirus CoV-2 (COVID19)PCR Not Detected (NotDetected); Coronavirus HKU1 PCR Not Detected (NotDetected); Coronavirus NL63 PCR Not Detected (NotDetected); Coronavirus OC43PCR Not Detected (NotDetected); Influenza A PCR Not Detected (NotDetected); Influenza B PCR Not Detected (NotDetected); Mycoplasma pneumoniae PCR Not Detected (NotDetected); Parainfluenza Virus 1 PCR Not Detected (NotDetected); Parainfluenza Virus 2 PCR Not Detected (NotDetected); Parainfluenza Virus 3 PCR Not Detected (NotDetected); Parainfluenza Virus 4 PCR Not Detected (NotDetected); Respiratory Syncytial VirusPCR Not Detected (NotDetected); Rhinovirus/Enterovirus PCR Not Detected (NotDetected)
[2021-07-13] MEDS ORDERED: PHYTONADIONE 2.5 MG in DEXTROSE 5% 50 ML IV ONE (16:50)
[2021-07-13 16:53] LABS: Human Metapneumovirus PCR DETECTED (NotDetected)
[2021-07-13 16:55] LABS: Appearance Urine Clear (Clear); Bacteria Urine Automated Negative (Negative); Bilirubin Urine Negative (Negative); Blood Urine Negative (Negative); Color Urine Yellow; Epithelial Cell Urine Auto 20-30 /lpf (0-5); Glucose Urine UA Negative (Negative); Ketones Urine Negative (Negative); Leukocyte Esterase Urine Negative (Negative); Nitrite Urine Negative (Negative); Protein Urine 1+ (Negative); RBC Urine Automated 0-4 /hpf (0-4); Specific Gravity Urine 1.017 (1.000-1.030); Urobilinogen Urine Negative (Negative); pH Urine 6.5 (4.5-7.5)
[2021-07-13 18:02] LABS: Base Excess VBG -5.3 mEq/L; Oxygen Saturation VBG 83.7 %; pH VBG 7.32 (7.36-7.41)
[2021-07-13] MEDS ORDERED: GLUCOSE 40% GEL 15 GM TUBE PO PRN (18:52)
[2021-07-13] MEDS ORDERED: ALBUTEROL 0.083% NEBU SOLN 3 ML VIAL NEB PRN (18:52)
[2021-07-13] MEDS ORDERED: ACETAMINOPHEN 325 MG TAB PO PRN (18:52)
[2021-07-13] MEDS ORDERED: GLUCOSE 10 TABS/TUBE PO PRN (18:52)
[2021-07-13] MEDS ORDERED: ONDANSETRON INJ 2 MG/ML 2 ML VIAL IV PRN (18:52)
[2021-07-13] MEDS ORDERED: POLYETHYLENE (MIRALAX) 17 GM PACK PO PRN (18:52)
[2021-07-13] MEDS ORDERED: MAGNESIUM HYDROXIDE SUSP 30 ML UDC PO PRN (18:52)
[2021-07-13] MEDS ORDERED: CARBOHYDRATES FOR HYPOGLYCEMIA PO PRN (18:52)
[2021-07-13] MEDS ORDERED: GLUCAGON FOR INJ 1 MG VIAL SQ PRN (18:52)
[2021-07-13] MEDS ORDERED: DEXTROSE 50% 50 ML SYRINGE IV PRN (18:52)
[2021-07-13] MEDS ORDERED: ALUMINUM/MAGNESIUM SUSP 30 ML UDC PO PRN (18:52)
[2021-07-13] MEDS: SODIUM CHLORIDE 0.9% 1000ML 1,000 ML IV SCH (19:00)
--- NOTE | 2021-07-13 20:46 | Emergency Department Note ---
ED Visit Note Physician Evaluation Note: I have personally evaluated and examined this patient. I agree with assessment and plan of Geni Corbin PA-C. 86 yr old female with likely aspiration event along with significant head injury without ICH. She is confused, moderately obtunded and in respiratory distress. Discussion with son at bedside and she is DNR though he is comfortable with trialing BiPAP while awaiting rest of family to arrival. Tom Paredes MD
[2021-07-13] MEDS: INSULIN ASPART PER UNIT SC SCH (21:49)
[2021-07-13] MEDS: INSULIN GLARGINE SOLOSTAR 100 UNITS/ML 3 ML PEN SC SCH (21:51)
[2021-07-14] MEDS: PIPERACILLIN/TAZOBACTAM 3.375 GM in DEXTROSE 5% 100 ML IV SCH ×2 (01:33→13:25)
[2021-07-14 07:23] LABS: Basophils # (auto) 0.01 K/uL (0-0.2); Basophils % (auto) 0.2 %; Eosinophils # (auto) 0.02 K/uL (0-0.5); Eosinophils % (auto) 0.4 %; Hematocrit (blood only) 26.1 % (37-47); Hemoglobin 7.9 g/dL (12.0-16.0); Immature Granulocytes # (auto) 0.01 K/uL (0.00-0.02); Immature Granulocytes % (auto) 0.2 %; Lymphocytes # (auto) 0.86 K/uL (1.2-3.4); Lymphocytes % (auto) 16.6 %; Mean Corpuscular Hemoglobin 26.4 pg (25-34); Mean Corpuscular Hgb Conc 30.3 g/dL (32-36); Mean Corpuscular Volume 87.3 fL (80-100); Mean Platelet Volume 9.8 fL (7.4-10.4); Monocytes # (auto) 0.47 K/uL (0.11-0.59); Monocytes % (auto) 9.1 %; Neutrophils # (auto) 3.82 K/uL (1.4-6.5); Neutrophils % (auto) 73.5 %; Platelet Count 214 K/uL (130-400); RDW Coefficient of Variation 17.6 % (11.5-14.5); RDW Standard Deviation 56.7 fL (36.4-46.3); Red Blood Count 2.99 M/uL (4.2-5.4); White Blood Count 5.19 K/uL (4.8-10.8)
[2021-07-14 07:24] LABS: Allen Test Pos (Pos); Base Excess ABG -2.8 mEq/L (-9-1.8); HCO3 ABG 21 mmol/L (19-24); PCO2 ABG 33 mmHg (35-46); PO2 ABG 195 mmHg (80-95); pH ABG 7.43 (7.35-7.45)
[2021-07-14 07:31] LABS: INR 1.6 (0.9-1.1); Prothrombin Time 15.6 Seconds (9.0-12.0)
[2021-07-14 07:45] LABS: Albumin Globulin Ratio 1.2 (0.9-2); BUN Creatinine Ratio 15.7 (10-20); Bilirubin,Total 0.7 mg/dl (0.2-1.0); Creatinine Clr Calc Pharmacy 18.5 ml/min; Est GFR (Non-African American) 22.5 ml/min; Globulin 2.6 gm/dl (2.5-4.0); Potassium 3.8 mmol/L (3.5-5.1); Total Protein 5.6 gm/dl (6.0-8.3)
--- NOTE | 2021-07-14 08:33 | CT Scan Report ---
CT head/brain wo con CLINICAL HISTORY: 86 years-old Female with repeat, fall, on warfarin. Acute head injury status post fall TECHNIQUE: Multiple axial CT images of the head were obtained without contrast. A dose lowering tech nique was utilized adhering to the principles of ALARA. CT DOSE: 1257.71 mGy.cm COMPARISON: 07/13/2021 FINDINGS: No acute intracranial hemorrhage, midline shift, intracranial mass, hydrocephalus, territorial ischem ia or abnormal extra-axial collection. Age-related involutional changes. White matter hypodensities s uggestive of chronic microvascular ischemic disease. The study is mildly motion degraded. Calcificati ons of the falx cerebri. Large left frontal scalp hematoma redemonstrated. No acute calvarial fracture. Prior bilateral lens r epair. Mastoid air cells are clear. Polypoid mucosal thickening measuring approximately 3 cm is rede monstrated within the maxillary sinus. IMPRESSION: 1. Mildly motion degraded exam without acute intracranial abnormality identified. 2. Large left frontal scalp hematoma redemonstrated. ACT 112: Negative or not required by law. The above report was generated using voice recognition software. It may contain grammatical, syntax o r spelling errors. Electronically signed by: Alen Palacio M.D. 07/14/2021 8:32 AM
[2021-07-14] MEDS: INSULIN ASPART PER UNIT SC SCH ×4 (08:59→20:08)
[2021-07-14] MEDS: INSULIN GLARGINE SOLOSTAR 100 UNITS/ML 3 ML PEN SC SCH ×2 (09:00→21:03)
[2021-07-14] MEDS: SODIUM CHLORIDE 0.9% 1000ML 1,000 ML IV SCH (09:12)
[2021-07-14] MEDS: METOPROLOL TARTRATE 100 MG TAB PO SCH ×2 (09:15→20:12)
[2021-07-14] MEDS: ISOSORBIDE DINITRATE 10 MG TAB PO SCH (09:15)
[2021-07-14 09:20] LABS: Echinocytes 1+; Hypochromasia Present; Polychromasia 1+
--- NOTE | 2021-07-14 11:42 | Electrocardiogram Report ---
Test Reason : Blood Pressure : / mmHG Vent. Rate : 095 BPM Atrial Rate : 277 BPM P-R Int : 000 ms QRS Dur : 140 ms QT Int : 392 ms P-R-T Axes : 000 162 001 degrees QTc Int : 492 ms Atrial fibrillation with premature ventricular or aberrantly conducted complexes Indeterminate axis Right bundle branch block Abnormal ECG When compared with ECG of 13-JUL-2021 11:50, No significant change Confirmed by Marty Figueroa ([id number]) on 07/14/2021 11:42:20 AM Referred By: Dinah Leon Confirmed By:Marty Figueroa
--- NOTE | 2021-07-14 13:53 | Electrocardiogram Report ---
Test Reason : Blood Pressure : / mmHG Vent. Rate : 087 BPM Atrial Rate : 073 BPM P-R Int : 000 ms QRS Dur : 140 ms QT Int : 418 ms P-R-T Axes : 000 107 -41 degrees QTc Int : 502 ms Atrial fibrillation Right bundle branch block Nonspecific ST and T wave abnormality Inferolateral leads Abnormal ECG When compared with ECG of 26-DEC-2020 18:46, No significant change was found Confirmed by Marty Figueroa ([id number]) on 07/14/2021 1:53:14 PM Referred By: Dinah Leon Confirmed By:Marty Figueroa
[2021-07-14 16:10] LABS: Hematocrit (blood only) 24.9 % (37-47); Hemoglobin 7.6 g/dL (12.0-16.0)
--- NOTE | 2021-07-14 19:46 | Hospitalist Progress Note ---
Date of Service July 14, 2021 Assessment & Plan (1) Acute metabolic encephalopathy: (2) Hypoxia: (3) Pneumonia: (4) Fall: (5) Supratherapeutic INR: (6) Diabetes mellitus type 2 with complications: (7) Atrial fibrillation: (8) CAD (coronary artery disease): (9) CKD (chronic kidney disease) stage 4, GFR 15-29 ml/min: Plan: This is an 86-year-old female who has significant past medical history of CAD status post CABG x3, chronic atrial fibrillation on warfarin, CKD stage IV, HTN, HLD, T2DM, PAD/PVD who resides at [facility] and presents to ED secondary to altered mental status x2 days and fall from standing position that was unwitnessed. Altered mental status -likely in setting of infectious state as well as mild TBI secondary to fall and hitting head Hypoxia Bilateral pneumonitis Neurochecks every [address] head redemonstration of large scalp hematoma. Continue O2 supplementation, wean down as tolerated. Continue with IV Zosyn, MRSA screen negative. Patient AO x2, passed swallow screen, clear liquid diet, advance as tolerated. Gentle IV fluid, DC IV fluids once eating better. Blood and urine cultures pending Pulmonary toilet with nebs, spirometry and flutter valve when able Fall Large left frontal scalp hematoma Likely mild TBI Repeat CT in a.m. large scalp hematoma redemonstrated. Supportive care Ice 3 times daily to hematoma Neurochecks every 2 hrs SupraTherapeutic INR Received vitamin K in the ED, INR coming down Discussed with patient's son Artem over the phone regarding the risks and benefits of continuing warfarin given recurrent multiple falls in the preceding months and advanced dementia. The decision was made to not continue Coumadin going forward. Patient's son made aware that not being on Coumadin might predispose her to ischemic events like a stroke and peripheral vascular ischemia. Patient does have ischemic toe. T2DM Last A1c 7.4 on 07/01/2021 Hold glipizide lantus/novolog per protocol Chronic Afib hold warfarin continue metoprolol RVR 07/01 to underlying infection DC Coumadin upon discharge. See above. CAD with history of CABG x3 On statin, Imdur, metoprolol as outpatient Gradually resume home meds as appropriate and when able. CKD stage 4 baseline cr 1.8-2.0 At baseline. PVD/PAD has ischemic ulcers to r toe 2/3 consult wound care was on oral keflex as outpt to complete on 07/16, will dc in setting of IV Zosyn These are chronic, tx with betadine as outpt, consider further w/u if sx do not improve despite above tx Dvt ppx: none in setting of elevated INR, ischemic wounds to R toes Conditional code: Patient's son to bring a copy of living will to the hospital. PCP: Gay 07/14: Patient son given a phone call and updated about the current status of the patient. Discussed about bringing copy of living will to the hospital. Discussed about benefit and risks of warfarin and agreed to stop warfarin going forward. Given multiple falls in the preceding months and worsening dementia. Answered all his questions. He was understanding and was agreeable to the plan of care. Admission and Anticipated Discharge Date Admission Date: July 13, 2021 Subjective Patient lying in bed, on 3 L nasal cannula oxygen, NAD, &ount2, was able to tellshe came to the hospital because she rolled out of bed and fell. Patient denies any acute events overnight, per RN no acute events overnight. Patient was n.p.o. in the morning, communicated with RN for bedside swallow screen, patient passes swallow screen, clear liquid diet and advance as tolerated. Patient denies any discomfort or pain or headache or chest pain or palpitation or other review of symptoms. Patient was not able to carry out complex or meaningful conversation. Physical Exam Physical Exam: GENERAL: Alert and oriented x2. NAD, on 3 L O2. HEENT: No pallor, no icterus. Pupils equal, round and reactive to light. Oral mucosa moist. Large left frontal scalp hematoma noted, ecchymosis. NECK: No JVD, no neck masses. HEART: S1 and S2 heard. irregular rate and rhythm. No murmur, no gallop. RESPIRATORY SYSTEM: Normal AP diameter. No accessory muscle use. No wheezing, b/l crackles. ABDOMEN: Soft, bowel sounds present, nontender, no distention. CENTRAL NERVOUS SYSTEM: No facial droop. Speech is clear but few words. Obeys simple commands. Moves extremities. EXTREMITIES: No edema, no erythema seen. Results & Data Results & Data ([facility]) Vital Signs (Past 12 Hours) Vital Signs Temp Pulse Pulse Resp BP Pulse Ox Pulse Ox 07/14/21 19:00 95 07/14/21 12:00 98 H 22 136/73 97 07/14/21 08:00 36.6 C 89 22 172/75 H 100 07/14/21 07:35 87 25 H 99
[2021-07-14] MEDS ORDERED: XOPENEX/ATROVENT 1.25mg/0.5MG NEB COMBO NEB STA (20:20)
[2021-07-14] MEDS ORDERED: methylPREDNISolone 40 MG in SYRINGE 0 ML IV STA (20:22)
[2021-07-14] MEDS ORDERED: LEVALBUTEROL HCL 1.25 MG/3 ML NEB ONE (20:30)
[2021-07-14] MEDS ORDERED: IPRATROPIUM BROMIDE NEB SOLN 0.02% 2.5 ML VIAL ONE (20:32)
[2021-07-14] MEDS ORDERED: IPRATROPIUM BROMIDE NEB SOLN 0.02% 2.5 ML VIAL INH STA (20:39)
[2021-07-14] MEDS ORDERED: LEVALBUTEROL 1.25MG/0.5ML NEB INH STA (20:40)
--- NOTE | 2021-07-14 21:02 | XRay Report ---
XR chest 1V portable CLINICAL HISTORY: low o2. COMPARISON STUDY: 02/25/2021 TECHNIQUE: 1 view of the chest FINDINGS: Single frontal view of the chest demonstrates the heart to again be enlarged status post previous car diothoracic surgery. There has been interval development of mild central vascular congestion. Finding s are suspicious for early cardiac decompensation . There is no evidence for pleural effusion. There are no alveolar opacities. There is no acute osseous pathology. IMPRESSION: 1. Cardiomegaly with mild central vascular congestion suggesting early cardiac decompensation. ACT 112: Negative or not required by law. Electronically signed by: Jimmy Wilkinson M.D. 07/14/2021 9:01 PM
[2021-07-14] MEDS ORDERED: FUROSEMIDE 40 MG/4 ML VIAL IV STA (21:24)
[2021-07-14 21:33] LABS: Base Excess ABG -2.8 mEq/L (-9-1.8); HCO3 ABG 21 mmol/L (19-24); Oxygen Saturation ABG 98.5 % (90-95); PCO2 ABG 32 mmHg (35-46); PO2 ABG 116 mmHg (80-95); pH ABG 7.44 (7.35-7.45)
[2021-07-14 21:35] LABS: Allen Test Pos (Pos)
[2021-07-14] MEDS ORDERED: PHYTONADIONE 2.5 MG in DEXTROSE 5% 50 ML IV ONE (22:15)
[2021-07-14 23:25] LABS: Hematocrit (blood only) 27.5 % (37-47); Hemoglobin 8.4 g/dL (12.0-16.0)
[2021-07-15] MEDS: PIPERACILLIN/TAZOBACTAM 3.375 GM in DEXTROSE 5% 100 ML IV SCH (00:24)
[2021-07-15 06:15] LABS: Hemoglobin 8.6 g/dL (12.0-16.0); Mean Corpuscular Hemoglobin 26.8 pg (25-34); Mean Corpuscular Hgb Conc 30.7 g/dL (32-36); Mean Corpuscular Volume 87.2 fL (80-100); Platelet Count 200 K/uL (130-400); RDW Coefficient of Variation 17.4 % (11.5-14.5); RDW Standard Deviation 56.1 fL (36.4-46.3); Red Blood Count 3.21 M/uL (4.2-5.4); White Blood Count 4.39 K/uL (4.8-10.8)
[2021-07-15 06:24] LABS: INR 1.4 (0.9-1.1); Prothrombin Time 14.1 Seconds (9.0-12.0)
[2021-07-15 06:27] LABS: BUN Creatinine Ratio 15.3 (10-20); Calcium 8.2 mg/dl (8.5-10.1); Creatinine Clr Calc Pharmacy 17.4 ml/min; Est GFR (African American) 25.2 ml/min; Est GFR (Non-African American) 21.8 ml/min; Magnesium 1.8 mg/dl (1.7-2.4); Phosphorus 4.4 mg/dl (2.5-4.9); Potassium 3.8 mmol/L (3.5-5.1)
[2021-07-15] MEDS: METOPROLOL TARTRATE 100 MG TAB PO SCH ×2 (10:27→20:36)
[2021-07-15] MEDS: ISOSORBIDE DINITRATE 10 MG TAB PO SCH (10:28)
[2021-07-15] MEDS: INSULIN GLARGINE SOLOSTAR 100 UNITS/ML 3 ML PEN SC SCH ×2 (10:28→20:37)
[2021-07-15] MEDS: INSULIN ASPART PER UNIT SC SCH ×4 (10:30→20:37)
[2021-07-15] MEDS: cefTRIAXone SODIUM 2,000 MG in DEXTROSE 5% 50 ML IV SCH (14:03)
[2021-07-15] MEDS: AZITHROMYCIN 500 MG in DEXTROSE 5% 250 ML IV SCH (14:03)
--- NOTE | 2021-07-15 16:25 | Hospitalist Progress Note ---
Date of Service July 15, 2021 Assessment & Plan (1) Acute metabolic encephalopathy: (2) Hypoxia: (3) Pneumonia: (4) Fall: (5) Supratherapeutic INR: (6) Diabetes mellitus type 2 with complications: (7) Atrial fibrillation: (8) CAD (coronary artery disease): (9) CKD (chronic kidney disease) stage 4, GFR 15-29 ml/min: Plan: This is an 86-year-old female who has significant past medical history of CAD status post CABG x3, chronic atrial fibrillation on warfarin, CKD stage IV, HTN, HLD, T2DM, PAD/PVD who resides at [facility] and presents to ED secondary to altered mental status x2 days and fall from standing position that was unwitnessed. Altered mental status -likely in setting of infectious state as well as mild TBI secondary to fall and hitting head Hypoxia Bilateral pneumonitis Neurochecks every [address] head redemonstration of large scalp hematoma without any intracranial events Continue O2 supplementation, wean down as tolerated. Continue with IV Zosyn, MRSA screen negative. Patient AO x2, passed swallow screen, clear liquid diet, advance as tolerated. Gentle IV fluid, DC IV fluids once eating better. Blood and urine cultures pending Pulmonary toilet with nebs, spirometry and flutter valve when able Clinically much better today we will continue current management Fall Large left frontal scalp hematoma Likely mild TBI Repeat CT in a.m. large scalp hematoma redemonstrated. Supportive care Ice 3 times daily to hematoma Neurochecks every 2 hrs-no neuro deficit on examination SupraTherapeutic INR Received vitamin K in the ED, INR coming down Discussed with patient's son Artem over the phone regarding the risks and benefits of continuing warfarin given recurrent multiple falls in the preceding months and advanced dementia. The decision was made to not continue Coumadin going forward. Patient's son made aware that not being on Coumadin might predispose her to ischemic events like a stroke and peripheral vascular ischemia. Patient does have ischemic toe. INR remains normal T2DM Last A1c 7.4 on 07/01/2021 Hold glipizide lantus/novolog per protocol Blood sugar remains unremarkable Chronic Afib hold warfarin continue metoprolol RVR 07/01 to underlying infection DC Coumadin upon discharge. See above. Heart rate remains stable CAD with history of CABG x3 On statin, Imdur, metoprolol as outpatient Gradually resume home meds as appropriate and when able. No acute cardiac symptoms CKD stage 4 baseline cr 1.8-2.0 At baseline. PVD/PAD has ischemic ulcers to r toe 2/3 consult wound care was on oral keflex as outpt to complete on 07/16, will dc in setting of IV Zosyn These are chronic, tx with betadine as outpt, consider further w/u if sx do not improve despite above tx Dvt ppx: none in setting of elevated INR, ischemic wounds to R toes Conditional code: Patient's son to bring a copy of living will to the hospital. PCP: Gay As per prior hospitalist; 07/14: Patient son given a phone call and updated about the current status of the patient. Discussed about bringing copy of living will to the hospital. Discussed about benefit and risks of warfarin and agreed to stop warfarin going forward. Given multiple falls in the preceding months and worsening dementia. Answered all his questions. He was understanding and was agreeable to the plan of care. Admission and Anticipated Discharge Date Admission Date: July 13, 2021 Subjective 07/15/2021 The patient was seen and examined in emergency [facility] in [facility] She was admitted with status post fall from the bed with left forehead injury No intracranial events She has been feeling much better and denies any significant symptoms Review of Systems Review of Systems: All systems reviewed and are unremarkable except as noted below Physical Exam Physical Exam: Lying in bed comfortably Constitutional: well developed, well nourished and average body habitus; not ill appearing Eyes: PERRL, conjunctivae normal, anicteric sclerae Has left frontal hematoma and bruising ENMT: external ear and nose normal, oropharynx normal Respiratory: no respiratory distress Auscultation: lungs clear to auscultation bilaterally and + diminished lung sounds Cardiovascular: Rate/Rhythm: regular rate and regular rhythm; not tachycardic Heart Sounds: normal S1 and normal S2; no murmur Extremities: no edema Gastrointestinal (Abdomen): Inspection/Auscultation: normal bowel sounds; abdomen not distended Percussion/Palpation: abdomen soft; abdomen nontender Musculoskeletal: No acute arthritis in any joint Neurologic: Alert, awake and oriented x3. Generally weak Results & Data Results & Data ([facility]) Vital Signs (Past 12 Hours) Vital Signs Temp Pulse Resp BP Pulse Ox 07/15/21 12:00 36.8 C 81 18 101/62 97 07/15/21 08:00 36.9 C 68 18 123/64 96 07/15/21 04:29 37.0 C 96 H 20 131/86 98 Laboratory Results Short CBC 07/14/21 07/15/21 Range/Units 23:03 06:03 WBC 4.39 L (4.8-10.8) K/uL Hgb 8.4 L 8.6 L (12.0-16.0) g/dL Hct 27.5 L 28.0 L (37-47) % Plt Count 200 (130-400) K/uL BMP 07/15/21 06:03 Sodium 136 Potassium 3.8 Chloride 106 Carbon Dioxide 19 L BUN 31 H Creatinine 2.02 H Glucose 250 H Calcium 8.2 L Medications Administered Current Inpatient Medications Acetaminophen (Acetaminophen 325 Mg Tab) 650 mg PO Q4H PRN PRN Reason: Pain or Fever Stop: 08/12/21 18:51 Al Hydrox/Mg Hydrox/Simethicone (Aluminum/Magnesium Susp 30 Ml Udc) 15 ml PO Q4H PRN PRN Reason: Dyspepsia Stop: 08/12/21 18:51 Albuterol (Albuterol 0.083% Nebu Soln 3 Ml Vial) 2.5 mg NEB Q6R PRN; Protocol PRN Reason: Shortness Of Breath Or Wheezing Stop: 08/12/21 18:51 Dextrose (Dextrose 50% 50 Ml Syringe) 25 - 50 ml IV UD PRN; Protocol PRN Reason: Hypoglycemia Protocol Stop: 08/12/21 18:51 Glucagon (Glucagon For Inj 1 Mg Vial) 1 mg SQ UD PRN; Protocol PRN Reason: Hypoglycemia Protocol Stop: 08/12/21 18:51 Glucose (Glucose 10 Tabs/Tube) 4 - 8 tabs PO UD PRN; Protocol PRN Reason: Hypoglycemia Protocol Stop: 08/12/21 18:51 Glucose (Glucose 40% Gel 15 Gm Tube) 15 - 30 gm PO UD PRN; Protocol PRN Reason: Hypoglycemia Protocol Stop: 08/12/21 18:51 Sodium Chloride (Nss 1000ml) 1,000 mls @ 75 mls/hr IV .[id number] LORRAINE Last Infusion: 07/14/21 19:55 Dose: 0 mls/hr Documented by: Ceftriaxone Sodium 2,000 mg/ (Dextrose) 50 mls @ 100 mls/hr IV Q24H [facility] Stop: 07/22/21 12:29 Last Infusion: 07/15/21 15:28 Dose: Infused Documented by: Azithromycin 500 mg/ Dextrose 255 mls @ 127.5 mls/hr IV Q24H [facility] Stop: 07/22/21 12:29 Last Admin: 07/15/21 14:03 Dose: 127.5 mls/hr Documented by: Insulin Aspart (Insulin Aspart Per Unit) 0 units SC ACHS [facility] Stop: 08/12/21 20:59 Last Admin: 07/15/21 14:02 Dose: 2 units Documented by: Insulin Glargine (Insulin Glargine Solostar 100 Units/Ml 3 Ml Pen) 0 - 8 units SC BID [facility] Stop: 08/12/21 20:59 Last Admin: 07/15/21 10:28 Dose: 8 units Documented by: Isosorbide Dinitrate (Isosorbide Dinitrate 10 Mg Tab) 30 mg PO QAM [facility] Stop: 08/13/21 08:59 Last Admin: 07/15/21 10:28 Dose: 30 mg Documented by: Magnesium Hydroxide (Magnesium Hydroxide Susp 30 Ml Udc) 30 ml PO Q12H PRN PRN Reason: Constipation Stop: 08/12/21 18:51 Metoprolol Tartrate (Metoprolol Tartrate 100 Mg Tab) 100 mg PO BID [facility] Stop: 08/13/21 08:59 Last Admin: 07/15/21 10:27 Dose: 100 mg Documented by: Miscellaneous (Carbohydrates For Hypoglycemia ) 15 - 30 gm PO UD PRN PRN Reason: Hypoglycemia Protocol Stop: 08/12/21 18:51 Ondansetron HCl (Ondansetron Inj 2 Mg/Ml 2 Ml Vial) 4 mg IV Q6H PRN PRN Reason: Nausea Stop: 08/12/21 18:51 Polyethylene Glycol (Polyethylene (Miralax) 17 Gm Pack) 17 gm PO DAILY PRN PRN Reason: Constipation Stop: 08/12/21 18:51
[2021-07-16 06:27] LABS: Basophils # (auto) 0.01 K/uL (0-0.2); Basophils % (auto) 0.1 %; Eosinophils # (auto) 0.06 K/uL (0-0.5); Eosinophils % (auto) 0.8 %; Hematocrit (blood only) 27.3 % (37-47); Hemoglobin 8.4 g/dL (12.0-16.0); Immature Granulocytes # (auto) 0.02 K/uL (0.00-0.02); Immature Granulocytes % (auto) 0.3 %; Lymphocytes % (auto) 16.9 %; Mean Corpuscular Hemoglobin 26.6 pg (25-34); Mean Corpuscular Hgb Conc 30.8 g/dL (32-36); Mean Corpuscular Volume 86.4 fL (80-100); Mean Platelet Volume 10.1 fL (7.4-10.4); Monocytes # (auto) 0.55 K/uL (0.11-0.59); Monocytes % (auto) 7.8 %; Neutrophils # (auto) 5.24 K/uL (1.4-6.5); Neutrophils % (auto) 74.1 %; Platelet Count 239 K/uL (130-400); RDW Coefficient of Variation 17.2 % (11.5-14.5); RDW Standard Deviation 54.8 fL (36.4-46.3); Red Blood Count 3.16 M/uL (4.2-5.4); White Blood Count 7.08 K/uL (4.8-10.8)
[2021-07-16 06:34] LABS: INR 1.9 (0.9-1.1); Prothrombin Time 18.1 Seconds (9.0-12.0)
[2021-07-16 06:43] LABS: BUN Creatinine Ratio 17.5 (10-20); Calcium 8.4 mg/dl (8.5-10.1); Creatinine Clr Calc Pharmacy 19.8 ml/min; Est GFR (African American) 29.6 ml/min; Est GFR (Non-African American) 25.6 ml/min; Magnesium 1.7 mg/dl (1.7-2.4); Potassium 3.1 mmol/L (3.5-5.1)
[2021-07-16] MEDS: ISOSORBIDE DINITRATE 10 MG TAB PO SCH (08:48)
[2021-07-16] MEDS: INSULIN ASPART PER UNIT SC SCH ×4 (08:54→21:00)
[2021-07-16] MEDS: INSULIN GLARGINE SOLOSTAR 100 UNITS/ML 3 ML PEN SC SCH ×2 (08:54→20:54)
[2021-07-16] MEDS ORDERED: POTASSIUM CHLORIDE CRTAB 20 MEQ TABCR PO STA (09:06)
[2021-07-16] MEDS: METOPROLOL TARTRATE 100 MG TAB PO SCH ×2 (09:19→21:01)
[2021-07-16 12:01] LABS: Basophils # (auto) 0.03 K/uL (0-0.2); Basophils % (auto) 0.4 %; Eosinophils # (auto) 0.08 K/uL (0-0.5); Hematocrit (blood only) 26.8 % (37-47); Hemoglobin 8.2 g/dL (12.0-16.0); Immature Granulocytes # (auto) 0.01 K/uL (0.00-0.02); Immature Granulocytes % (auto) 0.1 %; Lymphocytes # (auto) 1.15 K/uL (1.2-3.4); Mean Corpuscular Hemoglobin 26.5 pg (25-34); Mean Corpuscular Hgb Conc 30.6 g/dL (32-36); Mean Corpuscular Volume 86.5 fL (80-100); Mean Platelet Volume 9.9 fL (7.4-10.4); Monocytes # (auto) 0.54 K/uL (0.11-0.59); Neutrophils # (auto) 5.88 K/uL (1.4-6.5); Neutrophils % (auto) 76.5 %; Platelet Count 255 K/uL (130-400); RDW Coefficient of Variation 17.4 % (11.5-14.5); RDW Standard Deviation 54.8 fL (36.4-46.3); White Blood Count 7.69 K/uL (4.8-10.8)
[2021-07-16] MEDS: cefTRIAXone SODIUM 2,000 MG in DEXTROSE 5% 50 ML IV SCH (12:42)
[2021-07-16] MEDS: AZITHROMYCIN 500 MG in DEXTROSE 5% 250 ML IV SCH (14:47)
[2021-07-16] MEDS ORDERED: SODIUM CHLORIDE 0.9% 250 ML IV PRN (15:28)
--- NOTE | 2021-07-16 15:42 | Hospitalist Progress Note ---
Date of Service July 16, 2021 Assessment & Plan (1) Acute metabolic encephalopathy: (2) Hypoxia: (3) Pneumonia: (4) Fall: (5) Supratherapeutic INR: (6) Diabetes mellitus type 2 with complications: (7) Atrial fibrillation: (8) CAD (coronary artery disease): (9) CKD (chronic kidney disease) stage 4, GFR 15-29 ml/min: Plan: This is an 86-year-old female who has significant past medical history of CAD status post CABG x3, chronic atrial fibrillation on warfarin, CKD stage IV, HTN, HLD, T2DM, PAD/PVD who resides at [facility] and presents to ED secondary to altered mental status x2 days and fall from standing position that was unwitnessed. Altered mental status -likely in setting of infectious state as well as mild TBI secondary to fall and hitting head Hypoxia Bilateral pneumonitis Neurochecks every [address] head redemonstration of large scalp hematoma without any intracranial events Continue O2 supplementation, wean down as tolerated. Continue with IV Zosyn, MRSA screen negative. Patient AO x2, passed swallow screen, clear liquid diet, advance as tolerated. Gentle IV fluid, DC IV fluids once eating better. Blood and urine cultures pending Pulmonary toilet with nebs, spirometry and flutter valve when able Clinically much better today we will continue current management Remains pleasantly confused without any more shortness of breath Fall Large left frontal scalp hematoma Likely mild TBI Repeat CT in a.m. large scalp hematoma redemonstrated. Supportive care Ice 3 times daily to hematoma Neurochecks every 2 hrs-no neuro deficit on examination No increase in the left frontal scalp hematoma Bright red rectal bleed 2 episodes since admission Last episode with some dizziness Hemoglobin checked following first episode of bright red rectal blood did not show any change Will keep her n.p.o., reverse INR. H&H every 6 hourly, type and hold and GI consultation SupraTherapeutic INR Received vitamin K in the ED, INR coming down Discussed with patient's son Artem over the phone regarding the risks and benefits of continuing warfarin given recurrent multiple falls in the preceding months and advanced dementia. The decision was made to not continue Coumadin going forward. Patient's son made aware that not being on Coumadin might predispose her to ischemic events like a stroke and peripheral vascular ischemia. Patient does have ischemic toe. INR was 1.4 as of yesterday but 1.9 today We will give another dose of intravenous vitamin K T2DM Last A1c 7.4 on 07/01/2021 Hold glipizide lantus/novolog per protocol Blood sugar remains unremarkable Chronic Afib hold warfarin continue metoprolol RVR 07/01 to underlying infection DC Coumadin upon discharge. See above. Heart rate remains stable CAD with history of CABG x3 On statin, Imdur, metoprolol as outpatient Gradually resume home meds as appropriate and when able. No acute cardiac symptoms CKD stage 4 baseline cr 1.8-2.0 At baseline. PVD/PAD has ischemic ulcers to r toe 07/02 consult wound care was on oral keflex as outpt to complete on 07/16, will dc in setting of IV Zosyn These are chronic, tx with betadine as outpt, consider further w/u if sx do not improve despite above tx Dvt ppx: none in setting of elevated INR, ischemic wounds to R toes Conditional code: Patient's son to bring a copy of living will to the hospital. PCP: Gay As per prior hospitalist; 07/14: Patient son given a phone call and updated about the current status of the patient. Discussed about bringing copy of living will to the hospital. Discussed about benefit and risks of warfarin and agreed to stop warfarin going forward. Given multiple falls in the preceding months and worsening dementia. Answered all his questions. He was understanding and was agreeable to the plan of care. Admission and Anticipated Discharge Date Admission Date: July 13, 2021 Subjective 07/15/2021 The patient was seen and examined in emergency room in the holding area She was admitted with status post fall from the bed with left forehead injury No intracranial events She has been feeling much better and denies any significant symptoms 07/16/2021 The patient was seen and examined in emergency room holding area She has had one episode of bright left rectal blood early this morning Did not have any complaints during my examination She has had another episode of bright red blood per rectum this afternoon with some dizziness Review of Systems Review of Systems: All systems reviewed and are unremarkable except as noted below Gastrointestinal: Denies any abdominal pain and/or distention Physical Exam Physical Exam: Lying in bed comfortably Constitutional: well developed, well nourished and average body habitus; not ill appearing Eyes: PERRL, conjunctivae normal, anicteric sclerae ENMT: external ear and nose normal, oropharynx normal Respiratory: no respiratory distress Auscultation: lungs clear to auscultation bilaterally and + diminished lung sounds Cardiovascular: Rate/Rhythm: regular rate and regular rhythm; not tachycardic Heart Sounds: normal S1 and normal S2; no murmur Extremities: no edema Gastrointestinal (Abdomen): Inspection/Auscultation: normal bowel sounds; abdomen not distended Percussion/Palpation: abdomen soft; abdomen nontender Musculoskeletal: No acute arthritis in any joint Neurologic: Alert and awake. Pleasantly confused and generally weak Results & Data Results & Data ([facility]) Vital Signs (Past 12 Hours) Vital Signs Temp Pulse Pulse Resp BP BP Pulse Ox 07/16/21 15:36 36.9 C 07/16/21 11:25 36.7 C 07/16/21 11:02 36.7 C 81 23 127/65 98 07/16/21 10:00 88 22 97 07/16/21 09:53 97 H 24 120/65 97 07/16/21 08:00 88 07/16/21 07:54 98 H 25 H 07/16/21 07:00 87 15 96 07/16/21 05:58 36.4 C L 80 20 171/94 H 95 Laboratory Results Short CBC 07/16/21 07/16/21 Range/Units 06:08 11:52 WBC 7.08 7.69 (4.8-10.8) K/uL Hgb 8.4 L 8.2 L (12.0-16.0) g/dL Hct 27.3 L 26.8 L (37-47) % Plt Count 239 255 (130-400) K/uL BMP 07/16/21 06:08 Sodium 140 Potassium 3.1 L Chloride 108 H Carbon Dioxide 24 BUN 31 H Creatinine 1.77 H Glucose 62 L Calcium 8.4 L Medications Administered Current Inpatient Medications Acetaminophen (Acetaminophen 325 Mg Tab) 650 mg PO Q4H PRN PRN Reason: Pain or Fever Stop: 08/12/21 18:51 Al Hydrox/Mg Hydrox/Simethicone (Aluminum/Magnesium Susp 30 Ml Udc) 15 ml PO Q4H PRN PRN Reason: Dyspepsia Stop: 08/12/21 18:51 Albuterol (Albuterol 0.083% Nebu Soln 3 Ml Vial) 2.5 mg NEB Q6R PRN; Protocol PRN Reason: Shortness Of Breath Or Wheezing Stop: 08/12/21 18:51 Dextrose (Dextrose 50% 50 Ml Syringe) 25 - 50 ml IV UD PRN; Protocol PRN Reason: Hypoglycemia Protocol Stop: 08/12/21 18:51 Glucagon (Glucagon For Inj 1 Mg Vial) 1 mg SQ UD PRN; Protocol PRN Reason: Hypoglycemia Protocol Stop: 08/12/21 18:51 Glucose (Glucose 10 Tabs/Tube) 4 - 8 tabs PO UD PRN; Protocol PRN Reason: Hypoglycemia Protocol Stop: 08/12/21 18:51 Glucose (Glucose 40% Gel 15 Gm Tube) 15 - 30 gm PO UD PRN; Protocol PRN Reason: Hypoglycemia Protocol Stop: 08/12/21 18:51 Sodium Chloride (Nss 1000ml) 1,000 mls @ 75 mls/hr IV .[id number] [facility] Last Infusion: 07/16/21 07:24 Dose: Infused Documented by: Ceftriaxone Sodium 2,000 mg/ (Dextrose) 50 mls @ 100 mls/hr IV Q24H [facility] Stop: 07/22/21 12:29 Last Infusion: 07/16/21 13:38 Dose: Infused Documented by: Azithromycin 500 mg/ Dextrose 255 mls @ 127.5 mls/hr IV Q24H [facility] Stop: 07/22/21 12:29 Last Admin: 07/16/21 14:47 Dose: 127.5 mls/hr Documented by: Dextrose/Sodium Chloride (D5w And Nss) 1,000 mls @ 80 mls/hr IV .[id number] [facility] Stop: 08/15/21 15:29 Sodium Chloride (Nss) 250 mls @ 15 mls/hr IV .[id number] PRN PRN Reason: For Transfusion Stop: 07/17/21 01:28 Insulin Aspart (Insulin Aspart Per Unit) 0 units SC ACHS [facility] Stop: 08/12/21 20:59 Last Admin: 07/16/21 12:22 Dose: 1 units Documented by: Insulin Glargine (Insulin Glargine Solostar 100 Units/Ml 3 Ml Pen) 0 - 8 units SC BID [facility] Stop: 08/12/21 20:59 Last Admin: 07/16/21 08:54 Dose: Not Given Documented by: Isosorbide Dinitrate (Isosorbide Dinitrate 10 Mg Tab) 30 mg PO QAM [facility] Stop: 08/13/21 08:59 Last Admin: 07/16/21 08:48 Dose: 30 mg Documented by: Magnesium Hydroxide (Magnesium Hydroxide Susp 30 Ml Udc) 30 ml PO Q12H PRN PRN Reason: Constipation Stop: 08/12/21 18:51 Metoprolol Tartrate (Metoprolol Tartrate 100 Mg Tab) 100 mg PO BID [facility] Stop: 08/13/21 08:59 Last Admin: 07/16/21 09:19 Dose: 100 mg Documented by: Miscellaneous (Carbohydrates For Hypoglycemia ) 15 - 30 gm PO UD PRN PRN Reason: Hypoglycemia Protocol Stop: 08/12/21 18:51 Last Admin: 07/16/21 08:20 Dose: 15 gm Documented by: Ondansetron HCl (Ondansetron Inj 2 Mg/Ml 2 Ml Vial) 4 mg IV Q6H PRN PRN Reason: Nausea Stop: 08/12/21 18:51 Polyethylene Glycol (Polyethylene (Miralax) 17 Gm Pack) 17 gm PO DAILY PRN PRN Reason: Constipation Stop: 08/12/21 18:51
--- NOTE | 2021-07-16 16:02 | Communication Note ---
Date of Service: July 16, 2021 GI was consulted for rectal bleeding, dizziness. Chart reviewed. Case discussed with attending and hospitalist. 86 year old female admitted through the ED three days ago from [facility] with altered mental status, fall and human metapneumovirus pneumonitis. She has a history of CAD status post CABG x3, atrial fibrillation on warfarin, CKD-IV, HTN, dyslipidemia and T2DM. Today she moved her bowels and it was noted to be bloody. No black stools reported. She has remained hemodynamically stable, BP 127/65, pulse 81. HGB on Admission of 9 which appears to be at her baseline, HGB today 8.5. BUN chronically elevated at 30. CTAP reviewed: No acute posttraumatic intrathoracic, intra- abdominal or intrapelvic abnormality identified, no acute solid organ injury or acute fracture, infectious/inflammatory bronchiolitis/pneumonitis, 2.2 cm left breast mass, moderate sized hiatal hernia with mid to distal esophageal wall thickening, diverticulosis. No EGD/Colonoscopy reports in [facility] or [facility] EHR. 86 year old female with numerous medical comorbidities admitted w/ encephalopathy, fall and human metapneumovirus pneumonitis GI asked to evaluate for hematochezia x 2 onset today. She is presently hemodynamically stable, with stable HGB and BUN. Continue to hold coumadin IV PPI BID Trend HGB Monitor output Transfuse PRN Can continue clear liquids today NPO after midnight Suspect outlet bleeding hemorrhoidal vs diverticular but will re-evaluate in the AM to address if endoscopic intervention is warranted given mention of moderate HH and esophageal thickening. Thank you for allowing us to participate in the care of this patient. Please call with any acute changes, questions or concerns. Please see addendum below with additional recommendation from my supervising physician.
[2021-07-16 16:04] LABS: Hematocrit (blood only) 27.8 % (37-47); Hemoglobin 8.5 g/dL (12.0-16.0)
[2021-07-16] MEDS: D5W AND NSS 1,000 ML IV SCH (16:13)
[2021-07-16] MEDS: PANTOprazole 40 MG in DEXTROSE 5% 100 ML IV SCH ×2 (16:14→21:07)
[2021-07-16] MEDS ORDERED: PHYTONADIONE 5 MG in DEXTROSE 5% 50 ML IV ONE (16:45)
[2021-07-16 21:15] LABS: Hematocrit (blood only) 26.8 % (37-47); Hemoglobin 8.4 g/dL (12.0-16.0)
[2021-07-17] MEDS: PANTOprazole 40 MG in DEXTROSE 5% 100 ML IV SCH ×5 (02:11→22:17)
[2021-07-17] MEDS: D5W AND NSS 1,000 ML IV SCH (03:52)
[2021-07-17 04:54] LABS: Hematocrit (blood only) 29.5 % (37-47)
[2021-07-17 09:25] LABS: Hematocrit (blood only) 28.4 % (37-47); Hemoglobin 8.7 g/dL (12.0-16.0)
--- NOTE | 2021-07-17 09:49 | Gastrointestinal Consultation ---
Date of Consultation July 17, 2021 Assessment & Plan (1) Supratherapeutic INR: 86 year old female with numerous medical comorbidities admitted w/ encephalopathy, fall and human metapneumovirus pneumonitis GI asked to evaluate for hematochezia x 2 onset today. She is presently hemodynamically stable, with stable HGB and BUN. No further episodes of bleeding overnight, HGB has remained stable w.o need for transfusion Continue to hold coumadin IV PPI BID x 48 hours then PO PPI once daily given mention of moderate HH and esophageal thickening Trend HGB Monitor output Transfuse PRN Can resume diet as tolerated Goals of care discussion with family, please contact GI if patient decides to undergo EGD testing once she has recovered from a pulmonary standpoint Will sign off. Recall as needed. Thank you for allowing us to participate in the care of this patient. Please call with any acute changes, questions or concerns. Please see addendum below with additional recommendation from my supervising physician. Supervising Physician Co-Signing Physician Notes I saw and evaluated the patient this morning. The patient is unable to give any historical information given her current medical status. We were consulted with regard to a question of hematochezia which has subsequently resolved in the setting of anticoagulation. The patient also has esophageal wall thickening and evidence of a hiatal hernia. Furthermore the patient appears to have evidence of a 2 cm mass in the breast which is apparently not being worked up due to her comorbidities. Physical examination frail appearing female No scleral icterus No abdominal tenderness Impression: Patient with a history of scant hematochezia likely anorectal in etiology. Given the patient's other comorbid conditions I am not certain that upper endoscopy nor colonoscopy would be of benefit to the patient at the present time. Should the patient and her family wish to have aggressive evaluations we could certainly revisit this at a future date and time. I would recommend that the family have a discussion with the internal medicine service about the goals of care. For the present time we would not plan on any endoscopic evaluations, should they be desired by the medicine service and family we could certainly reevaluate this once the patient's pulmonary status and other medical issues have been improved. Please call with any questions or concerns GI to sign off History of Present Illness Reason for Consultation: rectal bleeding Requesting Physician: Delia Attending Physician: Sofia Lin MD History of Present Illness 86 year old female with history of CAD status post CABG x3, atrial fibrillation on warfarin, CKD-IV, HTN, dyslipidemia and T2DM consulted for rectal bleeding. This AM she has had worsening respiratory symptoms and pulmonary physical examination. From GI standpoint is feeling well. No abd pain. No nausea, vomiting. She had hematochezia x 2 yesterday but not further episodes overnight or this AM HGB stable Allergies Allergy/AdvReac Type Severity Reaction Status Date / Time aspirin Allergy Severe PEPTIC Verified 07/13/21 15:16 ULCER DISEASE WITH HEMMORAGE codeine Allergy Unknown ON WINDY Verified 07/13/21 15:16 [facility] MED LIST oxytetracycline Allergy Unknown SEVERE Verified 07/13/21 15:16 SWELLING polymyxin B Allergy Unknown SEVERE Verified 07/13/21 15:16 SWELLING Home Medications Medication Instructions Recorded Confirmed Type cetirizine 10 mg tablet 10 mg PO QAM 03/27/19 07/13/21 History furosemide 20 mg tablet 20 mg PO Q OTHER DAY 03/27/19 07/13/21 History gabapentin 100 mg capsule 200 mg PO BID 03/27/19 07/13/21 History magnesium oxide 400 mg PO BID 03/27/19 07/13/21 History metoprolol tartrate 100 mg tablet 100 mg PO BID 03/27/19 07/13/21 History warfarin 2 mg tablet (Jantoven) 6 mg PO MOFR 01/08/21 07/13/21 History isosorbide dinitrate 30 mg tablet 30 mg PO QAM tab 01/27/21 07/13/21 History acetaminophen 325 mg tablet 650 mg PO Q4H PRN MDD 3 /07/13/21 07/13/21 History (Tylenol) HOURS atorvastatin 80 mg tablet 40 mg PO HS 07/13/21 07/13/21 History cephalexin 500 mg capsule 500 mg PO TID 07/13/21 07/13/21 History cholecalciferol (vitamin D3) 50 50 mcg PO QAM 07/13/21 07/13/21 History mcg (2,000 unit) capsule (Vitamin D3) glipizide 5 mg tablet, extended 5 mg PO QAM 07/13/21 07/13/21 History release 24 hr nitroglycerin 0.4 mg sublingual 0.4 mg SUBLINGUAL DIRECTED PRN 07/13/21 07/13/21 History tablet (Nitrostat) povidone-iodine 10 % topical swab 1 applic TOPICAL BID 07/13/21 07/13/21 History (Betadine Swabsticks) warfarin 2 mg tablet 4 mg PO SUTUWETHSA 07/13/21 07/13/21 History Patient History Medical History Ambulatory dysfunction cane prn AMS (altered mental status) gets confused per pt's son Atrial fibrillation dx over a year ago > follows with Dr. Jarvis > no pacer CAD (coronary artery disease) History of CABG x 3 > 1996 CKD (chronic kidney disease), stage III follows with Cecily Gordillo Diabetes mellitus type 2 with complications History of peptic ulcer disease HTN (hypertension) Hyperlipidemia Nasal polyp Left maxillary polyp noted on CT's 09/02/17 and 08/10/19. ENT eval recommended. 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 Jarvis T2DM (type 2 diabetes mellitus) Wound, open, toe Surgical History Amputation toe partial amp of L 03/02/21 History of appendectomy History of breast biopsy benign History of coronary artery bypass graft x 3 1996 History of nasal polypectomy History of tonsillectomy and adenoidectomy Family History Son Atrial fibrillation Mother Hypertension Social History Smoking Status: Unknown if ever smoked packs per day: 1; Years Smoked: 20; Second Hand Exposure: No; Hx Alcohol Use: No Hx Substance Use: No Preferred Language: Nepalese Communication Ability: Effective Visual Impairment: Limited Hearing Ability: Hard of Hearing Assembly Riveter Required: No Beliefs That Will Affect Care: None marital status: Current Living Situation: Alone current occupational status: retired How many Children do You have: 2 Feels Safe at Home: Yes Assistive Devices: Oxygen - Continuous Review of Systems Review of Systems: All systems reviewed & are unremarkable except as noted in HPI & below Physical Exam Constitutional: + acute distress and + ill appearing Neck: trachea midline, no thyromegaly Respiratory: Auscultation: + diminished lung sounds Cardiovascular: Rate/Rhythm: regular rate and regular rhythm Gastrointestinal (Abdomen): normal bowel sounds, soft, nontender, no hepatosplenomegaly Results & Data ([facility]) Vital Signs (Past 12 Hours) Vital Signs Temp Pulse Resp BP Pulse Ox 07/17/21 08:30 85 20 94 07/17/21 00:00 36.7 C 82 16 162/81 H 95 Laboratory Results 07/17/21 07/17/21 07/17/21 Range/Units 09:03 08:16 04:16 WBC (4.8-10.8) K/uL RBC (4.2-5.4) M/uL Hgb 8.7 L 9.0 L (12.0-16.0) g/dL Hct 28.4 L 29.5 L (37-47) % MCV (80-100) fL MCH (25-34) pg MCHC (32-36) g/dL RDW Std Deviation (36.4-46.3) fL RDW Coeff of Fred (11.5-14.5) % Plt Count (130-400) K/uL MPV (7.4-10.4) fL Immature Gran % (Auto) % Neut % (Auto) % Lymph % (Auto) % [place] % (Auto) % Eos % (Auto) % Baso % (Auto) % Neut # (Auto) (1.4-6.5) K/uL Lymph # (Auto) (1.2-3.4) K/uL [place] # (Auto) (0.11-0.59) K/uL Eos # (Auto) (0-0.5) K/uL Baso # (Auto) (0-0.2) K/uL Immature Gran # (Auto) (0.00-0.02) K/uL POC Glucose 176 H (70-99) mg/dl Blood Type Blood Type Recheck Antibody Screen Crossmatch 07/17/21 07/16/21 07/16/21 Range/Units 03:46 21:07 19:27 WBC (4.8-10.8) K/uL RBC (4.2-5.4) M/uL Hgb 8.4 L (12.0-16.0) g/dL Hct 26.8 L (37-47) % MCV (80-100) fL MCH (25-34) pg MCHC (32-36) g/dL RDW Std Deviation (36.4-46.3) fL RDW Coeff of Fred (11.5-14.5) % Plt Count (130-400) K/uL MPV (7.4-10.4) fL Immature Gran % (Auto) % Neut % (Auto) % Lymph % (Auto) % [place] % (Auto) % Eos % (Auto) % Baso % (Auto) % Neut # (Auto) (1.4-6.5) K/uL Lymph # (Auto) (1.2-3.4) K/uL [place] # (Auto) (0.11-0.59) K/uL Eos # (Auto) (0-0.5) K/uL Baso # (Auto) (0-0.2) K/uL Immature Gran # (Auto) (0.00-0.02) K/uL POC Glucose 124 H 196 H (70-99) mg/dl Blood Type Blood Type Recheck Antibody Screen Crossmatch 07/16/21 07/16/21 07/16/21 Range/Units 17:14 17:13 17:05 WBC (4.8-10.8) K/uL RBC (4.2-5.4) M/uL Hgb (12.0-16.0) g/dL Hct (37-47) % MCV (80-100) fL MCH (25-34) pg MCHC (32-36) g/dL RDW Std Deviation (36.4-46.3) fL RDW Coeff of Fred (11.5-14.5) % Plt Count (130-400) K/uL MPV (7.4-10.4) fL Immature Gran % (Auto) % Neut % (Auto) % Lymph % (Auto) % [place] % (Auto) % Eos % (Auto) % Baso % (Auto) % Neut # (Auto) (1.4-6.5) K/uL Lymph # (Auto) (1.2-3.4) K/uL [place] # (Auto) (0.11-0.59) K/uL Eos # (Auto) (0-0.5) K/uL Baso # (Auto) (0-0.2) K/uL Immature Gran # (Auto) (0.00-0.02) K/uL POC Glucose 313 H* 315 H* (70-99) mg/dl Blood Type O Positive Blood Type Recheck Antibody Screen NEGATIVE Crossmatch See Detail 07/16/21 07/16/21 07/16/21 Range/Units 16:24 15:50 15:50 WBC (4.8-10.8) K/uL RBC (4.2-5.4) M/uL Hgb (12.0-16.0) g/dL Hct (37-47) % MCV (80-100) fL MCH (25-34) pg MCHC (32-36) g/dL RDW Std Deviation (36.4-46.3) fL RDW Coeff of Fred (11.5-14.5) % Plt Count (130-400) K/uL MPV (7.4-10.4) fL Immature Gran % (Auto) % Neut % (Auto) % Lymph % (Auto) % [place] % (Auto) % Eos % (Auto) % Baso % (Auto) % Neut # (Auto) (1.4-6.5) K/uL Lymph # (Auto) (1.2-3.4) K/uL [place] # (Auto) (0.11-0.59) K/uL Eos # (Auto) (0-0.5) K/uL Baso # (Auto) (0-0.2) K/uL Immature Gran # (Auto) (0.00-0.02) K/uL POC Glucose (70-99) mg/dl Blood Type Cancelled Cancelled Blood Type Recheck O Positive Antibody Screen Cancelled Cancelled Crossmatch See Detail See Detail 07/16/21 07/16/21 07/16/21 Range/Units 15:50 11:54 11:52 WBC 7.69 (4.8-10.8) K/uL RBC 3.10 L (4.2-5.4) M/uL Hgb 8.5 L 8.2 L (12.0-16.0) g/dL Hct 27.8 L 26.8 L (37-47) % MCV 86.5 (80-100) fL MCH 26.5 (25-34) pg MCHC 30.6 L (32-36) g/dL RDW Std Deviation 54.8 H (36.4-46.3) fL RDW Coeff of Fred 17.4 H (11.5-14.5) % Plt Count 255 (130-400) K/uL MPV 9.9 (7.4-10.4) fL Immature Gran % (Auto) 0.1 % Neut % (Auto) 76.5 % Lymph % (Auto) 15.0 % [place] % (Auto) 7.0 % Eos % (Auto) 1.0 % Baso % (Auto) 0.4 % Neut # (Auto) 5.88 (1.4-6.5) K/uL Lymph # (Auto) 1.15 L (1.2-3.4) K/uL [place] # (Auto) 0.54 (0.11-0.59) K/uL Eos # (Auto) 0.08 (0-0.5) K/uL Baso # (Auto) 0.03 (0-0.2) K/uL Immature Gran # (Auto) 0.01 (0.00-0.02) K/uL POC Glucose 189 H (70-99) mg/dl Blood Type Blood Type Recheck Antibody Screen Crossmatch
[2021-07-17] MEDS: INSULIN ASPART PER UNIT SC SCH ×4 (10:09→21:17)
[2021-07-17] MEDS: ISOSORBIDE DINITRATE 10 MG TAB PO SCH (10:42)
[2021-07-17] MEDS: METOPROLOL TARTRATE 100 MG TAB PO SCH ×2 (10:43→21:34)
[2021-07-17] MEDS: INSULIN GLARGINE SOLOSTAR 100 UNITS/ML 3 ML PEN SC SCH ×2 (10:48→21:43)
[2021-07-17] MEDS: AZITHROMYCIN 500 MG in DEXTROSE 5% 250 ML IV SCH (13:31)
[2021-07-17] MEDS: cefTRIAXone SODIUM 2,000 MG in DEXTROSE 5% 50 ML IV SCH (13:31)
--- NOTE | 2021-07-17 15:54 | Hospitalist Progress Note ---
Date of Service July 17, 2021 Assessment & Plan (1) Acute metabolic encephalopathy: (2) Hypoxia: (3) Pneumonia: (4) Fall: (5) Supratherapeutic INR: (6) Diabetes mellitus type 2 with complications: (7) Atrial fibrillation: (8) CAD (coronary artery disease): (9) CKD (chronic kidney disease) stage 4, GFR 15-29 ml/min: Plan: This is an 86-year-old female who has significant past medical history of CAD status post CABG x3, chronic atrial fibrillation on warfarin, CKD stage IV, HTN, HLD, T2DM, PAD/PVD who resides at [facility] and presents to ED secondary to altered mental status x2 days and fall from standing position that was unwitnessed. Altered mental status -likely in setting of infectious state as well as mild TBI secondary to fall and hitting head Hypoxia Bilateral pneumonitis Neurochecks every [address] head redemonstration of large scalp hematoma without any intracranial events Continue O2 supplementation, wean down as tolerated. Continue with IV Zosyn, MRSA screen negative. Patient AO x2, passed swallow screen, clear liquid diet, advance as tolerated. Gentle IV fluid, DC IV fluids once eating better. Blood and urine cultures pending Pulmonary toilet with nebs, spirometry and flutter valve when able Clinically much better today we will continue current management Remains pleasantly confused without any more shortness of breath Remains stable without any fever and chills Fall Large left frontal scalp hematoma Likely mild TBI Repeat CT in a.m. large scalp hematoma redemonstrated. Supportive care Ice 3 times daily to hematoma Neurochecks every 2 hrs-no neuro deficit on examination No increase in the left frontal scalp hematoma Bright red rectal bleed 2 episodes since admission Last episode with some dizziness Hemoglobin checked following first episode of bright red rectal blood did not show any change Will keep her n.p.o., reverse INR. H&H every 6 hourly, type and hold and GI consultation Appreciate GI input and recommendation Hemoglobin did not drop and did not have any more rectal bleed-will not go for colonoscopy SupraTherapeutic INR Received vitamin K in the ED, INR coming down Discussed with patient's son Artem over the phone regarding the risks and benefits of continuing warfarin given recurrent multiple falls in the preceding months and advanced dementia. The decision was made to not continue Coumadin going forward. Patient's son made aware that not being on Coumadin might predispose her to ischemic events like a stroke and peripheral vascular ischemia. Patient does have ischemic toe. INR was 1.4 as of yesterday but 1.9 today We will give another dose of intravenous vitamin K We will check INR tomorrow T2DM Last A1c 7.4 on 07/01/2021 Hold glipizide lantus/novolog per protocol Blood sugar remains unremarkable Chronic Afib hold warfarin continue metoprolol RVR 07/01 to underlying infection DC Coumadin upon discharge. See above. Heart rate remains stable CAD with history of CABG x3 On statin, Imdur, metoprolol as outpatient Gradually resume home meds as appropriate and when able. No acute cardiac symptoms CKD stage 4 baseline cr 1.8-2.0 At baseline. PVD/PAD has ischemic ulcers to r toe 2 consult wound care was on oral keflex as outpt to complete on 07/16, will dc in setting of IV Zosyn These are chronic, tx with betadine as outpt, consider further w/u if sx do not improve despite above tx Dvt ppx: none in setting of elevated INR, ischemic wounds to R toes Conditional code: Patient's son to bring a copy of living will to the hospital. PCP: Gay As per prior hospitalist; 07/14: Patient son given a phone call and updated about the current status of the patient. Discussed about bringing copy of living will to the hospital. Discussed about benefit and risks of warfarin and agreed to stop warfarin going forward. Given multiple falls in the preceding months and worsening dementia. Answered all his questions. He was understanding and was agreeable to the plan of care. Discussed with the son Admission and Anticipated Discharge Date Admission Date: July 13, 2021 Subjective 07/15/2021 The patient was seen and examined in emergency room in the holding area She was admitted with status post fall from the bed with left forehead injury No intracranial events She has been feeling much better and denies any significant symptoms 07/16/2021 The patient was seen and examined in emergency room holding area She has had one episode of bright left rectal blood early this morning Did not have any complaints during my examination She has had another episode of bright red blood per rectum this afternoon with some dizziness 07/17/2021 The patient was seen and examined in emergency room holding area She did not have any more rectal bleed and her hemoglobin remained stable She has been having some shortness of breath and remains pleasantly confused Review of Systems Review of Systems: All systems reviewed and are unremarkable except as noted below Physical Exam Physical Exam: Lying in bed comfortably with minimal shortness of breath at rest Constitutional: well developed, well nourished, + ill appearing and average body habitus Eyes: PERRL, conjunctivae normal, anicteric sclerae ENMT: external ear and nose normal, oropharynx normal Respiratory: no respiratory distress Auscultation: + diminished lung sounds and + crackles (Bibasilar crackles more on the right side) Cardiovascular: Rate/Rhythm: regular rate and regular rhythm; not tachycardic Heart Sounds: normal S1 and normal S2; no murmur Extremities: no edema Gastrointestinal (Abdomen): Inspection/Auscultation: normal bowel sounds; abdomen not distended Percussion/Palpation: abdomen soft; abdomen nontender Musculoskeletal: No acute arthritis in any joint Neurologic: Alert and awake. Pleasantly confused. Generally weak Results & Data Results & Data ([facility]) Vital Signs (Past 12 Hours) Vital Signs Temp Pulse Resp BP BP Pulse Ox 07/17/21 12:14 37.1 C 83 22 126/66 100 07/17/21 09:00 74 16 175/89 H 99 07/17/21 08:30 85 20 94 Laboratory Results Short CBC 07/16/21 07/16/21 07/17/21 Range/Units 15:50 21:07 04:16 Hgb 8.5 L 8.4 L 9.0 L (12.0-16.0) g/dL Hct 27.8 L 26.8 L 29.5 L (37-47) % 07/17/21 Range/Units 09:03 Hgb 8.7 L (12.0-16.0) g/dL Hct 28.4 L (37-47) % Medications Administered Current Inpatient Medications Acetaminophen (Acetaminophen 325 Mg Tab) 650 mg PO Q4H PRN PRN Reason: Pain or Fever Stop: 08/12/21 18:51 Al Hydrox/Mg Hydrox/Simethicone (Aluminum/Magnesium Susp 30 Ml Udc) 15 ml PO Q4H PRN PRN Reason: Dyspepsia Stop: 08/12/21 18:51 Albuterol (Albuterol 0.083% Nebu Soln 3 Ml Vial) 2.5 mg NEB Q6R PRN; Protocol PRN Reason: Shortness Of Breath Or Wheezing Stop: 08/12/21 18:51 Last Admin: 07/17/21 08:28 Dose: 2.5 mg Documented by: Dextrose (Dextrose 50% 50 Ml Syringe) 25 - 50 ml IV UD PRN; Protocol PRN Reason: Hypoglycemia Protocol Stop: 08/12/21 18:51 Glucagon (Glucagon For Inj 1 Mg Vial) 1 mg SQ UD PRN; Protocol PRN Reason: Hypoglycemia Protocol Stop: 08/12/21 18:51 Glucose (Glucose 10 Tabs/Tube) 4 - 8 tabs PO UD PRN; Protocol PRN Reason: Hypoglycemia Protocol Stop: 08/12/21 18:51 Glucose (Glucose 40% Gel 15 Gm Tube) 15 - 30 gm PO UD PRN; Protocol PRN Reason: Hypoglycemia Protocol Stop: 08/12/21 18:51 Sodium Chloride (Nss 1000ml) 1,000 mls @ 75 mls/hr IV .[id number] [facility] Last Infusion: 07/16/21 07:24 Dose: Infused Documented by: Azithromycin 500 mg/ Dextrose 255 mls @ 127.5 mls/hr IV Q24H [facility] Stop: 07/22/21 12:29 Last Admin: 07/17/21 13:31 Dose: 127.5 mls/hr Documented by: Dextrose/Sodium Chloride (D5w And Nss) 1,000 mls @ 80 mls/hr IV .[id number] [facility] Stop: 08/15/21 15:29 Last Admin: 07/17/21 03:52 Dose: 80 mls/hr Documented by: Pantoprazole Sodium 40 mg/ (Dextrose) 100 mls @ 20 mls/hr IV Q5H [facility] Stop: 08/15/21 15:59 Last Admin: 07/17/21 14:00 Dose: 8 mg/hr, 20 mls/hr Documented by: Ceftriaxone Sodium 2,000 mg/ (Dextrose) 70 mls @ 100 mls/hr IV Q24H [facility] Stop: 07/22/21 12:29 Last Infusion: 07/17/21 14:18 Dose: Infused Documented by: Insulin Aspart (Insulin Aspart Per Unit) 0 units SC ACHS [facility] Stop: 08/12/21 20:59 Last Admin: 07/17/21 13:13 Dose: Not Given Documented by: Insulin Glargine (Insulin Glargine Solostar 100 Units/Ml 3 Ml Pen) 0 - 8 units SC BID [facility] Stop: 08/12/21 20:59 Last Admin: 07/17/21 10:48 Dose: 4 units Documented by: Isosorbide Dinitrate (Isosorbide Dinitrate 10 Mg Tab) 30 mg PO QAM [facility] Stop: 08/13/21 08:59 Last Admin: 07/17/21 10:42 Dose: 30 mg Documented by: Magnesium Hydroxide (Magnesium Hydroxide Susp 30 Ml Udc) 30 ml PO Q12H PRN PRN Reason: Constipation Stop: 08/12/21 18:51 Metoprolol Tartrate (Metoprolol Tartrate 100 Mg Tab) 100 mg PO BID [facility] Stop: 08/13/21 08:59 Last Admin: 07/17/21 10:43 Dose: 100 mg Documented by: Miscellaneous (Carbohydrates For Hypoglycemia ) 15 - 30 gm PO UD PRN PRN Reason: Hypoglycemia Protocol Stop: 08/12/21 18:51 Last Admin: 07/16/21 08:20 Dose: 15 gm Documented by: Ondansetron HCl (Ondansetron Inj 2 Mg/Ml 2 Ml Vial) 4 mg IV Q6H PRN PRN Reason: Nausea Stop: 08/12/21 18:51 Polyethylene Glycol (Polyethylene (Miralax) 17 Gm Pack) 17 gm PO DAILY PRN PRN Reason: Constipation Stop: 08/12/21 18:51
[2021-07-17 20:10] LABS: Hematocrit (blood only) 25.4 % (37-47); Hemoglobin 7.8 g/dL (12.0-16.0)
[2021-07-18] MEDS: D5W AND NSS 1,000 ML IV SCH (02:28)
[2021-07-18] MEDS: PANTOprazole 40 MG in DEXTROSE 5% 100 ML IV SCH ×5 (03:02→22:45)
[2021-07-18 06:10] LABS: Basophils # (auto) 0.02 K/uL (0-0.2); Basophils % (auto) 0.3 %; Eosinophils # (auto) 0.16 K/uL (0-0.5); Eosinophils % (auto) 2.7 %; Hematocrit (blood only) 26.9 % (37-47); Hemoglobin 8.3 g/dL (12.0-16.0); Immature Granulocytes # (auto) 0.01 K/uL (0.00-0.02); Immature Granulocytes % (auto) 0.2 %; Lymphocytes # (auto) 1.28 K/uL (1.2-3.4); Lymphocytes % (auto) 21.7 %; Mean Corpuscular Hemoglobin 26.9 pg (25-34); Mean Corpuscular Hgb Conc 30.9 g/dL (32-36); Mean Corpuscular Volume 87.1 fL (80-100); Mean Platelet Volume 10.2 fL (7.4-10.4); Monocytes # (auto) 0.41 K/uL (0.11-0.59); Monocytes % (auto) 6.9 %; Neutrophils # (auto) 4.03 K/uL (1.4-6.5); Neutrophils % (auto) 68.2 %; Platelet Count 216 K/uL (130-400); RDW Coefficient of Variation 17.2 % (11.5-14.5); RDW Standard Deviation 54.7 fL (36.4-46.3); Red Blood Count 3.09 M/uL (4.2-5.4); White Blood Count 5.91 K/uL (4.8-10.8)
[2021-07-18 06:44] LABS: BUN Creatinine Ratio 10.7 (10-20); Calcium 8.2 mg/dl (8.5-10.1); Creatinine Clr Calc Pharmacy 25.1 ml/min; Est GFR (African American) 39.3 ml/min; Est GFR (Non-African American) 33.9 ml/min; Potassium 3.3 mmol/L (3.5-5.1)
[2021-07-18] MEDS: METOPROLOL TARTRATE 100 MG TAB PO SCH ×2 (07:35→20:15)
[2021-07-18] MEDS: ISOSORBIDE DINITRATE 10 MG TAB PO SCH (07:36)
[2021-07-18] MEDS: INSULIN ASPART PER UNIT SC SCH ×4 (07:56→19:44)
[2021-07-18] MEDS: INSULIN GLARGINE SOLOSTAR 100 UNITS/ML 3 ML PEN SC SCH ×2 (07:56→20:39)
[2021-07-18] MEDS: cefTRIAXone SODIUM 2,000 MG in DEXTROSE 5% 50 ML IV SCH (11:30)
[2021-07-18] MEDS: AZITHROMYCIN 500 MG in DEXTROSE 5% 250 ML IV SCH (12:18)
[2021-07-18] MEDS: POTASSIUM CHLORIDE / WTR 10 MEQ/100 ML PLCT IV SCH (12:24)
--- NOTE | 2021-07-18 16:59 | Hospitalist Progress Note ---
Date of Service July 18, 2021 Assessment & Plan (1) Acute metabolic encephalopathy: (2) Hypoxia: (3) Pneumonia: (4) Fall: (5) Supratherapeutic INR: (6) Diabetes mellitus type 2 with complications: (7) Atrial fibrillation: (8) CAD (coronary artery disease): (9) CKD (chronic kidney disease) stage 4, GFR 15-29 ml/min: Plan: This is an 86-year-old female who has significant past medical history of CAD status post CABG x3, chronic atrial fibrillation on warfarin, CKD stage IV, HTN, HLD, T2DM, PAD/PVD who resides at [facility] and presents to ED secondary to altered mental status x2 days and fall from standing position that was unwitnessed. Altered mental status -likely in setting of infectious state as well as mild TBI secondary to fall and hitting head Hypoxia Bilateral pneumonitis Neurochecks every [address] head redemonstration of large scalp hematoma without any intracranial events Continue O2 supplementation, wean down as tolerated. Continue with IV Zosyn, MRSA screen negative. Patient AO x2, passed swallow screen, clear liquid diet, advance as tolerated. Gentle IV fluid, DC IV fluids once eating better. Blood cultures negative Pulmonary toilet with nebs, spirometry and flutter valve when able Clinically much better today we will continue current management Remains pleasantly confused without any more shortness of breath Has been on intravenous ceftriaxone and azithromycin Clinically much improved Fall Large left frontal scalp hematoma Likely mild TBI Repeat CT in a.m. large scalp hematoma redemonstrated. Supportive care Ice 3 times daily to hematoma Neurochecks every 2 hrs-no neuro deficit on examination No increase in the left frontal scalp hematoma Bright red rectal bleed 2 episodes since admission Last episode with some dizziness Hemoglobin checked following first episode of bright red rectal blood did not show any change Will keep her n.p.o., reverse INR. H&H every 6 hourly, type and hold and GI consultation Appreciate GI input and recommendation Hemoglobin did not drop and did not have any more rectal bleed-will not go for colonoscopy We will continue intravenous PPI for 48 hours in total SupraTherapeutic INR Received vitamin K in the ED, INR coming down Discussed with patient's son Artem over the phone regarding the risks and benefits of continuing warfarin given recurrent multiple falls in the preceding months and advanced dementia. The decision was made to not continue Coumadin going forward. Patient's son made aware that not being on Coumadin might predispose her to ischemic events like a stroke and peripheral vascular ischemia. Patient does have ischemic toe. INR was 1.4 as of yesterday but 1.9 today We will give another dose of intravenous vitamin K We will check INR tomorrow 07/19/2021 T2DM Last A1c 7.4 on 07/01/2021 Hold glipizide lantus/novolog per protocol Blood sugar remains unremarkable Chronic Afib hold warfarin continue metoprolol RVR 07/01 to underlying infection DC Coumadin upon discharge. See above. Heart rate remains stable CAD with history of CABG x3 On statin, Imdur, metoprolol as outpatient Gradually resume home meds as appropriate and when able. No acute cardiac symptoms CKD stage 4 baseline cr 1.8-2.0 At baseline. PVD/PAD has ischemic ulcers to r toe 07/02 consult wound care was on oral keflex as outpt to complete on 07/16, will dc in setting of IV Zosyn These are chronic, tx with betadine as outpt, consider further w/u if sx do not improve despite above tx Dvt ppx: none in setting of elevated INR, ischemic wounds to R toes Conditional code: Patient's son to bring a copy of living will to the hospital. PCP: Gay As per prior hospitalist; 07/14: Patient son given a phone call and updated about the current status of the patient. Discussed about bringing copy of living will to the hospital. Discussed about benefit and risks of warfarin and agreed to stop warfarin going forward. Given multiple falls in the preceding months and worsening dementia. Answered all his questions. He was understanding and was agreeable to the plan of care. Discussed with the son Will transfer to medical floor Admission and Anticipated Discharge Date Admission Date: July 13, 2021 Subjective 07/15/2021 The patient was seen and examined in emergency room in the holding area She was admitted with status post fall from the bed with left forehead injury No intracranial events She has been feeling much better and denies any significant symptoms 07/16/2021 The patient was seen and examined in emergency room holding area She has had one episode of bright left rectal blood early this morning Did not have any complaints during my examination She has had another episode of bright red blood per rectum this afternoon with some dizziness 07/17/2021 The patient was seen and examined in emergency room holding area She did not have any more rectal bleed and her hemoglobin remained stable She has been having some shortness of breath and remains pleasantly confused 07/18/2021 The patient was seen and examined in telemetry unit She has been feeling much better Generally weak but denies any other symptoms Her hemoglobin remained stable Review of Systems Review of Systems: All systems reviewed and are unremarkable except as noted below Gastrointestinal: Denies any abdominal pain and/or distention Physical Exam Physical Exam: Lying in bed comfortably with minimal shortness of breath at rest Constitutional: well developed, well nourished, + ill appearing and average body habitus Eyes: PERRL, conjunctivae normal, anicteric sclerae ENMT: external ear and nose normal, oropharynx normal Respiratory: no respiratory distress Auscultation: + diminished lung sounds and + crackles (Bibasilar crackles more on the right side) Cardiovascular: Rate/Rhythm: regular rate and regular rhythm; not tachycardic Heart Sounds: normal S1 and normal S2; no murmur Extremities: no edema Gastrointestinal (Abdomen): Inspection/Auscultation: normal bowel sounds; abdomen not distended Percussion/Palpation: abdomen soft; abdomen nontender Musculoskeletal: No acute arthritis in any joint Neurologic: Alert, awake , pleasantly confused. Generally weak Results & Data Results & Data ([facility]) Vital Signs (Past 12 Hours) Vital Signs Temp Pulse Pulse Resp BP Pulse Ox 07/18/21 16:00 83 07/18/21 15:49 36.5 C 83 18 146/84 H 100 07/18/21 11:00 36.4 C L 88 16 158/82 H 100 07/18/21 10:00 83 07/18/21 08:00 36.7 C 65 18 149/69 H 96 Laboratory Results Short CBC 07/17/21 07/18/21 Range/Units 20:00 05:42 WBC 5.91 (4.8-10.8) K/uL Hgb 7.8 L 8.3 L (12.0-16.0) g/dL Hct 25.4 L 26.9 L (37-47) % Plt Count 216 (130-400) K/uL BMP 07/18/21 05:42 Sodium 141 Potassium 3.3 L Chloride 111 H Carbon Dioxide 22 BUN 15 Creatinine 1.40 H D Glucose 91 Calcium 8.2 L Medications Administered Current Inpatient Medications Acetaminophen (Acetaminophen 325 Mg Tab) 650 mg PO Q4H PRN PRN Reason: Pain or Fever Stop: 08/12/21 18:51 Al Hydrox/Mg Hydrox/Simethicone (Aluminum/Magnesium Susp 30 Ml Udc) 15 ml PO Q4H PRN PRN Reason: Dyspepsia Stop: 08/12/21 18:51 Albuterol (Albuterol 0.083% Nebu Soln 3 Ml Vial) 2.5 mg NEB Q6R PRN; Protocol PRN Reason: Shortness Of Breath Or Wheezing Stop: 08/12/21 18:51 Last Admin: 07/17/21 08:28 Dose: 2.5 mg Documented by: Dextrose (Dextrose 50% 50 Ml Syringe) 25 - 50 ml IV UD PRN; Protocol PRN Reason: Hypoglycemia Protocol Stop: 08/12/21 18:51 Glucagon (Glucagon For Inj 1 Mg Vial) 1 mg SQ UD PRN; Protocol PRN Reason: Hypoglycemia Protocol Stop: 08/12/21 18:51 Glucose (Glucose 10 Tabs/Tube) 4 - 8 tabs PO UD PRN; Protocol PRN Reason: Hypoglycemia Protocol Stop: 08/12/21 18:51 Glucose (Glucose 40% Gel 15 Gm Tube) 15 - 30 gm PO UD PRN; Protocol PRN Reason: Hypoglycemia Protocol Stop: 08/12/21 18:51 Sodium Chloride (Nss 1000ml) 1,000 mls @ 75 mls/hr IV .[id number] [facility] Last Infusion: 07/16/21 07:24 Dose: Infused Documented by: Azithromycin 500 mg/ Dextrose 255 mls @ 127.5 mls/hr IV Q24H [facility] Stop: 07/22/21 12:29 Last Infusion: 07/18/21 14:52 Dose: Infused Documented by: Pantoprazole Sodium 40 mg/ (Dextrose) 100 mls @ 20 mls/hr IV Q5H [facility] Stop: 08/15/21 15:59 Last Admin: 07/18/21 12:23 Dose: 8 mg/hr, 20 mls/hr Documented by: Ceftriaxone Sodium 2,000 mg/ (Dextrose) 70 mls @ 100 mls/hr IV Q24H [facility] Stop: 07/22/21 12:29 Last Infusion: 07/18/21 12:24 Dose: Infused Documented by: Insulin Aspart (Insulin Aspart Per Unit) 0 units SC ACHS [facility] Stop: 08/12/21 20:59 Last Admin: 07/18/21 12:24 Dose: Not Given Documented by: Insulin Glargine (Insulin Glargine Solostar 100 Units/Ml 3 Ml Pen) 0 - 8 units SC BID [facility] Stop: 08/12/21 20:59 Last Admin: 07/18/21 07:56 Dose: Not Given Documented by: Isosorbide Dinitrate (Isosorbide Dinitrate 10 Mg Tab) 30 mg PO QAM [facility] Stop: 08/13/21 08:59 Last Admin: 07/18/21 07:36 Dose: 30 mg Documented by: Magnesium Hydroxide (Magnesium Hydroxide Susp 30 Ml Udc) 30 ml PO Q12H PRN PRN Reason: Constipation Stop: 08/12/21 18:51 Metoprolol Tartrate (Metoprolol Tartrate 100 Mg Tab) 100 mg PO BID [facility] Stop: 08/13/21 08:59 Last Admin: 07/18/21 07:35 Dose: 100 mg Documented by: Miscellaneous (Carbohydrates For Hypoglycemia ) 15 - 30 gm PO UD PRN PRN Reason: Hypoglycemia Protocol Stop: 08/12/21 18:51 Last Admin: 07/16/21 08:20 Dose: 15 gm Documented by: Ondansetron HCl (Ondansetron Inj 2 Mg/Ml 2 Ml Vial) 4 mg IV Q6H PRN PRN Reason: Nausea Stop: 08/12/21 18:51 Polyethylene Glycol (Polyethylene (Miralax) 17 Gm Pack) 17 gm PO DAILY PRN PRN Reason: Constipation Stop: 08/12/21 18:51
[2021-07-19] MEDS: PANTOprazole 40 MG in DEXTROSE 5% 100 ML IV SCH ×3 (04:00→14:53)
[2021-07-19 06:55] LABS: Basophils # (auto) 0.02 K/uL (0-0.2); Basophils % (auto) 0.3 %; Eosinophils # (auto) 0.55 K/uL (0-0.5); Eosinophils % (auto) 7.2 %; Hematocrit (blood only) 29.1 % (37-47); Hemoglobin 8.9 g/dL (12.0-16.0); Immature Granulocytes # (auto) 0.02 K/uL (0.00-0.02); Immature Granulocytes % (auto) 0.3 %; Lymphocytes # (auto) 1.51 K/uL (1.2-3.4); Lymphocytes % (auto) 19.9 %; Mean Corpuscular Hemoglobin 26.8 pg (25-34); Mean Corpuscular Hgb Conc 30.6 g/dL (32-36); Mean Corpuscular Volume 87.7 fL (80-100); Mean Platelet Volume 10.5 fL (7.4-10.4); Monocytes # (auto) 0.59 K/uL (0.11-0.59); Monocytes % (auto) 7.8 %; Neutrophils # (auto) 4.91 K/uL (1.4-6.5); Neutrophils % (auto) 64.5 %; Platelet Count 249 K/uL (130-400); RDW Coefficient of Variation 17.4 % (11.5-14.5); RDW Standard Deviation 56.5 fL (36.4-46.3); Red Blood Count 3.32 M/uL (4.2-5.4)
[2021-07-19 07:18] LABS: BUN Creatinine Ratio 8.2 (10-20); Calcium 8.3 mg/dl (8.5-10.1); Creatinine Clr Calc Pharmacy 22.1 ml/min; Est GFR (African American) 33.7 ml/min; Est GFR (Non-African American) 29.1 ml/min; Potassium 3.3 mmol/L (3.5-5.1)
[2021-07-19 07:21] LABS: INR 1.2 (0.9-1.1); Prothrombin Time 11.9 Seconds (9.0-12.0)
[2021-07-19] MEDS: METOPROLOL TARTRATE 100 MG TAB PO SCH ×2 (08:02→21:15)
[2021-07-19] MEDS: ISOSORBIDE DINITRATE 10 MG TAB PO SCH (08:02)
[2021-07-19] MEDS ORDERED: POTASSIUM CHLORIDE CRTAB 20 MEQ TABCR PO STA (08:14)
[2021-07-19] MEDS: INSULIN ASPART PER UNIT SC SCH ×4 (09:03→21:14)
[2021-07-19] MEDS: INSULIN GLARGINE SOLOSTAR 100 UNITS/ML 3 ML PEN SC SCH ×2 (09:04→21:15)
[2021-07-19] MEDS: cefTRIAXone SODIUM 2,000 MG in DEXTROSE 5% 50 ML IV SCH (12:26)
[2021-07-19] MEDS: AZITHROMYCIN 500 MG in DEXTROSE 5% 250 ML IV SCH (13:09)
--- NOTE | 2021-07-19 16:53 | Hospitalist Progress Note ---
Date of Service July 19, 2021 Assessment & Plan (1) Acute metabolic encephalopathy: (2) Hypoxia: (3) Pneumonia: (4) Fall: (5) Supratherapeutic INR: (6) Diabetes mellitus type 2 with complications: (7) Atrial fibrillation: (8) CAD (coronary artery disease): (9) CKD (chronic kidney disease) stage 4, GFR 15-29 ml/min: Plan: This is an 86-year-old female who has significant past medical history of CAD status post CABG x3, chronic atrial fibrillation on warfarin, CKD stage IV, HTN, HLD, T2DM, PAD/PVD who resides at [facility] and presents to ED secondary to altered mental status x2 days and fall from standing position that was unwitnessed. Altered mental status -likely in setting of infectious state as well as mild TBI secondary to fall and hitting head Hypoxia Bilateral pneumonitis Neurochecks every [address] head redemonstration of large scalp hematoma without any intracranial events Continue O2 supplementation, wean down as tolerated. Continue with IV Zosyn, MRSA screen negative. Patient AO x2, passed swallow screen, clear liquid diet, advance as tolerated. Gentle IV fluid, DC IV fluids once eating better. Blood cultures negative Pulmonary toilet with nebs, spirometry and flutter valve when able Clinically much better today we will continue current management Remains pleasantly confused without any more shortness of breath Has been on intravenous ceftriaxone and azithromycin Clinically much improved Fall Large left frontal scalp hematoma Likely mild TBI Repeat CT in a.m. large scalp hematoma redemonstrated. Supportive care Ice 3 times daily to hematoma Neurochecks every 2 hrs-no neuro deficit on examination No increase in the left frontal scalp hematoma Bright red rectal bleed 2 episodes since admission Last episode with some dizziness Hemoglobin checked following first episode of bright red rectal blood did not show any change Will keep her n.p.o., reverse INR. H&H every 6 hourly, type and hold and GI consultation Appreciate GI input and recommendation Hemoglobin did not drop and did not have any more rectal bleed-will not go for colonoscopy We will continue intravenous PPI for 48 hours in total Will change PPI to oral PT OT evaluation and possible discharge tomorrow SupraTherapeutic INR Received vitamin K in the ED, INR coming down Discussed with patient's son Artem over the phone regarding the risks and benefits of continuing warfarin given recurrent multiple falls in the preceding months and advanced dementia. The decision was made to not continue Coumadin going forward. Patient's son made aware that not being on Coumadin might predispose her to ischemic events like a stroke and peripheral vascular ischemia. Patient does have ischemic toe. INR was 1.4 as of yesterday but 1.9 today We will give another dose of intravenous vitamin K We will check INR tomorrow 07/19/2021 T2DM Last A1c 7.4 on 07/01/2021 Hold glipizide lantus/novolog per protocol Blood sugar remains unremarkable Chronic Afib hold warfarin continue metoprolol RVR 07/01 to underlying infection DC Coumadin upon discharge. See above. Heart rate remains stable Will not restart Coumadin CAD with history of CABG x3 On statin, Imdur, metoprolol as outpatient Gradually resume home meds as appropriate and when able. No acute cardiac symptoms CKD stage 4 baseline cr 1.8-2.0 At baseline. PVD/PAD has ischemic ulcers to r toe 07/02 consult wound care was on oral keflex as outpt to complete on 07/16, will dc in setting of IV Zosyn These are chronic, tx with betadine as outpt, consider further w/u if sx do not improve despite above tx Dvt ppx: none in setting of elevated INR, ischemic wounds to R toes Conditional code: Patient's son to bring a copy of living will to the hospital. PCP: Gay As per prior hospitalist; 07/14: Patient son given a phone call and updated about the current status of the patient. Discussed about bringing copy of living will to the hospital. Discussed about benefit and risks of warfarin and agreed to stop warfarin going forward. Given multiple falls in the preceding months and worsening dementia. Answered all his questions. He was understanding and was agreeable to the plan of care. Discussed with the son Will transfer to medical floor Admission and Anticipated Discharge Date Admission Date: July 13, 2021 Subjective 07/15/2021 The patient was seen and examined in emergency room in the holding area She was admitted with status post fall from the bed with left forehead injury No intracranial events She has been feeling much better and denies any significant symptoms 07/16/2021 The patient was seen and examined in emergency room holding area She has had one episode of bright left rectal blood early this morning Did not have any complaints during my examination She has had another episode of bright red blood per rectum this afternoon with some dizziness 07/17/2021 The patient was seen and examined in emergency room holding area She did not have any more rectal bleed and her hemoglobin remained stable She has been having some shortness of breath and remains pleasantly confused 07/18/2021 The patient was seen and examined in telemetry unit She has been feeling much better Generally weak but denies any other symptoms Her hemoglobin remained stable 07/19/2021 The patient was seen and examined in medical floor She remained stable and did not have any more bright red rectal bleed Denies any abdominal pain and/or shortness of breath Review of Systems Review of Systems: All systems reviewed and are unremarkable except as noted below Gastrointestinal: Denies any abdominal pain and/or distention Physical Exam Physical Exam: Lying in bed comfortably with minimal shortness of breath at rest Constitutional: well developed, well nourished, + ill appearing and average body habitus Eyes: PERRL, conjunctivae normal, anicteric sclerae ENMT: external ear and nose normal, oropharynx normal Respiratory: no respiratory distress Auscultation: + diminished lung sounds and + crackles (Bibasilar crackles more on the right side) Cardiovascular: Rate/Rhythm: regular rate and regular rhythm; not tachycardic Heart Sounds: normal S1 and normal S2; no murmur Extremities: no edema Gastrointestinal (Abdomen): Inspection/Auscultation: normal bowel sounds; abdomen not distended Percussion/Palpation: abdomen soft; abdomen nontender Musculoskeletal: No acute arthritis in any joint Neurologic: .Alert and awake. Pleasantly confused Results & Data Results & [facility] ([facility]) Vital Signs (Past 12 Hours) Vital Signs Temp Pulse Resp BP Pulse Ox 07/19/21 07:50 36.6 C 87 18 155/88 H 98 Laboratory Results Short CBC 07/19/21 Range/Units 06:33 WBC 7.60 (4.8-10.8) K/uL Hgb 8.9 L (12.0-16.0) g/dL Hct 29.1 L (37-47) % Plt Count 249 (130-400) K/uL BMP 07/19/21 06:33 Sodium 138 Potassium 3.3 L Chloride 109 H Carbon Dioxide 22 BUN 13 Creatinine 1.59 H Glucose 113 H Calcium 8.3 L Medications Administered Current Inpatient Medications Acetaminophen (Acetaminophen 325 Mg Tab) 650 mg PO Q4H PRN PRN Reason: Pain or Fever Stop: 08/12/21 18:51 Al Hydrox/Mg Hydrox/Simethicone (Aluminum/Magnesium Susp 30 Ml Udc) 15 ml PO Q4H PRN PRN Reason: Dyspepsia Stop: 08/12/21 18:51 Albuterol (Albuterol 0.083% Nebu Soln 3 Ml Vial) 2.5 mg NEB Q6R PRN; Protocol PRN Reason: Shortness Of Breath Or Wheezing Stop: 08/12/21 18:51 Last Admin: 07/17/21 08:28 Dose: 2.5 mg Documented by: Dextrose (Dextrose 50% 50 Ml Syringe) 25 - 50 ml IV UD PRN; Protocol PRN Reason: Hypoglycemia Protocol Stop: 08/12/21 18:51 Glucagon (Glucagon For Inj 1 Mg Vial) 1 mg SQ UD PRN; Protocol PRN Reason: Hypoglycemia Protocol Stop: 08/12/21 18:51 Glucose (Glucose 10 Tabs/Tube) 4 - 8 tabs PO UD PRN; Protocol PRN Reason: Hypoglycemia Protocol Stop: 08/12/21 18:51 Glucose (Glucose 40% Gel 15 Gm Tube) 15 - 30 gm PO UD PRN; Protocol PRN Reason: Hypoglycemia Protocol Stop: 08/12/21 18:51 Sodium Chloride (Nss 1000ml) 1,000 mls @ 75 mls/hr IV .[id number] ON LICENSE OF [facility] Last Infusion: 07/16/21 07:24 Dose: Infused Documented by: Azithromycin 500 mg/ Dextrose 255 mls @ 127.5 mls/hr IV Q24H ON LICENSE OF [facility] Stop: 07/22/21 12:29 Last Infusion: 07/19/21 15:47 Dose: Infused Documented by: Pantoprazole Sodium 40 mg/ (Dextrose) 100 mls @ 20 mls/hr IV Q5H ON LICENSE OF [facility] Stop: 08/15/21 15:59 Last Admin: 07/19/21 14:53 Dose: 8 mg/hr, 20 mls/hr Documented by: Ceftriaxone Sodium 2,000 mg/ (Dextrose) 70 mls @ 100 mls/hr IV Q24H ON LICENSE OF [facility] Stop: 07/22/21 12:29 Last Infusion: 07/19/21 13:31 Dose: Infused Documented by: Insulin Aspart (Insulin Aspart Per Unit) 0 units SC ACHS ON LICENSE OF [facility] Stop: 08/12/21 20:59 Last Admin: 07/19/21 13:09 Dose: Not Given Documented by: Insulin Glargine (Insulin Glargine Solostar 100 Units/Ml 3 Ml Pen) 0 - 8 units SC BID ON LICENSE OF [facility] Stop: 08/12/21 20:59 Last Admin: 07/19/21 09:04 Dose: 4 units Documented by: Isosorbide Dinitrate (Isosorbide Dinitrate 10 Mg Tab) 30 mg PO QAM ON LICENSE OF [facility] Stop: 08/13/21 08:59 Last Admin: 07/19/21 08:02 Dose: 30 mg Documented by: Magnesium Hydroxide (Magnesium Hydroxide Susp 30 Ml Udc) 30 ml PO Q12H PRN PRN Reason: Constipation Stop: 08/12/21 18:51 Metoprolol Tartrate (Metoprolol Tartrate 100 Mg Tab) 100 mg PO BID ON LICENSE OF [facility] Stop: 08/13/21 08:59 Last Admin: 07/19/21 08:02 Dose: 100 mg Documented by: Miscellaneous (Carbohydrates For Hypoglycemia ) 15 - 30 gm PO UD PRN PRN Reason: Hypoglycemia Protocol Stop: 08/12/21 18:51 Last Admin: 07/16/21 08:20 Dose: 15 gm Documented by: Ondansetron HCl (Ondansetron Inj 2 Mg/Ml 2 Ml Vial) 4 mg IV Q6H PRN PRN Reason: Nausea Stop: 08/12/21 18:51 Polyethylene Glycol (Polyethylene (Miralax) 17 Gm Pack) 17 gm PO DAILY PRN PRN Reason: Constipation Stop: 08/12/21 18:51
[2021-07-20] MEDS ORDERED: PANTOprazole 40 MG TAB PO SCH (09:00)
[2021-07-20] MEDS ORDERED: POTASSIUM CHLORIDE CRTAB 20 MEQ TABCR PO STA (09:01)
[2021-07-20] MEDS: INSULIN ASPART PER UNIT SC SCH ×2 (09:07→13:26)
[2021-07-20] MEDS: INSULIN GLARGINE SOLOSTAR 100 UNITS/ML 3 ML PEN SC SCH (09:08)
[2021-07-20] MEDS: ISOSORBIDE DINITRATE 10 MG TAB PO SCH (09:09)
[2021-07-20] MEDS: METOPROLOL TARTRATE 100 MG TAB PO SCH (09:09)
--- NOTE | 2021-07-20 11:26 | Hospitalist Progress Note ---
Date of Service July 20, 2021 Assessment & Plan (1) Acute metabolic encephalopathy: (2) Hypoxia: (3) Pneumonia: (4) Fall: (5) Supratherapeutic INR: (6) Diabetes mellitus type 2 with complications: (7) Atrial fibrillation: (8) CAD (coronary artery disease): (9) CKD (chronic kidney disease) stage 4, GFR 15-29 ml/min: Plan: This is an 86-year-old female who has significant past medical history of CAD status post CABG x3, chronic atrial fibrillation on warfarin, CKD stage IV, HTN, HLD, T2DM, PAD/PVD who resides at [facility] and presents to ED secondary to altered mental status x2 days and fall from standing position that was unwitnessed. Altered mental status -likely in setting of infectious state as well as mild TBI secondary to fall and hitting head Hypoxia Bilateral pneumonitis Neurochecks every [address] head redemonstration of large scalp hematoma without any intracranial events Continue O2 supplementation, wean down as tolerated. Continue with IV Zosyn, MRSA screen negative. Patient AO x2, passed swallow screen, clear liquid diet, advance as tolerated. Gentle IV fluid, DC IV fluids once eating better. Blood cultures negative Pulmonary toilet with nebs, spirometry and flutter valve when able Clinically much better today we will continue current management Remains pleasantly confused without any more shortness of breath Has been on intravenous ceftriaxone and azithromycin Will change IV ceftriaxone to oral Ceftin for next 2 days Fall Large left frontal scalp hematoma Likely mild TBI Repeat CT in a.m. large scalp hematoma redemonstrated. Supportive care Ice 3 times daily to hematoma Neurochecks every 2 hrs-no neuro deficit on examination No increase in the left frontal scalp hematoma Bright red rectal bleed 2 episodes since admission Last episode with some dizziness Hemoglobin checked following first episode of bright red rectal blood did not show any change Will keep her n.p.o., reverse INR. H&H every 6 hourly, type and hold and GI consultation Appreciate GI input and recommendation Hemoglobin did not drop and did not have any more rectal bleed-will not go for colonoscopy We will continue intravenous PPI for 48 hours in total Will change PPI to oral Hemoglobin remains stable and does not need to go for colonoscopy as per the type copy examiner SupraTherapeutic INR Received vitamin K in the ED, INR coming down Discussed with patient's son Artem over the phone regarding the risks and benefits of continuing warfarin given recurrent multiple falls in the preceding months and advanced dementia. The decision was made to not continue Coumadin going forward. Patient's son made aware that not being on Coumadin might predispose her to ischemic events like a stroke and peripheral vascular ische crissy. Patient does have ischemic toe. INR was 1.4 as of yesterday but 1.9 today We will give another dose of intravenous vitamin K We will check INR tomorrow 07/19/2021 Normal Coumadin T2DM Last A1c 7.4 on 07/01/2021 Hold glipizide lantus/novolog per protocol Blood sugar remains unremarkable Chronic Afib hold warfarin continue metoprolol RVR 07/01 to underlying infection DC Coumadin upon discharge. See above. Heart rate remains stable Will not restart Coumadin CAD with history of CABG x3 On statin, Imdur, metoprolol as outpatient Gradually resume home meds as appropriate and when able. No acute cardiac symptoms CKD stage 4 baseline cr 1.8-2.0 At baseline. PVD/PAD has ischemic ulcers to r toe 07/02 consult wound care was on oral keflex as outpt to complete on 07/16, will dc in setting of IV Zosyn These are chronic, tx with betadine as outpt, consider further w/u if sx do not improve despite above tx Dvt ppx: none in setting of elevated INR, ischemic wounds to R toes Conditional code: Patient's son to bring a copy of living will to the hospital. PCP: Gay As per prior hospitalist; 07/14: Patient son given a phone call and updated about the current status of the patient. Discussed about bringing copy of living will to the hospital. Discussed about benefit and risks of warfarin and agreed to stop warfarin going forward. Given multiple falls in the preceding months and worsening dementia. Answered all his questions. He was understanding and was agreeable to the plan of care. Discussed with the son Will be discharged to [facility] this afternoon Admission and Anticipated Discharge Date Admission Date: July 13, 2021 Subjective / The patient was seen and examined in emergency room in the holding area She was admitted with status post fall from the bed with left forehead injury No intracranial events She has been feeling much better and denies any significant symptoms 07/16/2021 The patient was seen and examined in emergency room holding area She has had one episode of bright left rectal blood early this morning Did not have any complaints during my examination She has had another episode of bright red blood per rectum this afternoon with some dizziness 07/17/2021 The patient was seen and examined in emergency room holding area She did not have any more rectal bleed and her hemoglobin remained stable She has been having some shortness of breath and remains pleasantly confused 07/18/2021 The patient was seen and examined in telemetry unit She has been feeling much better Generally weak but denies any other symptoms Her hemoglobin remained stable 07/19/2021 The patient was seen and examined in medical floor She remained stable and did not have any more bright red rectal bleed Denies any abdominal pain and/or shortness of breath 07/20/2021 The patient was seen and examined in medical floor She has been feeling much better and denies any symptoms She remains pleasantly confused She will be transferred to [facility] this afternoon Review of Systems Review of Systems: All systems reviewed and are unremarkable except as noted below Gastrointestinal: Denies any abdominal pain and/or distention Physical Exam Physical Exam: Lying in bed comfortably without any shortness of breath Constitutional: well developed, well nourished, + ill appearing and average body habitus Eyes: PERRL, conjunctivae normal, anicteric sclerae ENMT: external ear and nose normal, oropharynx normal Respiratory: no respiratory distress Auscultation: + diminished lung sounds and + crackles (Bibasilar crackles more on the right side) Cardiovascular: Rate/Rhythm: regular rate and regular rhythm; not tachycardic Heart Sounds: normal S1 and normal S2; no murmur Extremities: no edema Gastrointestinal (Abdomen): Inspection/Auscultation: normal bowel sounds; abdomen not distended Percussion/Palpation: abdomen soft; abdomen nontender Musculoskeletal: No acute arthritis in any joint Neurologic: Alert and awake. Pleasantly confused. Generally weak without any focal neuro deficit Results & Data Results & Data ([facility]) Vital Signs (Past 12 Hours) Vital Signs Temp Pulse Resp BP Pulse Ox 07/20/21 07:54 37.1 C 91 H 18 165/88 H 97 Medications Administered Current Inpatient Medications Acetaminophen (Acetaminophen 325 Mg Tab) 650 mg PO Q4H PRN PRN Reason: Pain or Fever Stop: 08/12/21 18:51 Al Hydrox/Mg Hydrox/Simethicone (Aluminum/Magnesium Susp 30 Ml Udc) 15 ml PO Q4H PRN PRN Reason: Dyspepsia Stop: 08/12/21 18:51 Albuterol (Albuterol 0.083% Nebu Soln 3 Ml Vial) 2.5 mg NEB Q6R PRN; Protocol PRN Reason: Shortness Of Breath Or Wheezing Stop: 08/12/21 18:51 Last Admin: 07/17/21 08:28 Dose: 2.5 mg Documented by: Cefuroxime Axetil (Cefuroxime Axetil 500 Mg Tab) 500 mg PO BID [facility] Stop: 07/27/21 20:59 Dextrose (Dextrose 50% 50 Ml Syringe) 25 - 50 ml IV UD PRN; Protocol PRN Reason: Hypoglycemia Protocol Stop: 08/12/21 18:51 Glucagon (Glucagon For Inj 1 Mg Vial) 1 mg SQ UD PRN; Protocol PRN Reason: Hypoglycemia Protocol Stop: 08/12/21 18:51 Glucose (Glucose 10 Tabs/Tube) 4 - 8 tabs PO UD PRN; Protocol PRN Reason: Hypoglycemia Protocol Stop: 08/12/21 18:51 Glucose (Glucose 40% Gel 15 Gm Tube) 15 - 30 gm PO UD PRN; Protocol PRN Reason: Hypoglycemia Protocol Stop: 08/12/21 18:51 Sodium Chloride (Nss 1000ml) 1,000 mls @ 75 mls/hr IV .[id number] [facility] Last Infusion: 07/16/21 07:24 Dose: Infused Documented by: Insulin Aspart (Insulin Aspart Per Unit) 0 units SC ACHS [facility] Stop: 08/12/21 20:59 Last Admin: 07/20/21 09:07 Dose: Not Given Documented by: Insulin Glargine (Insulin Glargine Solostar 100 Units/Ml 3 Ml Pen) 0 - 8 units SC BID [facility] Stop: 08/12/21 20:59 Last Admin: 07/20/21 09:08 Dose: Not Given Documented by: Isosorbide Dinitrate (Isosorbide Dinitrate 10 Mg Tab) 30 mg PO QAM [facility] Stop: 08/13/21 08:59 Last Admin: 07/20/21 09:09 Dose: 30 mg Documented by: Magnesium Hydroxide (Magnesium Hydroxide Susp 30 Ml Udc) 30 ml PO Q12H PRN PRN Reason: Constipation Stop: 08/12/21 18:51 Metoprolol Tartrate (Metoprolol Tartrate 100 Mg Tab) 100 mg PO BID [facility] Stop: 08/13/21 08:59 Last Admin: 07/20/21 09:09 Dose: 100 mg Documented by: Miscellaneous (Carbohydrates For Hypoglycemia ) 15 - 30 gm PO UD PRN PRN Reason: Hypoglycemia Protocol Stop: 08/12/21 18:51 Last Admin: 07/16/21 08:20 Dose: 15 gm Documented by: Ondansetron HCl (Ondansetron Inj 2 Mg/Ml 2 Ml Vial) 4 mg IV Q6H PRN PRN Reason: Nausea Stop: 08/12/21 18:51 Pantoprazole Sodium (Pantoprazole 40 Mg Tab) 40 mg PO QAM [facility] Stop: 08/19/21 08:59 Last Admin: 07/20/21 09:08 Dose: 40 mg Documented by: Polyethylene Glycol (Polyethylene (Miralax) 17 Gm Pack) 17 gm PO DAILY PRN PRN Reason: Constipation Stop: 08/12/21 18:51
[2021-07-20 12:31] LABS: Basophils # (auto) 0.02 K/uL (0-0.2); Basophils % (auto) 0.2 %; Eosinophils # (auto) 0.23 K/uL (0-0.5); Eosinophils % (auto) 2.8 %; Hematocrit (blood only) 30.3 % (37-47); Hemoglobin 9.2 g/dL (12.0-16.0); Immature Granulocytes # (auto) 0.02 K/uL (0.00-0.02); Immature Granulocytes % (auto) 0.2 %; Lymphocytes % (auto) 17.1 %; Mean Corpuscular Hemoglobin 26.7 pg (25-34); Mean Corpuscular Hgb Conc 30.4 g/dL (32-36); Mean Corpuscular Volume 87.8 fL (80-100); Monocytes # (auto) 0.59 K/uL (0.11-0.59); Monocytes % (auto) 7.2 %; Neutrophils # (auto) 5.92 K/uL (1.4-6.5); Neutrophils % (auto) 72.5 %; Platelet Count 304 K/uL (130-400); RDW Coefficient of Variation 17.6 % (11.5-14.5); RDW Standard Deviation 56.4 fL (36.4-46.3); Red Blood Count 3.45 M/uL (4.2-5.4); White Blood Count 8.18 K/uL (4.8-10.8)
[2021-07-20] MEDS ORDERED: cefUROXime axetil 500 MG TAB PO SCH (13:00)
--- NOTE | 2021-07-21 09:32 | Discharge Summary ---
Date of Service July 21, 2021 Admission HPI Per Admitting Provider This is an 86-year-old female who has significant past medical history of CAD status post CABG x3, chronic afibrillation on warfarin, CKD stage IV, HTN, HLD, T2DM, PAD/PVD who resides at [facility] and presents to ED secondary to altered mental status x2 days and fall from standing position that was unwitnessed. Of significance patient does have ischemic ulcers of right second and third toe. She status post balloon angioplasty of right lower extremity for PVD. She has been receiving treatment with Keflex 500 mg 3 times daily for infected toes which per PCP report has been improving. Staff had noticed over the past 2 days patient become more altered and at baseline she is usually alert and oriented x3. Today she developed fever of 102.5 and tachycardia with heart rate in the 150s. She also had an unwitnessed fall and was found on floor by bed by staff. She was noted to have swelling and contusion to her left forehead. Given worsening status and altered mental status she was sent to ED for further evaluation. In ED patient was hypoxic requiring O2 via nasal cannula. She was alert and would arouse to name, but not oriented. She had significant left forehead contusion. Initial head CT was negative for hemorrhage but did reveal a large frontal scalp hematoma. CT chest also revealed scattered multilobular bilateral tree-in-bud and nodular consolidative opacities which was suggestive of infectious or inflammatory bronchiolitis or pneumonitis. She was started empirically on IV Zosyn. Blood culture obtained. ROS was unobtainable from patient secondary to cognitive status. Admission Exam Per Admitting Provider Physical Exam: Constitutional: Elderly, female, critically ill,WD/WN, vitals as above, NAD, sitting up in bed, pleasant, conversing easily Head: Normocephalic, large left frontal scalp hematoma noted, ecchymosis Eyes: PERRL, conjunctivae normal, anicteric sclerae ENMT: external ear and nose normal, oropharynx dry mucous membranes Neck: trachea midline, no thyromegaly normal visual inspection Respiratory: normal respiratory effort, on 2 L of O2 via NC lungs clear to auscultation, scattered bilateral crackles left greater than right. Normal insp/exp effort, no accessory muscle use Cardiovascular: Irregular rate, irregular rhythm, no murmur, right lower extremity edema, right lower extremity ischemic vascular ulcers noted on toes 2 and 3, vessels: no JVD or carotid bruit Chest: normal inspection of chest Abdomen: normal bowel sounds, soft, nontender, no hepatosplenomegaly Musculoskeletal: no cyanosis or clubbing, unable to assess musculoskeletal in setting of AMS Skin: no rashes, warm and dry normal turgor Neurologic: PERRL, EOMI, accommodation nl, no face palsy, no dysarthria CN's II-XI intact bilaterally and moves all extremities Psychiatric: Arousable to name, but does not answer questions, euthymic affect Lymphatic: no cervical or axillary lymphadenopathy : deferred Principal Diagnosis Acute metabolic encephalopathy, status post fall with left frontal scalp hematoma, bilateral pneumonitis, chronic atrial fibrillation-Coumadin has been discontinued, rectal bleed-stopped Discharge Exam Lying in bed comfortably without any shortness of breath Constitutional well developed, well nourished, + ill appearing and average body habitus Eyes PERRL, conjunctivae normal, anicteric sclerae ENMT external ear and nose normal, oropharynx normal Respiratory no respiratory distress Auscultation: + diminished lung sounds and + crackles (Bibasilar crackles more on the right side) Cardiovascular Rate/Rhythm: regular rate and regular rhythm; not tachycardic Heart Sounds: normal S1 and normal S2; no murmur Extremities: no edema Gastrointestinal (Abdomen) Inspection/Auscultation: normal bowel sounds; abdomen not distended Percussion/Palpation: abdomen soft; abdomen nontender Discharge Data Allergies Allergy/AdvReac Type Severity Reaction Status Date / Time aspirin Allergy Severe PEPTIC Verified 07/13/21 15:16 ULCER DISEASE WITH HEMMORAGE codeine Allergy Unknown ON WINDY Verified 07/13/21 15:16 [facility] MED LIST oxytetracycline Allergy Unknown SEVERE Verified 07/13/21 15:16 SWELLING polymyxin B Allergy Unknown SEVERE Verified 07/13/21 15:16 SWELLING Consultations 07/13/21 15:52 ED Decision to Admit Stat 07/16/21 15:24 Consult Gastroenterology Routine Ordered Studies 07/13/21 12:18 CT cervical spine wo con Stat CT head/brain wo con Stat 07/13/21 13:44 CT abd pelvis wo con Stat CT chest diagnostic wo con Stat 07/14/21 08:00 CT head/brain wo con Routine Hospital Course (1) Acute metabolic encephalopathy: (2) Hypoxia: (3) Pneumonia: (4) Fall: (5) Supratherapeutic INR: (6) Diabetes mellitus type 2 with complications: (7) Atrial fibrillation: (8) CAD (coronary artery disease): (9) CKD (chronic kidney disease) stage 4, GFR 15-29 ml/min: This is an 86-year-old female who has significant past medical history of CAD status post CABG x3, chronic atrial fibrillation on warfarin, CKD stage IV, HTN, HLD, T2DM, PAD/PVD who resides at [facility] and presents to ED secondary to altered mental status x2 days and fall from standing position that was unwitnessed. Altered mental status -likely in setting of infectious state as well as mild TBI secondary to fall and hitting head Hypoxia Bilateral pneumonitis Neurochecks every [address] head redemonstration of large scalp hematoma without any intracranial events Continue O2 supplementation, wean down as tolerated. Continue with IV Zosyn, MRSA screen negative. Patient AO x2, passed swallow screen, clear liquid diet, advance as tolerated. Gentle IV fluid, DC IV fluids once eating better. Blood cultures negative Pulmonary toilet with nebs, spirometry and flutter valve when able Clinically much better today we will continue current management Remains pleasantly confused without any more shortness of breath Has been on intravenous ceftriaxone and azithromycin Will change IV ceftriaxone to oral Ceftin for next 2 days Fall Large left frontal scalp hematoma Likely mild TBI Repeat CT in a.m. large scalp hematoma redemonstrated. Supportive care Ice 3 times daily to hematoma Neurochecks every 2 hrs-no neuro deficit on examination No increase in the left frontal scalp hematoma Bright red rectal bleed 2 episodes since admission Last episode with some dizziness Hemoglobin checked following first episode of bright red rectal blood did not show any change Will keep her n.p.o., reverse INR. H&H every 6 hourly, type and hold and GI consultation Appreciate GI input and recommendation Hemoglobin did not drop and did not have any more rectal bleed-will not go for colonoscopy We will continue intravenous PPI for 48 hours in total Will change PPI to oral Hemoglobin remains stable and does not need to go for colonoscopy as per the glory hole tender SupraTherapeutic INR Received vitamin K in the ED, INR coming down Discussed with patient's son Artem over the phone regarding the risks and benefits of continuing warfarin given recurrent multiple falls in the preceding months and advanced dementia. The decision was made to not continue Coumadin going forward. Patient's son made aware that not being on Coumadin might predispose her to ischemic events like a stroke and peripheral vascular ischemia . Patient does have ischemic toe. INR was 1.4 as of yesterday but 1.9 today We will give another dose of intravenous vitamin K We will check INR tomorrow 07/19/2021 Normal Coumadin T2DM Last A1c 7.4 on 07/01/2021 Hold glipizide lantus/novolog per protocol Blood sugar remains unremarkable Chronic Afib hold warfarin continue metoprolol RVR 07/01 to underlying infection DC Coumadin upon discharge. See above. Heart rate remains stable Will not restart Coumadin CAD with history of CABG x3 On statin, Imdur, metoprolol as outpatient Gradually resume home meds as appropriate and when able. No acute cardiac symptoms CKD stage 4 baseline cr 1.8-2.0 At baseline. PVD/PAD has ischemic ulcers to r toe 07/02 consult wound care was on oral keflex as outpt to complete on 07/16, will dc in setting of IV Zosyn These are chronic, tx with betadine as outpt, consider further w/u if sx do not improve despite above tx Dvt ppx: none in setting of elevated INR, ischemic wounds to R toes Conditional code: Patient's son to bring a copy of living will to the hospital. PCP: Gay As per prior hospitalist; 07/14: Patient son given a phone call and updated about the current status of the patient. Discussed about bringing copy of living will to the hospital. Discussed about benefit and risks of warfarin and agreed to stop warfarin going forward. Given multiple falls in the preceding months and worsening dementia. Answered all his questions. He was understanding and was agreeable to the plan of care. Discussed with the son Will be discharged to [facility] this afternoon Total Time Total Time Spent Total Time Spent (In Minutes): 35 minutes Discharge Plan Discharge Items Patient Disposition: Transfer [facility] Reason For Visit: ALTERED MENTAL STATUS, PNEUMONIA, FALL Discharge Diagnosis: Acute metabolic encephalopathy, status post fall with left frontal scalp hematoma, bilateral pneumonitis, chronic atrial fibrillation-Coumadin has been discontinued, rectal bleed-stopped Condition on Discharge: Fair Activity: As commented below Activity Comment: Needs assistance with ADL S Non-emergency contact: Primary Care Provider Call non-emergency contact if: you have any medication questions and your symptoms worsen Follow-up/Referrals: Dinah Grant [Primary Care Provider] - Diet: Carb Consistent or DM2 Addtl Attending Provider Instructions: Please take precautions to avoid falls Coumadin was discontinued due to risk of fall and rectal bleed Continue antibiotic for 2 more days Pending Studies at Discharge: No Stand-Alone Forms: My [facility] Skilled Items Patient informed of condition?: Yes DNR: Yes (Usual ACLS protocol but no intubation or invasive airway technique) Discharge Level of Care: Skilled Communicable Disease: No Discharge Prognosis: Stable Lines: None Urinary Catheter: Yes Medications and DC Order Prescriptions: New pantoprazole [Protonix] [address] for susp in packet 40 mg PO DAILY Qty: 30 RF: 0 Continued isosorbide dinitrate 30 mg tablet 30 mg PO QAM RF: 0 cetirizine 10 mg Tablet 10 mg PO QAM RF: 0 metoprolol tartrate 100 mg Tablet 100 mg PO BID RF: 0 furosemide 20 mg Tablet 20 mg PO Q OTHER DAY RF: 0 gabapentin 100 mg Capsule 200 mg PO BID RF: 0 magnesium oxide 400 mg magnesium Tablet 400 mg PO BID RF: 0 acetaminophen [Tylenol] 325 mg Tablet 650 mg PO Q4H MDD 3 GRAMS/24 HOURS PRN (Reason: FEVER>100/PAIN) RF: 0 glipizide 5 mg Tablet Extended Release 24 Hr 5 mg PO QAM RF: 0 povidone-iodine [Betadine Swabsticks] 10 % Swab 1 applic TOPICAL BID RF: 0 nitroglycerin [Nitrostat] 0.4 mg Tablet, Sublingual 0.4 mg sublingual DIRECTED PRN (Reason: Chest Pain) RF: 0 cholecalciferol (vitamin D3) [Vitamin D3] 50 mcg (2,000 unit) Capsule 50 mcg PO QAM RF: 0 atorvastatin 80 mg tablet 40 mg PO HS RF: 0 Discontinued warfarin [Jantoven] 2 mg tablet 6 mg PO MOFR RF: 0 cephalexin 500 mg capsule 500 mg PO TID RF: 0 warfarin 2 mg tablet 4 mg PO SUTUWETHSA RF: 0 Discharge Orders: Discharge Order (Routine); Ordered 07/20/21 Ordered By: Sofia Lin Admission Data Admit Date/Time: 07/13/21 15:57 Attending Provider: Sofia Lin Admit Provider: Rene Cortes Primary Care Provider: Dinah Grant Other Providers: Jessica Rodríguez ; Rene Cortes ; Dawn Sin ; Zoë Vang ; Susan Arredondo ; Emily Brannon ; Willis Steinberg ; Daylin Reddy ; Jovan Jennings ; Lalito Turner ; Rufina Diane ; Jane Ortiz ; Tahira Vaughan ; Madyson Hernadez ; Jose Ball Other Interventions: Discharge Summary Assessment (RN) Last Done: 07/20/21 15:33
== END 2021-07-20 15:55 | DRG 193 ==
LOC: ED 11:43 → SUATTDRO 15:57 → EDINP 15:57 → 2S 07-17 15:03 → 3W 07-18 20:53

== ENCOUNTER 2021-09-15 16:36 | Inpatient (IN) ==
--- NOTE | 2021-09-15 16:54 | Emergency Department Note ---
History of Present Illness General Chief complaint: Lethargic Time Seen by Provider: 09/15/21 16:44 Source: patient, EMS and RN notes reviewed Mode of arrival: EMS Limitations: altered mental status History of Present Illness Provider complaint: Abdominal pain Onset (ago): hour(s) Location: abdomen Pain Consistency: + constant Relieved By: + none Associated symptoms: + nausea/vomiting; no fever/chills or no shortness of breath Treatments prior to arrival: other (Zofran) This is a 86-year-old female sent over from [place] for evaluation of abdominal pain. She developed abdominal pain with emesis this morning. They did do a x-ray of her abdomen which showed dilated loops of bowel. They sent her here for possible bowel obstruction. She was given Zofran prior to arrival. They also stated that she is less verbally responsive and more lethargic since her symptoms started today. No fever was noted. No reported diarrhea. History is limited due to altered mental status. Home Medications Medication Instructions Recorded Confirmed Type cetirizine 10 mg tablet 10 mg PO QAM 03/27/19 09/15/21 History gabapentin 100 mg capsule 100 mg PO AMHS 03/27/19 09/15/21 History magnesium oxide 400 mg PO AMHS 03/27/19 09/15/21 History metoprolol tartrate 100 mg tablet 100 mg PO AMHS 03/27/19 09/15/21 History isosorbide dinitrate 30 mg tablet 30 mg PO QAM tab 01/27/21 09/15/21 History acetaminophen 325 mg tablet 650 mg PO Q4H PRN MDD 3 GRAMS/07/13/21 09/15/21 History (Tylenol) HOURS cholecalciferol (vitamin D3) 50 50 mcg PO QAM 07/13/21 09/15/21 History mcg (2,000 unit) capsule (Vitamin D3) nitroglycerin 0.4 mg sublingual 0.4 mg SUBLINGUAL DIRECTED PRN 07/13/21 09/15/21 History tablet (Nitrostat) atorvastatin 40 mg tablet 40 mg PO HS 09/15/21 09/15/21 History ferrous sulfate 325 mg (65 mg 325 mg PO BID17 09/15/21 09/15/21 History iron) tablet hydrocolloid dressing 4" X 4" 09/15/21 09/15/21 History (DuoDERM CGF Extra Thin Dressing) insulin aspart U-100 100 unit/mL 4 unit SUBCUT QDD 09/15/21 09/15/21 History subcutaneous solution (Novolog U-100 Insulin aspart) insulin aspart U-100 100 unit/mL 14 unit SUBCUT BID 09/15/21 09/15/21 History subcutaneous solution (Novolog U-100 Insulin aspart) insulin glargine 100 unit/mL 12 unit SUBCUT HS 09/15/21 09/15/21 History subcutaneous solution (Lantus U-100 Insulin) miconazole nitrate 2 % topical 1 applic TOPICAL BID 09/15/21 09/15/21 History powder ondansetron HCl 4 mg tablet 4 mg PO Q6H PRN 09/15/21 09/15/21 History pantoprazole 40 mg granules 40 mg PO QAM 09/15/21 09/15/21 History delayed-release for susp in packet (Protonix) povidone-iodine 10 % topical swab 1 applic TOPICAL BID 09/15/21 09/15/21 History Allergies Allergy/AdvReac Type Severity Reaction Status Date / Time aspirin Allergy Severe PEPTIC Verified 09/15/21 17:15 ULCER DISEASE WITH HEMMORAGE oxytetracycline Allergy Severe SEVERE Verified 09/15/21 17:15 SWELLING polymyxin B Allergy Severe SEVERE Verified 09/15/21 17:15 SWELLING codeine Allergy Unknown ON WINDY Verified 09/15/21 17:15 [facility] LIST Past Med/Surg History Medical History Ambulatory dysfunction cane prn AMS (altered mental status) gets confused per pt's son Atrial fibrillation dx over a year ago > follows with Dr. Jarvis > no pacer CAD (coronary artery disease) History of CABG x 3 > 1996 CKD (chronic kidney disease), stage III follows with Cecily Gordillo Diabetes mellitus type 2 with complications History of peptic ulcer disease HTN (hypertension) Hyperlipidemia Nasal polyp Left maxillary polyp noted on CT's 09/02/17 and 08/10/19. ENT eval recommended. 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 Jarvis T2DM (type 2 diabetes mellitus) Wound, open, toe Surgical History Amputation toe partial amp of L 03/02/21 History of appendectomy History of breast biopsy benign History of coronary artery bypass graft x 3 1997 History of nasal polypectomy History of tonsillectomy and adenoidectomy Family History Son Atrial fibrillation Mother Hypertension Social History Smoking Status: Unknown if ever smoked packs per day: 1; Years Smoked: 20; Second Hand Exposure: No; Hx Alcohol Use: No Hx Substance Use: No Preferred Language: Kazakh Communication Ability: Effective Visual Impairment: Limited Hearing Ability: Hard of Hearing [place] Press[place] Required: No Beliefs That Will Affect Care: None marital status: Current Living Situation: Alone current occupational status: retired How many Children do You have: 2 Feels Safe at Home: Yes Assistive Devices: Denture - Upper and Denture - Lower Review of Systems See HPI for pertinent positives & negatives. Unobtainable due to cognitive status Physical Exam Vital Signs Vital Signs - 24 hr 09/15/21 16:45 09/15/21 16:51 09/15/21 16:58 Temperature 36.7 C Temperature Source Oral Pulse Rate 114 H Pulse Rate [Apical] Respiratory Rate 20 Respiratory Effort / Characteristics Non-Labored Respiratory Depth Normal Blood Pressure 112/75 Blood Pressure [Left Arm] Blood Pressure Mean 87 Blood Pressure Mean [Left Arm] Pulse Oximetry 94 95 95 Oxygen Delivery Method Room Air Room Air Room Air Sepsis Recent Fever Within 48 Hours No Sepsis New/Unexplained Change in Mental Status No Sepsis Action Taken by Nursing No Action Required 09/15/21 18:22 Temperature Temperature Source Pulse Rate Pulse Rate [Apical] 131 H Respiratory Rate 15 Respiratory Effort / Characteristics Non-Labored Respiratory Depth Blood Pressure Blood Pressure [Left Arm] 155/112 H Blood Pressure Mean Blood Pressure Mean [Left Arm] 126 Pulse Oximetry 96 Oxygen Delivery Method Room Air Sepsis Recent Fever Within 48 Hours Sepsis New/Unexplained Change in Mental Status Sepsis Action Taken by Nursing Constitutional: Vital signs reviewed. Eyes: Pupils are equal round reactive to light. Conjunctiva are noninjected. ENT: Pharynx is clear without erythema or exudate. Mucous membranes are dry. Neck supple without meningeal signs. Respiratory: Clear to auscultation bilaterally. Breath sounds are equal bilaterally. Cardiovascular: Irregularly irregular rhythm. Tachycardic. GI: Soft, nondistended with bilateral lower abdominal tenderness. No guarding. Bowel sounds are present. Musculoskeletal: No peripheral edema. Integumentary: No cyanosis. or jaundice. Neurological: The patient is awake and alert. No focal deficits. Moves all extremities. Answers very simple questions. Psychiatric: Unable to assess. Course Administered Medications Sodium Chloride (Nss) 500 mls @ 90 mls/hr IV .[id number] STA Stop: 09/15/21 23:46 Last Admin: 09/15/21 18:39 Dose: 90 mls/hr Documented by: [id number] Discontinued Medications Ondansetron HCl (Ondansetron Inj 2 Mg/Ml 2 Ml Vial) 4 mg IV NOW STA Stop: 09/15/21 17:47 Last Admin: 09/15/21 17:57 Dose: 4 mg Documented by: [id number] Medical Decision Making Differential Diagnosis Small bowel obstruction, partial bowel obstruction, ileus, dehydration, ICH, gastritis Medical Records Attestation: I reviewed the patient's medical records. I did perform a limited focused review of portions of the patient's old chart on the electronic medical record. The patient was admitted in June after she had a fall with a head injury while on Coumadin. 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 She was taken off Coumadin. Home Medications Current Medication List: was personally reviewed by me Laboratory Data Attestation: I reviewed the patient's lab results. Result diagrams: 09/15/21 16:49 09/15/21 16:49 Lab Results 09/15/21 09/15/21 09/15/21 Range/Units 16:49 16:49 16:49 WBC 11.76 H (4.8-10.8) K/uL RBC 4.71 (4.2-5.4) M/uL Hgb 13.1 (12.0-16.0) g/dL Hct 41.1 (37-47) % MCV 87.3 (80-100) fL MCH 27.8 (25-34) pg MCHC 31.9 L (32-36) g/dL RDW Std Deviation 60.2 H (36.4-46.3) fL RDW Coeff of Fred 18.7 H (11.5-14.5) % Plt Count 263 (130-400) K/uL MPV 10.6 H (7.4-10.4) fL Immature Gran % (Auto) 0.3 % Neut % (Auto) 80.1 % Lymph % (Auto) 11.1 % [place] % (Auto) 8.0 % Eos % (Auto) 0.3 % Baso % (Auto) 0.2 % Neut # (Auto) 9.43 H (1.4-6.5) K/uL Lymph # (Auto) 1.30 (1.2-3.4) K/uL [place] # (Auto) 0.94 H (0.11-0.59) K/uL Eos # (Auto) 0.04 (0-0.5) K/uL Baso # (Auto) 0.02 (0-0.2) K/uL Immature Gran # (Auto) 0.03 H (0.00-0.02) K/uL PT 11.2 (9.0-12.0) Seconds INR 1.1 (0.9-1.1) Sodium 140 (136-145) mmol/L Potassium 4.3 (3.5-5.1) mmol/L Chloride 106 (98-107) mmol/L Carbon Dioxide 22 (21-32) mmol/L Anion Gap 12 H (3-11) BUN 22 (6-23) mg/dl Creatinine 1.85 H (0.6-1.2) mg/dl Est Cr Clr Drug Dosing Not Reportable Est GFR ( Amer) 28.1 ml/min Est GFR (Non-Af Amer) 24.2 ml/min BUN/Creatinine Ratio 11.9 (10-20) Glucose 179 H (70-99(Fasting)) mg/dl Calcium 9.8 (8.5-10.1) mg/dl Total Bilirubin 1.0 (0.2-1.0) mg/dl AST 12 L (13-39) U/L ALT 8 (7-52) U/L Alkaline Phosphatase 90 (34-104) U/L Total Protein 6.9 (6.0-8.3) gm/dl Albumin 3.5 (3.4-5.0) gm/dl Globulin 3.4 (2.5-4.0) gm/dl Albumin/Globulin Ratio 1.0 (0.9-2) Lipase 38 (11-82) U/L Urine Color Urine Appearance (Clear) Urine pH (4.5-7.5) Ur Specific [place] (1.000-1.030) Urine Protein (Negative) Urine Glucose (UA) (Negative) Urine Ketones (Negative) Urine Blood (Negative) Urine Nitrite (Negative) Urine Bilirubin (Negative) Urine Urobilinogen (Negative) Ur Leukocyte Esterase (Negative) Urine WBC (Auto) (0-5) /hpf Urine RBC (Auto) (0-4) /hpf U Hyaline Cast (Auto) (0-5) /lpf U Epithel Cells (Auto) (0-5) /lpf Urine Bacteria (Auto) (Negative) 09/15/21 Range/Units 16:49 WBC (4.8-10.8) K/uL RBC (4.2-5.4) M/uL Hgb (12.0-16.0) g/dL Hct (37-47) % MCV (80-100) fL MCH (25-34) pg MCHC (32-36) g/dL RDW Std Deviation (36.4-46.3) fL RDW Coeff of Fred (11.5-14.5) % Plt Count (130-400) K/uL MPV (7.4-10.4) fL Immature Gran % (Auto) % Neut % (Auto) % Lymph % (Auto) % [place] % (Auto) % Eos % (Auto) % Baso % (Auto) % Neut # (Auto) (1.4-6.5) K/uL Lymph # (Auto) (1.2-3.4) K/uL [place] # (Auto) (0.11-0.59) K/uL Eos # (Auto) (0-0.5) K/uL Baso # (Auto) (0-0.2) K/uL Immature Gran # (Auto) (0.00-0.02) K/uL PT (9.0-12.0) Seconds INR (0.9-1.1) Sodium (136-145) mmol/L Potassium (3.5-5.1) mmol/L Chloride (98-107) mmol/L Carbon Dioxide (21-32) mmol/L Anion Gap (3-11) BUN (6-23) mg/dl Creatinine (0.6-1.2) mg/dl Est Cr Clr Drug Dosing Est GFR ( Amer) ml/min Est GFR (Non-Af Amer) ml/min BUN/Creatinine Ratio (10-20) Glucose (70-99(Fasting)) mg/dl Calcium (8.5-10.1) mg/dl Total Bilirubin (0.2-1.0) mg/dl AST (13-39) U/L ALT (7-52) U/L Alkaline Phosphatase (34-104) U/L Total Protein (6.0-8.3) gm/dl Albumin (3.4-5.0) gm/dl Globulin (2.5-4.0) gm/dl Albumin/Globulin Ratio (0.9-2) Lipase (11-82) U/L Urine Color Yellow Urine Appearance Clear (Clear) Urine pH 5.0 (4.5-7.5) Ur Specific [place] 1.020 (1.000-1.030) Urine Protein Trace H (Negative) Urine Glucose (UA) Negative (Negative) Urine Ketones Trace H (Negative) Urine Blood Negative (Negative) Urine Nitrite Negative (Negative) Urine Bilirubin Negative (Negative) Urine Urobilinogen Negative (Negative) Ur Leukocyte Esterase Negative (Negative) Urine WBC (Auto) 1-5 (0-5) /hpf Urine RBC (Auto) 0-4 (0-4) /hpf U Hyaline Cast (Auto) 1-5 (0-5) /lpf U Epithel Cells (Auto) 0-5 (0-5) /lpf Urine Bacteria (Auto) 4+ H (Negative) Imaging Data Radiologist's Impression: Abdomen/Pelvis CT 09/15/21 16:51 CT OF THE ABDOMEN AND PELVIS WITHOUT CONTRAST CLINICAL HISTORY: Vomiting. Evaluate for bowel obstruction. COMPARISON STUDY: CT of the abdomen and pelvis July 13, 2021. TECHNIQUE: Axial images of the abdomen and pelvis were obtained without IV contrast. Images were reviewed in the axial, sagittal, and coronal planes. Automated exposure control was utilized for the study. A dose lowering technique was utilized adhering to the principles of ALARA. FINDINGS: Cardiomegaly is noted. There is a moderate sized hiatal hernia. The stomach is moderately distended and fluid-filled. The proximal to mid small bowel is also moderately distended and fluid-filled. Well-defined transition point is not identified. There is mild associated mesenteric infiltration. There is mild wall thickening of several small bowel loops. No pneumatosis, free air or portal venous gas is present. Distal small bowel is relatively decompressed. Colonic diverticulosis is noted without evidence for acute diverticulitis. The appendix is not visualized. There is no right lower quadrant inflammation. Evaluation of the abdomen and pelvis is suboptimal on this unenhanced exam. Unenhanced images of the liver, spleen, adrenal glands and pancreas are unremarkable. No biliary or pancreatic ductal dilatation is present. There are calcific gallstones within the gallbladder without evidence for acute c holecystitis. A 1.6 cm nodule adjacent to the gastric fundus is unchanged since prior CT. This is indeterminate. Abdominal aorta is ectatic, measuring 2.5 cm in caliber. IMPRESSION: 1. Mildly dilated fluid-filled stomach and proximal to mid small bowel. Although no well-defined transition point is identified, the findings favor a partial small bowel obstruction. A nonspecific enteritis could appear similar with mild wall thickening of several small bowel loops. Nasogastric tube insertion might be considered. Moderate sized hiatal hernia. 2. Cholelithiasis. No evidence for acute cholecystitis. 3. Sigmoid diverticulosis. No evidence for acute diverticulitis. 5. No change in an indeterminate 1.6 cm nodule adjacent to the gastric fundus since CT of July 13, 2021. ACT 112: Negative or not required by law. Electronically signed by: Artur Maradiaga M.D. 09/15/2021 6:[address] 09/15/21 16:51 CT OF THE HEAD WITHOUT CONTRAST CLINICAL HISTORY: Altered mental status. COMPARISON STUDY: Head CT July 14, 2021. CT DOSE: 614.27 mGy.cm TECHNIQUE: Helical axial images of the head were obtained without IV contrast. Automated exposure control was utilized for the study. A dose lowering technique was utilized adhering to the principles of ALARA. FINDINGS: No acute intracranial hemorrhage, midline shift or mass effect is present. Ventricular system is stable. Basal cisterns are patent. There are no extra-axial collections. White matter hypodensities favor small vessel disease. There are no findings to suggest acute dural sinus thrombosis or acute territorial infarct. Small amount of fluid within the bilateral mastoid air cells is noted. There are postoperative findings within the sinuses. Left maxillary sinus is opacified with a possible polyp extending into the left nasal cavity. This is similar to prior exam. No acute calvarial fracture. Small air- fluid levels within the sphenoid sinuses are present. IMPRESSION: No acute intracranial findings. No change in appearance of the brain. ACT 112: Negative or not required by law. Electronically signed by: Artur Maradiaga M.D. 09/15/2021 6:17 PM ECG Data Attestation: I personally reviewed and interpreted this ECG as follows: Indication: + abdominal pain and + altered mental status Rate (beats per minute): 120 Rhythm: + atrial fibrillation ECG Intervals/blocks: + Right Bundle branch block ECG ST segments: + T-wave inversions Comparison ECG Date: from (July 13, 2021) Change: the following changes noted (The only change is her heart rate was 95 at that time) MDM Narrative I did evaluate the patient as noted above. She is sent here from [facility] for abdominal pain and vomiting with an abnormal x-ray. She also has had lethargy and decreased verbalization. IV access was established. I did place an order for continuous cardiac monitoring. The monitor showed atrial fibrillation with a rate of 108 bpm. I did order and personally review the patient's 12-lead EKG as described above. She has A. fib without acute ischemia. I did order a urine analysis. She has 4+ bacteria without any other evidence of infection. I did order and review the patient's blood work as noted in the electronic medical record. Her white count is elevated 11.76 with a left shift. She is not anemic. Platelet count is 263. INR is normal. Creatinine is slightly above baseline at 1.85. Last creatinine was 1.59 July 19. She was started on normal saline IV here. Electrolytes are unremarkable. LFTs and lipase are also unremarkable. I did order a CT of the head, abdomen and pelvis. I did review the images myself as well as the radiology report as described above. She did throw up in CAT scan and so was given Zofran [address] of the brain shows no acute intracranial process. CT of the abdomen pelvis reveals what appears to be a partial bowel obstruction. I did reassess the patient. She is no longer vomiting. She does states she feels better. She still has some tachycardia with a heart rate of 109. I did order an NG tube. She will be hospitalized for further care and evaluation. I did discuss the case with the hospitalist and medical case worker. Impression & Plan Partial small bowel obstruction, Elevated serum creatinine, Atrial fibrillation with RVR, Change in mental status Discharge Plan Visit Data Chief Complaint: Lethargic ED Provider: Merrick Morgan Discharge Problem: Partial small bowel obstruction, Elevated serum creatinine, Atrial fibrillation with RVR, Change in mental status Patient Disposition: Being Evaluated by Hospitalist Forms Stand Alone Forms: My [facility] Prescriptions Prescriptions: No Action isosorbide dinitrate 30 mg tablet 30 mg PO QAM RF: 0 cetirizine 10 mg Tablet 10 mg PO QAM RF: 0 metoprolol tartrate 100 mg Tablet 100 mg PO AMHS RF: 0 gabapentin 100 mg Capsule 100 mg PO AMHS RF: 0 magnesium oxide 400 mg magnesium Tablet 400 mg PO AMHS RF: 0 acetaminophen [Tylenol] 325 mg Tablet 650 mg PO Q4H MDD 3 GRAMS/24 HOURS PRN (Reason: FEVER>100/PAIN) RF: 0 nitroglycerin [Nitrostat] 0.4 mg Tablet, Sublingual 0.4 mg sublingual DIRECTED PRN (Reason: Chest Pain) RF: 0 cholecalciferol (vitamin D3) [Vitamin D3] 50 mcg (2,000 unit) Capsule 50 mcg PO QAM RF: 0 atorvastatin 40 mg tablet 40 mg PO HS RF: 0 Lantus U-100 Insulin 100 unit/mL Solution 12 unit SUBCUT HS RF: 0 ondansetron HCl [Zofran] 4 mg Tablet 4 mg PO Q6H PRN (Reason: NAUSEA/VOMITING) RF: 0 miconazole nitrate 2 % Powder 1 applic TOPICAL BID RF: 0 insulin aspart U-100 [Novolog U-100 Insulin aspart] 100 unit/mL Solution 4 unit SUBCUT QDD RF: 0 insulin aspart U-100 [Novolog U-100 Insulin aspart] 100 unit/mL Solution 14 unit SUBCUT BID RF: 0 ferrous sulfate 325 mg (65 mg iron) Tablet 325 mg PO BID17 RF: 0 povidone-iodine [Betadine Swab Aid] 10 % Swab 1 applic TOPICAL BID RF: 0 (DME) hydrocolloid dressing [DuoDERM CGF Extra Thin] 4 X 4 " bandage TOPICAL RF: 0 pantoprazole [Protonix] [address] for susp in packet 40 mg PO QAM RF: 0 Referrals Referrals: Dinah Grant [Primary Care Provider] -
[2021-09-15 17:07] LABS: Basophils # (auto) 0.02 K/uL (0-0.2); Basophils % (auto) 0.2 %; Eosinophils # (auto) 0.04 K/uL (0-0.5); Eosinophils % (auto) 0.3 %; Hematocrit (blood only) 41.1 % (37-47); Hemoglobin 13.1 g/dL (12.0-16.0); Immature Granulocytes # (auto) 0.03 K/uL (0.00-0.02); Immature Granulocytes % (auto) 0.3 %; Lymphocytes % (auto) 11.1 %; Mean Corpuscular Hemoglobin 27.8 pg (25-34); Mean Corpuscular Hgb Conc 31.9 g/dL (32-36); Mean Corpuscular Volume 87.3 fL (80-100); Mean Platelet Volume 10.6 fL (7.4-10.4); Monocytes # (auto) 0.94 K/uL (0.11-0.59); Neutrophils # (auto) 9.43 K/uL (1.4-6.5); Neutrophils % (auto) 80.1 %; Platelet Count 263 K/uL (130-400); RDW Coefficient of Variation 18.7 % (11.5-14.5); RDW Standard Deviation 60.2 fL (36.4-46.3); Red Blood Count 4.71 M/uL (4.2-5.4); White Blood Count 11.76 K/uL (4.8-10.8)
[2021-09-15 17:24] LABS: Appearance Urine Clear (Clear); Bacteria Urine Automated 4+ (Negative); Bilirubin Urine Negative (Negative); Blood Urine Negative (Negative); Color Urine Yellow; Epithelial Cell Urine Auto 0-5 /lpf (0-5); Glucose Urine UA Negative (Negative); INR 1.1 (0.9-1.1); Ketones Urine Trace (Negative); Leukocyte Esterase Urine Negative (Negative); Nitrite Urine Negative (Negative); Protein Urine Trace (Negative); Prothrombin Time 11.2 Seconds (9.0-12.0); RBC Urine Automated 0-4 /hpf (0-4); Urobilinogen Urine Negative (Negative)
[2021-09-15 17:31] LABS: Alanine Aminotransferase 8 U/L (7-52); Albumin Level 3.5 gm/dl (3.4-5.0); Alkaline Phosphatase 90 U/L (34-104); Anion Gap 12 (3-11); Aspartate Aminotransferase 12 U/L (13-39); BUN Creatinine Ratio 11.9 (10-20); Blood Urea Nitrogen 22 mg/dl (6-23); Calcium 9.8 mg/dl (8.5-10.1); Carbon Dioxide 22 mmol/L (21-32); Chloride 106 mmol/L (98-107); Est GFR (African American) 28.1 ml/min; Est GFR (Non-African American) 24.2 ml/min; Globulin 3.4 gm/dl (2.5-4.0); Glucose 179 mg/dl (70-99(Fasting)); Lipase 38 U/L (11-82); Potassium 4.3 mmol/L (3.5-5.1); Sodium 140 mmol/L (136-145); Total Protein 6.9 gm/dl (6.0-8.3)
[2021-09-15] MEDS ORDERED: ONDANSETRON INJ 2 MG/ML 2 ML VIAL IV STA (17:46)
[2021-09-15] MEDS ORDERED: SODIUM CHLORIDE 0.9% 500 ML IV STA (18:13)
--- NOTE | 2021-09-15 18:19 | CT Scan Report ---
CT OF THE HEAD WITHOUT CONTRAST CLINICAL HISTORY: Altered mental status. COMPARISON STUDY: Head CT July 14, 2021. CT DOSE: 614.27 mGy.cm TECHNIQUE: Helical axial images of the head were obtained without IV contrast. Automated exposure con trol was utilized for the study. A dose lowering technique was utilized adhering to the principles o f ALARA. FINDINGS: No acute intracranial hemorrhage, midline shift or mass effect is present. Ventricular syst em is stable. Basal cisterns are patent. There are no extra-axial collections. White matter hypodensi ties favor small vessel disease. There are no findings to suggest acute dural sinus thrombosis or acu te territorial infarct. Small amount of fluid within the bilateral mastoid air cells is noted. There are postoperative findings within the sinuses. Left maxillary sinus is opacified with a possible poly p extending into the left nasal cavity. This is similar to prior exam. No acute calvarial fracture. S mall air-fluid levels within the sphenoid sinuses are present. IMPRESSION: No acute intracranial findings. No change in appearance of the brain. ACT 112: Negative or not required by law. Electronically signed by: Artur Maradiaga M.D. 09/15/2021 6:17 PM
--- NOTE | 2021-09-15 18:37 | CT Scan Report ---
CT OF THE ABDOMEN AND PELVIS WITHOUT CONTRAST CLINICAL HISTORY: Vomiting. Evaluate for bowel obstruction. COMPARISON STUDY: CT of the abdomen and pelvis July 13, 2021. TECHNIQUE: Axial images of the abdomen and pelvis were obtained without IV contrast. Images were revi ewed in the axial, sagittal, and coronal planes. Automated exposure control was utilized for the omar dy. A dose lowering technique was utilized adhering to the principles of ALARA. FINDINGS: Cardiomegaly is noted. There is a moderate sized hiatal hernia. The stomach is moderately d istended and fluid-filled. The proximal to mid small bowel is also moderately distended and fluid-prince led. Well-defined transition point is not identified. There is mild associated mesenteric infiltratio n. There is mild wall thickening of several small bowel loops. No pneumatosis, free air or portal alexandre ous gas is present. Distal small bowel is relatively decompressed. Colonic diverticulosis is noted wi thout evidence for acute diverticulitis. The appendix is not visualized. There is no right lower quad rant inflammation. Evaluation of the abdomen and pelvis is suboptimal on this unenhanced exam. Unenha nced images of the liver, spleen, adrenal glands and pancreas are unremarkable. No biliary or pancrea tic ductal dilatation is present. There are calcific gallstones within the gallbladder without eviden ce for acute cholecystitis. A 1.6 cm nodule adjacent to the gastric fundus is unchanged since prior C T. This is indeterminate. Abdominal aorta is ectatic, measuring 2.5 cm in caliber. IMPRESSION: 1. Mildly dilated fluid-filled stomach and proximal to mid small bowel. Although no well-defined cervantes sition point is identified, the findings favor a partial small bowel obstruction. A nonspecific enter itis could appear similar with mild wall thickening of several small bowel loops. Nasogastric tube in sertion might be considered. Moderate sized hiatal hernia. 2. Cholelithiasis. No evidence for acute cholecystitis. 3. Sigmoid diverticulosis. No evidence for acute diverticulitis. 5. No change in an indeterminate 1.6 cm nodule adjacent to the gastric fundus since CT of June. ACT 112: Negative or not required by law. Electronically signed by: Artur Maradiaga M.D. 09/15/2021 6:35 PM
[2021-09-15] MEDS ORDERED: METOPROLOL TARTRATE 1 MG/ML VIAL IV STA ×2 (19:33→21:35)
--- NOTE | 2021-09-15 19:54 | History & Physical Report ---
Date of Service September 15, 2021 Assessment & Plan (1) Atrial fibrillation with RVR: Plan: Secondary to bowel obstruction Patient not on anticoagulation secondary to fall risk Encephalopathy secondary to clinical dehydration from illness Home gabapentin contributory chronic diastolic heart failure (EF 58%, TTE 2020), patient intravascularly dry with note of some congestion on CXR CAD sp CABG/PVD hypertension, BP on the lower side hyperlipidemia on statin Rx pulmonary hypertension as per records DM 2 insulin requiring, reasonable control as of recent hemoglobin A1c of 7.03 July 2021 ARF on CRI secondary to illness dementia chronic anemia, hemoglobin better than baseline likely secondary to hemoconcentration past tobacco abuse PCU given A. fib IV beta-samuel RTC while NGT in place Surgery consult Re: Bowel obstruction Monitor creatinine response to gentle IV hydration Hold gabapentin for now until patient mentation back to baseline Basal insulin adjusted for n.p.o. status, ISS BG goal 1 10-1 40 DVT prophylaxis with Heparin subcu DNR as per son/POA Mr. Ming Pang. He requests updates from providers thru [id number]. Text document was generated using [employer] voice recognition software. It may contain grammatical or spelling errors. Kindly contact undersigned for clarification of any documentation item in question. History of Present Illness Chief Complaint: Bowel obstruction as per records Primary Care Provider: [facility] History obtained from patient family and records. Unable to obtain history from patient secondary to obtunded state. Medical history significant for chronic diastolic heart failure (EF 58%, TTE 2020), CAD sp CABG, PVD, A. fib not on anticoagulation secondary to recurrent falls, hypertension, hyperlipidemia, pulmonary hypertension as per records, DM 2 insulin requiring, CRI (baseline creatinine 1.7), dementia, chronic anemia (baseline hemoglobin 9-10), past tobacco abuse. Last confinement June 2021 secondary to metabolic encephalopathy and left frontal scalp hematoma secondary to fall. Patient Coumadin stopped on discharge. Patient had abdominal pain complaints and numerous episodes of emesis at the correction today. Patient more lethargic than usual. Outpatient x-ray showed moderate small bowel ileus in the mid to left portion, possibility of partial distal obstruction is not excluded. Patient sent to the ER by correction provider for evaluation. NGT inserted at the ER for bowel obstruction. Medical History as above Surgical History : Breast lesion excision, CABG, left toe amputation, appendectomy, nasal polypectomy, tonsillectomy/adenoidectomy Family History : Skin cancer, DM Personal/Social history : Past tobacco abuse, no EtOH intake, correction resident Allergies Allergy/AdvReac Type Severity Reaction Status Date / Time aspirin Allergy Severe PEPTIC Verified 09/15/21 17:15 ULCER DISEASE WITH HEMMORAGE oxytetracycline Allergy Severe SEVERE Verified 09/15/21 17:15 SWELLING polymyxin B Allergy Severe SEVERE Verified 09/15/21 17:15 SWELLING codeine Allergy Unknown ON WINDY Verified 09/15/21 17:15 [facility] LIST Home Medications Medication Instructions Recorded Confirmed Type cetirizine 10 mg tablet 10 mg PO QAM 03/27/19 09/15/21 History gabapentin 100 mg capsule 100 mg PO AMHS 03/27/19 09/15/21 History magnesium oxide 400 mg PO AMHS 03/27/19 09/15/21 History metoprolol tartrate 100 mg tablet 100 mg PO AMHS 03/27/19 09/15/21 History isosorbide dinitrate 30 mg tablet 30 mg PO QAM tab 01/27/21 09/15/21 History acetaminophen 325 mg tablet 650 mg PO Q4H PRN MDD 3 /07/13/21 09/15/21 History (Tylenol) HOURS cholecalciferol (vitamin D3) 50 50 mcg PO QAM 07/13/21 09/15/21 History mcg (2,000 unit) capsule (Vitamin D3) nitroglycerin 0.4 mg sublingual 0.4 mg SUBLINGUAL DIRECTED PRN 07/13/21 09/15/21 History tablet (Nitrostat) atorvastatin 40 mg tablet 40 mg PO HS 09/15/21 09/15/21 History ferrous sulfate 325 mg (65 mg 325 mg PO BID17 09/15/21 09/15/21 History iron) tablet hydrocolloid dressing 4" X 4" 09/15/21 09/15/21 History (DuoDERM CGF Extra Thin Dressing) insulin aspart U-100 100 unit/mL 4 unit SUBCUT QDD 09/15/21 09/15/21 History subcutaneous solution (Novolog U-100 Insulin aspart) insulin aspart U-100 100 unit/mL 14 unit SUBCUT BID 09/15/21 09/15/21 History subcutaneous solution (Novolog U-100 Insulin aspart) insulin glargine 100 unit/mL 12 unit SUBCUT HS 09/15/21 09/15/21 History subcutaneous solution (Lantus U-100 Insulin) miconazole nitrate 2 % topical 1 applic TOPICAL BID 09/15/21 09/15/21 History powder ondansetron HCl 4 mg tablet 4 mg PO Q6H PRN 09/15/21 09/15/21 History pantoprazole 40 mg granules 40 mg PO QAM 09/15/21 09/15/21 History delayed-release for susp in packet (Protonix) povidone-iodine 10 % topical swab 1 applic TOPICAL BID 09/15/21 09/15/21 History Past Med/Surg History Medical History Ambulatory dysfunction cane prn AMS (altered mental status) gets confused per pt's son Atrial fibrillation dx over a year ago > follows with Dr. Jarvis > no pacer CAD (coronary artery disease) History of CABG x 3 > 1996 CKD (chronic kidney disease), stage III follows with kait Gordillo Diabetes mellitus type 2 with complications History of peptic ulcer disease HTN (hypertension) Hyperlipidemia Nasal polyp Left maxillary polyp noted on CT's 09/02/17 and 08/10/19. ENT eval recommended. 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 aJrvis T2DM (type 2 diabetes mellitus) Wound, open, toe Surgical History Amputation toe partial amp of L 03/02/21 History of appendectomy History of breast biopsy benign History of coronary artery bypass graft x 3 1996 History of nasal polypectomy History of tonsillectomy and adenoidectomy Family History Son Atrial fibrillation Mother Hypertension Social History Smoking Status: Unknown if ever smoked packs per day: 1; Years Smoked: 20; Second Hand Exposure: No; Preferred Language: Lao Communication Ability: Effective Visual Impairment: Limited Hearing Ability: Hard of Hearing Security Alarm Technician Required: No Beliefs That Will Affect Care: None marital status: Current Living Situation: Prison current occupational status: retired How many Children do You have: 2 Feels Safe at Home: Yes Assistive Devices: Denture - Upper, Denture - Lower, Glasses and Walker Review of Systems Review of Systems: Could not be reliably obtained secondary to obtunded state Physical Exam Physical Exam: GENERAL: Obtunded, no respiratory distress SKIN: Pallor, warm HEENT: [place] palpebral conjunctivae, no ptosis, dry buccal mucosa NECK : Supple, no tenderness CHEST : Decreased breath sounds, no tenderness HEART : Irregular, no obvious murmurs ABDOMEN: Some distention, nontender EXTREMITIES : Minimal LE swelling, no LE tenderness, no other conspicuous deformities noted NEUROLOGIC : Obtunded, no facial asymmetry, gait and stance not assessed Results & Data Results & Data ([facility]) Vital Signs (Past 12 Hours) Vital Signs Temp Pulse Pulse Resp BP BP Pulse Ox 09/15/21 18:22 131 H 15 155/112 H 96 09/15/21 16:58 95 09/15/21 16:51 95 09/15/21 16:45 36.7 C 114 H 20 112/75 94 Laboratory Results Laboratory Results WBC 11.76 K/uL (4.8-10.8) H 09/15/21 16:49 RBC 4.71 M/uL (4.2-5.4) 09/15/21 16:49 Hgb 13.1 g/dL (12.0-16.0) 09/15/21 16:49 Hct 41.1 % (37-47) 09/15/21 16:49 MCV 87.3 fL (80-100) 09/15/21 16:49 MCH 27.8 pg (25-34) 09/15/21 16:49 MCHC 31.9 g/dL (32-36) L 09/15/21 16:49 RDW Std Deviation 60.2 fL (36.4-46.3) H 09/15/21 16:49 RDW Coeff of Fred 18.7 % (11.5-14.5) H 09/15/21 16:49 Plt Count 263 K/uL (130-400) 09/15/21 16:49 MPV 10.6 fL (7.4-10.4) H 09/15/21 16:49 Immature Gran % (Auto) 0.3 % 09/15/21 16:49 Neut % (Auto) 80.1 % 09/15/21 16:49 Lymph % (Auto) 11.1 % 09/15/21 16:49 [place] % (Auto) 8.0 % 09/15/21 16:49 Eos % (Auto) 0.3 % 09/15/21 16:49 Baso % (Auto) 0.2 % 09/15/21 16:49 Neut # (Auto) 9.43 K/uL (1.4-6.5) H 09/15/21 16:49 Lymph # (Auto) 1.30 K/uL (1.2-3.4) 09/15/21 16:49 [place] # (Auto) 0.94 K/uL (0.11-0.59) H 09/15/21 16:49 Eos # (Auto) 0.04 K/uL (0-0.5) 09/15/21 16:49 Baso # (Auto) 0.02 K/uL (0-0.2) 09/15/21 16:49 Immature Gran # (Auto) 0.03 K/uL (0.00-0.02) H 09/15/21 16:49 PT 11.2 Seconds (9.0-12.0) 09/15/21 16:49 INR 1.1 (0.9-1.1) 09/15/21 16:49 Sodium 140 mmol/L (136-145) 09/15/21 16:49 Potassium 4.3 mmol/L (3.5-5.1) 09/15/21 16:49 Chloride 106 mmol/L (98-107) 09/15/21 16:49 Carbon Dioxide 22 mmol/L (21-32) 09/15/21 16:49 Anion Gap 12 (3-11) H 09/15/21 16:49 BUN 22 mg/dl (6-23) 09/15/21 16:49 Creatinine 1.85 mg/dl (0.6-1.2) H 09/15/21 16:49 Est Cr Clr Drug Dosing Not Reportable 09/15/21 16:49 Est GFR ( Amer) 28.1 ml/min 09/15/21 16:49 Est GFR (Non-Af Amer) 24.2 ml/min 09/15/21 16:49 BUN/Creatinine Ratio 11.9 (10-20) 09/15/21 16:49 Glucose 179 mg/dl (70-99(Fasting)) H 09/15/21 16:49 Calcium 9.8 mg/dl (8.5-10.1) 09/15/21 16:49 Total Bilirubin 1.0 mg/dl (0.2-1.0) 09/15/21 16:49 AST 12 U/L (13-39) L 09/15/21 16:49 ALT 8 U/L (7-52) 09/15/21 16:49 Alkaline Phosphatase 90 U/L (34-104) 09/15/21 16:49 Total Protein 6.9 gm/dl (6.0-8.3) 09/15/21 16:49 Albumin 3.5 gm/dl (3.4-5.0) 09/15/21 16:49 Globulin 3.4 gm/dl (2.5-4.0) 09/15/21 16:49 Albumin/Globulin Ratio 1.0 (0.9-2) 09/15/21 16:49 Lipase 38 U/L (11-82) 09/15/21 16:49 Urine Color Yellow 09/15/21 16:49 Urine Appearance Clear (Clear) 09/15/21 16:49 Urine pH 5.0 (4.5-7.5) 09/15/21 16:49 Ur Specific [place] 1.020 (1.000-1.030) 09/15/21 16:49 Urine Protein Trace (Negative) H 09/15/21 16:49 Urine Glucose (UA) Negative (Negative) 09/15/21 16:49 Urine Ketones Trace (Negative) H 09/15/21 16:49 Urine Blood Negative (Negative) 09/15/21 16:49 Urine Nitrite Negative (Negative) 09/15/21 16:49 Urine Bilirubin Negative (Negative) 09/15/21 16:49 Urine Urobilinogen Negative (Negative) 09/15/21 16:49 Ur Leukocyte Esterase Negative (Negative) 09/15/21 16:49 Urine WBC (Auto) 1-5 /hpf (0-5) 09/15/21 16:49 Urine RBC (Auto) 0-4 /hpf (0-4) 09/15/21 16:49 U Hyaline Cast (Auto) 1-5 /lpf (0-5) 09/15/21 16:49 U Epithel Cells (Auto) 0-5 /lpf (0-5) 09/15/21 16:49 Urine Bacteria (Auto) 4+ (Negative) H 09/15/21 16:49 Impressions Abdomen/Pelvis CT 09/15/21 16:51 CT OF THE ABDOMEN AND PELVIS WITHOUT CONTRAST CLINICAL HISTORY: Vomiting. Evaluate for bowel obstruction. COMPARISON STUDY: CT of the abdomen and pelvis July 13, 2021. TECHNIQUE: Axial images of the abdomen and pelvis were obtained without IV contrast. Images were reviewed in the axial, sagittal, and coronal planes. Automated exposure control was utilized for the study. A dose lowering technique was utilized adhering to the principles of ALARA. FINDINGS: Cardiomegaly is noted. There is a moderate sized hiatal hernia. The stomach is moderately distended and fluid-filled. The proximal to mid small bowel is also moderately distended and fluid-filled. Well-defined transition point is not identified. There is mild associated mesenteric infiltration. There is mild wall thickening of several small bowel loops. No pneumatosis, free air or portal venous gas is present. Distal small bowel is relatively decompressed. Colonic diverticulosis is noted without evidence for acute diverticulitis. The appendix is not visualized. There is no right lower quadrant inflammation. Evaluation of the abdomen and pelvis is suboptimal on this unenhanced exam. Unenhanced images of the liver, spleen, adrenal glands and pancreas are unremarkable. No biliary or pancreatic ductal dilatation is present. There are calcific gallstones within the gallbladder without evidence for acute cholecystitis. A 1.6 cm nodule adjacent to the gastric fundus is unchanged since prior CT. This is indeterminate. Abdominal aorta is ectatic, measuring 2.5 cm in caliber. IMPRESSION: 1. Mildly dilated fluid-filled stomach and proximal to mid small bowel. Although no well-defined transition point is identified, the findings favor a partial small bowel obstruction. A nonspecific enteritis could appear similar with mild wall thickening of several small bowel loops. Nasogastric tube insertion might be considered. Moderate sized hiatal hernia. 2. Cholelithiasis. No evidence for acute cholecystitis. 3. Sigmoid diverticulosis. No evidence for acute diverticulitis. 5. No change in an indeterminate 1.6 cm nodule adjacent to the gastric fundus since CT of July 13, 2021. ACT 112: Negative or not required by law. Electronically signed by: Artur Maradiaga M.D. 09/15/2021 6:[address] 09/15/21 16:51 CT OF THE HEAD WITHOUT CONTRAST CLINICAL HISTORY: Altered mental status. COMPARISON STUDY: Head CT July 14, 2021. CT DOSE: 614.27 mGy.cm TECHNIQUE: Helical axial images of the head were obtained without IV contrast. Automated exposure control was utilized for the study. A dose lowering technique was utilized adhering to the principles of ALARA. FINDINGS: No acute intracranial hemorrhage, midline shift or mass effect is present. Ventricular system is stable. Basal cisterns are patent. There are no extra-axial collections. White matter hypodensities favor small vessel disease. There are no findings to suggest acute dural sinus thrombosis or acute territorial infarct. Small amount of fluid within the bilateral mastoid air cells is noted. There are postoperative findings within the sinuses. Left maxillary sinus is opacified with a possible polyp extending into the left nasal cavity. This is similar to prior exam. No acute calvarial fracture. Small air- fluid levels within the sphenoid sinuses are present. IMPRESSION: No acute intracranial findings. No change in appearance of the brain. ACT 112: Negative or not required by law. Electronically signed by: Artur Maradiaga M.D. 09/15/2021 6:17 PM Diagnostic Findings EKG as per my interpretation: Rate 120, A. fib, RAD, RBBB, T wave abnormalities inferior leads
[2021-09-15] MEDS ORDERED: LACTATED RINGER'S 1,000 ML IV ONE (19:55)
--- NOTE | 2021-09-15 20:02 | XRay Report ---
KUB CLINICAL HISTORY: NG placement COMPARISON STUDY: CT of the abdomen and pelvis performed earlier today. FINDINGS: The tip of the nasogastric tube projects over the body of the stomach. Median sternotomy wi res are noted. There are mediastinal surgical clips. There is cardiomegaly. IMPRESSION: Tip of nasogastric tube projects over the body of the stomach. ACT 112: Negative or not required by law. Electronically signed by: Artur Maradiaga M.D. 09/15/2021 8:01 PM
[2021-09-15] MEDS ORDERED: DEXTROSE 50% 50 ML SYRINGE IV PRN (21:01)
[2021-09-15] MEDS ORDERED: ACETAMINOPHEN 1000 MG/100 ML IV IV PRN (21:01)
[2021-09-15] MEDS ORDERED: GLUCAGON FOR INJ 1 MG VIAL SQ PRN (21:01)
[2021-09-15] MEDS ORDERED: INSULIN ASPART PER UNIT SC SCH (21:01)
[2021-09-15] MEDS ORDERED: GLUCOSE 10 TABS/TUBE PO PRN (21:01)
[2021-09-15] MEDS ORDERED: GLUCOSE 40% GEL 15 GM TUBE PO PRN (21:01)
[2021-09-15] MEDS ORDERED: PROMETHAZINE HCL 6.25 MG in SODIUM CHLORIDE 0.9% 50 ML IV PRN (21:01)
[2021-09-15] MEDS ORDERED: CARBOHYDRATES FOR HYPOGLYCEMIA PO PRN (21:01)
--- NOTE | 2021-09-15 21:19 | Surgery Consultation ---
Date of Consultation September 15, 2021 Assessment & Plan (1) Partial small bowel obstruction: Patient has been admitted on the hospitalist service. Concerning her partial small bowel obstruction we recommend proceeding as follows: Her symptoms may merely be related to an underlying enteritis as her abdomen is soft and benign at this time Recommend keeping n.p.o. for the present time An NG tube has been placed. We will monitor the drainage of this and consider removing if the drainage is low and if patient has return of bowel function Hydration measures with IV fluids to be employed Provide analgesics Provide antiemetics Further evaluation of patient's altered mental status as directed by the primary service I have discussed with the patient's son via phone outlining the above plan Will continue to follow along while she is hospitalized Supervising Physician Co-Signing Physician Notes I personally saw and evaluated the patient with Wilfredo Saenz PA-C and agree with the assessment and plan. 86-year-old female with partial small bowel obstruction versus enteritis NG tube was placed in the ER, will continue this No signs of any ischemic bowel on exam, mild leukocytosis We will continue nonoperative management History of Present Illness Reason for Consultation: Partial small bowel obstruction Attending Physician: Chris Cazares MD History of Present Illness This is an 86-year-old female who resides at [facility] which is a correction facility. She was sent to [facility] emergency department for evaluation of abdominal pain. It should be noted that the patient had altered mental status and could not provide any meaningful history. The history was obtained with review of records and discussion with the staff. I was also able to converse by phone with the patient's son. He notes that his mother does reside in a correction facility and she is unable to ambulate. He also notes that she has underlying dementia which has been getting worse over the past several weeks. Not provide any other additional information other than what is noted elsewhere in this document. The patient reportedly complained of some abdominal pain earlier this morning and had some emesis. An x-ray was performed which reportedly showed some dilated loops of bowel. As there is concern the patient may have had a possible bowel obstruction she was sent to the emergency department for further evaluation. Staff at [facility] noted that the patient was less verbally responsive and more lethargic since the onset of her symptoms. 's arrival to the hospital the patient has had labs and imaging which I independently reviewed. She did have a CT scan of the head that showed no acute intracranial findings. A CT scan of the abdomen and pelvis showed the patient had a mildly dilated and fluid-filled stomach along with some dilation of the proximal and mid small bowel. No discrete transition point was identified but the interpreting radiologist felt that this could have represented a partial small bowel obstruction. Nonspecific enteritis cannot be excluded. Labs including CBC were white blood cell count was 11.7. Hemoglobin, hematocrit, and platelet count were all noted to be normal. Coagulation studies were noted to be normal. Chemistry profile showed sodium and potassium are both normal. Her BUN was normal but her creatinine was elevated at 1.5. Review of records show that her baseline creatinine runs anywhere from 1.4-2.0. There is no significant elevation of LFTs or lipase. TSH was noted to be normal and procalcitonin was not elevated. A urinalysis was not indicative of infection. COVID test was noted to be negative. An NG tube has been inserted since admission to the hospital. At the time of my interview the patient was lying in bed. She did not appear to be in distress but she was somewhat lethargic. Allergies Allergy/AdvReac Type Severity Reaction Status Date / Time aspirin Allergy Severe PEPTIC Verified 09/15/21 17:15 ULCER DISEASE WITH HEMMORAGE oxytetracycline Allergy Severe SEVERE Verified 09/15/21 17:15 SWELLING polymyxin B Allergy Severe SEVERE Verified 09/15/21 17:15 SWELLING codeine Allergy Unknown ON WINDY Verified 09/15/21 17:15 [facility] LIST Home Medications Medication Instructions Recorded Confirmed Type cetirizine 10 mg tablet 10 mg PO QAM 03/27/19 09/15/21 History gabapentin 100 mg capsule 100 mg PO AMHS 03/27/19 09/15/21 History magnesium oxide 400 mg PO AMHS 03/27/19 09/15/21 History metoprolol tartrate 100 mg tablet 100 mg PO AMHS 03/27/19 09/15/21 History isosorbide dinitrate 30 mg tablet 30 mg PO QAM tab 01/27/21 09/15/21 History acetaminophen 325 mg tablet 650 mg PO Q4H PRN MDD 3 GRAMS/24 07/13/21 09/15/21 History (Tylenol) HOURS cholecalciferol (vitamin D3) 50 50 mcg PO QAM 07/13/21 09/15/21 History mcg (2,000 unit) capsule (Vitamin D3) nitroglycerin 0.4 mg sublingual 0.4 mg SUBLINGUAL DIRECTED PRN 07/13/21 09/15/21 History tablet (Nitrostat) atorvastatin 40 mg tablet 40 mg PO HS 09/15/21 09/15/21 History ferrous sulfate 325 mg (65 mg 325 mg PO BID17 09/15/21 09/15/21 History iron) tablet hydrocolloid dressing 4" X 4" 09/15/21 09/15/21 History (DuoDERM CGF Extra Thin Dressing) insulin aspart U-100 100 unit/mL 4 unit SUBCUT QDD 09/15/21 09/15/21 History subcutaneous solution (Novolog U-100 Insulin aspart) insulin aspart U-100 100 unit/mL 14 unit SUBCUT BID 09/15/21 09/15/21 History subcutaneous solution (Novolog U-100 Insulin aspart) insulin glargine 100 unit/mL 12 unit SUBCUT HS 09/15/21 09/15/21 History subcutaneous solution (Lantus U-100 Insulin) miconazole nitrate 2 % topical 1 applic TOPICAL BID 09/15/21 09/15/21 History powder ondansetron HCl 4 mg tablet 4 mg PO Q6H PRN 09/15/21 09/15/21 History pantoprazole 40 mg granules 40 mg PO QAM 09/15/21 09/15/21 History delayed-release for susp in packet (Protonix) povidone-iodine 10 % topical swab 1 applic TOPICAL BID 09/15/21 09/15/21 History Patient History Medical History Ambulatory dysfunction cane prn AMS (altered mental status) gets confused per pt's son Atrial fibrillation dx over a year ago > follows with Dr. Jarvis > no pacer CAD (coronary artery disease) History of CABG x 3 > 1996 CKD (chronic kidney disease), stage III follows with Cecily Gordillo Diabetes mellitus type 2 with complications History of peptic ulcer disease HTN (hypertension) Hyperlipidemia Nasal polyp Left maxillary polyp noted on CT's 09/02/17 and 08/10/19. ENT eval recommended. 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 Jarvis T2DM (type 2 diabetes mellitus) Wound, open, toe Surgical History Amputation toe partial amp of L 03/02/21 History of appendectomy History of breast biopsy benign History of coronary artery bypass graft x 3 1996 History of nasal polypectomy History of tonsillectomy and adenoidectomy Family History Son Atrial fibrillation Mother Hypertension Social History Smoking Status: Unknown if ever smoked packs per day: 1; Years Smoked: 20; Second Hand Exposure: No; Preferred Language: Upper Sorbian Communication Ability: Effective Visual Impairment: Limited Hearing Ability: Hard of Hearing Resource Recovery Specialist Required: No Beliefs That Will Affect Care: None marital status: Current Living Situation: [place] current occupational status: retired How many Children do You have: 2 Feels Safe at Home: Yes Assistive Devices: Denture - Upper, Denture - Lower, Glasses and Walker Review of Systems Review of Systems: Unobtainable due to cognitive status Physical Exam Constitutional: no acute distress Eyes: no conjunctival abnormality ENMT: Ears: no external ear abnormality Neck: trachea midline Respiratory: normal respiratory effort; no respiratory distress and no labored breathing Cardiovascular: Rate/Rhythm: regular rate and regular rhythm Gastrointestinal (Abdomen): Patient's abdomen was soft and nondistended. I did not appreciate any masses, organomegaly, or hernias. Both light and deep palpation did not elicit a painful response. Musculoskeletal: No lower extremity edema Skin: no rashes Neurologic: Patient was lethargic. She did not follow commands. She did not respond to loud verbal stimuli Results & Data ([facility]) Vital Signs (Past 12 Hours) Vital Signs Temp Pulse Pulse Resp BP BP Pulse Ox 09/15/21 20:47 98 H 18 95 09/15/21 20:00 96 H 21 96 09/15/21 19:57 96 H 112/57 L 09/15/21 19:35 112/86 09/15/21 19:01 119 H 31 H 155/112 H 94 09/15/21 18:22 131 H 15 155/112 H 96 09/15/21 16:58 95 09/15/21 16:51 95 09/15/21 16:45 36.7 C 114 H 20 112/75 94 PG Care Time/CCT Total # of Minutes Spent Total Time Spent with Patient: Total time spent is greater than 50% in coordination of care (as documented) at patient's floor/unit and/or counseling patient: Coding Level of Care Code 31180 Inpt Consult Level 5 Diagnoses Partial small bowel obstruction K56.600
[2021-09-15] MEDS: ATORVASTATIN 40 MG TAB PO SCH (21:21)
[2021-09-15] MEDS: HEPARIN SOD 5,000 UNIT/0.5 ML VIAL SQ SCH (21:42)
[2021-09-15] MEDS ORDERED: INSULIN GLARGINE SOLOSTAR 100 UNITS/ML 3 ML PEN SC ONE (23:45)
[2021-09-15] MEDS ORDERED: MAGNESIUM SULFATE / D5W 1 GM/100 ML BAG IV ONE (23:45)
[2021-09-16] MEDS ORDERED: Nursing to Pharmacy Communication SCH (04:00)
[2021-09-16] MEDS: METOPROLOL TARTRATE 1 MG/ML VIAL IV SCH ×3 (05:38→18:01)
[2021-09-16] MEDS: HEPARIN SOD 5,000 UNIT/0.5 ML VIAL SQ SCH ×3 (05:39→22:36)
[2021-09-16] MEDS: INSULIN ASPART PER UNIT SC SCH ×3 (05:40→17:56)
[2021-09-16 06:05] LABS: Basophils # (auto) 0.02 K/uL (0-0.2); Basophils % (auto) 0.3 %; Eosinophils # (auto) 0.15 K/uL (0-0.5); Eosinophils % (auto) 2.3 %; Hematocrit (blood only) 35.9 % (37-47); Hemoglobin 11.4 g/dL (12.0-16.0); Immature Granulocytes # (auto) 0.01 K/uL (0.00-0.02); Immature Granulocytes % (auto) 0.2 %; Lymphocytes # (auto) 1.94 K/uL (1.2-3.4); Lymphocytes % (auto) 30.1 %; Mean Corpuscular Hgb Conc 31.8 g/dL (32-36); Mean Corpuscular Volume 88.2 fL (80-100); Mean Platelet Volume 10.5 fL (7.4-10.4); Monocytes # (auto) 0.75 K/uL (0.11-0.59); Monocytes % (auto) 11.6 %; Neutrophils # (auto) 3.58 K/uL (1.4-6.5); Neutrophils % (auto) 55.5 %; Platelet Count 213 K/uL (130-400); RDW Coefficient of Variation 18.9 % (11.5-14.5); RDW Standard Deviation 61.5 fL (36.4-46.3); Red Blood Count 4.07 M/uL (4.2-5.4); White Blood Count 6.45 K/uL (4.8-10.8)
[2021-09-16 06:40] LABS: BUN Creatinine Ratio 14.6 (10-20); Calcium 8.9 mg/dl (8.5-10.1); Creatinine Clr Calc Pharmacy 18.7 ml/min; Est GFR (African American) 28.1 ml/min; Est GFR (Non-African American) 24.2 ml/min
[2021-09-16] MEDS: PANTOprazole 40 MG TAB PO SCH (08:57)
[2021-09-16] MEDS: ISOSORBIDE DINITRATE 10 MG TAB PO SCH (08:57)
--- NOTE | 2021-09-16 09:09 | Electrocardiogram Report ---
Test Reason : Blood Pressure : / mmHG Vent. Rate : 120 BPM Atrial Rate : 120 BPM P-R Int : 000 ms QRS Dur : 138 ms QT Int : 366 ms P-R-T Axes : 000 160 -08 degrees QTc Int : 517 ms Poor data quality, interpretation may be adversely affected Atrial fibrillation with rapid ventricular response Right bundle branch block , plus right ventricular hypertrophy T wave abnormality, consider inferior ischemia Abnormal ECG When compared with ECG of 13-JUL-2021 17:44, No significant change was found Confirmed by Jessee De León ([id number]) on 09/16/2021 9:08:49 AM Referred By: Dinah Leon Confirmed By:Joel De León
--- NOTE | 2021-09-16 11:36 | Hospitalist Progress Note ---
Date of Service September 16, 2021 Assessment & Plan (1) Partial small bowel obstruction: Plan: Present on admisison with abdominal discomfort associated with nausea and vomiting CT abd/pelvis showed Mildly dilated fluid-filled stomach and proximal to mid small bowel. Surgery on board Continue conservative management Continue NGT tube placement Continue NPO Will repeat KUB in am Continue monitor electrolytes Atrial fibrillation with RVR: Possible related to UTI Patient not on anticoagulation secondary to fall risk Continue IV lopressor 2.5mg q6h since NPO UTI Urine cx grew gram negative bacilli Starting on Rocephin 1mg IV Will follow urine sensitivity Metabolic Encephalopathy Mostly secondary UTI CT head showed no acute illness Continue to hold gabapentin DVT px on heparin subq Code status DNR Admission and Anticipated Discharge Date Admission Date: September 15, 2021 Subjective Patient was seen and evaluated for follow-up of small bowel obstruction Lying in bed with no acute distress NG tube in place with minimal drainage She said that abdominal discomfort improves and she does not have any episode of vomiting Denies any chest pain, palpitation, dizziness, shortness of breath. Review of Systems Review of Systems: All systems reviewed & are unremarkable except as noted in Subjective Physical Exam Physical Exam: General- No acute distress Head- atraumatic Eyes- PERRL, EOMI, ENT-NG tube in place Neck- supple, no JVD Lungs- clear to auscultation Heart- regular rhythm; no murmur Abdomen- Hypoactive bowel sounds, Non distended, Mild tenderness Extremities- no calf tenderness Neuro- alert, oriented x 3; PERRL, EOMI; no facial palsy; no dysarthria Skin- warm & dry Results & Data Results & Data ([facility]) Vital Signs (Past 12 Hours) Vital Signs Temp Pulse Pulse Resp BP BP Pulse Ox 09/16/21 11:02 37.0 C 89 17 119/66 94 09/16/21 07:40 36.9 C 87 17 124/87 96 09/16/21 05:38 101 H 126/52 L 09/16/21 04:00 36.6 C 98 H 18 126/52 L 94 09/15/21 23:43 97 H
--- NOTE | 2021-09-16 11:56 | Surgery Progress Note ---
Date of Service September 16, 2021 Assessment & Plan (1) Partial small bowel obstruction: Plan: Patient here with CT findings of partial SBO vs enteritis WBC 6.4, VSS Abdomen soft NGT in place with clear/green fluid Continue NPT with NGT until return of bowel function No plans for surgical intervention at this time Admission and Anticipated Discharge Date Admission Date: September 15, 2021 Supervising Physician Co-Signing Physician Notes I personally saw and evaluated the patient with Kayleigh Frankel PA-C and agree with the assessment and plan. 86-year-old female with partial small bowel obstruction versus enteritis Abdominal exam benign without signs of mesenteric ischemia Continue NG tube decompression for another day Her mild leukocytosis has resolved today Will follow Subjective Patient resting in bed with NGT in place. Does not appear in any distress. Physical Exam Physical Exam: awake resting in bed, NAD Gastrointestinal (Abdomen): Inspection/Auscultation: abdomen not distended Percussion/Palpation: abdomen soft Results & Data ([facility]) Vital Signs (Past 12 Hours) Vital Signs Temp Pulse Pulse Resp BP BP Pulse Ox 09/16/21 11:02 37.0 C 89 17 119/66 94 09/16/21 07:40 36.9 C 87 17 124/87 96 09/16/21 05:38 101 H 126/52 L 09/16/21 04:00 36.6 C 98 H 18 126/52 L 94 PG Care Time/CCT Total # of Minutes Spent Total Time Spent with Patient: Total time spent is greater than 50% in coordination of care (as documented) at patient's floor/unit and/or counseling patient: Coding Level of Care Code 40444 Subseq Hosp Care Lvl 1 Diagnoses Partial small bowel obstruction K56.600
[2021-09-16] MEDS ORDERED: cefTRIAXone SODIUM 1,000 MG in DEXTROSE 5% 50 ML IV SCH (12:00)
[2021-09-16] MEDS: LACTATED RINGER'S 1,000 ML IV SCH (13:56)
[2021-09-16] MEDS: ATORVASTATIN 40 MG TAB PO SCH (22:36)
[2021-09-16] MEDS: INSULIN GLARGINE SOLOSTAR 100 UNITS/ML 3 ML PEN SC SCH (22:36)
[2021-09-17] MEDS: METOPROLOL TARTRATE 1 MG/ML VIAL IV SCH ×4 (00:04→18:26)
[2021-09-17] MEDS: INSULIN ASPART PER UNIT SC SCH ×6 (00:25→20:58)
[2021-09-17] MEDS: HEPARIN SOD 5,000 UNIT/0.5 ML VIAL SQ SCH ×3 (05:45→20:52)
[2021-09-17] MEDS: LACTATED RINGER'S 1,000 ML IV SCH ×2 (06:37→21:00)
[2021-09-17] MEDS: ISOSORBIDE DINITRATE 10 MG TAB PO SCH (08:01)
[2021-09-17] MEDS: PANTOprazole 40 MG TAB PO SCH (08:01)
[2021-09-17 08:43] LABS: Hematocrit (blood only) 32.6 % (37-47); Hemoglobin 10.2 g/dL (12.0-16.0); Mean Corpuscular Hemoglobin 27.6 pg (25-34); Mean Corpuscular Hgb Conc 31.3 g/dL (32-36); Mean Corpuscular Volume 88.3 fL (80-100); Mean Platelet Volume 10.5 fL (7.4-10.4); Platelet Count 187 K/uL (130-400); RDW Coefficient of Variation 18.7 % (11.5-14.5); RDW Standard Deviation 60.9 fL (36.4-46.3); Red Blood Count 3.69 M/uL (4.2-5.4); White Blood Count 5.73 K/uL (4.8-10.8)
[2021-09-17 09:12] LABS: BUN Creatinine Ratio 18.1 (10-20); Calcium 8.7 mg/dl (8.5-10.1); Creatinine Clr Calc Pharmacy 21.7 ml/min; Est GFR (African American) 33.5 ml/min; Est GFR (Non-African American) 28.9 ml/min; Potassium 3.8 mmol/L (3.5-5.1)
[2021-09-17] MEDS: ERTAPENEM SODIUM 500 MG in SYRINGE 0 ML IV SCH (09:53)
--- NOTE | 2021-09-17 10:14 | XRay Report ---
XR KUB/Abdomen 1 view CLINICAL HISTORY: f/u partial SBO TECHNIQUE: 1 view of the abdomen was obtained. Comparison: Comparison is made to abdomen radiograph 09/15/[address] abdomen pelvis 09/15/2021 FINDINGS: Enteric tube side-port lies within the stomach. The osseous structures are grossly unremarkable. Ther e is a loop of distended bowel in the left upper quadrant measuring up to 3 cm in diameter. A moderat e amount of stool is noted within the large bowel. IMPRESSION: Left upper quadrant loop of bowel measuring 3 cm in diameter. Otherwise no evidence of small bowel di lation. Findings may represent improving partial small bowel obstruction. ACT 112: Negative or not required by law. Electronically signed by: Rangel Ramirez M.D. 09/17/2021 10:13 AM
--- NOTE | 2021-09-17 11:20 | Surgery Progress Note ---
Date of Service September 17, 2021 Assessment & Plan (1) Partial small bowel obstruction: Plan: Patient here with c/f partial SBO vs enteritis WBC 5.7 Patient underwent a KUB today that revealed an improving partial SBO NGT with minimal output Abdomen soft, non distended Will trial removing NGT and starting patient on clear liquids Awaiting return of meaningful bowel function Admission and Anticipated Discharge Date Admission Date: September 15, 2021 Supervising Physician Co-Signing Physician Notes I personally saw and evaluated the patient with Kayleigh Frankel PA-C and agree with the assessment and plan. 86-year-old female with partial small bowel obstruction versus enteritis Remove NG tube Start clear liquids Subjective Patient reporting some abdominal pain but says it is better than yesterday. She denies flatus/BM. Physical Exam Physical Exam: awake, resting in bed Gastrointestinal (Abdomen): Inspection/Auscultation: abdomen not distended Percussion/Palpation: + abdomen tender (mild discomfort to palpation in the mid/lower abdomen) and abdomen soft Results & Data ([facility]) Vital Signs (Past 12 Hours) Vital Signs Temp Pulse Pulse Resp BP BP Pulse Ox 09/17/21 08:00 84 09/17/21 07:47 36.9 C 101 H 19 177/128 H 94 09/17/21 05:45 84 168/88 H 09/17/21 04:00 36.5 C 69 20 126/87 98 09/17/21 00:04 111 H 182/98 H PG Care Time/CCT Total # of Minutes Spent Total Time Spent with Patient: Total time spent is greater than 50% in coordination of care (as documented) at patient's floor/unit and/or counseling patient: Coding Level of Care Code 61595 Subseq Hosp Care Lvl 1 Diagnoses Partial small bowel obstruction K56.600
[2021-09-17] MEDS ORDERED: Nursing to Pharmacy Communication SCH (12:00)
[2021-09-17] MEDS: METOPROLOL TARTRATE 100 MG TAB PO SCH (20:51)
[2021-09-17] MEDS: ATORVASTATIN 40 MG TAB PO SCH (20:52)
[2021-09-17] MEDS: INSULIN GLARGINE SOLOSTAR 100 UNITS/ML 3 ML PEN SC SCH (20:58)
--- NOTE | 2021-09-17 23:54 | Hospitalist Progress Note ---
Date of Service September 17, 2021 Assessment & Plan (1) Partial small bowel obstruction: Plan: Present on admisison with abdominal discomfort associated with nausea and vomiting CT abd/pelvis showed Mildly dilated fluid-filled stomach and proximal to mid small bowel. KUB done today showed Left upper quadrant loop of bowel measuring 3 cm in diameter. Otherwise no evidence of small bowel dilation. Surgery on board Continue conservative management NGT tube removed Starting on clear liquid diet Continue monitor electrolytes Clinically improved Atrial fibrillation with RVR: Possible related to UTI Patient not on anticoagulation secondary to fall risk Will transition to PO Metoprolol since starting on diet UTI Urine cx grew gram negative bacilli- ECOLI ESBL Discontinue Rocephin 1mg IV, then starting on Ertapenem Continue IV ertapenem Metabolic Encephalopathy Mostly secondary UTI CT head showed no acute illness Continue to hold gabapentin DVT px on heparin subq Code status DNR Admission and Anticipated Discharge Date Admission Date: September 15, 2021 Subjective Patient was seen and examined for follow-up of pain due to small bowel obstruction Lying in bed with no acute distress NG tube removed Pt said that she does not have any abdominal pain currently She tolerated clear liquid diet Denies any chest pain, palpitation, dizziness, shortness of breath. Review of Systems Review of Systems: All systems reviewed & are unremarkable except as noted in Subjective Physical Exam Physical Exam: General- No acute distress Head- atraumatic Eyes- PERRL, EOMI, ENT-NG tube in place Neck- supple, no JVD Lungs- clear to auscultation Heart- regular rhythm; no murmur Abdomen- Hypoactive bowel sounds, Non distended, no tenderness Extremities- no calf tenderness Neuro- alert, oriented x 3; PERRL, EOMI; no facial palsy; no dysarthria Skin- warm & dry Results & Data Results & Data ([facility]) Vital Signs (Past 12 Hours) Vital Signs Temp Pulse Pulse Resp BP Pulse Ox 09/17/21 23:40 86 09/17/21 22:55 36.7 C 72 19 159/92 H 99 09/17/21 19:10 36.7 C 86 18 192/73 H 92 09/17/21 18:07 162/86 H 09/17/21 16:14 36.7 C 85 17 160/85 H 95 09/17/21 12:30 36.5 C 89 18 160/71 H 95
[2021-09-18] MEDS ORDERED: METOPROLOL TARTRATE 100 MG TAB PO SCH (03:30)
[2021-09-18] MEDS ORDERED: METOPROLOL TARTRATE 25 MG TAB PO SCH (03:30)
--- NOTE | 2021-09-18 03:33 | Communication Note ---
Date of Service: September 18, 2021 Made aware by RN of uncontrolled blood pressure. SBP 150-190s the last 24 hours. Patient asymptomatic as per RN. AP Hypertensive urgency Add amlodipine to regimen. Will relay to AM provider.
[2021-09-18] MEDS: METOPROLOL TARTRATE 100 MG TAB PO SCH ×2 (03:52→22:10)
[2021-09-18] MEDS: amLODIPine BESYLATE 5 MG TAB PO SCH (03:52)
[2021-09-18] MEDS: HEPARIN SOD 5,000 UNIT/0.5 ML VIAL SQ SCH ×3 (05:23→22:02)
[2021-09-18 08:11] LABS: Hematocrit (blood only) 34.3 % (37-47); Mean Corpuscular Hemoglobin 27.8 pg (25-34); Mean Corpuscular Hgb Conc 32.1 g/dL (32-36); Mean Corpuscular Volume 86.8 fL (80-100); Mean Platelet Volume 10.5 fL (7.4-10.4); Platelet Count 195 K/uL (130-400); RDW Coefficient of Variation 18.3 % (11.5-14.5); RDW Standard Deviation 59.4 fL (36.4-46.3); Red Blood Count 3.95 M/uL (4.2-5.4)
[2021-09-18] MEDS: PANTOprazole 40 MG TAB PO SCH (08:31)
[2021-09-18] MEDS: ISOSORBIDE DINITRATE 10 MG TAB PO SCH (08:31)
[2021-09-18] MEDS: INSULIN ASPART PER UNIT SC SCH ×4 (08:32→22:00)
[2021-09-18] MEDS: ERTAPENEM SODIUM 500 MG in SYRINGE 0 ML IV SCH (08:56)
--- NOTE | 2021-09-18 09:26 | Surgery Progress Note ---
Date of Service September 18, 2021 Assessment & Plan (1) Partial small bowel obstruction: Plan: She is tolerating clears and passing flatus Can advance diet as tolerated Surgery will sign off at this time please call with any questions or concerns. Admission and Anticipated Discharge Date Admission Date: September 15, 2021 Subjective Patient seen and examined. Tolerating clear liquids. No abdominal pain. Positive flatus/no BM. Review of Systems Constitutional: no fever and no chills Physical Exam Constitutional: WD/WN, vitals as above Gastrointestinal (Abdomen): Inspection/Auscultation: abdomen normal to inspection; abdomen not distended Percussion/Palpation: abdomen soft; abdomen nontender Results & Data ([facility]) Vital Signs (Past 12 Hours) Vital Signs Temp Pulse Pulse Resp BP Pulse Ox 09/18/21 07:51 36.4 C L 78 18 171/74 H 94 09/18/21 05:28 162/95 H 09/18/21 03:22 83 174/93 H 09/18/21 03:11 36.6 C 79 20 181/78 H 94 09/17/21 23:40 86 09/17/21 22:55 36.7 C 72 19 159/92 H 99 PG Care Time/CCT Total # of Minutes Spent Total Time Spent with Patient: Total time spent is greater than 50% in coordination of care (as documented) at patient's floor/unit and/or counseling patient: Coding Level of Care Code 56724 Subseq Hosp Care Lvl 1 Diagnoses Partial small bowel obstruction K56.600
[2021-09-18] MEDS: INSULIN GLARGINE SOLOSTAR 100 UNITS/ML 3 ML PEN SC SCH (22:00)
[2021-09-18] MEDS: ATORVASTATIN 40 MG TAB PO SCH (22:03)
--- NOTE | 2021-09-18 23:50 | Hospitalist Progress Note ---
Date of Service September 18, 2021 Assessment & Plan (1) Partial small bowel obstruction: Plan: Present on admisison with abdominal discomfort associated with nausea and vomiting CT abd/pelvis showed Mildly dilated fluid-filled stomach and proximal to mid small bowel. KUB done today showed Left upper quadrant loop of bowel measuring 3 cm in diameter. Otherwise no evidence of small bowel dilation. Surgery on board Continue conservative management NGT tube removed Tolerated clear liquid diet, diet advanced to full liquid Continue monitor electrolytes Clinically improved Atrial fibrillation with RVR: Possible related to UTI Patient not on anticoagulation secondary to fall risk Rate controlled Continue metoprolol 100 mg twice daily UTI ESBL E. coli Discontinue Rocephin then starting on Ertapenem Continue IV ertapenem Metabolic Encephalopathy Mostly secondary UTI CT head showed no acute illness Continue to hold gabapentin DVT px on heparin subq Code status DNR Admission and Anticipated Discharge Date Admission Date: September 15, 2021 Subjective Patient was seen and examined for follow-up of abdominal pain due to small bowel obstruction Lying in bed with no acute distress Patient said that she feels fine She tolerated clear liquid diet denies any chest pain, palpitation, dizziness, shortness of breath. Review of Systems Review of Systems: All systems reviewed & are unremarkable except as noted in Subjective Physical Exam Physical Exam: General- No acute distress Head- atraumatic Eyes- PERRL, EOMI, ENT-NG tube in place Neck- supple, no JVD Lungs- clear to auscultation Heart- regular rhythm; no murmur Abdomen- Hypoactive bowel sounds, Non distended, no tenderness Extremities- no calf tenderness Neuro- alert, oriented x 3; PERRL, EOMI; no facial palsy; no dysarthria Skin- warm & dry Results & Data Results & Data ([facility]) Vital Signs (Past 12 Hours) Vital Signs Temp Pulse Resp BP BP Pulse Ox 09/18/21 19:54 36.4 C L 93 H 18 161/77 H 94 09/18/21 17:05 36.6 C 90 16 181/91 H 94 09/18/21 12:34 36.4 C L 86 18 162/83 H 98
[2021-09-19] MEDS: HEPARIN SOD 5,000 UNIT/0.5 ML VIAL SQ SCH ×3 (06:09→21:07)
[2021-09-19 07:06] LABS: Creatinine Clr Calc Pharmacy 27.1 ml/min; Est GFR (African American) 42.6 ml/min; Est GFR (Non-African American) 36.8 ml/min
[2021-09-19] MEDS: INSULIN ASPART PER UNIT SC SCH ×4 (09:23→21:05)
[2021-09-19] MEDS: ERTAPENEM SODIUM 500 MG in SYRINGE 0 ML IV SCH (09:29)
[2021-09-19] MEDS: amLODIPine BESYLATE 5 MG TAB PO SCH (09:31)
[2021-09-19] MEDS: ISOSORBIDE DINITRATE 10 MG TAB PO SCH (09:33)
[2021-09-19] MEDS: METOPROLOL TARTRATE 100 MG TAB PO SCH ×2 (09:33→21:06)
[2021-09-19] MEDS: PANTOprazole 40 MG TAB PO SCH (09:34)
--- NOTE | 2021-09-19 17:28 | Hospitalist Progress Note ---
Date of Service September 19, 2021 Assessment & Plan (1) Partial small bowel obstruction: Plan: Present on admisison with abdominal discomfort associated with nausea and vomiting CT abd/pelvis showed Mildly dilated fluid-filled stomach and proximal to mid small bowel. KUB done today showed Left upper quadrant loop of bowel measuring 3 cm in diameter. Otherwise no evidence of small bowel dilation. Surgery on board Continue conservative management NGT tube removed Diet adanced to low fiber, tolerated it Continue monitor electrolytes Clinically improved Atrial fibrillation with RVR: Possible related to UTI Patient not on anticoagulation secondary to fall risk Rate controlled Continue metoprolol 100 mg twice daily stable UTI ESBL E. coli Discontinue Rocephin then starting on Ertapenem Continue IV ertapenem Metabolic Encephalopathy Mostly secondary UTI CT head showed no acute illness Continue to hold gabapentin DVT px on heparin subq Code status DNR Disposition Waiting for placement Admission and Anticipated Discharge Date Admission Date: September 15, 2021 Subjective Patient was seen and examined for follow-up of abdominal pain due to small bowel obstruction Lying in bed with no acute distress Patient said that she feels fine She tolerated low fiber diet denies any chest pain, palpitation, dizziness, shortness of breath. Review of Systems Review of Systems: All systems reviewed & are unremarkable except as noted in Subjective Physical Exam Physical Exam: General- No acute distress Head- atraumatic Eyes- PERRL, EOMI, ENT-NG tube in place Neck- supple, no JVD Lungs- clear to auscultation Heart- regular rhythm; no murmur Abdomen- + bowel sounds, Non distended, no tenderness Extremities- no calf tenderness Neuro- alert, oriented x 3; PERRL, EOMI; no facial palsy; no dysarthria Skin- warm & dry Results & Data Results & Data ([facility]) Vital Signs (Past 12 Hours) Vital Signs Temp Pulse Pulse Resp BP Pulse Ox 09/19/21 16:22 36.6 C 67 18 151/76 H 95 09/19/21 13:49 75 09/19/21 12:28 36.4 C L 80 18 165/76 H 95
[2021-09-19] MEDS: ATORVASTATIN 40 MG TAB PO SCH (21:05)
[2021-09-19] MEDS: INSULIN GLARGINE SOLOSTAR 100 UNITS/ML 3 ML PEN SC SCH (21:05)
[2021-09-20] MEDS: HEPARIN SOD 5,000 UNIT/0.5 ML VIAL SQ SCH ×3 (05:45→20:24)
[2021-09-20 07:55] LABS: BUN Creatinine Ratio 13.3 (10-20); Est GFR (African American) 43.8 ml/min; Est GFR (Non-African American) 37.8 ml/min; Potassium 3.4 mmol/L (3.5-5.1)
[2021-09-20] MEDS ORDERED: hydrALAZINE HCL 20 MG/ML VIAL IV PRN (08:17)
[2021-09-20] MEDS: INSULIN ASPART PER UNIT SC SCH ×4 (08:57→20:22)
[2021-09-20] MEDS: ERTAPENEM SODIUM 500 MG in SYRINGE 0 ML IV SCH (08:59)
[2021-09-20] MEDS: amLODIPine BESYLATE 5 MG TAB PO SCH (09:01)
[2021-09-20] MEDS: METOPROLOL TARTRATE 100 MG TAB PO SCH ×2 (09:01→20:24)
[2021-09-20] MEDS: ISOSORBIDE DINITRATE 10 MG TAB PO SCH (09:01)
[2021-09-20] MEDS: PANTOprazole 40 MG TAB PO SCH (09:01)
[2021-09-20] MEDS ORDERED: POTASSIUM CHLORIDE CRTAB 20 MEQ TABCR PO STA (09:33)
[2021-09-20] MEDS: ATORVASTATIN 40 MG TAB PO SCH (20:22)
[2021-09-20] MEDS: INSULIN GLARGINE SOLOSTAR 100 UNITS/ML 3 ML PEN SC SCH (20:23)
--- NOTE | 2021-09-20 23:46 | Hospitalist Progress Note ---
Date of Service September 20, 2021 Assessment & Plan (1) Partial small bowel obstruction: Plan: Present on admisison with abdominal discomfort associated with nausea and vomiting CT abd/pelvis showed Mildly dilated fluid-filled stomach and proximal to mid small bowel. KUB done today showed Left upper quadrant loop of bowel measuring 3 cm in diameter. Otherwise no evidence of small bowel dilation. Surgery on board Continue conservative management NGT tube removed Diet adanced to low fiber, tolerated it Continue monitor electrolytes Clinically improved Atrial fibrillation with RVR: Possible related to UTI Patient not on anticoagulation secondary to fall risk Rate controlled Continue metoprolol 100 mg twice daily stable UTI ESBL E. coli Discontinue Rocephin then starting on Ertapenem Continue IV ertapenem PVD/PAD Chronic toes Gangrene Pt does not want to get any surgery for the toes It has been addressed since last few admission Metabolic Encephalopathy Mostly secondary UTI CT head showed no acute illness Continue to hold gabapentin DVT px on heparin subq Code status DNR Disposition Plan to discharge home tomorrow Admission and Anticipated Discharge Date Admission Date: September 15, 2021 Subjective Patient was seen and examined for follow-up of abdominal pain due to small bowel obstruction Lying in bed with no acute distress denies any chest pain, palpitation, dizziness, shortness of breath. Review of Systems Review of Systems: All systems reviewed & are unremarkable except as noted in Subjective Physical Exam Physical Exam: General- No acute distress Head- atraumatic Eyes- PERRL, EOMI, ENT-NG tube in place Neck- supple, no JVD Lungs- clear to auscultation Heart- regular rhythm; no murmur Abdomen- + bowel sounds, Non distended, no tenderness Extremities- no calf tenderness, Dry toes gangrene Neuro- alert, oriented x 3; PERRL, EOMI; no facial palsy; no dysarthria Skin- warm & dry Results & Data Results & Data ([facility]) Vital Signs (Past 12 Hours) Vital Signs Temp Pulse Pulse Resp BP Pulse Ox 09/20/21 23:08 36.4 C L 76 18 165/78 H 95 09/20/21 19:12 36.1 C L 79 16 154/90 H 97 09/20/21 16:12 36.2 C L 76 16 147/82 H 99 09/20/21 14:50 80 09/20/21 11:51 36.7 C 79 15 151/84 H 96
[2021-09-21] MEDS: HEPARIN SOD 5,000 UNIT/0.5 ML VIAL SQ SCH (05:40)
[2021-09-21 07:35] LABS: Hematocrit (blood only) 35.7 % (37-47); Hemoglobin 11.5 g/dL (12.0-16.0); Mean Corpuscular Hemoglobin 27.6 pg (25-34); Mean Corpuscular Hgb Conc 32.2 g/dL (32-36); Mean Corpuscular Volume 85.6 fL (80-100); Mean Platelet Volume 10.2 fL (7.4-10.4); Platelet Count 193 K/uL (130-400); RDW Coefficient of Variation 17.9 % (11.5-14.5); Red Blood Count 4.17 M/uL (4.2-5.4)
[2021-09-21 07:57] LABS: Creatinine Clr Calc Pharmacy 23.3 ml/min; Est GFR (African American) 40.4 ml/min; Est GFR (Non-African American) 34.8 ml/min
[2021-09-21] MEDS: INSULIN ASPART PER UNIT SC SCH ×2 (08:27→12:23)
[2021-09-21] MEDS ORDERED: ISOSORBIDE MONO EXTENDED REL 30 MG TABCR PO SCH (09:00)
[2021-09-21] MEDS: amLODIPine BESYLATE 5 MG TAB PO SCH (09:09)
[2021-09-21] MEDS: PANTOprazole 40 MG TAB PO SCH (09:09)
[2021-09-21] MEDS: METOPROLOL TARTRATE 100 MG TAB PO SCH (09:10)
[2021-09-21] MEDS: ERTAPENEM SODIUM 500 MG in SYRINGE 0 ML IV SCH (09:31)
--- NOTE | 2021-09-21 13:02 | Discharge Summary ---
Date of Service September 21, 2021 Admission HPI Per Admitting Provider Chief Complaint: Bowel obstruction as per records Primary Care Provider: [facility] History obtained from patient family and records. Unable to obtain history from patient secondary to obtunded state. Medical history significant for chronic diastolic heart failure (EF 58%, TTE 2020), CAD sp CABG, PVD, A. fib not on anticoagulation secondary to recurrent falls, hypertension, hyperlipidemia, pulmonary hypertension as per records, DM 2 insulin requiring, CRI (baseline creatinine 1.7), dementia, chronic anemia (baseline hemoglobin 9-10), past tobacco abuse. Last confinement June 2021 secondary to metabolic encephalopathy and left frontal scalp hematoma secondary to fall. Patient Coumadin stopped on discharge. Patient had abdominal pain complaints and numerous episodes of emesis at the [facility] today. Patient more lethargic than usual. Outpatient x-ray showed moderate small bowel ileus in the mid to left portion, possibility of partial distal obstruction is not excluded. Patient sent to the ER by [facility] provider for evaluation. NGT inserted at the ER for bowel obstruction. Admission Exam Per Admitting Provider GENERAL: Obtunded, no respiratory distress SKIN: Pallor, warm HEENT: Davison palpebral conjunctivae, no ptosis, dry buccal mucosa NECK : Supple, no tenderness CHEST : Decreased breath sounds, no tenderness HEART : Irregular, no obvious murmurs ABDOMEN: Some distention, nontender EXTREMITIES : Minimal LE swelling, no LE tenderness, no other conspicuous deformities noted NEUROLOGIC : Obtunded, no facial asymmetry, gait and stance not assessed Principal Diagnosis Partial small bowel obstruction: Atrial fibrillation with RVR: Urinary tract infection ESBL E. coli PVD/PAD Chronic toes Gangrene Metabolic Encephalopathy Discharge Exam General- No acute distress Head- atraumatic Eyes- PERRL, EOMI, ENT-NG tube in place Neck- supple, no JVD Lungs- clear to auscultation Heart- regular rhythm; no murmur Abdomen- + bowel sounds, Non distended, no tenderness Extremities- no calf tenderness, Dry toes gangrene both feet Neuro- alert, oriented x 3; PERRL, EOMI; no facial palsy; no dysarthria Skin- warm & dry Discharge Data Allergies Allergy/AdvReac Type Severity Reaction Status Date / Time aspirin Allergy Severe PEPTIC Verified 09/15/21 17:15 ULCER DISEASE WITH HEMMORAGE oxytetracycline Allergy Severe SEVERE Verified 09/15/21 17:15 SWELLING polymyxin B Allergy Severe SEVERE Verified 09/15/21 17:15 SWELLING codeine Allergy Unknown ON WINDY Verified 09/15/21 17:15 [facility] L[facility] Consultations 09/15/21 18:44 ED Decision to Admit Stat 09/15/21 21:01 Consult General Surgery Routine Ordered Studies 09/15/21 16:51 CT abd pelvis wo con Stat CT head/brain wo con Stat XR KUB/Abdomen 1 view CLINICAL HISTORY: f/u partial SBO TECHNIQUE: 1 view of the abdomen was obtained. Comparison: Comparison is made to abdomen radiograph 09/15/[address] abdomen pelvis 09/15/2021 FINDINGS: Enteric tube side-port lies within the stomach. The osseous structures are grossly unremarkable. There is a loop of distended bowel in the left upper quadrant measuring up to 3 cm in diameter. A moderate amount of stool is noted within the large bowel. IMPRESSION: Left upper quadrant loop of bowel measuring 3 cm in diameter. Otherwise no evidence of small bowel dilation. Findings may represent improving partial small bowel obstruction. ACT 112: Negative or not required by law. Electronically signed by: Rangel Ramirez M.D. 09/17/2021 10:13 AM Dictated:09/17/21 1010 Transcribed: 09/17/21 1010 KUB CLINICAL HISTORY: NG placement COMPARISON STUDY: CT of the abdomen and pelvis performed earlier today. FINDINGS: The tip of the nasogastric tube projects over the body of the stomach. Median sternotomy wires are noted. There are mediastinal surgical clips. There is cardiomegaly. IMPRESSION: Tip of nasogastric tube projects over the body of the stomach. ACT 112: Negative or not required by law. Electronically signed by: Artur Maradiaga M.D. 09/15/2021 8:01 PM Dictated:09/15/211999 Transcribed: 09/15/211999 CT OF THE HEAD WITHOUT CONTRAST CLINICAL HISTORY: Altered mental status. COMPARISON STUDY: Head CT July 14, 2021. CT DOSE: 614.27 mGy.cm TECHNIQUE: Helical axial images of the head were obtained without IV contrast. Automated exposure control was utilized for the study. A dose lowering technique was utilized adhering to the principles of ALARA. FINDINGS: No acute intracranial hemorrhage, midline shift or mass effect is present. Ventricular system is stable. Basal cisterns are patent. There are no extra-axial collections. White matter hypodensities favor small vessel disease. There are no findings to suggest acute dural sinus thrombosis or acute territorial infarct. Small amount of fluid within the bilateral mastoid air cells is noted. There are postoperative findings within the sinuses. Left maxillary sinus is opacified with a possible polyp extending into the left nasal cavity. This is similar to prior exam. No acute calvarial fracture. Small air- fluid levels within the sphenoid sinuses are present. IMPRESSION: No acute intracranial findings. No change in appearance of the brain. ACT 112: Negative or not required by law. Electronically signed by: Artur Maradiaga M.D. 09/15/2021 6:17 PM Dictated:09/15/211813 Transcribed: 09/15/211813 CT OF THE ABDOMEN AND PELVIS WITHOUT CONTRAST CLINICAL HISTORY: Vomiting. Evaluate for bowel obstruction. COMPARISON STUDY: CT of the abdomen and pelvis July 13, 2021. TECHNIQUE: Axial images of the abdomen and pelvis were obtained without IV contrast. Images were reviewed in the axial, sagittal, and coronal planes. Automated exposure control was utilized for the study. A dose lowering techniq ue was utilized adhering to the principles of ALARA. FINDINGS: Cardiomegaly is noted. There is a moderate sized hiatal hernia. The stomach is moderately distended and fluid-filled. The proximal to mid small bowel is also moderately distended and fluid-filled. Well-defined transition point is not identified. There is mild associated mesenteric infiltration. There is mild wall thickening of several small bowel loops. No pneumatosis, free air or portal venous gas is present. Distal small bowel is relatively decompressed. Colonic diverticulosis is noted without evidence for acute diverticulitis. The appendix is not visualized. There is no right lower quadrant inflammation. Evaluation of the abdomen and pelvis is suboptimal on this unenhanced exam. Unenhanced images of the liver, spleen, adrenal glands and pancreas are unremarkable. No biliary or pancreatic ductal dilatation is present. There are calcific gallstones within the gallbladder without evidence for acute cholecystitis. A 1.6 cm nodule adjacent to the gastric fundus is unchanged since prior CT. This is indeterminate. Abdominal aorta is ectatic, measuring 2.5 cm in caliber. IMPRESSION: 1. Mildly dilated fluid-filled stomach and proximal to mid small bowel. Although no well-defined transition point is identified, the findings favor a partial small bowel obstruction. A nonspecific enteritis could appear similar with mild wall thickening of several small bowel loops. Nasogastric tube insertion might be considered. Moderate sized hiatal hernia. 2. Cholelithiasis. No evidence for acute cholecystitis. 3. Sigmoid diverticulosis. No evidence for acute diverticulitis. 5. No change in an indeterminate 1.6 cm nodule adjacent to the gastric fundus since CT of July 13, 2021. ACT 112: Negative or not required by law. Electronically signed by: Artur Maradiaga M.D. 09/15/2021 6:35 PM Dictated:09/15/211823 Transcribed: 09/15/211823 Hospital Course (1) Partial small bowel obstruction: Present on admisison with abdominal discomfort associated with nausea and vomiting CT abd/pelvis showed Mildly dilated fluid-filled stomach and proximal to mid small bowel. KUB done today showed Left upper quadrant loop of bowel measuring 3 cm in diameter. Otherwise no evidence of small bowel dilation. Surgery on board Continue conservative management NGT tube removed Continue to low fiber diet, tolerated it Continue monitor electrolytes Clinically improved Atrial fibrillation with RVR: Possible related to UTI Patient not on anticoagulation secondary to fall risk Rate controlled Continue metoprolol 100 mg twice daily stable UTI ESBL E. coli Discontinue Rocephin then starting on Ertapenem Completed IV ertapenem course PVD/PAD Chronic toes Gangrene Pt does not want to get any surgery for the toes Discussed with Son about the toes gangrene. son said that they have been stable Toes gangrene have been addressed in the last few admissions Metabolic Encephalopathy Mostly secondary UTI CT head showed no acute illness Continue to hold gabapentin, will change it to HS DVT px on heparin subq Code status DNR Disposition Plan to discharge home today Total Time Total Time Spent Total Time Spent (In Minutes): 35 minutes Discharge Plan Discharge Items Patient Disposition: Transfer Halfway Fac Reason For Visit: SBO, AFIB Discharge Diagnosis: Partial small bowel obstruction: Atrial fibrillation with RVR: Urinary tract infection ESBL E. coli PVD/PAD Chronic toes Gangrene Metabolic Encephalopathy Activity: Resume your previous activity Non-emergency contact: Primary Care Provider Call non-emergency contact if: you have any medication questions Follow-up/Referrals: Dinah Grant [Primary Care Provider] - Diet: Carb Consistent or DM2 Addtl Attending Provider Instructions: Follow up with your primary care provider at [facility] Continue physical and occupational therapy Follow up with vascular surgery outpatient Continue low fiber diet and advanced as tolerated Continue monitor blood pressure Continue monitor your blood sugar and please titrate insulin once diet advanced Fall precaution Pending Studies at Discharge: No Stand-Alone Forms: My [facility] Skilled Items Patient informed of condition?: Yes DNR: Yes Discharge Level of Care: Skilled Communicable Disease: No Discharge Prognosis: Stable Lines: None Urinary Catheter: No Medications and DC Order Prescriptions: New amlodipine [Norvasc] 5 mg Tablet 2.5 mg PO QAM 30 Days Qty: 15 RF: 0 Continued cetirizine 10 mg Tablet 10 mg PO QAM RF: 0 metoprolol tartrate 100 mg Tablet 100 mg PO AMHS RF: 0 magnesium oxide 400 mg magnesium Tablet 400 mg PO AMHS RF: 0 acetaminophen [Tylenol] 325 mg Tablet 650 mg PO Q4H MDD 3 GRAMS/24 HOURS PRN (Reason: FEVER>100/PAIN) RF: 0 nitroglycerin [Nitrostat] 0.4 mg Tablet, Sublingual 0.4 mg sublingual DIRECTED PRN (Reason: Chest Pain) RF: 0 cholecalciferol (vitamin D3) [Vitamin D3] 50 mcg (2,000 unit) Capsule 50 mcg PO QAM RF: 0 atorvastatin 40 mg tablet 40 mg PO HS RF: 0 ondansetron HCl 4 mg Tablet 4 mg PO Q6H PRN (Reason: NAUSEA/VOMITING) RF: 0 miconazole nitrate 2 % Powder 1 applic TOPICAL BID RF: 0 insulin aspart U-100 [Novolog U-100 Insulin aspart] 100 unit/mL Solution 4 unit SUBCUT QDD RF: 0 ferrous sulfate 325 mg (65 mg iron) Tablet 325 mg PO BID17 RF: 0 povidone-iodine 10 % Swab 1 applic TOPICAL BID RF: 0 (DME) hydrocolloid dressing [DuoDERM CGF Extra Thin] 4 X 4 " bandage TOPICAL RF: 0 pantoprazole [Protonix] [address] for susp in packet 40 mg PO QAM RF: 0 isosorbide mononitrate 30 mg tablet extended release 24 hr 30 mg PO DAILY RF: 0 Changed Lantus U-100 Insulin 100 unit/mL Solution 8 unit SUBCUT HS Qty: 0 RF: 0 insulin aspart U-100 [Novolog U-100 Insulin aspart] 100 unit/mL Solution 8 unit SUBCUT BID Qty: 0 RF: 0 gabapentin 100 mg Capsule 100 mg PO HS Qty: 0 RF: 0 Discharge Orders: Discharge Order (Routine); Ordered 09/21/21 Ordered By: Chris Cazares Admission Data Admit Date/Time: 09/15/21 20:05 Attending Provider: Chris Cazares Admit Provider: Benny Travis Primary Care Provider: Dinah Grant Other Providers: Benny Travis ; Johnnie Correa ; Wilfredo Saenz ; Leo Woodruff ; Yuniel Carballo Jr ; Xavier Ghosh ; Kobi Prado ; Kayleigh Frankel ; Chung Wilkes ; Terell Melvin ; Dinah Grant Other Interventions: Discharge Summary Assessment (RN) Last Done: 09/21/21 12:56
== END 2021-09-21 13:02 | DRG 388 ==
LOC: ED 16:36 → 2S 20:05